=== PATIENT | male | born 1940 | race Caucasian/White ===

== ENCOUNTER 2017-09-03 14:14 | Day surgery (SDC) | payer MEDICARE ==
[~2017-09-03 14:14] MED LIST: LACTATED RINGERS 1,000 ML IV SCH; SODIUM CHLORIDE 0.9% 1,000 ML IV SCH; ceFAZolin 1,000 MG in SODIUM CHLORIDE 0.9% IRRIGATIO 250 ML IRRIGATION ONE; ceFAZolin 2 GM in SODIUM CHLORIDE 0.9% 100 ML IVPB ONE
[2017-09-03 14:57] LABS: Glucose,Whole Blood 110 mg/dL (75-99)
[2017-09-03] MEDS ORDERED: LIDOCAINE 2% INJ 20 MG/ML SQ ONE (15:50)
[2017-09-03] MEDS ORDERED: IOHEXOL 350 MG/ML 50ML BOTTLE INJ ONE (16:14)
[2017-09-03] MEDS ORDERED: ceFAZolin 1,000 MG in DEXTROSE/WATER 1 50ML.BAG IVPB STA (17:12)
[2017-09-03] MEDS ORDERED: LIDOCAINE 1% INJ 10MG/ML (20 ML MDV) SQ ONE ×2 (17:53→18:21)
--- NOTE | 2017-09-03 18:17 | CE ---
CARDIAC ELECTROPHYSIOLOGY REPORT Mr. Davis is a 77-year-old, male patient with ischemic cardiomyopathy, with symptomatic severe bradycardia necessitating discontinuation of beta blockers despite the fact that he has moderate LV dysfunction, ejection fraction of about 42%. He has frequent PVCs and nonsustained ventricular tachycardia and therefore he was brought in for diagnostic EP study before making a decision on device therapy (permanent pacemaker versus ICD implant). DESCRIPTION OF PROCEDURE: Patient was brought to the EP lab in a fasting state. Written informed consent was obtained prior to the procedure. Right groin was prepped and draped as per protocol and three venous sheaths were placed in the right femoral vein. Via these, three diagnostic catheters were positioned in the right heart (High right atrial catheter, HIS bundle catheter, RV catheter. The RV catheter was first positioned in the RV apex and later in the RV OT. The patient was in sinus rhythm at the start of the study. Later on, during ventricular pacing with VA conduction, he went into atrial fibrillation and remained in atrial fibrillation later necessitating electrical cardioversion. Sinus cycle length at the start of this study was 1330, GA interval 144 milliseconds, QRS 185 milliseconds, right bundle branch block pattern QT interval 468 milliseconds. AH interval 71 milliseconds, HV interval 56 milliseconds. Sinus node recovery times were mildly prolonged at the start of the study. AV node Wenckebach block 360 milliseconds, VA Wenckebach block 360 milliseconds, ventricular extra stimulation was performed after triple extra stimuli from the RV apex at [address] trains. Burst stimulation was performed from 400 milliseconds out of 200 milliseconds. Long-short sequence up to triple extra stimuli were performed. No ventricular tachycardia was induced. This was repeated again from the RV septum (2nd RV side) and up to triple extrastimuli, at two different drive trains as well as the long-short sequences and also with burst stimulation but no VT was induced. Isuprel was started and his atrial fibrillation organized into a septal atrial tachycardia with a cycle length of 260 ms, burst stimulation was performed on Isuprel for 400 milliseconds down to 180 milliseconds. No ventricular tachycardia was induced. All catheters were then removed and the preparation was made for an implantation of a dual-chamber pacemaker for management of symptomatic sick sinus syndrome with underlying moderate ischemic cardiomyopathy ejection fraction 42% and noninducible into ventricular tachycardia at EP study. He has known coronary artery disease remote anterior wall myocardial infarction status post coronary stenting at [facility] many years back. PLAN: Dual chamber pacemaker implantation. MMODL / IJN: [id number] /
[2017-09-03] MEDS ORDERED: ACETAMINOPHEN IV (For NPO) 1,000 MG in EMPTY BAG 1 BAG IVPB ONE (19:06)
[2017-09-03] MEDS ORDERED: ACETAMINOPHEN TAB 325 MG TAB PO PRN (19:06)
[2017-09-03 19:53] VITALS: BMI 39.2
[2017-09-03] MEDS: HYDROcodone/APAP 5-325MG 1 EACH TAB PO PRN ×2 (20:21→23:28)
[2017-09-03] MEDS: METOPROLOL SUCCINATE (ER) 50 MG TAB.ER.24H PO SCH (20:22)
--- NOTE | 2017-09-03 20:26 | PCN ---
PROCEDURE NOTE HISTORY: 77-year-old, male patient, who underwent a diagnostic EP study for risk recertification for sudden cardiac . His left ventricular ejection fraction was between 40-45%. Approximately 42% by last stress testing. He has chronic ischemic cardiomyopathy with chronic systolic dysfunction, known underlying coronary artery disease, right bundle branch block and left anterior fascicular block and a dilated left ventricle. He also has elevated intracardiac pressure that later. He underwent dual chamber pacemaker implantation after he was noninducible for ventricular tachycardia EP study. However atrial fibrillation was induced with a right ventricular pacing and was sustained requiring electrical cardioversion. DESCRIPTION OF PROCEDURE: The left pectoral area was prepped and draped as per protocol. 1% lidocaine was used for local anesthesia. A 4 cm incision was made parallel to the deltopectoral groove, about 1.5 cm medial to it. The incision was carried down to the level of the pectoralis muscle. A subfascial pocket was made. Hemostasis was assured. The left axillary vein was accessed at 2 separate points under fluoroscopy and via appropriately- sized introducer sheaths two leads were positioned in the right heart. The atrial lead was a 52 cm tendril STS tendril STS model #2088TC, 52 cm length and serial number [id number]. The sleeve was screwed in right atrial appendage. P waves were 4.6 mV. Pacing impedance 579 ohms, pacing threshold 0.4 V at 0.5 milliseconds. 10 V test negative. The right ventricle was enlarged with elevated pressures and a [employer] model #7122, 65 cm length and serial number [id number] had to be implanted in the RV apex for stability and length issues. R-waves 5.7 mV, pacing impedance 725 ohms, pacing threshold 0.6 V at 0.5 milliseconds. 10 V test negative. Both leads secured to the underlying pectoralis fascia using 2 nonabsorbable sutures. Pocket was irrigated with antibiotic solution. Leads were connected to the generator ([employer] MRI [id number], serial #[id number]. The leads and the generator were then placed in the subfascial pocket. The wound was closed in 3 layers and dressed per protocol. RESULTS: Successful dual-chamber pacemaker implantation after the EP study, revealed non inducibility of ventricular tachycardia and very easily inducible atrial fibrillation with a RVR. PLAN: 1. Resume beta mercedes. Start metoprolol succinate 50 mg p.o. daily and maximize. 2. Start spironolactone 25 mg p.o. daily. 3. Continue fosinopril. 4. Continue simvastatin and aspirin. 5. Watch for episodes of clinical atrial fibrillation. The device was then programmed to DDDR 50 to 130 ppm with VIP port turned on. KAREL / SHERITAN: [id number] /
[2017-09-03] MEDS: INSULIN NPH/REG INSULIN 70/30 300 UNIT/3 ML VIAL SQ SCH (20:35)
[2017-09-03 20:46] LABS: Glucose,Whole Blood 105 mg/dL (75-99)
[2017-09-03] MEDS ORDERED: ATORVASTATIN 20 MG TAB PO SCH (21:00)
[2017-09-03] MEDS ORDERED: ALPRAZolam 0.5 MG TAB PO SCH (21:00)
[2017-09-03] MEDS: ceFAZolin 2 GM in SODIUM CHLORIDE 0.9% 100 ML IVPB SCH (23:26)
[2017-09-04] MEDS: HYDROcodone/APAP 5-325MG 1 EACH TAB PO PRN ×4 (03:58→16:37)
[2017-09-04 04:01] LABS: Glucose,Whole Blood 190 mg/dL (75-99)
[2017-09-04] MEDS: ceFAZolin 2 GM in SODIUM CHLORIDE 0.9% 100 ML IVPB SCH ×3 (05:20→16:51)
[2017-09-04 06:54] LABS: Glucose,Whole Blood 128 mg/dL (75-99)
[2017-09-04] MEDS: SYMBICORT 160-4.5 MCG INHALER INHALATION SCH ×2 (06:59→07:00)
--- NOTE | 2017-09-04 07:22 | XR ---
EXAMINATION TYPE: XR chest 2V DATE OF EXAM: 09/04/2017 COMPARISON: NONE HISTORY: Post pacemaker TECHNIQUE: Frontal and lateral views of the chest are obtained. FINDINGS: The heart is enlarged. Dual lead left-sided cardiac device contains an atrial lead and tariq tricular lead. Appropriately placed. No postprocedural pneumothorax is identified. Bibasilar subsegmental atelectasi s is present with mild left hemidiaphragm elevation is resultant volume loss. No pulmonary vascular c ongestion is seen. No focal consolidation is noted. IMPRESSION: 1. Newly placed dual lead left-sided cardiac device with no postprocedural pneumothorax. 2. Bibasilar subsegmental atelectasis.
[2017-09-04] MEDS: INSULIN NPH/REG INSULIN 70/30 300 UNIT/3 ML VIAL SQ SCH ×2 (07:57→17:35)
[2017-09-04] MEDS: METOPROLOL SUCCINATE (ER) 50 MG TAB.ER.24H PO SCH (08:02)
[2017-09-04 08:18] VITALS: RESP 18; TEMP 98.1
[2017-09-04] MEDS ORDERED: ASPIRIN 81 MG PO SCH (09:00)
[2017-09-04] MEDS ORDERED: SPIRONOLACTONE 25 MG TAB PO SCH (09:00)
[2017-09-04] MEDS ORDERED: LISINOPRIL 20 MG TAB PO SCH (09:00)
[2017-09-04 12:12] LABS: Glucose,Whole Blood 162 mg/dL (75-99)
--- NOTE | 2017-09-04 13:03 | P.DS ---
Providers Attending physician: Isai Grajeda Primary care physician: John Vegas Patient Condition at Discharge: Stable Plan - Discharge Summary New Discharge Prescriptions: New Metoprolol Succinate (ER) [Toprol XL] 50 mg PO DAILY #1 tab Spironolactone [Carospir] 25 mg PO DAILY #1 ml No Action metFORMIN HCL 1,000 mg PO BID Simvastatin [Zocor] 40 mg PO HS Insulin NPH Hum/Reg Insulin Hm [NovoLIN 70-30 100 UNIT/ML VIAL] 20 unit SQ BID HYDROcodone/APAP 10-325MG [[place] 10-325] 1 tab PO Q6H PRN PRN Reason: Pain Budesonide/Formoterol Fumarate [Symbicort 160-4.5 Mcg Inhaler] 2 puff INHALATION BID ALPRAZolam [ALPRAZolam XR] 1 mg PO HS Fosinopril Sodium [Monopril] 20 mg PO DAILY Aspirin [Adult Low Dose Aspirin EC] 81 mg PO QAM Discharge Medication List ALPRAZolam [ALPRAZolam XR] 1 mg PO HS 03/12/16 [History] Budesonide/Formoterol Fumarate [Symbicort 160-4.5 Mcg Inhaler] 2 puff INHALATION BID 03/12/16 [History] HYDROcodone/APAP 10-325MG [[place] 10-325] 1 tab PO Q6H PRN 03/12/16 [History] Insulin NPH Hum/Reg Insulin Hm [NovoLIN 70-30 100 UNIT/ML VIAL] 20 unit SQ BID 03/12/16 [History] Simvastatin [Zocor] 40 mg PO HS 03/12/16 [History] metFORMIN HCL 1,000 mg PO BID 03/12/16 [History] Aspirin [Adult Low Dose Aspirin EC] 81 mg PO QAM 08/28/17 [History] Fosinopril Sodium [Monopril] 20 mg PO DAILY 08/28/17 [History] Metoprolol Succinate (ER) [Toprol XL] 50 mg PO DAILY #1 tab 09/03/17 [Rx] Spironolactone [Carospir] 25 mg PO DAILY #1 ml 09/03/17 [Rx] Follow up Appointment(s)/Referral(s): Elvin Sanchez MD [STAFF PHYSICIAN] - 1 Week (Appointment is for September 13 at 9am) Activity/Diet/Wound Care/Special Instructions: PATIENT EDUCATION MATERIAL Instructions following a heart rhythm device implant. 1. Keep dressing DRY for ONE week. You may cover the area with Saran or Cling Wrap, prior to a shower. 2. The dressing will be removed after one week in the Device Clinic @ [facility]. Absorbable sutures were used to close the wound. 3. Avoid raising the [left] arm above the shoulder level. [6 week restriction] 4. Avoid arm movements, like backscratching, rubbing the head, or pulling on a cord. (6 weeks restriction) 5. Gentle range of motion movements of the shoulder, closest to the incision should be performed to avoid a frozen shoulder. (Pendulum exercises of the shoulder) 6. The opposite arm may be used freely. 7. Avoid driving for 7 days. 8. Avoid activities such as golfing, swimming, weed whacking, lifting more than 10 pounds weight, bowling, gymnastics and weight training/lifting. (6 weeks restriction) 9. Activities such as wood chopping with an axe, pull-ups in the gymnasium, power lifting, arc-welding, being close to home induction cooktops will always be a problem. In case of any problems, please call [facility], [place], @ [phone], Attention: Device Clinic New medication is metoprolol succinate 50 mg by mouth daily in the morning Discharge Disposition: HOME SELF-CARE
[2017-09-04 16:23] VITALS: BP 143/67; PULSE 53
[2017-09-04 17:08] LABS: Glucose,Whole Blood 98 mg/dL (75-99)
[2017-09-06] MEDS ORDERED: NON-FORMULARY DRUG (Metformin Hcl [Metformin Hcl] 1,000 MG) PO SCH (07:30)
== END 2017-09-04 18:15 | disposition home or self-care (01) ==
LOC: CATHEP 14:14 → 3OBS 18:51 → CATHEP 09-04 18:15
PROVIDERS: ATTEND Internal Medicine Clinical Cardiac Electrophysiology
DX: I49.5 Sick sinus syndrome (principal); I45.10 Unspecified right bundle-branch block; I44.4 Left anterior fascicular block; I47.2 Ventricular tachycardia; I97.790 Other intraoperative cardiac functional disturbances during cardiac surgery; I48.91 Unspecified atrial fibrillation; I25.10 Atherosclerotic heart disease of native coronary artery without angina pectoris; I11.0 Hypertensive heart disease with heart failure; I50.22 Chronic systolic (congestive) heart failure; F17.210 Nicotine dependence, cigarettes, uncomplicated; F17.290 Nicotine dependence, other tobacco product, uncomplicated; Z95.5 Presence of coronary angioplasty implant and graft; E11.9 Type 2 diabetes mellitus without complications; Z79.4 Long term (current) use of insulin; J45.909 Unspecified asthma, uncomplicated; G47.33 Obstructive sleep apnea (adult) (pediatric); Z99.89 Dependence on other enabling machines and devices; I25.2 Old myocardial infarction; Z79.82 Long term (current) use of aspirin; Z79.1 Long term (current) use of non-steroidal anti-inflammatories (NSAID); Z79.51 Long term (current) use of inhaled steroids; Z79.899 Other long term (current) drug therapy
CPT/HCPCS: 94640; 92960; 93623; 93620; 33208; 71020; C1894; C1769 ×3; C1892 ×2; C1898; C1777; C1785; J2001 ×2; J0690 ×4; J0131; Q9967

== ENCOUNTER → 2018-12-12 | Outpatient (CLI) | payer MEDICARE ==
--- NOTE | 2018-12-12 13:45 | CTL ---
EXAMINATION TYPE: CT Low Dose Lung DATE OF EXAM ORDERED: 12/12/2018 HISTORY: Personal history of tobacco abuse. Lung cancer screening. Patient also complains of left-dami ed rib pain. CT DLP: [address] CTDI: 3.45 mGy Automated exposure control for dose reduction was used. SCREENING VISIT: Initial COMPARISON: Two-view chest radiograph dated 09/04/2017 TECHNIQUE: Low dose computed tomography scan was performed through the chest at 1 mm thick sections a nd reconstructed images in the coronal plane at [address] DIAGNOSTIC QUALITY: Limited, but interpretable FINDINGS: LUNG NODULES: None. LUNGS: COPD: Severity: Mild Fibrosis: Severity: None Lymph nodes: Nonenlarged Other findings: Right perihilar fullness the ends on series 7 image 61 extending to image 97. This sh ould be further evaluated with CT with contrast of the chest. Lingular and left basilar atelectasis a re seen. 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 OTHER FINDINGS: Upper abdomen: Extremely limited and nearly nondiagnostic. Bony thorax: Moderate multilevel degenerative change. Supraclavicular region: No suspicious adenopathy. Other: Left-sided cardiac device is noted. IMPRESSION: Nearly nondiagnostic exam secondary to patient body habitus. There is prominence of the r ight suprahilar, well-defined on the current examination. Repeat CT thorax with contrast is recommend ed for further evaluation to exclude peribronchial mass or soft tissue nodule. FOLLOW UP CT CHEST RECOMMENDATION: Repeat CT thorax with contrast is recommended for further evaluati on to exclude peribronchial mass or soft tissue nodule. CT LUNG RAD: Lung-Rad 1 Negative at this time
== END | disposition home or self-care (01) ==
LOC: RADCTMAIN 12:42
PROVIDERS: ATTEND Family Medicine
DX: Z12.2 Encounter for screening for malignant neoplasm of respiratory organs (principal); Z87.891 Personal history of nicotine dependence

== ENCOUNTER → 2019-01-22 | Outpatient (CLI) | payer MEDICARE ==
--- NOTE | 2019-01-22 15:50 | CT ---
EXAMINATION TYPE: CT chest w con DATE OF EXAM: 01/22/2019 COMPARISON: Low dose lung screening CT December 12, 2018 HISTORY: right sided discomfort CT DLP: 905.9 mGycm. Automated Exposure Control for Dose Reduction was Utilized. TECHNIQUE: CT scan of the thorax is performed following with IV Contrast, patient injected with 100 mL of Isovue 300. FINDINGS: LUNGS: There is redemonstration of irregular masslike consolidation right superhilar level measuring 3.2 x 2.6 cm axial image 18 by roughly nearly 5 cm craniocaudal dimension coronal image 61. There is mild peribronchial wall thickening in central bronchi bilaterally including adjacent right upper lung bronchi. Elevated left hemidiaphragm is redemonstrated with left basilar linear scarring and/or atel ectasis. There is patchy atelectasis and/or infiltrate lateral right lung base. Some motion artifact degradation axial image 17 for reference is seen on current study. No pleural effusion is present. MEDIASTINUM: There are no definitive greater than 1 cm hilar or mediastinal lymph nodes. No pericar dial effusion is seen. Cardiomegaly is redemonstrated with dual lead pacemaker/AICD. There is modera te to severe 3 vessel coronary artery calcification and/or suspected stent in the RCA distribution. E nlarged main pulmonary artery at 3.2 cm the bifurcation axial image 27 redemonstrated. Adjacent ascen ding aorta measures up to 3.9 cm in diameter same image. OTHER: Liver is low dense consistent with fatty infiltration. There is moderate to severe multilevel spurring in the visualized spine. Patchy left-sided retroareolar gynecomastia is noted. IMPRESSION: Persistent suspicious masslike consolidation right suprahilar level medially, given persi stence neoplasm cannot be excluded. Further investigation with PET CT or bronchoscopy for sampling is advised.
== END ==
LOC: RADCTMAIN 13:23
PROVIDERS: ATTEND Internal Medicine
DX: R91.8 Other nonspecific abnormal finding of lung field (principal)
CPT/HCPCS: 82565; 84520; 71260; 36415; Q9967

== ENCOUNTER → 2019-02-01 | Outpatient (CLI) | payer MEDICARE ==
--- NOTE | 2019-02-03 06:29 | PE ---
EXAMINATION TYPE: PET CT fusion skull to thigh DATE OF EXAM: 02/01/2019 COMPARISON: Chest CT January 22, 2019. HISTORY: Solitary pulmonary nodule . Hilar mass, recent abnormal CT. TECHNIQUE: Following the intravenous administration of 12.28 mCi of F-18 FDG, whole body images are performed from the skull base to the midthigh. Images are reviewed on the computer in the coronal, a xial, and sagittal planes. Reconstructed rotating images are created on independent workstation and reviewed on the computer. A noncontrast CT is performed in conjunction with the PET scan. SCAN: Initial Scan FINDINGS: SKULL BASE AND NECK: No suspicious hypermetabolic uptake is present. CHEST, MEDIASTINUM, AND HILAR REGION: Corresponding to recent low dose lung screening CT and chest CT there is persistent area of masslike consolidation medial right suprahilar level with focus of hyper metabolic uptake centrally, degree of masslike consolidation measures approximately 3.8 x 2.1 cm wher e area of hypermetabolic uptake only measures roughly 1.2 cm and is round in size, max SUV is 8.88 on axial image 76. Suspect neoplasm with adjacent surrounding atelectasis. No additional areas of suspicious hypermetabolic uptake are present. ABDOMEN AND PELVIS: No areas of suspicious hypermetabolic uptake are seen. OSSEOUS STRUCTURES: No areas of abnormal hypermetabolic uptake are identified. OTHER CT: Moderate to severe calcified plaque bilateral carotid bulb level is present. There is moderate to severe 3 vessel coronary artery calcification and/or stents, correlate clinicall y. There is cardiomegaly with multi lead pacemaker redemonstrated There is background of chronic emphysematous change with left greater than right bibasilar linear sca rring and/or atelectasis. There is enlarged prostate gland bulging on bladder base, underlying BPH is felt present. There is moderate calcified plaque of the aorta extending into branch vessels. There is multilevel spurring in the thoracolumbar spine. Facet arthropathy lower lumbar levels is see n. IMPRESSION: Right suprahilar mass shows round area of hypermetabolic uptake, suspect neoplasm with ad jacent atelectatic change. Advise bronchoscopy for tissue confirmation. No metastatic disease or susp icious thoracic adenopathy is noted.
== END ==
LOC: RADPETMAIN 11:46
PROVIDERS: ATTEND Internal Medicine
DX: R91.8 Other nonspecific abnormal finding of lung field (principal)
CPT/HCPCS: 78815; A9552

== ENCOUNTER 2019-02-13 08:50 | Day surgery (SDC) | payer MEDICARE ==
[2019-02-07 11:17] VITALS: BMI 41.5
[~2019-02-13 08:50] MED LIST changes: +ALBUTEROL NEB (CONC) 2.5 MG/0.5 ML INHALATION ONE; +ATROPINE SULFATE 0.4 MG/ML 1 ML VIAL IM ONE; +DEXAMETHASONE SOD PHOSPHATE 10 MG/ML 1 ML VIAL IV ONE; +HYDROmorphone 0.5 MG/0.5 ML SYRINGE IVP PRN; +LIDOCAINE 1% 20 ML VIAL (10MG/ML) FOR IV START INTRADERMA PRN; +LIDOCAINE 2% (PF) 20 MG/ML 5 ML VIAL INHALATION ONE; +LIDOCAINE VISCOUS 300 MG/15 ML CUP MUCOUS MEM ONE; +MIDAZOLAM (PF) 2 MG/2 ML VIAL IV PRN; +ONDANSETRON 4 MG/2 ML VIAL IVP ONE; +SCOPOLAMINE 1.5MG/72HR PATCH TRANSDERM ONE; -ceFAZolin 1,000 MG in SODIUM CHLORIDE 0.9% IRRIGATIO 250 ML IRRIGATION ONE; -ceFAZolin 2 GM in SODIUM CHLORIDE 0.9% 100 ML IVPB ONE
[2019-02-13 09:42] LABS: Glucose,Whole Blood 161 mg/dL (75-99)
[2019-02-13] MEDS ORDERED: NEOSTIGMINE 1 MG/ML 10 ML VIAL ONE (11:15)
[2019-02-13] MEDS ORDERED: SUCCINYLCHOLINE CHLORIDE 100 MG/5 ML SYR IV ONE (11:15)
[2019-02-13] MEDS ORDERED: LIDOCAINE 1% INJ 10MG/ML (20 ML MDV) ONE (11:15)
[2019-02-13] MEDS ORDERED: MIDAZOLAM 2 MG/2 ML VIAL ONE (11:15)
[2019-02-13] MEDS ORDERED: VECURONIUM 10 MG VIAL IV ONE (11:15)
[2019-02-13] MEDS ORDERED: ePHEDrine SULFATE/0.9% NACL/PF 50 MG/5 ML SYRINGE IV ONE (11:15)
[2019-02-13] MEDS ORDERED: fentaNYL (PF) 50 MCG/ML 2 ML AMP ONE (11:15)
[2019-02-13] MEDS ORDERED: GLYCOPYRROLATE 0.2 MG/ML 2 ML VIAL ONE (11:15)
[2019-02-13] MEDS ORDERED: PROPOFOL 10 MG/ML 20 ML VIAL IV ONE (11:15)
--- NOTE | 2019-02-13 11:17 | CT ---
EXAMINATION TYPE: CT Chest mil Esparza Protocol DATE OF EXAM: 02/13/2019 COMPARISON: 02/01/2019 HISTORY: Bronchial navigation procedure CT DLP: 935.9 mGycm Automated exposure control for dose reduction was used. FINDINGS: LUNGS: There is redemonstration of irregular masslike consolidation right superhilar level measuring 3.8 x 2.6 cm x 5cm. There is mild peribronchial wall thickening in central bronchi bilaterally includ ing adjacent right upper lung bronchi. Elevated left hemidiaphragm is redemonstrated with left basila r linear scarring and/or atelectasis. There is patchy atelectasis and/or infiltrate lateral right kendell g base. Subsegmental changes noted. There is a 2mm right upper lobe nodule. MEDIASTINUM: There are no definitive greater than 1 cm hilar or mediastinal lymph nodes. No pericardi al effusion is seen. Cardiomegaly is redemonstrated with dual lead pacemaker/AICD. There is moderate to severe 3 vessel coronary artery calcification and/or suspected stent in the RCA distribution. Enla rged main pulmonary artery at 3.2 cm the bifurcation . Adjacent ascending aorta measures up to 3.9 cm in diameter same image. OTHER: Liver is low dense consistent with fatty infiltration. There is moderate to severe multilevel spurring in the visualized spine. Patchy left- sided retroareolar gynecomastia is noted. IMPRESSION: PERSISTENT RIGHT SUPRAHILAR MASS
[2019-02-13] MEDS ORDERED: IV FLUID CONTINUATION 1,000 ML IV ONE (12:19)
--- NOTE | 2019-02-13 12:31 | PCN ---
PROCEDURE NOTE PROCEDURE: Electromagnetic navigational bronchoscopy. PREOPERATIVE DIAGNOSIS: Right paratracheal mass, rule out cancer. POSTOP DIAGNOSIS: Right paratracheal mass, rule out cancer. OPERATORS: Dr. Fisher and Dr. Wang. DESCRIPTION OF PROCEDURE: The patient was done under general anesthetic in the operating room. The patient did have mapping prior to the procedure. There was informed consent. There was universal timeout. After the patient was intubated and being mechanically ventilated and also receiving proper monitoring, the bronchoscope was inserted through the bronchoscope adapter connected to the endotracheal tube. Under navigational mapping, we sampled the right paratracheal lesion. We did transbronchial needle aspirations. We did multiple endobronchial biopsies. We also did brushes and washes. There was significant endobronchial disease as well. This is why we chose to do some additional sampling including the brushes, washes and the endobronchial biopsies. Everything was done in guidance. There was no immediate complications. There was minimal bleeding. The patient tolerated the procedure well and was stable throughout the entire procedure. There was no immediate complications. We did have Pathology standing by. They looked at the sampling of the needle biopsies, but could not make a formal diagnosis of malignancy. The rest of the sampling will go to the pathology lab. The patient will be recovered. I will speak to the patient's . MMODL / IJN: [id number] /
[2019-02-13 12:43] VITALS: TEMP 96.9
[2019-02-13 12:48] VITALS: RESP 16
[2019-02-13 13:06] LABS: Glucose,Whole Blood 185 mg/dL (75-99)
[2019-02-13 13:44] VITALS: BP 123/71; PULSE 64
[2019-02-13 15:22] LABS: Appearance,BF Cloudy; Color,BF Colorless
[2019-02-13 15:48] LABS: Nucleated Cells, Body Fluid 40 /uL; RBC, Body Fluid 1640 /uL
[2019-02-13 16:39] LABS: Mononuclear WBC,Body Fluid 82 %; Polynuclear WBC,Body Fluid 18 %; Total Cells Counted,Body Fluid 100
== END 2019-02-13 13:58 | disposition home or self-care (01) ==
LOC: ORWHC2ENDO 08:50
PROVIDERS: ATTEND Internal Medicine Critical Care Medicine
DX: R91.8 Other nonspecific abnormal finding of lung field (principal); I10 Essential (primary) hypertension; I25.10 Atherosclerotic heart disease of native coronary artery without angina pectoris; J44.9 Chronic obstructive pulmonary disease, unspecified; Z95.0 Presence of cardiac pacemaker; G47.33 Obstructive sleep apnea (adult) (pediatric); E55.9 Vitamin D deficiency, unspecified; Z99.89 Dependence on other enabling machines and devices; G89.29 Other chronic pain; M54.9 Dorsalgia, unspecified; E11.9 Type 2 diabetes mellitus without complications; E78.5 Hyperlipidemia, unspecified; Z82.49 Family history of ischemic heart disease and other diseases of the circulatory system; Z80.6 Family history of leukemia; Z83.3 Family history of diabetes mellitus; Z79.01 Long term (current) use of anticoagulants; Z79.82 Long term (current) use of aspirin; Z79.4 Long term (current) use of insulin; Z79.51 Long term (current) use of inhaled steroids; Z79.899 Other long term (current) drug therapy
CPT/HCPCS: 94640; 88104; 88108; 88305; 88173; 89050; 88342; 88341; 87070; 87205; 87077; 87186; 71250; 31629; 31625; 31623; 31627; J2250 ×2; J0461; J1100; J2710; J2405; J2001 ×2; J3010; J0330; J2704; 31624

== ENCOUNTER → 2019-02-26 | Outpatient (CLI) | payer MEDICARE | LOC: LABPAT 14:48 | PROVIDERS: ATTEND Family Medicine | DX: Z53.9 Procedure and treatment not carried out, unspecified reason (principal) ==

== ENCOUNTER 2019-03-06 05:46 | Inpatient (IN) | payer MEDICARE ==
[~2019-03-06 05:46] MED LIST changes: -ALBUTEROL NEB (CONC) 2.5 MG/0.5 ML INHALATION ONE; -ATROPINE SULFATE 0.4 MG/ML 1 ML VIAL IM ONE; -HYDROmorphone 0.5 MG/0.5 ML SYRINGE IVP PRN; -LACTATED RINGERS 1,000 ML IV SCH; -LIDOCAINE 2% (PF) 20 MG/ML 5 ML VIAL INHALATION ONE; -LIDOCAINE VISCOUS 300 MG/15 ML CUP MUCOUS MEM ONE; -MIDAZOLAM (PF) 2 MG/2 ML VIAL IV PRN; +MIDAZOLAM 2 MG/2 ML VIAL IV PRN; -ONDANSETRON 4 MG/2 ML VIAL IVP ONE; -SODIUM CHLORIDE 0.9% 1,000 ML IV SCH; +ceFAZolin IN SWFI 2 GM/20 ML SYRINGE IVP ONE; +fentaNYL (PF) 50 MCG/ML 2 ML AMP IV PRN
[2019-03-06 06:33] LABS: Glucose,Whole Blood 182 mg/dL (75-99)
[2019-03-06] MEDS: LACTATED RINGERS 1,000 ML IV SCH (06:33)
[2019-03-06] MEDS: ONDANSETRON 4 MG/2 ML VIAL IVP ONE ×2 (06:34→12:44)
[2019-03-06] MEDS ORDERED: ALBUTEROL NEBULIZED 2.5 MG/3 ML INHALATION STA (06:40)
[2019-03-06] MEDS ORDERED: ROCURONIUM BROMIDE 10 MG/ML 10 ML VIAL IV ONE (07:25)
[2019-03-06] MEDS ORDERED: SUCCINYLCHOLINE CHLORIDE VIAL 200 MG/10 ML VIAL IV ONE (07:25)
[2019-03-06] MEDS ORDERED: ceFAZolin 1,000 MG VIAL ONE (07:25)
[2019-03-06] MEDS ORDERED: PROPOFOL 10 MG/ML 20 ML VIAL IV ONE (07:25)
[2019-03-06] MEDS ORDERED: ESMOLOL 100 MG/10 ML VIAL ONE (07:25)
[2019-03-06] MEDS ORDERED: NEOSTIGMINE 1 MG/ML 10 ML VIAL ONE (07:25)
[2019-03-06] MEDS ORDERED: LIDOCAINE 1% INJ 10MG/ML (20 ML MDV) ONE (07:25)
[2019-03-06] MEDS ORDERED: MIDAZOLAM 2 MG/2 ML VIAL ONE (07:25)
[2019-03-06] MEDS ORDERED: ONDANSETRON 4 MG/2 ML VIAL ONE (07:25)
[2019-03-06] MEDS ORDERED: GLYCOPYRROLATE 0.2 MG/ML 2 ML VIAL ONE (07:25)
[2019-03-06] MEDS ORDERED: fentaNYL (PF) 50 MCG/ML 2 ML AMP ONE (07:25)
[2019-03-06] MEDS ORDERED: BUPIVACAINE (PF) 0.5% 30 ML VIAL SQ ONE ×2 (08:06→10:40)
[2019-03-06 11:16] LABS: Glucose,Whole Blood 265 mg/dL (75-99)
[2019-03-06] MEDS ORDERED: SODIUM CHLORIDE 0.9% 100 ML with ceFAZolin 2,000 MG IV ONE ×2 (11:45)
[2019-03-06 12:30] LABS: Glucose,Whole Blood 253 mg/dL (75-99)
[2019-03-06] MEDS: HYDROmorphone 0.5 MG/0.5 ML SYRINGE IVP PRN ×4 (12:43→13:29)
[2019-03-06] MEDS ORDERED: INSULIN ASPART (NovoLOG) 100 UNIT/ML VIAL SQ ONE (12:44)
--- NOTE | 2019-03-06 12:44 | P.OP ---
Date of Procedure: 03/06/19 Preoperative Diagnosis: Lung CA RUL Postoperative Diagnosis: Same Procedure(s) Performed: Robotic-assisted thoracoscopic right upper lobectomy with mediastinal lymph node dissection. Right thoracotomy with reresection of bronchial stump and suture closure. 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 Frozen section showed positive microscopic margin at the bronchial stump however re-resection margin was negative. Description of Procedure: The patient was brought to the operating room, placed supine on the operating table, anesthetized and intubated with a double-lumen endotracheal tube. Tube was positioned with fiberoptic bronchoscopy and secured. Patient was turned in the left lateral decubitus position and appropriately positioned for robotic lobectomy. The right chest was sterilely prepped and draped. Initial incision was made in the anterior axillary line in the eighth interspace and an 8 mm robotic port was placed thoracoscopy confirmed placement in the pleural space single lung ventilation was initiated and CO2 insufflation was begun. A 12 mm port was put 10 cm anterior to the initial port and a second one 10 cm posterior to the initial port a second 8 mm port was placed in the fourth interspace posteriorly at the level of the superior segment of the right lower lobe. A working port was placed between the 2 most anterior ports at the level of the diaphragm. The robot was docked. There were adhesions at the upper lobe and these were taken down with bipolar dissection. The inferior pulmonary ligament was mobilized and dissection was begun in the posterior mediastinum. R9 and R8 and level VII lymph nodes were resected. Dissection was carried up between the upper lobe bronchus and bronchus intermedius and R 11 lymph nodes were resected from here. We then moved anteriorly. The superior pulmonary vein was identified and the branches draining the upper lobe were identified. We encircled these and ligated and divided them with a single firing of her robotic vascular stapler. Dissection was now carried onto the pulmonary artery. Very small branch was controlled with the vessel sealer and then we were able to encircle the truncus anterior oh status. This was ligated and divided with a single firing of a robotic vascular stapler. Posterior segmental branch was identified and dissected out and ligated and divided with a single firing of a r obotic vascular stapler. We were now able to finish encircling the right upper lobe bronchus. Stapler was fired at the base of the right upper lobe bronchus. The majority of lymph nodes were resected en bloc with the specimen and some further R 11 lymph nodes were resected separately. We now completed the fissure with multiple firings of robotic medium stapler. Specimen was placed in an Endo Catch bag and retracted inferiorly. The R 10 and R4 lymph nodes were now dissected out. We now undocked the robot and enlarged the working port incision and remove the lobectomy specimen using an Endo Catch bag. This was sent for frozen section. Chest was irrigated with warm water and the bronchial stump was noted to be intact without any airleak. There was minimal air leak from the pulmonary parenchyma. Chest was suctioned free a 28-Vietnamese chest tube was placed posterior apically and secured with an 0 Ethibond suture. Incisions were then closed with layers of Vicryl suture. Prior to removing the drapes, frozen section returned positive with microscopic disease at the bronchial margin. Was decided to open the chest and re-resect the bronchial stump. Posterior lateral thoracotomy incision was performed and carried down through skin and subcutaneous tissue. The latissimus muscle was divided and the serratus muscle was mobilized anteriorly. Chest was entered in the fifth interspace in the intercostal muscles of the fifth interspace were undercut anteriorly and posteriorly to allow rib spreading. Rib senior it specialist was placed and the bronchial stump was examined. A scissors was used to cut off the bronchial stump. The bronchus specimen was marked with a suture and sent for repeat frozen section. The resulting hole in the mainstem bronchus was now closed with interrupted 4-0 Vicryl sutures. On completion of the closure, the frozen section returned negative. Cryoablation of the intercostal nerves was performed posteriorly at the level of the fourth fifth and sixth interspace. We now closed the ribs with #2 Vicryl after assuring good bronchial stump closure with no significant air leak. Muscle layers were closed with 0 Vicryl the subcutaneous tissue with 2-0 Vicryl and the skin with 3-0 Vicryl subcuticular stitch. Dry sterile dressings were applied the patient was transferred to recovery extubated in stable condition.
--- NOTE | 2019-03-06 12:56 | XR ---
EXAMINATION TYPE: XR chest 1V portable DATE OF EXAM: 03/06/2019 COMPARISON: 09/04/2017 HISTORY: Postthoracotomy TECHNIQUE: Single frontal view of the chest is obtained. FINDINGS: There is a right-sided chest tube with soft tissue emphysema. The heart is enlarged. There is a cardiac device. Approximately 5% right apical pneumothorax noted. Pleural based thickening is n oted. There is basilar subsegmental consolidation. IMPRESSION: Bilateral lower lobe subsegmental consolidation likely in the basis of postoperative ate lectasis. Apical right pneumothorax measuring 5%.
[2019-03-06] MEDS ORDERED: IPRATROPIUM-ALBUTEROL 3 ML NEB IH PRN (13:37)
[2019-03-06] MEDS ORDERED: DEXTROSE 5%-0.45% NACL 1,000 ML IV SCH (13:37)
[2019-03-06] MEDS ORDERED: ONDANSETRON 4 MG/2 ML VIAL IVP PRN (13:37)
[2019-03-06] MEDS ORDERED: traMADol 50 MG TAB PO SCH (13:37)
[2019-03-06] MEDS ORDERED: METOCLOPRAMIDE 5 MG/ML 2 ML VIAL IVP PRN (13:37)
[2019-03-06] MEDS ORDERED: VARENICLINE 0.5 MG TAB PO SCH (13:37)
--- NOTE | 2019-03-06 15:25 | P.CNPUL ---
History of Present Illness Consult date: 03/06/19 Requesting physician: Tomy Cochran Reason for consult: COPD, lung mass Chief complaint: status post right upper lobectomy History of present illness: this is a 78-year-old white male with history of multiple medical problems including insulin-dependent diabetes, chronic atrial fibrillation, coronary artery disease and previous stenting, hypercholesterolemia, degenerative joint disease with previous bilateral knee replacement, history of left rotator cuff surgery, permanent pacemaker implantation and stenting of LAD in 1998. Patient is also known to have history of COPD FEV1 is in the range of 50%, 1.31 L, patient was recently evaluated by me for a right hilar mass, patient underwent a PET scan and showed uptake within the right suprahilar mass and no other abnormality was noted. 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 Patient was referred to Dr. Cochran, and he underwent right upper lobectomy with rima dissection today, postoperatively he was transferred to the cardiac floor, and I was asked to see him on consultation. Patient seems to be doing fairly well, complaining mostly of right sided chest pain at the surgical site, has a right sided chest tube in place with minimal air leak noted. Chest x-ray showed postoperative changes and no other significant findings otherwise. Review of Systems CONSTITUTIONAL: Denies any recent significant weight loss or weight gain. EYES: Denies change in vision. EARS, NOSE, MOUTH, THROAT: Denies headaches, denies sore throat. CARDIOVASCULAR:as noted in HPI, RESPIRATORY: minimal shortness of breath, no cough, no wheezing, no fever, no chills, no hemoptysis.right-sided chest pain at the surgical site. GASTROINTESTINAL: Denies change in appetite, denies abdominal pain GENITOURINARY: Denies hematuria, denies infections. MUSKULOSKELETAL: Denies pain, denies swelling. INTEGUMENTARY: Denies rash, denies eczema. NEUROLOGICAL: Denies recent memory loss, no recent seizure activity. PSYCHIATRIC: Denies anxiety, denies depression. HEMATOLOGIC/LYMPHATIC: Denies anemia, denies enlarged lymph nodes. Past Medical History Past Medical History: Atrial Fibrillation, Asthma, Cancer, COPD, Diabetes Mellitus, Hyperlipidemia, Hypertension, Myocardial Infarction (MT), Osteoarthritis (OA), Sleep Apnea/CPAP/BIPAP Additional Past Medical History / Comment(s): hx lyme disease-1999, lung cancer, neuropathy ngoc feet, current lung infection-on rx, 'possible fx 12th rib" Last Myocardial Infarction Date:: 1998 History of Any Multi-Drug Resistant Organisms: None Reported Past Surgical History: Heart Catheterization With Stent, Joint Replacement, Orthopedic Surgery, Pacemaker Additional Past Surgical History / Comment(s): ngoc knee arthroscopy, ngoc knee replacements, rotator cuff left shoulder, one cardiac stent, ,ngoc cataract surgery with lens implants, bronchoscopy with biopsy Past Anesthesia/Blood Transfusion Reactions: No Reported Reaction Date of Last Stent Placement:: 1998 Type of Cardiac Device: Permanent Pacemaker Device Placement Date:: 09/03/17 St Max model [id number] Smoking Status: Former smoker - Past Family History Father Family Medical History: Cancer Additional Family Medical History / Comment(s): leukemia Mother Family Medical History: CVA/TIA Medications and Allergies Home Medications Medication Instructions Recorded Confirmed Type ALPRAZolam [ALPRAZolam XR] 1 mg PO HS 03/12/16 03/06/19 History HYDROcodone/APAP 10-325MG [[place] 1 tab PO HS 03/12/16 03/06/19 History 10-325] Insulin NPH Hum/Reg Insulin Hm 20 unit SQ BID 03/12/16 03/06/19 History [NovoLIN 70-30 100 UNIT/ML VIAL] Simvastatin [Zocor] 40 mg PO HS 03/12/16 03/06/19 History metFORMIN HCL 1,000 mg PO BID 03/12/16 03/06/19 History Aspirin [Adult Low Dose Aspirin EC] 81 mg PO QAM 08/28/17 03/06/19 History Fosinopril Sodium [Monopril] 20 mg PO DAILY 08/28/17 03/06/19 History Apixaban [Eliquis] 5 mg PO BID 02/07/19 03/06/19 History Budesonide/Formoterol Fumarate 1 puff INHALATION RT-BID 02/07/19 03/06/19 History [Symbicort 80-4.5 Mcg Inhaler] Cholecalciferol [Vitamin D3] 1,000 unit PO DAILY 02/07/19 03/06/19 History Ibuprofen [Motrin] 800 mg PO DAILY PRN 02/07/19 03/06/19 History Metoprolol Succinate (ER) [Toprol 50 mg PO HS 02/07/19 03/06/19 History XL] Varenicline Tartrate [Chantix 0.5 mg PO DIRECTED 02/07/19 03/06/19 History Starter Pack] Magnesium Oxide [Mag-Ox] 250 mg PO DAILY 02/24/19 03/06/19 History Spironolactone [Aldactone] 25 mg PO DAILY 02/24/19 03/06/19 History Allergies Allergy/AdvReac Type Severity Reaction Status Date / Time No Known Allergies Allergy Verified 03/06/19 14:15 Physical Exam Vitals: Vital Signs Temp Pulse Pulse Resp BP Pulse Ox 03/06/19 14:00 97.5 F L 68 16 134/65 97 03/06/19 13:15 66 16 132/62 92 L 03/06/19 13:03 65 16 129/65 98 03/06/19 12:46 65 16 125/62 99 03/06/19 12:32 68 14 124/62 98 03/06/19 12:17 97.4 F L 71 19 116/82 100 03/06/19 07:08 76 03/06/19 07:01 72 03/06/19 06:17 97.7 F 75 16 167/72 94 L Intake and Output 03/06/19 03/06/19 03/06/19 06:59 14:59 22:59 Intake Total 200 1300 Output Total 740 Balance 200 560 Intake: IV 200 1300 Output: Urine 340 Estimated Blood Loss 400 Other: Voiding Method Indwelling Catheter Physical Exam: Revealed 78-year-old white male in no distress. Head: Atraumatic, normocephalic, HEENT:[Neck is supple.] [No neck masses.] [No thyromegaly.] [No JVD.] Chest: [diminished breath sound bilaterally no crackles or rhonchi or wheezes, right-sided chest tube was noted. Pleural VAC showing minimal air leak.] Cardiac Exam: [Normal S1 and S2, no S3 gallop, no murmur.] Abdomen: [obese,Soft, nontender, no megaly, no rebound, no guarding, normal bowel sounds.] Extremities: [No clubbing, no edema, no cyanosis.] Neurological Exam: [No focal neurologic deficit.alert oriented 3. Psychiatric: Normal mood, affect and mental status examination. Lymphatics: No lymphadenopathy. 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 2moderate severe COPD FEV1 is in the range of 50%. 3 obstructive sleep apnea syndrome 4 coronary arteriosclerosis and previous stent placement. 5 benign essential hypertension 6 pacemaker in situ 7 history of vitamin D deficiency 8 type 2 diabetes 9 chronic atrial fibrillation. Recommendation: Continue present treatment plan including bronchodilators, resume cardiac meds, incentive spirometry, blood pressure medications to be resumed, GI and DVT prophylaxis, early ambulation, and we will continue to foll ow. Discussed his condition with him and his family at bedside. Time with Patient: Greater than 30
[2019-03-06] MEDS ORDERED: MORPHINE SULFATE 2 MG/ML SYRINGE IVP STA (15:27)
[2019-03-06] MEDS ORDERED: traMADol 50 MG TAB PO PRN (15:27)
[2019-03-06] MEDS: ceFAZolin 3 GM in SODIUM CHLORIDE 0.9% 100 ML IVPB SCH ×2 (15:31→23:14)
[2019-03-06] MEDS: HEPARIN SODIUM,PORCINE 5,000 UNIT/ML 1 ML VIAL SQ SCH ×2 (15:33→23:11)
[2019-03-06] MEDS: IPRATROPIUM-ALBUTEROL 3 ML NEB IH SCH ×2 (15:58→20:50)
[2019-03-06 17:01] LABS: Glucose,Whole Blood 226 mg/dL (75-99)
[2019-03-06] MEDS: KETOROLAC 30 MG/ML 1 ML VIAL IVP SCH ×2 (17:02→23:12)
[2019-03-06] MEDS: INSULIN ASPART (NovoLOG) 100 UNIT/ML VIAL SQ SCH ×2 (17:31→22:03)
[2019-03-06] MEDS: traMADol 50 MG TAB PO PRN (18:39)
[2019-03-06] MEDS: INSULN ASP PRT/INSULIN ASPART 100 UNIT/ML 10 ML VIAL SQ SCH (19:28)
[2019-03-06] MEDS ORDERED: INSULN ASP PRT/INSULIN ASPART 100 UNIT/ML 10 ML VIAL SQ ONE (19:31)
[2019-03-06 19:41] LABS: Glucose,Whole Blood 254 mg/dL (75-99)
[2019-03-06 20:44] LABS: Glucose,Whole Blood 219 mg/dL (75-99)
[2019-03-06] MEDS: SYMBICORT 80-4.5 MCG INHALER INHALATION SCH (20:50)
[2019-03-06] MEDS: VARENICLINE 0.5 MG TAB PO SCH (21:07)
[2019-03-06] MEDS: ALPRAZolam 0.25 MG TAB PO SCH (21:07)
[2019-03-06] MEDS: METOPROLOL SUCCINATE (ER) 50 MG TAB.ER.24H PO SCH (21:07)
[2019-03-06] MEDS: ATORVASTATIN 20 MG TAB PO SCH (21:09)
[2019-03-06 21:37] LABS: Glucose,Whole Blood 205 mg/dL (75-99)
[2019-03-06] MEDS: metFORMIN 500 MG TAB PO SCH (22:37)
[2019-03-06 22:42] LABS: Glucose,Whole Blood 190 mg/dL (75-99)
[2019-03-06 23:42] LABS: Glucose,Whole Blood 189 mg/dL (75-99)
[2019-03-07] MEDS: traMADol 50 MG TAB PO PRN ×4 (02:33→20:39)
[2019-03-07 05:52] LABS: Glucose,Whole Blood 203 mg/dL (75-99)
[2019-03-07] MEDS: KETOROLAC 30 MG/ML 1 ML VIAL IVP SCH ×4 (06:43→23:38)
[2019-03-07] MEDS: PANTOPRAZOLE 40 MG TABLET PO SCH (06:58)
[2019-03-07] MEDS: INSULIN ASPART (NovoLOG) 100 UNIT/ML VIAL SQ SCH ×4 (06:59→22:30)
[2019-03-07] MEDS: INSULN ASP PRT/INSULIN ASPART 100 UNIT/ML 10 ML VIAL SQ SCH ×2 (07:01→21:46)
[2019-03-07 07:53] LABS: Basophils % (A) 0 %; Eosinophils # (A) 0.1 k/uL (0-0.7); Eosinophils % (A) 1 %; HGB 12.2 gm/dL (13.0-17.5); Lymphocytes # (A) 1.8 k/uL (1.0-4.8); Lymphocytes % (A) 17 %; MCH 30.2 pg (25.0-35.0); MCHC 32.9 g/dL (31.0-37.0); MCV 91.7 fL (80.0-100.0); Mean Platelet Volume 7.6; Monocytes # (A) 0.8 k/uL (0-1.0); Monocytes % (A) 7 %; Neutrophils # (A) 7.8 k/uL (1.3-7.7); Neutrophils % (A) 72 %; Platelet Count 211 k/uL (150-450); RBC 4.03 m/uL (4.30-5.90); RDW 13.5 % (11.5-15.5); WBC 10.7 k/uL (3.8-10.6)
[2019-03-07 07:57] LABS: Calcium 8.7 mg/dL (8.4-10.2); Potassium 4.6 mmol/L (3.5-5.1)
[2019-03-07] MEDS ORDERED: APIXABAN 5 MG TAB PO SCH (09:00)
[2019-03-07] MEDS ORDERED: SPIRONOLACTONE 25 MG TAB PO SCH (09:00)
[2019-03-07] MEDS: IPRATROPIUM-ALBUTEROL 3 ML NEB IH SCH ×4 (09:08→20:37)
[2019-03-07] MEDS: SYMBICORT 80-4.5 MCG INHALER INHALATION SCH ×2 (09:17→20:37)
--- NOTE | 2019-03-07 09:25 | XR ---
EXAMINATION TYPE: XR chest 1V DATE OF EXAM: 03/07/2019 COMPARISON: 03/06/2019 HISTORY: Postthoracotomy TECHNIQUE: Single frontal view of the chest is obtained. FINDINGS: There is a right-sided chest tube with soft tissue emphysema. The heart is enlarged. There is a cardiac device. No evidence of pneumothorax on today's exam. Pleural based thickening is noted. There is basilar subsegmental consolidation. IMPRESSION: 1. Persistent right upper lobe and bilateral lower lobe consolidation with small effusion. Mediastinu m is somewhat prominent which should be correlated clinically and with CT scan as clinically warrante d. 2. No sizable pneumothorax on today's exam.
[2019-03-07] MEDS: ASPIRIN 81 MG PO SCH (09:27)
[2019-03-07] MEDS: ALPRAZolam 0.25 MG TAB PO SCH ×2 (09:27→12:15)
[2019-03-07] MEDS: LISINOPRIL 20 MG TAB PO SCH (09:27)
[2019-03-07] MEDS: HEPARIN SODIUM,PORCINE 5,000 UNIT/ML 1 ML VIAL SQ SCH ×3 (09:28→23:38)
[2019-03-07] MEDS: metFORMIN 500 MG TAB PO SCH ×2 (09:28→22:30)
--- NOTE | 2019-03-07 10:21 | CONS ---
CONSULTATION This is a 78-year-old gentleman with history of coronary artery disease, status post angioplasty, COPD, right lung mass, who is admitted to the hospital for resection of the lung mass. Cardiology is consulted because of his known history of coronary artery disease. At the time of my evaluation this morning, patient has a chest tube in place, has some discomfort at the chest tube site. The patient has known CAD and had prior angioplasty of LAD and chronic occlusion of the right coronary artery, has moderate LV systolic dysfunction with mild aortic stenosis. He had a stress test prior to surgery that showed evidence of prior inferior wall myocardial infarction with moderate LV dysfunction without any ischemia. PAST MEDICAL HISTORY: Past medical history is significant for coronary artery disease, insulin-requiring diabetes, atrial fibrillation, hypertension. MEDICATIONS: Medications at home included simvastatin, fosinopril, Xanax, ibuprofen, metformin, insulin, aspirin, Eliquis, Aldactone, metoprolol, hydrocodone. ALLERGIES: Allergies are as charted. FAMILY HISTORY: Family history is negative for premature coronary artery disease. SOCIAL HISTORY: Social history is negative for current smoking, EtOH abuse or drug abuse. REVIEW OF SYSTEMS: HEENT is unremarkable. CARDIAC: As described above. RESPIRATORY: As described above. GI: Negative, GENITOURINARY: Negative. ALLERGY/IMMUNOLOGY: Negative. SKIN: Negative. MUSCULOSKELETAL: Negative for arthritis. PSYCHOSOCIAL: Negative. ENDOCRINE: Negative. DERM: Negative. CONSTITUTIONAL: Negative. ONCOLOGICAL: Negative. Rest of the system review is not relevant. PHYSICAL EXAMINATION: On exam, he is comfortable at rest. Heart rate is 61 beats per minute. Blood pressure is 143/68. Respiratory rate is 18. O2 sat is 94% on 3 L. There is no jugular venous distention. Carotid upstroke is normal. There is no bruit. Chest exam shows bilateral diminished air entry, more on the right side than on the left side without any crackles or rhonchi. Heart exam reveals first and second heart sounds. No gallop. Has a systolic murmur at the apex. Abdomen is soft, nontender. Examination of extremities did not reveal any edema. Peripheral pulses are felt. LABS: Labs show a hemoglobin of 12.2, platelet count is 211. Potassium is 4.6. BUN is 26, creatinine is 1.3. ASSESSMENT: 1. Lung mass, status post resection. 2. Coronary artery disease, status post angioplasty. 3. Ischemic cardiomyopathy. 4. Hypertension. 5. History of atrial fibrillation. PLAN: Will continue current medications including aspirin, Lipitor, insulin, Zestril, Toprol, and Aldactone that he is currently on. Please resume Eliquis 5 mg b.i.d. when feasible from surgical standpoint. MMODL / IJN: [id number] /
[2019-03-07 10:36] LABS: Glucose,Whole Blood 208 mg/dL (75-99)
--- NOTE | 2019-03-07 10:39 | P.PN ---
Subjective Progress Note Date: 03/07/19 Principal diagnosis: Right upper lobe lung cancer. Previous medical history of COPD, previous tobacco dependence with smoking cessation approximately 1 month ago and [id number]-ibjy-stif history, insulin-dependent diabetes mellitus, coronary artery disease status post angioplasty with stenting to the LAD, ischemic cardiomyopathy, hypertension, paroxysmal atrial fibrillation on chronic Eliquis for anticoagulation. POD #1 robotic assisted thoracoscopic right upper lobectomy with mediastinal lymph node dissection. Right thoracotomy with re-resection of bronchial stump and suture closure The patient is currently sitting up in bed eating breakfast in no acute distress. Does complain of incisional type pain but states that it is mostly controlled with current medication regimen. Denies shortness of breath. Chest tube does have a small air leak present, but chest x-ray reviewed this morning is stable. Objective - Vital Signs Vital signs: Vital Signs Temp 98.3 F 03/07/19 04:00 Pulse 70 03/07/19 09:21 Resp 16 03/07/19 09:21 BP 143/68 03/07/19 04:00 Pulse Ox 97 03/07/19 09:08 Intake & Output 03/06/19 03/07/19 03/07/19 18:59 06:59 18:59 Intake Total 1418 640 480 Output Total 850 375 350 Balance 568 265 130 Weight 230.5 kg Intake: IV 1300 Intake, IV Titration 640 Amount Dextrose 5%-0.45% NaCl 1, 640 000 ml @ 40 mls/hr IV . Q24H [facility] Rx#:[id number] Oral 118 480 Output: Chest Tube Drainage 10 Chest Tube Right 10 Drainage 200 Right Chest 200 Urine 440 175 350 Uretheral (Alonzo) 350 Estimated Blood Loss 400 Other: Voiding Method Indwelling Catheter Indwelling Catheter - Constitutional General appearance: Present: cooperative, no acute distress, obese - Respiratory Details: Lungs sounds diminished bilaterally. Respirations even, nonlabored. Currently on 3 L nasal cannula with oxygen saturation 94%. Able to achieve 1000 mL on his incentive spirometry. Right pleural chest tube to continuous wall suction, 200 mL serosanguineous output since surgery, positive small intermittent air leak. - Cardiovascular Details: S1, S2 present. Regular rate and rhythm, sinus rhythm on telemetry. Palpable peripheral pulses bilaterally. No edema present. No calf pain or tenderness noted. SCDs present. - Gastrointestinal Gastrointestinal Comment(s): Abdomen soft, nontender, nondistended. Active bowel sounds present 4 quadrants. Tolerating diet. - Genitourinary Genitourinary Comment(s): Alonzo was present and discontinued this morning, due to void. - Integumentary Integumentary Comment(s): Skin is warm and dry with evidence of good perfusion. Right pleural chest tube site covered with dry intact dressing. - Neurologic Neurologic: Present: CNII-XII intact - Musculoskeletal Musculoskeletal: Present: gait normal, strength equal bilaterally - Psychiatric Psychiatric: Present: A&O x's 3, appropriate affect, intact judgment & insight - Allied health notes Allied health notes reviewed: nursing - Labs CBC & Chem 7: 03/07/19 07:30 03/07/19 07:30 Labs: Abnormal Lab Results - Last 24 Hours (Table) 03/06/19 03/06/19 03/06/19 Range/Units 11:14 12:27 17:00 WBC (3.8-10.6) k/uL RBC (4.30-5.90) m/uL Hgb (13.0-17.5) gm/dL Hct (39.0-53.0) % Neutrophils # (1.3-7.7) k/uL Sodium (137-145) mmol/L BUN (9-20) mg/dL Creatinine (0.66-1.25) mg/dL Glucose (74-99) mg/dL POC Glucose (mg/dL) 265 H 253 H 226 H (75-99) mg/dL 03/06/19 03/06/19 03/06/19 Range/Units 19:25 20:42 21:36 WBC (3.8-10.6) k/uL RBC (4.30-5.90) m/uL Hgb (13.0-17.5) gm/dL Hct (39.0-53.0) % Neutrophils # (1.3-7.7) k/uL Sodium (137-145) mmol/L BUN (9-20) mg/dL Creatinine (0.66-1.25) mg/dL Glucose (74-99) mg/dL POC Glucose (mg/dL) 254 H 219 H 205 H (75-99) mg/dL 03/06/19 03/06/19 03/07/19 Range/Units 22:32 23:30 05:50 WBC (3.8-10.6) k/uL RBC (4.30-5.90) m/uL Hgb (13.0-17.5) gm/dL Hct (39.0-53.0) % Neutrophils # (1.3-7.7) k/uL Sodium (137-145) mmol/L BUN (9-20) mg/dL Creatinine (0.66-1.25) mg/dL Glucose (74-99) mg/dL POC Glucose (mg/dL) 190 H 189 H 203 H (75-99) mg/dL 03/07/19 03/07/19 Range/Units 07:30 07:30 WBC 10.7 H (3.8-10.6) k/uL RBC 4.03 L (4.30-5.90) m/uL Hgb 12.2 L (13.0-17.5) gm/dL Hct 37.0 L (39.0-53.0) % Neutrophils # 7.8 H (1.3-7.7) k/uL Sodium 136 L (137-145) mmol/L BUN 26 H (9-20) mg/dL Creatinine 1.36 H (0.66-1.25) mg/dL Glucose 213 H (74-99) mg/dL POC Glucose (mg/dL) (75-99) mg/dL - Imaging and Cardiology Chest x-ray: report reviewed, image reviewed Assessment and Plan Assessment: 1. Right upper lobe lung cancer, status post robotic-assisted thoracoscopic right upper lobectomy with mediastinal lymph node dissection, right thoracotomy with re-resection of bronchial stump and suture closure 2. History of COPD 3. Previous tobacco dependence 4. Insulin-dependent diabetes mellitus 5. Coronary artery disease status post angioplasty with stenting to the LAD 6. Ischemic cardiomyopathy 7. Hypertension 8. Paroxysmal atrial fibrillation on chronic Eliquis for anticoagulation Plan: 1. Chest tube placed to waterseal. We'll continue to monitor for resolution of air leak. 2. Will monitor daily x-rays. 3. Pain control with current medication regimen. 4. GI/DVT prophylaxis. 5. Continue home medications. 6. Bronchodilators per pulmonology. 7. Wean O2 as tolerated. Encourage is a spirometry is 10 times every hour while awake. 8. Increase activity, ambulate in hallway. 9. More recommendations to follow. Time with Patient: Greater than 30
[2019-03-07 11:14] LABS: Glucose,Whole Blood 221 mg/dL (75-99)
[2019-03-07] MEDS: MAGNESIUM OXIDE 400 MG TAB PO SCH (12:15)
[2019-03-07] MEDS: CHOLECALCIFEROL 1,000 UNIT TAB PO SCH (12:15)
--- NOTE | 2019-03-07 14:24 | P.PN ---
Subjective Progress Note Date: 03/07/19 Principal diagnosis: COPD, lung mass, status post right upper lobectomy this is a 78-year-old white male with history of multiple medical problems including insulin-dependent diabetes, chronic atrial fibrillation, coronary artery disease and previous stenting, hypercholesterolemia, degenerative joint disease with previous bilateral knee replacement, history of left rotator cuff surgery, permanent pacemaker implantation and stenting of LAD in 1998. Patient is also known to have history of COPD FEV1 is in the range of 50%, 1.31 L, patient was recently evaluated by me for a right hilar mass, patient underwent a PET scan and showed uptake within the right suprahilar mass and no other abnormality was noted. 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 Patient was referred to Dr. Cochran, and he underwent right upper lobectomy with rima dissection today, postoperatively he was transferred to the cardiac floor, and I was asked to see him on consultation. Patient seems to be doing fairly well, complaining mostly of right sided chest pain at the surgical site, has a right sided chest tube in place with minimal air leak noted. Chest x-ray showed postoperative changes and no other significant findings otherwise. On 03/07/2019 patient seen in follow-up this is postop day 1, status post right upper lobectomy for a right hilar mass which showed suspicious uptake on the PET scan. Navigational bronchoscopy biopsies were nondiagnostic. The patient is awake and alert, resting in bed, currently on 3 L of oxygen with a pulse ox of 97%, signs are stable, having some mild to moderate amount of incisional discomfort, but is able to do his incentive spirometry, is able to achieve 1000 mL on the today. Lung sounds are diminished on the right side, right-sided chest tube is in place, with continuous air leak, and moderate amount of serosanguineous than output from the right chest tube. Today's labs have been reviewed, and showed a white blood cell count of 10.7, hemoglobin of 12.2, sodium is 136, depressed electrolytes were within normal limits, BUN is 26 and creatinine is 1.36. Objective - Vital Signs Vital signs: Vital Signs Temp 98.3 F 03/07/19 04:00 Pulse 70 03/07/19 13:47 Resp 18 03/07/19 13:47 BP 143/68 03/07/19 04:00 Pulse Ox 97 03/07/19 09:08 Intake & Output 03/06/19 03/07/19 03/07/19 18:59 06:59 18:59 Intake Total 1418 640 480 Output Total 850 375 350 Balance 568 265 130 Weight 230.5 kg Intake: IV 1300 Intake, IV Titration 640 Amount Dextrose 5%-0.45% NaCl 1, 640 000 ml @ 40 mls/hr IV . Q24H [facility] Rx#:[id number] Oral 118 480 Output: Chest Tube Drainage 10 Chest Tube Right 10 Drainage 200 Right Chest 200 Urine 440 175 350 Uretheral (Alonzo) 350 Estimated Blood Loss 400 Other: Voiding Method Indwelling Catheter Indwelling Catheter - Exam GENERAL EXAM: Alert, pleasant, 78-year-old white male, on 3 L of oxygen, comfortable in no apparent distress. HEAD: Normocephalic/atraumatic. EYES: Normal reaction of pupils, equal size. Conjunctiva pink, sclera white. NOSE: Clear with pink turbinates. THROAT: No erythema or exudates. NECK: No masses, no JVD, no thyroid enlargement, no adenopathy. CHEST: No chest wall deformity. Symmetrical expansion. Right-sided chest tube is in place, with continuous air leak, and moderate amount of thin serosanguineous output in the Pleur-evac LUNGS: Equal air entry with no crackles, wheeze, rhonchi or dullness. Diminished breath sounds on the right CVS: Regular rate and rhythm, normal S1 and S2, no gallops, no murmurs, no rubs ABDOMEN: Soft, nontender. No hepatosplenomegaly, normal bowel sounds, no guarding or rigidity. EXTREMITIES: No clubbing, no edema, no cyanosis, 2+ pulses and upper and lower extremities. MUSCULOSKELETAL: Muscle strength and tone normal. SPINE: No scoliosis or deformity SKIN: No rashes CENTRAL NERVOUS SYSTEM: Alert and oriented -3. No focal deficits, tone is normal in all 4 extremities. PSYCHIATRIC: Alert and oriented -3. Appropriate affect. Intact judgment and insight. - Labs CBC & Chem 7: 03/07/19 07:30 03/07/19 07:30 Labs: Abnormal Lab Results - Last 24 Hours (Table) 03/06/19 03/06/19 03/06/19 Range/Units 17:00 19:25 20:42 WBC (3.8-10.6) k/uL RBC (4.30-5.90) m/uL Hgb (13.0-17.5) gm/dL Hct (39.0-53.0) % Neutrophils # (1.3-7.7) k/uL Sodium (137-145) mmol/L BUN (9-20) mg/dL Creatinine (0.66-1.25) mg/dL Glucose (74-99) mg/dL POC Glucose (mg/dL) 226 H 254 H 219 H (75-99) mg/dL 03/06/19 03/06/19 03/06/19 Range/Units 21:36 22:32 23:30 WBC (3.8-10.6) k/uL RBC (4.30-5.90) m/uL Hgb (13.0-17.5) gm/dL Hct (39.0-53.0) % Neutrophils # (1.3-7.7) k/uL Sodium (137-145) mmol/L BUN (9-20) mg/dL Creatinine (0.66-1.25) mg/dL Glucose (74-99) mg/dL POC Glucose (mg/dL) 205 H 190 H 189 H (75-99) mg/dL 03/07/19 03/07/19 03/07/19 Range/Units 05:50 07:30 07:30 WBC 10.7 H (3.8-10.6) k/uL RBC 4.03 L (4.30-5.90) m/uL Hgb 12.2 L (13.0-17.5) gm/dL Hct 37.0 L (39.0-53.0) % Neutrophils # 7.8 H (1.3-7.7) k/uL Sodium 136 L (137-145) mmol/L BUN 26 H (9-20) mg/dL Creatinine 1.36 H (0.66-1.25) mg/dL Glucose 213 H (74-99) mg/dL POC Glucose (mg/dL) 203 H (75-99) mg/dL 03/07/19 03/07/19 Range/Units 10:30 11:12 WBC (3.8-10.6) k/uL RBC (4.30-5.90) m/uL Hgb (13.0-17.5) gm/dL Hct (39.0-53.0) % Neutrophils # (1.3-7.7) k/uL Sodium (137-145) mmol/L BUN (9-20) mg/dL Creatinine (0.66-1.25) mg/dL Glucose (74-99) mg/dL POC Glucose (mg/dL) 208 H 221 H (75-99) mg/dL Assessment and Plan Plan: Assessment: 1status post right upper lobectomy for what seems to be a 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 2moderate severe COPD FEV1 is in the range of 50%. 3 obstructive sleep apnea syndrome 4 coronary arteriosclerosis and previous stent placement. 5 benign essential hypertension 6 pacemaker in situ 7 history of vitamin D deficiency 8 type 2 diabetes 9 chronic atrial fibrillation. Plan: Continue encouraging deep breathing and coughing, incentive spirometry use, tod yeison's chest x-ray has been reviewed with Dr. Noriega, patient was seen and evaluated by Dr. Noriega, showed no sizable pneumothorax, persistent right upper lobe and bilateral lower lobe consolidation with small pleural effusion. Patient continues to have air leak and the chest tube. Will follow-up to resolution. Continue with nebulized bronchodilators, Symbicort, maintain pain control. Continue to follow closely with the CT surgery. I performed a history & physical examination of the patient and discussed their management with my nurse practitioner, Nita Carrington. I reviewed the nurse practitioner's note and agree with the documented findings and plan of care. Lung sounds are positive for diminished breath sounds on the right. The findings and the impression was discussed with the patient. I attest to the documentation by the nurse practitioner. Time with Patient: Less than 30
[2019-03-07] MEDS: VARENICLINE 0.5 MG TAB PO SCH ×2 (14:28→22:30)
[2019-03-07 16:18] LABS: Glucose,Whole Blood 208 mg/dL (75-99)
[2019-03-07] MEDS: METOPROLOL SUCCINATE (ER) 50 MG TAB.ER.24H PO SCH (20:40)
[2019-03-07] MEDS: ATORVASTATIN 20 MG TAB PO SCH (20:40)
[2019-03-07] MEDS ORDERED: ALPRAZolam 1 MG TAB PO SCH (21:00)
[2019-03-07 21:10] LABS: Glucose,Whole Blood 180 mg/dL (75-99)
[2019-03-08] MEDS: traMADol 50 MG TAB PO PRN (03:49)
[2019-03-08 05:46] LABS: Glucose,Whole Blood 182 mg/dL (75-99)
[2019-03-08] MEDS: KETOROLAC 30 MG/ML 1 ML VIAL IVP SCH ×2 (05:50→12:52)
[2019-03-08] MEDS: INSULIN ASPART (NovoLOG) 100 UNIT/ML VIAL SQ SCH ×4 (07:05→21:31)
[2019-03-08] MEDS: PANTOPRAZOLE 40 MG TABLET PO SCH (07:05)
[2019-03-08] MEDS: INSULN ASP PRT/INSULIN ASPART 100 UNIT/ML 10 ML VIAL SQ SCH ×2 (07:05→17:35)
--- NOTE | 2019-03-08 07:37 | XR ---
EXAMINATION TYPE: XR chest 2V DATE OF EXAM: 03/08/2019 COMPARISON: 03/07/2019 HISTORY: 78-year-old male post lobectomy TECHNIQUE: AP and lateral views FINDINGS: Right-sided apical chest tube is present. Some subcutaneous emphysema along the right side of the hem ithorax. Trace right apical pneumothorax is difficult to exclude, estimated at less than 5%. Left ant erior chest wall pacemaker generator with right atrial and right ventricular leads. Patchy mid and lo wer lung opacities on the right and at the left base. IMPRESSION: 1. Right-sided chest tube. A trace right apical pneumothorax is difficult to exclude bowel, less than 5%. 2. Continued right mid and lower lung patchy consolidation and left basilar opacity. Trace right effu scott also persists.
[2019-03-08 08:00] LABS: Glucose,Whole Blood 194 mg/dL (75-99)
[2019-03-08] MEDS ORDERED: SODIUM CHLORIDE 0.9% 500 ML 500 ML IV ONE (08:08)
[2019-03-08] MEDS: IPRATROPIUM-ALBUTEROL 3 ML NEB IH SCH ×4 (08:39→18:57)
[2019-03-08] MEDS: SYMBICORT 80-4.5 MCG INHALER INHALATION SCH ×2 (08:39→18:57)
[2019-03-08] MEDS ORDERED: ACETAMINOPHEN TAB 325 MG TAB PO PRN ×2 (09:15)
--- NOTE | 2019-03-08 09:42 | P.PN ---
Subjective Progress Note Date: 03/08/19 Principal diagnosis: Right upper lobe lung cancer. Previous medical history of COPD, previous tobacco dependence with smoking cessation approximately 1 month ago and 25-[id number] history, insulin-dependent diabetes mellitus, coronary artery disease status post angioplasty with stenting to the LAD, ischemic cardiomyopathy, hypertension, paroxysmal atrial fibrillation on chronic Eliquis for anticoagulation. POD #2 robotic assisted thoracoscopic right upper lobectomy with mediastinal lymph node dissection. Right thoracotomy with re-resection of bronchial stump and suture closure The patient is currently sitting up in the recliner on the cardiac stepdown unit. Did complain of generalized weakness and lightheadedness this morning, blood pressure was 87/43 with a mean of 57. States pain is controlled on current medication regimen. Denies shortness of breath. Chest tube does have a small air leak present, but chest x-ray reviewed this morning is stable. Objective - Vital Signs Vital signs: Vital Signs Temp 97.7 F 03/08/19 04:00 Pulse 72 03/08/19 08:53 Resp 18 03/08/19 04:00 BP 98/59 03/08/19 04:00 Pulse Ox 97 03/08/19 04:00 Intake & Output 03/07/19 03/08/19 03/08/19 18:59 06:59 18:59 Intake Total 620 Output Total 875 60 Balance -255 -60 Intake: Oral 620 Output: Chest Tube Drainage 60 Chest Tube Right 60 Drainage 225 Right Chest 225 Urine 650 Uretheral (Alonzo) 650 Other: # Voids 1 - Constitutional General appearance: Present: cooperative, no acute distress, obese - Respiratory Details: Lungs sounds diminished bilaterally. Respirations even, nonlabored. Currently on 2 L nasal cannula with oxygen saturation 97%. Able to achieve 1000 mL on his incentive spirometry. Right pleural chest tube to waterseal, 60 mL serosanguineous output overnight, 300 mL in the last 24 hours, positive small intermittent air leak. - Cardiovascular Details: S1, S2 present. Regular rate and rhythm, sinus rhythm on telemetry. Palpable peripheral pulses bilaterally. No edema present. No calf pain or tenderness noted. SCDs present. - Gastrointestinal Gastrointestinal Comment(s): Abdomen soft, nontender, nondistended. Active bowel sounds present 4 quadrants. Tolerating diet. - Genitourinary Genitourinary Comment(s): Voiding clear, yellow urine. - Integumentary Integumentary Comment(s): Skin is warm and dry with evidence of good perfusion. Right pleural chest tube site covered with dry intact dressing. - Neurologic Neurologic: Present: CNII-XII intact - Musculoskeletal Musculoskeletal: Present: gait normal, generalized weakness, strength equal b ilaterally - Psychiatric Psychiatric: Present: A&O x's 3, appropriate affect, intact judgment & insight - Allied health notes Allied health notes reviewed: nursing - Labs CBC & Chem 7: 03/07/19 07:30 03/07/19 07:30 Labs: Abnormal Lab Results - Last 24 Hours (Table) 03/07/19 03/07/19 03/07/19 Range/Units 10:30 11:12 16:17 POC Glucose (mg/dL) 208 H 221 H 208 H (75-99) mg/dL 03/07/19 03/08/19 03/08/19 Range/Units 21:08 05:45 07:59 POC Glucose (mg/dL) 180 H 182 H 194 H (75-99) mg/dL - Imaging and Cardiology Chest x-ray: report reviewed, image reviewed Assessment and Plan Assessment: 1. Right upper lobe lung cancer, status post robotic-assisted thoracoscopic right upper lobectomy with mediastinal lymph node dissection, right thoracotomy with re-resection of bronchial stump and suture closure 2. History of COPD 3. Previous tobacco dependence 4. Insulin-dependent diabetes mellitus 5. Coronary artery disease status post angioplasty with stenting to the LAD 6. Ischemic cardiomyopathy 7. Hypertension 8. Paroxysmal atrial fibrillation on chronic Eliquis for anticoagulation Plan: 1. Continue chest tube to waterseal. Will continue to monitor for resolution of air leak. 2. Will monitor daily x-rays. 3. Pain control with current medication regimen. 4. GI/DVT prophylaxis. 5. Continue home medications with parameters on blood pressure medications. 6. Bronchodilators per pulmonology. 7. Wean O2 as tolerated. Encourage is a spirometry is 10 times every hour while awake. 8. Increase activity, ambulate in hallway. 9. Will get 500 mL fluid bolus, encourage patient to drink fluids. 10. More recommendations to follow. Time with Patient: Greater than 30
[2019-03-08] MEDS: HEPARIN SODIUM,PORCINE 5,000 UNIT/ML 1 ML VIAL SQ SCH ×3 (09:55→23:36)
[2019-03-08] MEDS: ASPIRIN 81 MG PO SCH (09:56)
[2019-03-08] MEDS: VARENICLINE 0.5 MG TAB PO SCH ×2 (09:56→21:31)
[2019-03-08] MEDS: metFORMIN 500 MG TAB PO SCH (09:56)
[2019-03-08] MEDS: LISINOPRIL 20 MG TAB PO SCH (09:57)
[2019-03-08] MEDS ORDERED: HYDROcodone/APAP 5-325MG 1 EACH TAB PO PRN (10:36)
--- NOTE | 2019-03-08 10:57 | P.PN ---
Subjective Progress Note Date: 03/08/19 This is a 78-year-old white male with history of multiple medical problems including insulin-dependent diabetes, chronic atrial fibrillation, coronary artery disease and previous stenting, hypercholesterolemia, degenerative joint disease with previous bilateral knee replacement, history of left rotator cuff surgery, permanent pacemaker implantation and stenting of LAD in 1998. Patient was recently evaluated for a right hilar mass, patient underwent a PET scan and showed uptake within the right suprahilar mass and no other abnormality was noted. 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 Patient was referred to Dr. Cochran, and he underwent right upper lobectomy with rima dissection , postoperatively he was transferred to the cardiac floor, and we were asked to see him in consultation. Patient had been seen in consultation yesterday by Dr. Sanchez. He was seen and examined this morning on the telemetry unit, complained of feeling somewhat listless and lightheaded. His blood pres sure is running in the 90 systolic range. He is complaining of some mild incisional discomfort, still working hard on his incentive spirometry reaching approximately 1000. Right-sided chest tube remains in place with continuous air leak, moderate amount of serous sanguinous output in the right chest tube. He was on 20 mg of lisinopril, we'll decrease that to 10 mg daily from today. Objective - Vital Signs Vital signs: Vital Signs Temp 97.7 F 03/08/19 04:00 Pulse 72 03/08/19 08:53 Resp 18 03/08/19 04:00 BP 98/59 03/08/19 04:00 Pulse Ox 97 03/08/19 04:00 Intake & Output 03/07/19 03/08/19 03/08/19 18:59 06:59 18:59 Intake Total 620 80 Output Total 875 60 Balance -255 -60 80 Intake: Oral 620 80 Output: Chest Tube Drainage 60 Chest Tube Right 60 Drainage 225 Right Chest 225 Urine 650 Uretheral (Alonzo) 650 Other: # Voids 1 - Exam HEAD: Normocephalic/atraumatic. EYES: Normal reaction of pupils, equal size. Conjunctiva pink, sclera white. NOSE: Clear with pink turbinates. THROAT: No erythema or exudates. NECK: No masses, no JVD, no thyroid enlargement, no adenopathy. CHEST: No chest wall deformity. Symmetrical expansion. Right-sided chest tube is in place, with continuous air leak, and moderate amount of thin serosanguineous output in the Pleur-evac LUNGS: Equal air entry with no crackles, wheeze, rhonchi or dullness. Diminished breath sounds on the right CVS: Regular rate and rhythm, normal S1 and S2, no gallops, no murmurs, no rubs ABDOMEN: Soft, nontender. No hepatosplenomegaly, normal bowel sounds, no guarding or rigidity. EXTREMITIES: No clubbing, no edema, no cyanosis, 2+ pulses and upper and lower extremities. MUSCULOSKELETAL: Muscle strength and tone normal. SPINE: No scoliosis or deformity SKIN: No rashes CENTRAL NERVOUS SYSTEM: Alert and oriented -3. No focal deficits, tone is normal in all 4 extremities. PSYCHIATRIC: Alert and oriented -3. Appropriate affect. Intact judgment and insight. 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 #2 moderate severe COPD FEV1 is in the range of 50%. #3 obstructive sleep apnea syndrome #4 coronary arteriosclerosis and previous stent placement. #5 benign essential hypertension #6 pacemaker in situ #7 history of vitamin D deficiency #8 type 2 diabetes #9 chronic atrial fibrillation. Plan Because of the symptoms of lightheadedness with associated listless feeling and hypotension today, we will decrease the patient's dose of lisinopril to 10 mg daily. Continue the rest of his medications. He has been encouraged to zarina nue coughing and deep breathing and using his incentive spirometry. DNP note has been reviewed, I agree with a documented findings and plan of care. Patient was seen and examined.
--- NOTE | 2019-03-08 11:06 | P.PN ---
Subjective Progress Note Date: 03/08/19 Principal diagnosis: COPD, lung mass, status post right upper lobectomy. This is a 78-year-old white male with history of multiple medical problems including insulin-dependent diabetes, chronic atrial fibrillation, coronary artery disease and previous stenting, hypercholesterolemia, degenerative joint disease with previous bilateral knee replacement, history of left rotator cuff surgery, permanent pacemaker implantation and stenting of LAD in 1998. Patient is also known to have history of COPD FEV1 is in the range of 50%, 1.31 L, patient was recently evaluated by me for a right hilar mass, patient underwent a PET scan and showed uptake within the right suprahilar mass and no other abnormality was noted. 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 Patient was referred to Dr. Cochran, and he underwent right upper lobectomy with rima dissection today, postoperatively he was transferred to the cardiac floor, and I was asked to see him on consultation. Patient seems to be doing fairly well, complaining mostly of right sided chest pain at the surgical site, has a right sided chest tube in place with minimal air leak noted. Chest x-ray showed postoperative changes and no other significant findings otherwise. On 03/07/2019 patient seen in follow-up this is postop day 1, status post right upper lobectomy for a right hilar mass which showed suspicious uptake on the PET scan. Navigational bronchoscopy biopsies were nondiagnostic. The patient is awake and alert, resting in bed, currently on 3 L of oxygen with a pulse ox of 97%, signs are stable, having some mild to moderate amount of incisional discomfort, but is able to do his incentive spirometry, is able to achieve 1000 mL on the today. Lung sounds are diminished on the right side, right-sided chest tube is in place, with continuous air leak, and moderate amount of serosanguineous than output from the right chest tube. Today's labs have been reviewed, and showed a white blood cell count of 10.7, hemoglobin of 12.2, sodium is 136, depressed electrolytes were within normal limits, BUN is 26 and creatinine is 1.36. The patient is seen today 03/08/2018 in follow-up on the selective care unit. He is post operative day #2 for right upper lobectomy for right hilar mass. He is currently sitting up in a chair at the bedside. Awake and alert in no acute distress. He did have an episode of diaphoresis and hypotension. He is currently receiving fluid boluses. No worsening shortness of breath, cough or congestion. Right-sided chest tube remains in place. Still positive air leak. Maintaining O2 saturations in the 90s on 2 L/m per nasal cannula. He's afebrile. His x-ray reveals trace right apical pneumothorax less than 5%. There is continued right mid and lower lung patchy consolidation and left basilar opacity. He continues to work well with the incentive spirometer. He remains on Symbicort and DuoNeb inhalations. Objective - Vital Signs Vital signs: Vital Signs Temp 97.7 F 03/08/19 04:00 Pulse 72 03/08/19 08:53 Resp 18 03/08/19 04:00 BP 98/59 03/08/19 04:00 Pulse Ox 97 03/08/19 04:00 Intake & Output 03/07/19 03/08/19 03/08/19 18:59 06:59 18:59 Intake Total 620 80 Output Total 875 60 Balance -255 -60 80 Intake: Oral 620 80 Output: Chest Tube Drainage 60 Chest Tube Right 60 Drainage 225 Right Chest 225 Urine 650 Uretheral (Alonzo) 650 Other: # Voids 1 - Exam GENERAL EXAM: Alert, pleasant, 78-year-old white male, on 2 L of oxygen, comfortable in no apparent distress. HEAD: Normocephalic/atraumatic. EYES: Normal reaction of pupils, equal size. Conjunctiva pink, sclera white. NOSE: Clear with pink turbinates. THROAT: No erythema or exudates. NECK: No masses, no JVD, no thyroid enlargement, no adenopathy. CHEST: No chest wall deformity. Symmetrical expansion. Right-sided chest tube is in place, with continuous air leak, and moderate amount of thin serosanguineous output in the Pleur-evac LUNGS: Equal air entry with no crackles, wheeze, rhonchi or dullness. Diminished breath sounds on the right CVS: Regular rate and rhythm, normal S1 and S2, no gallops, no murmurs, no rubs ABDOMEN: Soft, nontender. No hepatosplenomegaly, normal bowel sounds, no guarding or rigidity. EXTREMITIES: No clubbing, no edema, no cyanosis, 2+ pulses and upper and lower extremities. MUSCULOSKELETAL: Muscle strength and tone normal. SPINE: No scoliosis or deformity SKIN: No rashes CENTRAL NERVOUS SYSTEM: No focal deficits, tone is normal in all 4 extremities. PSYCHIATRIC: Alert and oriented -3. Appropriate affect. Intact judgment and insight. 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 2moderate severe COPD FEV1 is in the range of 50%. 3 obstructive sleep apnea syndrome 4 coronary arteriosclerosis and previous stent placement. 5 benign essential hypertension 6 pacemaker in situ 7 history of vitamin D deficiency 8 type 2 diabetes 9 chronic atrial fibrillation. Plan: The patient is seen and evaluated by Dr. Domínguez. Chest x-ray reviewed. No significant pneumothorax. Right-sided chest tube remains, continues with a leak. We'll continue with his current treatment plan. Encourage increased use of the incentive spirometer and cough and deep breathing exercises. Pathology still pending. We'll continue to follow make further recommendations based on his clinical status. I, the cosigning physician, performed a history & physical examination of the patient. Lungs sounds with few scattered rhonchi, crackles in the posterior bases, diminished. Maintaining good O2 saturations in the 90s on 2 L/m per nasal cannula. I discussed the assessment and plan of care with my nurse practitioner, Swetha Wang. I attest to the above note as dictated by her.
[2019-03-08 11:15] LABS: Glucose,Whole Blood 195 mg/dL (75-99)
[2019-03-08] MEDS: HYDROcodone/APAP 5-325MG 1 EACH TAB PO PRN ×3 (11:26→21:32)
[2019-03-08 11:28] LABS: HCT 34.8 % (39.0-53.0); HGB 11.5 gm/dL (13.0-17.5); MCH 31.6 pg (25.0-35.0); MCV 95.8 fL (80.0-100.0); Mean Platelet Volume 7.7; Platelet Count 194 k/uL (150-450); RBC 3.63 m/uL (4.30-5.90); RDW 13.1 % (11.5-15.5); WBC 13.4 k/uL (3.8-10.6)
[2019-03-08 11:37] LABS: Calcium 8.4 mg/dL (8.4-10.2); Potassium 4.8 mmol/L (3.5-5.1)
[2019-03-08] MEDS: CHOLECALCIFEROL 1,000 UNIT TAB PO SCH (12:52)
[2019-03-08] MEDS: MAGNESIUM OXIDE 400 MG TAB PO SCH (12:59)
[2019-03-08] MEDS: SENNOSIDES-DOCUSATE SODIUM 1 EACH TAB PO PRN (12:59)
[2019-03-08 16:42] LABS: Glucose,Whole Blood 177 mg/dL (75-99)
[2019-03-08] MEDS: LACTATED RINGERS 1,000 ML IV SCH (17:25)
--- NOTE | 2019-03-08 19:13 | CONS ---
CONSULTATION DATE OF CONSULTATION: March 08, 2019. REASON FOR CONSULTATION: Medical management, including that for diabetes requested by Dr. Cochran. CONSULTATIONS: This is a pleasant 78-year-old patient who follows with Dr. Vegas. Chronic stable medical conditions include atrial fibrillation, COPD, hyperlipidemia, hypertension, coronary artery disease, osteoarthritis, obstructive sleep apnea, peripheral neuropathy. The patient was worked up by Dr. Domínguez for a right hilar lung mass. Did undergo lung biopsy found to have a moderately differentiated squamous cell carcinoma and a PET scan. The patient is found to have a stage I cancer. The patient has undergone right upper lobe lobectomy, has a chest tube in place. The patient started to tolerate his diet though not his normal self. Is having 3 meals. Slightly short of breath, some pain present. REVIEW OF SYSTEMS: CONSTITUTIONAL: Tired. HEENT: None. RESPIRATORY: Some short of breath. CARDIOVASCULAR: Chest pain. GASTROINTESTINAL: None. GENITOURINARY: None. MUSCULOSKELETAL: Arthritic pain in joints. DERMATOLOGICAL, HEMATOLOGIC, LYMPHATICS: None. PSYCHIATRY/NEUROLOGICAL: Numbness and tingling in hands and feet. PAST MEDICAL HISTORY: Atrial fibrillation, COPD, diabetes mellitus type 2, hyperlipidemia, hypertension, myocardial infarction, osteoarthritis, obstructive sleep apnea. Lyme's disease, squamous cell, stage I right lung cancer, peripheral neuropathy. PAST SURGICAL HISTORY: Cardiac cath with stent. Orthopedic surgery, pacemaker, bilateral knee arthroscopy, bilateral knee replacement, rotator cuff left shoulder, coronary stent, bilateral cataract surgery with lens implant. Bronchoscopy with biopsy, permanent pacemaker 2016. PSYCH HISTORY: Anxiety. SOCIAL HISTORY: The patient smoked on and off for close to 32 years, stopped 2 months ago. The patient is . FAMILY HISTORY: Of leukemia. HOME MEDICATIONS: 1. Metformin 1000 mg p.o. b.i.d. 2. Chantix as directed. 3. Aldactone 25 mg p.o. daily. 4. Zocor 40 mg at bedtime. 5. Toprol-XL 50 mg q.h.s. 6. Magnesium oxide 250 mg p.o. daily. 7. Novolin 70/30 20 units subcu b.i.d. 8. Motrin p.r.n. 9. [place] 10 1 tab q.h.s. 10.Monopril 220 mg p.o. daily. 11.Symbicort 80/4.5 one puff b.i.d. 12.Aspirin 81 mg daily. 13.Eliquis 5 mg b.i.d. 14.Xanax 1 mg q.h.s. ALLERGIES: None. PHYSICAL EXAMINATION: VITAL SIGNS: Temperature 97.8, pulse 80, respiratory 18, blood pressure 101/55. Pulse ox 96% on 2 L. GENERAL APPEARANCE: Well built, BMI 77.3, sitting up in bed, a bit tired. EYES: Pupils are equal. Conjunctivae normal. HEENT: External appearance of nose and ears normal. Oral cavity normal. NECK: JVD unable to assess. Mass not palpable. RESPIRATORY: Effort increased. LUNGS: Diminished breath sounds. First and second sounds normal. No edema. ABDOMEN: Distended, soft. Liver and spleen not palpable. LYMPHATICS: No lymph nodes palpable in the neck and axilla. PSYCHIATRY: Alert and oriented x3. Mood and affect normal. NEUROLOGICAL: Pupils equal. Cranial nerves grossly intact. Power and sensation decreased sensation distally. Chest wall right-sided chest tube is present. INVESTIGATIONS: White count 10.7, hemoglobin 12.2, potassium 4.6, BUN 26, creatinine 1.36, repeat BUN and creatinine is 38 and 2.01. The patient's BUN and creatinine on 01/22/2019 was 19/0.97. The patient's Accu-Cheks are 182, 194, 195, 177. ASSESSMENT: 1. Right upper lobe lobectomy for moderately differentiated squamous cell carcinoma stage I now with chest tube in place. 2. Morbid obesity BMI 77.3. 3. Diabetes mellitus type 2, chronically on insulin, uncontrolled. 4. Acute renal failure could be a combination of prerenal and acute tubular necrosis given that creatinine was normal at 0.97 has climbed up to 2.01. The patient's blood pressure is running on the low side. The patient has been on Toradol also giles inhibitor and metformin. 5. Persistent atrial fibrillation. 6. Chronic obstructive pulmonary disease in an ex-smoker. 7. Essential hypertension. 8. Hyperlipidemia. 9. Coronary artery disease with prior history of stent. 10.Obstructive sleep apnea uses BiPAP. 11.Diabetic peripheral neuropathy. PLAN: Given the patient blood pressure is running on the low side, the patient is on IV fluids. For the time, we will hold off patient's GILES inhibitor. Also hold off the Toradol and also hold off the metformin. We will adjust patient's NovoLog Mix 70/30 to give 22 units with breakfast and supper and give 8 units with lunch as patient's appetite builds up, we can adjust NovoLog 70/30, accordingly. We will keep a close eye on patient's renal function. Care was discussed with the patient's son at the bedside. Questions were answered. The patient already on bronchodilators. Thank you, Dr. Cochran. We will follow with you. Copy to Dr. Vegas. MMRADHAL / IJN: [id number] /
[2019-03-08 20:22] LABS: Hemoglobin A1C 8.6 % (4.0-6.0)
[2019-03-08 21:01] LABS: Glucose,Whole Blood 207 mg/dL (75-99)
[2019-03-08] MEDS: ATORVASTATIN 20 MG TAB PO SCH (21:30)
[2019-03-08] MEDS: ALPRAZolam 0.5 MG TAB PO SCH (21:30)
[2019-03-08] MEDS: METOPROLOL SUCCINATE (ER) 50 MG TAB.ER.24H PO SCH (21:31)
[2019-03-09] MEDS: LACTATED RINGERS 1,000 ML IV SCH (03:12)
[2019-03-09 06:14] LABS: Glucose,Whole Blood 171 mg/dL (75-99)
[2019-03-09] MEDS: HYDROcodone/APAP 5-325MG 1 EACH TAB PO PRN (06:26)
[2019-03-09 07:08] LABS: HCT 29.8 % (39.0-53.0); MCH 31.1 pg (25.0-35.0); MCHC 32.7 g/dL (31.0-37.0); MCV 94.9 fL (80.0-100.0); Mean Platelet Volume 8.8; Platelet Count 161 k/uL (150-450); RBC 3.14 m/uL (4.30-5.90); RDW 13.1 % (11.5-15.5); WBC 8.3 k/uL (3.8-10.6)
[2019-03-09 07:18] LABS: Calcium 7.9 mg/dL (8.4-10.2); Magnesium 1.6 mg/dL (1.6-2.3); Potassium 4.9 mmol/L (3.5-5.1)
[2019-03-09 07:23] LABS: HGB 9.8 gm/dL (13.0-17.5)
--- NOTE | 2019-03-09 07:27 | XR ---
EXAMINATION TYPE: XR chest 2V DATE OF EXAM: 03/09/2019 COMPARISON: 03/08/2019 HISTORY: Shortness of breath TECHNIQUE: Frontal and lateral views of the chest are obtained. FINDINGS: Right-sided chest tube is unchanged in position. Less than 10% right-sided pneumothorax suspected. Isabel bcutaneous air along the right chest wall and right neck. Increased density right suprahilar and right paratracheal region. Heart size is stable. Mediastinal structures are stable and grossly unremarkable. No evidence for hilar prominence. Degenerative changes dorsal spine. IMPRESSION: 1. Essentially stable chest with small right apical pneumothorax suspected.
[2019-03-09] MEDS: INSULN ASP PRT/INSULIN ASPART 100 UNIT/ML 10 ML VIAL SQ SCH ×2 (08:28→17:22)
[2019-03-09] MEDS: HEPARIN SODIUM,PORCINE 5,000 UNIT/ML 1 ML VIAL SQ SCH ×2 (08:28→17:23)
[2019-03-09] MEDS: MAGNESIUM OXIDE 400 MG TAB PO SCH (08:29)
[2019-03-09] MEDS: PANTOPRAZOLE 40 MG TABLET PO SCH (08:29)
[2019-03-09] MEDS: ASPIRIN 81 MG PO SCH (08:29)
[2019-03-09] MEDS: INSULIN ASPART (NovoLOG) 100 UNIT/ML VIAL SQ SCH ×4 (08:29→21:47)
[2019-03-09] MEDS: CHOLECALCIFEROL 1,000 UNIT TAB PO SCH (08:29)
[2019-03-09] MEDS: VARENICLINE 0.5 MG TAB PO SCH ×2 (08:30→21:48)
[2019-03-09 08:40] LABS: Glucose,Whole Blood 231 mg/dL (75-99)
[2019-03-09] MEDS: SYMBICORT 80-4.5 MCG INHALER INHALATION SCH ×2 (08:53→20:24)
[2019-03-09] MEDS: IPRATROPIUM-ALBUTEROL 3 ML NEB IH SCH ×4 (08:53→20:07)
[2019-03-09] MEDS ORDERED: LISINOPRIL 10 MG TAB PO SCH (09:00)
--- NOTE | 2019-03-09 09:14 | P.PN ---
Subjective Progress Note Date: 03/09/19 Principal diagnosis: COPD, lung mass, status post right upper lobectomy this is a 78-year-old white male with history of multiple medical problems including insulin-dependent diabetes, chronic atrial fibrillation, coronary artery disease and previous stenting, hypercholesterolemia, degenerative joint disease with previous bilateral knee replacement, history of left rotator cuff surgery, permanent pacemaker implantation and stenting of LAD in 1998. Patient is also known to have history of COPD FEV1 is in the range of 50%, 1.31 L, patient was recently evaluated by me for a right hilar mass, patient underwent a PET scan and showed uptake within the right suprahilar mass and no other abnormality was noted. 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 Patient was referred to Dr. Cochran, and he underwent right upper lobectomy with rima dissection today, postoperatively he was transferred to the cardiac floor, and I was asked to see him on consultation. Patient seems to be doing fairly well, complaining mostly of right sided chest pain at the surgical site, has a right sided chest tube in place with minimal air leak noted. Chest x-ray showed postoperative changes and no other significant findings otherwise. On 03/07/2019 patient seen in follow-up this is postop day 1, status post right upper lobectomy for a right hilar mass which showed suspicious uptake on the PET scan. Navigational bronchoscopy biopsies were nondiagnostic. The patient is awake and alert, resting in bed, currently on 3 L of oxygen with a pulse ox of 97%, signs are stable, having some mild to moderate amount of incisional discomfort, but is able to do his incentive spirometry, is able to achieve 1000 mL on the today. Lung sounds are diminished on the right side, right-sided chest tube is in place, with continuous air leak, and moderate amount of serosanguineous than output from the right chest tube. Today's labs have been reviewed, and showed a white blood cell count of 10.7, hemoglobin of 12.2, sodium is 136, depressed electrolytes were within normal limits, BUN is 26 and creatinine is 1.36. On 03/09/2019 patient seen in follow-up on selective care unit, he sitting up in the recliner, in no acute distress, right-sided chest tube is in place, to waterseal, and patient still has occasional leak with deep breathing and coughing, air leak has improved compared to 2 days ago. Today's chest x-ray has been reviewed, shows essentially stable chest with small right apical pneumothorax. His pain is reasonably controlled, patient has been ambulating, the whole entire length of the sears. Lung wedge biopsy is still pending at this time. Patient is working his incentive spirometer, able to achieve 752 just under 1000 mL on the today, lung sounds reveal better air entry on the right, with some limited wheezes. No fever or chills. Occasional cough, with pro duction of small amount of phlegm. Objective - Vital Signs Vital signs: Vital Signs Temp 97.8 F 03/09/19 04:00 Pulse 72 03/09/19 08:53 Resp 18 03/09/19 04:00 BP 102/52 03/09/19 04:00 Pulse Ox 95 03/09/19 04:00 Intake & Output 03/08/19 03/09/19 03/09/19 18:59 06:59 18:59 Intake Total 960 Output Total 150 60 Balance 810 -60 Weight 123 kg Intake: Oral 960 Output: Chest Tube Drainage 60 Chest Tube Right 60 Urine 150 Other: Voiding Method Toilet Toilet # Voids 2 - Exam GENERAL EXAM: Alert, pleasant, 78-year-old white male, on 2 L of oxygen, comfortable in no apparent distress. HEAD: Normocephalic/atraumatic. EYES: Normal reaction of pupils, equal size. Conjunctiva pink, sclera white. NOSE: Clear with pink turbinates. THROAT: No erythema or exudates. NECK: No masses, no JVD, no thyroid enlargement, no adenopathy. CHEST: No chest wall deformity. Symmetrical expansion. Right-sided chest tube i s in place currently to waterseal, with occasional air leak, and moderate amount of thin serosanguineous output in the Pleur-evac LUNGS: Equal air entry with no crackles, wheeze, rhonchi or dullness. Diminished breath sounds on the right CVS: Regular rate and rhythm, normal S1 and S2, no gallops, no murmurs, no rubs ABDOMEN: Soft, nontender. No hepatosplenomegaly, normal bowel sounds, no guarding or rigidity. EXTREMITIES: No clubbing, no edema, no cyanosis, 2+ pulses and upper and lower extremities. MUSCULOSKELETAL: Muscle strength and tone normal. SPINE: No scoliosis or deformity SKIN: No rashes CENTRAL NERVOUS SYSTEM: Alert and oriented -3. No focal deficits, tone is normal in all 4 extremities. PSYCHIATRIC: Alert and oriented -3. Appropriate affect. Intact judgment and insight. - Labs CBC & Chem 7: 03/09/19 06:52 03/09/19 06:52 Labs: Abnormal Lab Results - Last 24 Hours (Table) 03/08/19 03/08/19 03/08/19 Range/Units 11:07 11:07 11:07 WBC 13.4 H (3.8-10.6) k/uL RBC 3.63 L (4.30-5.90) m/uL Hgb 11.5 L (13.0-17.5) gm/dL Hct 34.8 L (39.0-53.0) % Sodium 134 L (137-145) mmol/L Chloride 97 L (98-107) mmol/L BUN 38 H (9-20) mg/dL Creatinine 2.01 H (0.66-1.25) mg/dL Glucose 181 H (74-99) mg/dL POC Glucose (mg/dL) (75-99) mg/dL Hemoglobin A1c 8.6 H (4.0-6.0) % Calcium (8.4-10.2) mg/dL 03/08/19 03/08/19 03/08/19 Range/Units 11:13 16:41 21:01 WBC (3.8-10.6) k/uL RBC (4.30-5.90) m/uL Hgb (13.0-17.5) gm/dL Hct (39.0-53.0) % Sodium (137-145) mmol/L Chloride (98-107) mmol/L BUN (9-20) mg/dL Creatinine (0.66-1.25) mg/dL Glucose (74-99) mg/dL POC Glucose (mg/dL) 195 H 177 H 207 H (75-99) mg/dL Hemoglobin A1c (4.0-6.0) % Calcium (8.4-10.2) mg/dL 03/09/19 03/09/19 03/09/19 Range/Units 06:12 06:52 06:52 WBC (3.8-10.6) k/uL RBC 3.14 L (4.30-5.90) m/uL Hgb 9.8 L D (13.0-17.5) gm/dL Hct 29.8 L (39.0-53.0) % Sodium 131 L (137-145) mmol/L Chloride (98-107) mmol/L BUN 42 H (9-20) mg/dL Creatinine 1.62 H (0.66-1.25) mg/dL Glucose 193 H (74-99) mg/dL POC Glucose (mg/dL) 171 H (75-99) mg/dL Hemoglobin A1c (4.0-6.0) % Calcium 7.9 L (8.4-10.2) mg/dL 03/09/19 Range/Units 08:27 WBC (3.8-10.6) k/uL RBC (4.30-5.90) m/uL Hgb (13.0-17.5) gm/dL Hct (39.0-53.0) % Sodium (137-145) mmol/L Chloride (98-107) mmol/L BUN (9-20) mg/dL Creatinine (0.66-1.25) mg/dL Glucose (74-99) mg/dL POC Glucose (mg/dL) 231 H (75-99) mg/dL Hemoglobin A1c (4.0-6.0) % Calcium (8.4-10.2) mg/dL Assessment and Plan Plan: Assessment: 1status post right upper lobectomy for what seems to be a 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 2moderate severe COPD FEV1 is in the range of 50%. 3 obstructive sleep apnea syndrome 4 coronary arteriosclerosis and previous stent placement. 5 benign essential hypertension 6 pacemaker in situ 7 history of vitamin D deficiency 8 type 2 diabetes 9 chronic atrial fibrillation. Plan: Continue encouraging deep breathing and coughing, ambulation, incentive spirometry use, pain control, today's chest x-ray has been reviewed with Dr. Noriega, shows less than 10% right-sided pneumothorax, occasional leak and the chest tube, right-sided chest tube remains to waterseal, biopsy results are pending. No acute complaints, and tingling breathing treatments I performed a history & physical examination of the patient and discussed their management with my nurse practitioner, Nita Carrington. I reviewed the nurse practitioner's note and agree with the documented findings and plan of care. Lung sounds are positive for diminished breath sounds on the right. The findings and the impression was discussed with the patient. I attest to the documentation by the nurse practitioner. Time with Patient: Less than 30
--- NOTE | 2019-03-09 10:30 | P.PN ---
Subjective Progress Note Date: 03/09/19 This is a 78-year-old white male with history of multiple medical problems including insulin-dependent diabetes, chronic atrial fibrillation, coronary artery disease and previous stenting, hypercholesterolemia, degenerative joint disease with previous bilateral knee replacement, history of left rotator cuff surgery, permanent pacemaker implantation and stenting of LAD in 1998. Patient was recently evaluated for a right hilar mass, patient underwent a PET scan and showed uptake within the right suprahilar mass and no other abnormality was noted. 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 Patient was referred to Dr. Cochran, and he underwent right upper lobectomy with rima dissection , postoperatively he was transferred to the cardiac floor, and we were asked to see him in consultation. Patient had been seen in consultation yesterday by Dr. Sanchez. He was seen and examined this morning on the telemetry unit, complained of feeling somewhat listless and lightheaded. His blood pres sure is running in the 90 systolic range. He is complaining of some mild incisional discomfort, still working hard on his incentive spirometry reaching approximately 1000. Right-sided chest tube remains in place with continuous air leak, moderate amount of serous sanguinous output in the right chest tube. He was on 20 mg of lisinopril, we'll decrease that to 10 mg daily from today. 03/09/2019 Patient seen and examined this morning, feeling much better today than he did yesterday morning. No further episodes of lightheadedness, much less listless today. Continues to have right-sided chest tube in place to water seal. Airleak is improving as compared with 2 days ago. Today's chest x-ray shows essentially stable chest with small right apical pneumothorax. Blood pressure this morning 102/50 with a heart rate in the 70s, 95% on 2 L of oxygen. White blood cell count 8.3, hemoglobin 9.8, platelet count 161. Magnesium 1.6. Sodium 131, potassium 4.9, BUN 42 and creatinine 1.6. Objective - Vital Signs Vital signs: Vital Signs Temp 97.8 F 03/09/19 04:00 Pulse 84 03/09/19 09:08 Resp 18 03/09/19 04:00 BP 102/52 03/09/19 04:00 Pulse Ox 95 03/09/19 04:00 Intake & Output 03/08/19 03/09/19 03/09/19 18:59 06:59 18:59 Intake Total 960 240 Output Total 150 60 Balance 810 -60 240 Weight 123 kg Intake: Oral 960 240 Output: Chest Tube Drainage 60 Chest Tube Right 60 Urine 150 Other: Voiding Method Toilet Toilet # Voids 2 0 # Bowel Movements 0 - Exam HEAD: Normocephalic/atraumatic. EYES: Normal reaction of pupils, equal size. Conjunctiva pink, sclera white. NOSE: Clear with pink turbinates. THROAT: No erythema or exudates. NECK: No masses, no JVD, no thyroid enlargement, no adenopathy. CHEST: No chest wall deformity. Symmetrical expansion. Right-sided chest tube is in place, with continuous air leak, and moderate amount of thin serosanguineous output in the Pleur-evac LUNGS: Equal air entry with no crackles, wheeze, rhonchi or dullness. Diminished breath sounds on the right CVS: Regular rate and rhythm, normal S1 and S2, no gallops, no murmurs, no rubs ABDOMEN: Soft, nontender. No hepatosplenomegaly, normal bowel sounds, no guarding or rigidity. EXTREMITIES: No clubbing, no edema, no cyanosis, 2+ pulses and upper and lower extremities. MUSCULOSKELETAL: Muscle strength and tone normal. SPINE: No scoliosis or deformity SKIN: No rashes CENTRAL NERVOUS SYSTEM: Alert and oriented -3. No focal deficits, tone is normal in all 4 extremities. PSYCHIATRIC: Alert and oriented -3. Appropriate affect. Intact judgment and insight. - Labs CBC & Chem 7: 03/09/19 06:52 03/09/19 06:52 Labs: Abnormal Lab Results - Last 24 Hours (Table) 03/08/19 03/08/19 03/08/19 Range/Units 11:07 11:07 11:07 WBC 13.4 H (3.8-10.6) k/uL RBC 3.63 L (4.30-5.90) m/uL Hgb 11.5 L (13.0-17.5) gm/dL Hct 34.8 L (39.0-53.0) % Sodium 134 L (137-145) mmol/L Chloride 97 L (98-107) mmol/L BUN 38 H (9-20) mg/dL Creatinine 2.01 H (0.66-1.25) mg/dL Glucose 181 H (74-99) mg/dL POC Glucose (mg/dL) (75-99) mg/dL Hemoglobin A1c 8.6 H (4.0-6.0) % Calcium (8.4-10.2) mg/dL 03/08/19 03/08/19 03/08/19 Range/Units 11:13 16:41 21:01 WBC (3.8-10.6) k/uL RBC (4.30-5.90) m/uL Hgb (13.0-17.5) gm/dL Hct (39.0-53.0) % Sodium (137-145) mmol/L Chloride (98-107) mmol/L BUN (9-20) mg/dL Creatinine (0.66-1.25) mg/dL Glucose (74-99) mg/dL POC Glucose (mg/dL) 195 H 177 H 207 H (75-99) mg/dL Hemoglobin A1c (4.0-6.0) % Calcium (8.4-10.2) mg/dL 03/09/19 03/09/19 03/09/19 Range/Units 06:12 06:52 06:52 WBC (3.8-10.6) k/uL RBC 3.14 L (4.30-5.90) m/uL Hgb 9.8 L D (13.0-17.5) gm/dL Hct 29.8 L (39.0-53.0) % Sodium 131 L (137-145) mmol/L Chloride (98-107) mmol/L BUN 42 H (9-20) mg/dL Creatinine 1.62 H (0.66-1.25) mg/dL Glucose 193 H (74-99) mg/dL POC Glucose (mg/dL) 171 H (75-99) mg/dL Hemoglobin A1c (4.0-6.0) % Calcium 7.9 L (8.4-10.2) mg/dL 03/09/19 Range/Units 08:27 WBC (3.8-10.6) k/uL RBC (4.30-5.90) m/uL Hgb (13.0-17.5) gm/dL Hct (39.0-53.0) % Sodium (137-145) mmol/L Chloride (98-107) mmol/L BUN (9-20) mg/dL Creatinine (0.66-1.25) mg/dL Glucose (74-99) mg/dL POC Glucose (mg/dL) 231 H (75-99) mg/dL Hemoglobin A1c (4.0-6.0) % Calcium (8.4-10.2) mg/dL Assessment and Plan Plan: Assessment and plan #1 status post right upper lobectomy for what seems to be a 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 #2 moderate severe COPD FEV1 is in the range of 50%. #3 obstructive sleep apnea syndrome #4 coronary arteriosclerosis and previous stent placement. #5 benign essential hypertension #6 pacemaker in situ #7 history of vitamin D deficiency #8 type 2 diabetes #9 chronic atrial fibrillation. Plan From cardiology's perspective, we'll recommend to continue the patient on his current medication. We will replace magnesium. DNP note has been reviewed, I agree with a documented findings and plan of care. Patient was seen and examined.
[2019-03-09 10:34] LABS: Glucose,Whole Blood 183 mg/dL (75-99)
[2019-03-09] MEDS ORDERED: SODIUM CHLORIDE 0.9% 1,000 ML IV SCH (11:00)
--- NOTE | 2019-03-09 11:25 | P.PN ---
Subjective Progress Note Date: 03/09/19 Principal diagnosis: Right upper lobe lung cancer. Previous medical history of COPD, previous tobacco dependence with smoking cessation approximately 1 month ago and 40-idom-roai history, insulin-dependent diabetes mellitus, coronary artery disease status post angioplasty with stenting to the LAD, ischemic cardiomyopathy, hypertension, paroxysmal atrial fibrillation on chronic Eliquis for anticoagulation. Acute kidney injury. POD #3 robotic assisted thoracoscopic right upper lobectomy with mediastinal lymph node dissection. Right thoracotomy with re-resection of bronchial stump and suture closure The patient is currently sitting up in the recliner on the cardiac stepdown unit. Was feeling better this morning, still a bit tired. States pain is controlled on current medication regimen. Denies shortness of breath. Chest tube does have a small air leak present. Objective - Vital Signs Vital signs: Vital Signs Temp 97.8 F 03/09/19 04:00 Pulse 84 03/09/19 09:08 Resp 18 03/09/19 04:00 BP 102/52 03/09/19 04:00 Pulse Ox 95 03/09/19 04:00 Intake & Output 03/08/19 03/09/19 03/09/19 18:59 06:59 18:59 Intake Total 960 240 Output Total 150 60 Balance 810 -60 240 Weight 123 kg Intake: Oral 960 240 Output: Chest Tube Drainage 60 Chest Tube Right 60 Urine 150 Other: Voiding Method Toilet Toilet # Voids 2 0 # Bowel Movements 0 - Constitutional General appearance: Present: cooperative, no acute distress, obese - Respiratory Details: Lungs sounds diminished bilaterally. Respirations even, nonlabored. Currently on 2 L nasal cannula with oxygen saturation 95%. Able to achieve 1000 mL on his incentive spirometry. Right pleural chest tube to waterseal, 60 mL serosanguineous output overnight, 150 mL in the last 24 hours, positive small intermittent air leak. - Cardiovascular Details: S1, S2 present. Regular rate and rhythm, sinus rhythm on telemetry. Palpable peripheral pulses bilaterally. No edema present. No calf pain or tenderness noted. SCDs present. - Gastrointestinal Gastrointestinal Comment(s): Abdomen soft, nontender, nondistended. Active bowel sounds present 4 quadrants. Tolerating diet. Positive bowel movement. - Genitourinary Genitourinary Comment(s): Voiding clear, yellow urine. - Integumentary Integumentary Comment(s): Skin is warm and dry with evidence of good perfusion. Right pleural chest tube site covered with dry intact dressing. - Neurologic Neurologic: Present: CNII-XII intact - Musculoskeletal Musculoskeletal: Present: gait normal, strength equal bilaterally - Psychiatric Psychiatric Comment(s): Patient is a bit sleepy, foggy at times. Psychiatric: Present: A&O x's 3, appropriate affect, intact judgment & insight - Allied health notes Allied health notes reviewed: nursing - Labs CBC & Chem 7: 03/09/19 06:52 03/09/19 06:52 Labs: Abnormal Lab Results - Last 24 Hours (Table) 03/08/19 03/08/19 03/08/19 Range/Units 11:07 11:07 11:07 WBC 13.4 H (3.8-10.6) k/uL RBC 3.63 L (4.30-5.90) m/uL Hgb 11.5 L (13.0-17.5) gm/dL Hct 34.8 L (39.0-53.0) % Sodium 134 L (137-145) mmol/L Chloride 97 L (98-107) mmol/L BUN 38 H (9-20) mg/dL Creatinine 2.01 H (0.66-1.25) mg/dL Glucose 181 H (74-99) mg/dL POC Glucose (mg/dL) (75-99) mg/dL Hemoglobin A1c 8.6 H (4.0-6.0) % Calcium (8.4-10.2) mg/dL 03/08/19 03/08/19 03/09/19 Range/Units 16:41 21:01 06:12 WBC (3.8-10.6) k/uL RBC (4.30-5.90) m/uL Hgb (13.0-17.5) gm/dL Hct (39.0-53.0) % Sodium (137-145) mmol/L Chloride (98-107) mmol/L BUN (9-20) mg/dL Creatinine (0.66-1.25) mg/dL Glucose (74-99) mg/dL POC Glucose (mg/dL) 177 H 207 H 171 H (75-99) mg/dL Hemoglobin A1c (4.0-6.0) % Calcium (8.4-10.2) mg/dL 03/09/19 03/09/19 03/09/19 Range/Units 06:52 06:52 08:27 WBC (3.8-10.6) k/uL RBC 3.14 L (4.30-5.90) m/uL Hgb 9.8 L D (13.0-17.5) gm/dL Hct 29.8 L (39.0-53.0) % Sodium 131 L (137-145) mmol/L Chloride (98-107) mmol/L BUN 42 H (9-20) mg/dL Creatinine 1.62 H (0.66-1.25) mg/dL Glucose 193 H (74-99) mg/dL POC Glucose (mg/dL) 231 H (75-99) mg/dL Hemoglobin A1c (4.0-6.0) % Calcium 7.9 L (8.4-10.2) mg/dL 03/09/19 Range/Units 10:33 WBC (3.8-10.6) k/uL RBC (4.30-5.90) m/uL Hgb (13.0-17.5) gm/dL Hct (39.0-53.0) % Sodium (137-145) mmol/L Chloride (98-107) mmol/L BUN (9-20) mg/dL Creatinine (0.66-1.25) mg/dL Glucose (74-99) mg/dL POC Glucose (mg/dL) 183 H (75-99) mg/dL Hemoglobin A1c (4.0-6.0) % Calcium (8.4-10.2) mg/dL - Imaging and Cardiology Chest x-ray: report reviewed, image reviewed Assessment and Plan Assessment: 1. Right upper lobe lung cancer, status post robotic-assisted thoracoscopic right upper lobectomy with mediastinal lymph node dissection, right thoracotomy with re-resection of bronchial stump and suture closure 2. History of COPD 3. Previous tobacco dependence 4. Insulin-dependent diabetes mellitus with hemoglobin A1c 8.6% 5. Coronary artery disease status post angioplasty with stenting to the LAD 6. Ischemic cardiomyopathy 7. Hypertension 8. Paroxysmal atrial fibrillation on chronic Eliquis for anticoagulation 9. Acute kidney injury, resolving Plan: 1. Continue chest tube to waterseal. Will continue to monitor for resolution of air leak. 2. Will monitor daily x-rays. 3. Pain control with current medication regimen. Toradol discontinued. 4. GI/DVT prophylaxis. 5. Continue home medications with parameters on blood pressure medications. Lisinopril, metformin and discontinued 6. Bronchodilators per pulmonology. 7. Wean O2 as tolerated. Encourage is a spirometry is 10 times every hour whil e awake. 8. Increase activity, ambulate in hallway. 9. Patient placed on IV fluids per Dr. Mckeon, switched to 0.9 normal saline due to sodium level 131 10. More recommendations to follow. Time with Patient: Greater than 30
[2019-03-09 11:50] LABS: Glucose,Whole Blood 156 mg/dL (75-99)
[2019-03-09] MEDS: MAGNESIUM SULFATE-D5W PMX 1 GM in DEXTROSE/WATER 1 100ML.BAG IVPB SCH ×2 (12:30→13:44)
[2019-03-09] MEDS ORDERED: INSULN ASP PRT/INSULIN ASPART 100 UNIT/ML 10 ML VIAL SQ SCH (12:30)
[2019-03-09] MEDS: SODIUM CHLORIDE 0.9% 1,000 ML IV SCH ×2 (12:31→19:55)
[2019-03-09 16:56] LABS: Glucose,Whole Blood 157 mg/dL (75-99)
[2019-03-09 21:15] LABS: Glucose,Whole Blood 212 mg/dL (75-99)
[2019-03-09] MEDS: ALPRAZolam 0.5 MG TAB PO SCH (21:48)
[2019-03-09] MEDS: METOPROLOL SUCCINATE (ER) 50 MG TAB.ER.24H PO SCH (21:48)
[2019-03-09] MEDS: ATORVASTATIN 20 MG TAB PO SCH (21:48)
[2019-03-10] MEDS: HEPARIN SODIUM,PORCINE 5,000 UNIT/ML 1 ML VIAL SQ SCH ×3 (00:38→17:31)
--- NOTE | 2019-03-10 04:20 | PN ---
PROGRESS NOTE DATE OF SERVICE: 03/09/2019 PRESENTING COMPLAINT: Lung surgery. INTERVAL HISTORY: Patient is status post right upper lobe lobectomy for lung cancer. The patient was in acute renal failure from diuresis. Insulin was adjusted yesterday. Patient is doing better today. Sugars are better controlled. Resting. Chest tube in place. REVIEW OF SYSTEMS: Done for constitutional, cardiovascular, GI, pulmonary; relevant findings as above. CURRENT MEDICATIONS: Reviewed that includes saline. PHYSICAL EXAMINATION: VITAL SIGNS: Temperature 99.4, pulse 79, respiratory rate 18, blood pressure 127/68, pulse ox 93 percent on 2 L. GENERAL APPEARANCE: Sitting up in bed, resting. EYES: Pupils equal. Conjunctivae normal. NECK: JVD not raised. Mass not palpable. RESPIRATORY: Effort increased. LUNGS: Diminished breath sounds. CARDIOVASCULAR: First and second sounds normal. No edema. ABDOMEN: Distended soft. Liver and spleen not palpable. PSYCHIATRY: Alert and oriented x3. Mood and affect normal. Right-sided chest tube is present. INVESTIGATIONS: White count 8.3, hemoglobin 9.8, BUN 42, creatinine 1.62. Accu-Cheks show 231, 183, 156. ASSESSMENT: 1. Right upper lobe lobectomy for moderately differentiated squamous cell carcinoma, now with a chest tube in place. 2. 10% pneumothorax on the right side. 3. Morbid obesity BMI 37.3. 4. Diabetes mellitus type 2, chronically on insulin uncontrolled with hyperglycemia. 5. Acute renal failure, combination of prerenal and acute tubular necrosis, baseline creatinine 0.97. The patient's Toradol, GILES inhibitor and metformin have been discontinued. 6. Persistent atrial fibrillation. 7. Chronic obstructive pulmonary disease in an ex-smoker. 8. Essential hypertension. 9. Hyperlipidemia. 10.Coronary artery disease with prior history of stent. 11.Obstructive sleep apnea uses BiPAP. 12.Diabetic peripheral neuropathy. PLAN: Continue with IV fluids. We will increase all doses of insulin by 2 units including that before breakfast, and supper and 10 units before lunch. Care was discussed with the at the bedside. MMRADHAL / SHERITAN: [id number] /
[2019-03-10 06:14] LABS: Glucose,Whole Blood 188 mg/dL (75-99)
[2019-03-10 06:41] LABS: HCT 31.4 % (39.0-53.0); HGB 10.2 gm/dL (13.0-17.5); MCH 30.7 pg (25.0-35.0); MCHC 32.5 g/dL (31.0-37.0); MCV 94.4 fL (80.0-100.0); Platelet Count 220 k/uL (150-450); RBC 3.32 m/uL (4.30-5.90); RDW 13.2 % (11.5-15.5); WBC 7.2 k/uL (3.8-10.6)
[2019-03-10 06:50] LABS: Calcium 8.4 mg/dL (8.4-10.2); Magnesium 2.1 mg/dL (1.6-2.3); Potassium 5.8 mmol/L (3.5-5.1)
[2019-03-10] MEDS: SODIUM CHLORIDE 0.9% 1,000 ML IV SCH ×2 (06:50→17:32)
[2019-03-10] MEDS: PANTOPRAZOLE 40 MG TABLET PO SCH (06:51)
[2019-03-10] MEDS: INSULIN ASPART (NovoLOG) 100 UNIT/ML VIAL SQ SCH ×4 (06:51→21:02)
[2019-03-10] MEDS ORDERED: INSULIN DETEMIR (LEVEMIR) 100 UNIT/ML SYR SQ SCH (07:30)
[2019-03-10] MEDS ORDERED: INSULIN ASPART (NovoLOG) 100 UNIT/ML VIAL SQ SCH (07:30)
[2019-03-10] MEDS: SYMBICORT 80-4.5 MCG INHALER INHALATION SCH ×2 (08:17→20:17)
[2019-03-10] MEDS: IPRATROPIUM-ALBUTEROL 3 ML NEB IH SCH ×4 (08:17→21:20)
--- NOTE | 2019-03-10 08:20 | XR ---
EXAMINATION TYPE: XR chest 2V DATE OF EXAM: 03/10/2019 COMPARISON: Prior chest x-ray 03/09/2019 HISTORY: Chest tube TECHNIQUE: Frontal and lateral views of the chest are obtained on 3 images. FINDINGS: Right-sided chest tube, subcutaneous emphysema again noted. There is a right apical pneumo thorax. Pacemaker is stable. The heart remains enlarged. Right hilar prominence persists. IMPRESSION: Cardiomegaly, right-sided pneumothorax, postop changes
[2019-03-10] MEDS: MAGNESIUM OXIDE 400 MG TAB PO SCH (09:15)
[2019-03-10] MEDS: ASPIRIN 81 MG PO SCH (09:15)
[2019-03-10] MEDS: CHOLECALCIFEROL 1,000 UNIT TAB PO SCH (09:15)
[2019-03-10] MEDS: HYDROcodone/APAP 5-325MG 1 EACH TAB PO PRN ×2 (09:16→17:39)
[2019-03-10] MEDS: SENNOSIDES-DOCUSATE SODIUM 1 EACH TAB PO PRN (09:16)
[2019-03-10] MEDS: INSULN ASP PRT/INSULIN ASPART 100 UNIT/ML 10 ML VIAL SQ SCH ×3 (09:17→17:31)
--- NOTE | 2019-03-10 10:54 | P.PN ---
Subjective Progress Note Date: 03/10/19 This is a 78-year-old white male with history of multiple medical problems including insulin-dependent diabetes, chronic atrial fibrillation, coronary artery disease and previous stenting, hypercholesterolemia, degenerative joint disease with previous bilateral knee replacement, history of left rotator cuff surgery, permanent pacemaker implantation and stenting of LAD in 1998. Patient was recently evaluated for a right hilar mass, patient underwent a PET scan and showed uptake within the right suprahilar mass and no other abnormality was noted. 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 Patient was referred to Dr. Cochran, and he underwent right upper lobectomy with rima dissection , postoperatively he was transferred to the cardiac floor, and we were asked to see him in consultation. Patient had been seen in consultation yesterday by Dr. Sanchez. He was seen and examined this morning on the telemetry unit, complained of feeling somewhat listless and lightheaded. His blood pres sure is running in the 90 systolic range. He is complaining of some mild incisional discomfort, still working hard on his incentive spirometry reaching approximately 1000. Right-sided chest tube remains in place with continuous air leak, moderate amount of serous sanguinous output in the right chest tube. He was on 20 mg of lisinopril, we'll decrease that to 10 mg daily from today. 03/09/2019 Patient seen and examined this morning, feeling much better today than he did yesterday morning. No further episodes of lightheadedness, much less listless today. Continues to have right-sided chest tube in place to water seal. Airleak is improving as compared with 2 days ago. Today's chest x-ray shows essentially stable chest with small right apical pneumothorax. Blood pressure this morning 102/50 with a heart rate in the 70s, 95% on 2 L of oxygen. White blood cell count 8.3, hemoglobin 9.8, platelet count 161. Magnesium 1.6. Sodium 131, potassium 4.9, BUN 42 and creatinine 1.6. 03/10/2019 Patient was seen and examined this morning continues to do better. Repeat chest x-ray from this morning showed cardiomegaly with right-sided pneumothorax. Blood pressure 140/70 with heart rate in the 70s, 93%Ra. 55 mL out of the chest tube. White blood cell count 7.2, hemoglobin 10.2, platelet count 220. Sodium 136, potassium 5.8, BUN 30 and creatinine 1.2, magnesium 2.1. Objective - Vital Signs Vital signs: Vital Signs Temp 98.8 F 03/10/19 08:00 Pulse 73 03/10/19 08:00 Resp 18 03/10/19 08:00 BP 146/75 03/10/19 08:00 Pulse Ox 93 L 03/10/19 08:00 Intake & Output 03/09/19 03/10/19 03/10/19 18:59 06:59 18:59 Intake Total 2780 750 760 Output Total 2290 950 1010 Balance 490 -200 -250 Intake: IV 1200 600 Magnesium Sulfate-D5w Pmx 200 1 gm In Dextrose/Water 1 100ml.bag @ 100 mls/hr IVPB Q1H [facility]IA ESTHER Rx#: [id number] Sodium Chloride 0.9% 1, 1000 600 000 ml @ 100 mls/hr IV . Q10H MARIA ESTHER Rx#:[id number] Intake, IV Titration 500 Amount Sodium Chloride 0.9% 1, 500 000 ml @ 100 mls/hr IV . Q10H MARIA ESTHER Rx#:[id number] Oral 1580 150 260 Output: Chest Tube Drainage 90 75 110 Chest Tube Right 90 75 110 Drainage 50 75 Right Chest 50 75 Urine 2150 800 900 Other: Voiding Method Toilet Toilet Toilet Urinal Urinal # Voids 0 2 3 # Bowel Movements 0 - Exam HEAD: Normocephalic/atraumatic. EYES: Normal reaction of pupils, equal size. Conjunctiva pink, sclera white. NOSE: Clear with pink turbinates. THROAT: No erythema or exudates. NECK: No masses, no JVD, no thyroid enlargement, no adenopathy. CHEST: No chest wall deformity. Symmetrical expansion. Right-sided chest tube is in place, with continuous air leak, and moderate amount of thin serosanguineous output in the Pleur-evac LUNGS: Equal air entry with no crackles, wheeze, rhonchi or dullness. Diminished breath sounds on the right CVS: Regular rate and rhythm, normal S1 and S2, no gallops, no murmurs, no rubs ABDOMEN: Soft, nontender. No hepatosplenomegaly, normal bowel sounds, no guarding or rigidity. EXTREMITIES: No clubbing, no edema, no cyanosis, 2+ pulses and upper and lower extremities. MUSCULOSKELETAL: Muscle strength and tone normal. SPINE: No scoliosis or deformity SKIN: No rashes CENTRAL NERVOUS SYSTEM: Alert and oriented -3. No focal deficits, tone is normal in all 4 extremities. PSYCHIATRIC: Alert and oriented -3. Appropriate affect. Intact judgment and insight. - Labs CBC & Chem 7: 03/10/19 06:19 03/10/19 06:19 Labs: Abnormal Lab Results - Last 24 Hours (Table) 03/09/19 03/09/19 03/09/19 Range/Units 11:41 16:54 21:13 RBC (4.30-5.90) m/uL Hgb (13.0-17.5) gm/dL Hct (39.0-53.0) % Sodium (137-145) mmol/L Potassium (3.5-5.1) mmol/L BUN (9-20) mg/dL Glucose (74-99) mg/dL POC Glucose (mg/dL) 156 H 157 H 212 H (75-99) mg/dL 03/10/19 03/10/19 03/10/19 Range/Units 06:13 06:19 06:19 RBC 3.32 L (4.30-5.90) m/uL Hgb 10.2 L (13.0-17.5) gm/dL Hct 31.4 L (39.0-53.0) % Sodium 136 L (137-145) mmol/L Potassium 5.8 H (3.5-5.1) mmol/L BUN 30 H (9-20) mg/dL Glucose 188 H (74-99) mg/dL POC Glucose (mg/dL) 188 H (75-99) mg/dL Assessment and Plan Plan: Assessment and plan #1 status post right upper lobectomy for what seems to be a 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 #2 moderate severe COPD FEV1 is in the range of 50%. #3 obstructive sleep apnea syndrome #4 coronary arteriosclerosis and previous stent placement. #5 benign essential hypertension #6 pacemaker in situ #7 history of vitamin D deficiency #8 type 2 diabetes #9 chronic atrial fibrillation. Plan From cardiology's perspective, we'll recommend to continue the patient on his current medication. DNP note has been reviewed, I agree with a documented findings and plan of care. Patient was seen and examined.
--- NOTE | 2019-03-10 11:17 | P.PN ---
Subjective Progress Note Date: 03/10/19 Principal diagnosis: Right upper lobe lung cancer. Previous medical history of COPD, previous tobacco dependence with smoking cessation approximately 1 month ago and 93-kcry-fibw history, insulin-dependent diabetes mellitus, coronary artery disease status post angioplasty with stenting to the LAD, ischemic cardiomyopathy, hypertension, paroxysmal atrial fibrillation on chronic Eliquis for anticoagulation. Acute kidney injury. POD #4 robotic assisted thoracoscopic right upper lobectomy with mediastinal lymph node dissection. Right thoracotomy with re-resection of bronchial stump and suture closure The patient is currently sitting up in the recliner on the cardiac stepdown unit. States he feels last foggy than yesterday but does complain of more pain has tube insertion site, at times as high as 8 or 9 out of 10, since narcotics discontinued. Right chest tube remained to waterseal, air leak remains. Objective - Vital Signs Vital signs: Vital Signs Temp 98.8 F 03/10/19 08:00 Pulse 73 03/10/19 08:00 Resp 18 03/10/19 08:00 BP 146/75 03/10/19 08:00 Pulse Ox 93 L 03/10/19 08:00 Intake & Output 03/09/19 03/10/19 03/10/19 18:59 06:59 18:59 Intake Total 2780 750 760 Output Total 2290 950 1010 Balance 490 -200 -250 Intake: IV 1200 600 Magnesium Sulfate-D5w Pmx 200 1 gm In Dextrose/Water 1 100ml.bag @ 100 mls/hr IVPB Q1H [facility] ESTHER Rx#: [id number] Sodium Chloride 0.9% 1, 1000 600 000 ml @ 100 mls/hr IV . Q10H [facility]IA ESTHER Rx#:[id number] Intake, IV Titration 500 Amount Sodium Chloride 0.9% 1, 500 000 ml @ 100 mls/hr IV . Q10H MARIA ESTHER Rx#:[id number] Oral 1580 150 260 Output: Chest Tube Drainage 90 75 110 Chest Tube Right 90 75 110 Drainage 50 75 Right Chest 50 75 Urine 2150 800 900 Other: Voiding Method Toilet Toilet Toilet Urinal Urinal # Voids 0 2 3 # Bowel Movements 0 - Constitutional General appearance: Present: cooperative, no acute distress, obese - Respiratory Details: Lungs sounds diminished bilaterally. Respirations even, nonlabored. Currently on 2 L nasal cannula with oxygen saturation 93%. Able to achieve 1000 mL on his incentive spirometry. Right pleural chest tube to waterseal, 55 mL serosanguineous output overnight, 275 mL in the last 24 hours, positive small intermittent air leak. - Cardiovascular Details: S1, S2 present. Regular rate and rhythm, sinus rhythm on telemetry. Palpable peripheral pulses bilaterally. No edema present. No calf pain or tenderness noted. SCDs present. - Gastrointestinal Gastrointestinal Comment(s): bdomen soft, nontender, nondistended. Active bowel sounds present 4 quadrants. Tolerating diet. Positive bowel movement. - Genitourinary Genitourinary Comment(s): Voiding clear, yellow urine. - Integumentary Integumentary Comment(s): Skin is warm and dry with evidence of good perfusion. Right pleural chest tube site covered with dry intact dressing. - Neurologic Neurologic: Present: CNII-XII intact - Musculoskeletal Musculoskeletal: Present: gait normal, strength equal bilaterally - Psychiatric Psychiatric: Present: A&O x's 3, appropriate affect, intact judgment & insight - Allied health notes Allied health notes reviewed: nursing - Labs CBC & Chem 7: 03/10/19 06:19 03/10/19 06:19 Labs: Abnormal Lab Results - Last 24 Hours (Table) 03/09/19 03/09/19 03/09/19 Range/Units 11:41 16:54 21:13 RBC (4.30-5.90) m/uL Hgb (13.0-17.5) gm/dL Hct (39.0-53.0) % Sodium (137-145) mmol/L Potassium (3.5-5.1) mmol/L BUN (9-20) mg/dL Glucose (74-99) mg/dL POC Glucose (mg/dL) 156 H 157 H 212 H (75-99) mg/dL 03/10/19 03/10/19 03/10/19 Range/Units 06:13 06:19 06:19 RBC 3.32 L (4.30-5.90) m/uL Hgb 10.2 L (13.0-17.5) gm/dL Hct 31.4 L (39.0-53.0) % Sodium 136 L (137-145) mmol/L Potassium 5.8 H (3.5-5.1) mmol/L BUN 30 H (9-20) mg/dL Glucose 188 H (74-99) mg/dL POC Glucose (mg/dL) 188 H (75-99) mg/dL - Imaging and Cardiology Chest x-ray: report reviewed, image reviewed Assessment and Plan Assessment: 1. Right upper lobe lung cancer, status post robotic-assisted thoracoscopic right upper lobectomy with mediastinal lymph node dissection, right thoracotomy with re-resection of bronchial stump and suture closure 2. History of COPD 3. Previous tobacco dependence 4. Insulin-dependent diabetes mellitus with hemoglobin A1c 8.6% 5. Coronary artery disease status post angioplasty with stenting to the LAD 6. Ischemic cardiomyopathy 7. Hypertension 8. Paroxysmal atrial fibrillation on chronic Eliquis for anticoagulation 9. Acute kidney injury, resolving Plan: 1. Continue chest tube to waterseal. Will continue to monitor for resolution of air leak. 2. Will monitor daily x-rays. 3. Pain control with current medication regimen. 4. GI/DVT prophylaxis. 5. Continue home medications with parameters on blood pressure medications. Lisinopril, metformin and discontinued 6. Bronchodilators per pulmonology. 7. Wean O2 as tolerated. Encourage is a spirometry is 10 times every hour while awake. 8. Increase activity, ambulate in hallway. 9. More recommendations to follow. Time with Patient: Greater than 30
[2019-03-10 12:18] LABS: Glucose,Whole Blood 224 mg/dL (75-99)
[2019-03-10] MEDS: VARENICLINE 0.5 MG TAB PO SCH ×2 (12:19→20:12)
--- NOTE | 2019-03-10 14:08 | P.PN ---
Subjective Progress Note Date: 03/10/19 Principal diagnosis: COPD, lung mass, status post right upper lobectomy this is a 78-year-old white male with history of multiple medical problems including insulin-dependent diabetes, chronic atrial fibrillation, coronary artery disease and previous stenting, hypercholesterolemia, degenerative joint disease with previous bilateral knee replacement, history of left rotator cuff surgery, permanent pacemaker implantation and stenting of LAD in 1998. Patient is also known to have history of COPD FEV1 is in the range of 50%, 1.31 L, patient was recently evaluated by me for a right hilar mass, patient underwent a PET scan and showed uptake within the right suprahilar mass and no other abnormality was noted. 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 Patient was referred to Dr. Cochran, and he underwent right upper lobectomy with rima dissection today, postoperatively he was transferred to the cardiac floor, and I was asked to see him on consultation. Patient seems to be doing fairly well, complaining mostly of right sided chest pain at the surgical site, has a right sided chest tube in place with minimal air leak noted. Chest x-ray showed postoperative changes and no other significant findings otherwise. On 03/07/2019 patient seen in follow-up this is postop day 1, status post right upper lobectomy for a right hilar mass which showed suspicious uptake on the PET scan. Navigational bronchoscopy biopsies were nondiagnostic. The patient is awake and alert, resting in bed, currently on 3 L of oxygen with a pulse ox of 97%, signs are stable, having some mild to moderate amount of incisional discomfort, but is able to do his incentive spirometry, is able to achieve 1000 mL on the today. Lung sounds are diminished on the right side, right-sided chest tube is in place, with continuous air leak, and moderate amount of serosanguineous than output from the right chest tube. Today's labs have been reviewed, and showed a white blood cell count of 10.7, hemoglobin of 12.2, sodium is 136, depressed electrolytes were within normal limits, BUN is 26 and creatinine is 1.36. On 03/09/2019 patient seen in follow-up on selective care unit, he sitting up in the recliner, in no acute distress, right-sided chest tube is in place, to waterseal, and patient still has occasional leak with deep breathing and coughing, air leak has improved compared to 2 days ago. Today's chest x-ray has been reviewed, shows essentially stable chest with small right apical pneumothorax. His pain is reasonably controlled, patient has been ambulating, the whole entire length of the sears. Lung wedge biopsy is still pending at this time. Patient is working his incentive spirometer, able to achieve 752 just under 1000 mL on the today, lung sounds reveal better air entry on the right, with some limited wheezes. No fever or chills. Occasional cough, with pro duction of small amount of phlegm. On 03/10/2019 patient seen in follow-up on selective care unit, he is awake and alert, in no acute distress, his been ambulating in the room and in the hallway, tolerating activity very well. Pulse ox is 93%, no fever no chills, hemodynamically stable, his pain is under reasonable control, right-sided chest tube is in place, with air leak present with a deep breathing and coughing. Chest tube is to waterseal, lung sounds are diminished at the bases, with only limited end expiratory wheezes, vital signs are stable, no fever or chills. Today's chest x-ray has been reviewed, and showed cardiomegaly, right-sided apical pneumothorax, which was stable in appearance, well, his incentive spirometer. Biopsy results are pending. Objective - Vital Signs Vital signs: Vital Signs Temp 98.8 F 03/10/19 08:00 Pulse 73 03/10/19 08:00 Resp 18 03/10/19 08:00 BP 146/75 03/10/19 08:00 Pulse Ox 93 L 03/10/19 08:00 Intake & Output 03/09/19 03/10/19 03/10/19 18:59 06:59 18:59 Intake Total 2780 750 760 Output Total 2290 950 1010 Balance 490 -200 -250 Intake: IV 1200 600 Magnesium Sulfate-D5w Pmx 200 1 gm In Dextrose/Water 1 100ml.bag @ 100 mls/hr IVPB Q1H [facility] Rx#: [id number] Sodium Chloride 0.9% 1, 1000 600 000 ml @ 100 mls/hr IV . Q10H [facility] ESTHER Rx#:[id number] Intake, IV Titration 500 Amount Sodium Chloride 0.9% 1, 500 000 ml @ 100 mls/hr IV . Q10H [facility] ESTHER Rx#:[id number] Oral 1580 150 260 Output: Chest Tube Drainage 90 75 110 Chest Tube Right 90 75 110 Drainage 50 75 Right Chest 50 75 Urine 2150 800 900 Other: Voiding Method Toilet Toilet Toilet Urinal Urinal # Voids 0 2 3 # Bowel Movements 0 - Exam GENERAL EXAM: Alert, pleasant, 78-year-old white male, on 2 L of oxygen, comfortable in no apparent distress. HEAD: Normocephalic/atraumatic. EYES: Normal reaction of pupils, equal size. Conjunctiva pink, sclera white. NOSE: Clear with pink turbinates. THROAT: No erythema or exudates. NECK: No masses, no JVD, no thyroid enlargement, no adenopathy. CHEST: No chest wall deformity. Symmetrical expansion. Right-sided chest tube is in place currently to waterseal, with occasional air leak, and moderate amount of thin serosanguineous output in the Pleur-evac LUNGS: Equal air entry with no crackles, wheeze, rhonchi or dullness. Diminished breath sounds on the right CVS: Regular rate and rhythm, normal S1 and S2, no gallops, no murmurs, no rubs ABDOMEN: Soft, nontender. No hepatosplenomegaly, normal bowel sounds, no guarding or rigidity. EXTREMITIES: No clubbing, no edema, no cyanosis, 2+ pulses and upper and lower extremities. MUSCULOSKELETAL: Muscle strength and tone normal. SPINE: No scoliosis or deformity SKIN: No rashes CENTRAL NERVOUS SYSTEM: Alert and oriented -3. No focal deficits, tone is normal in all 4 extremities. PSYCHIATRIC: Alert and oriented -3. Appropriate affect. Intact judgment and insight. - Labs CBC & Chem 7: 03/10/19 06:19 03/10/19 06:19 Labs: Abnormal Lab Results - Last 24 Hours (Table) 03/09/19 03/09/19 03/10/19 Range/Units 16:54 21:13 06:13 RBC (4.30-5.90) m/uL Hgb (13.0-17.5) gm/dL Hct (39.0-53.0) % Sodium (137-145) mmol/L Potassium (3.5-5.1) mmol/L BUN (9-20) mg/dL Glucose (74-99) mg/dL POC Glucose (mg/dL) 157 H 212 H 188 H (75-99) mg/dL 03/10/19 03/10/19 03/10/19 Range/Units 06:19 06:19 12:09 RBC 3.32 L (4.30-5.90) m/uL Hgb 10.2 L (13.0-17.5) gm/dL Hct 31.4 L (39.0-53.0) % Sodium 136 L (137-145) mmol/L Potassium 5.8 H (3.5-5.1) mmol/L BUN 30 H (9-20) mg/dL Glucose 188 H (74-99) mg/dL POC Glucose (mg/dL) 224 H (75-99) mg/dL Assessment and Plan Plan: Assessment: 1status post right upper lobectomy for what seems to be a 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 2moderate severe COPD FEV1 is in the range of 50%. 3 obstructive sleep apnea syndrome 4 coronary arteriosclerosis and previous stent placement. 5 benign essential hypertension 6 pacemaker in situ 7 history of vitamin D deficiency 8 type 2 diabetes 9 chronic atrial fibrillation. Plan: Continue with current medical treatment, deep breathing and coughing, ambulat ion, incentive spirometry use, today's chest x-ray shows stable appearance of tiny right apical pneumothorax, but patient is asymptomatic, only occasional leak with deep breathing and coughing, only occasional air leak from the right- sided chest tube. Biopsy results are pending. Patient is on room air. I performed a history & physical examination of the patient and discussed their management with my nurse practitioner, Nita Carrington. I reviewed the nurse practitioner's note and agree with the documented findings and plan of care. Lung sounds are positive for diminished breath sounds on the right. The findings and the impression was discussed with the patient. I attest to the documentation by the nurse practitioner. Time with Patient: Less than 30
[2019-03-10 17:23] LABS: Glucose,Whole Blood 138 mg/dL (75-99)
[2019-03-10] MEDS ORDERED: SODIUM POLYSTYRENE SULFONATE 15 GM/60 ML BOTTLE PO STA (19:49)
--- NOTE | 2019-03-10 20:10 | PN ---
PROGRESS NOTE DATE OF SERVICE: March 10, 2019 PRESENTING COMPLAINT: Lung surgery. INTERVAL HISTORY: Patient is status post right upper lobe lobectomy for lung cancer, has a chest tube in place. The patient had been in acute renal failure. Insulin was also further adjusted, doing much better. Oral intake is improved. The patient is making quite a bit of urine. Sitting up in a chair. The patient's and son at the bedside. REVIEW OF SYSTEMS: Done for constitutional, cardiovascular, GI, pulmonary; relevant findings as above. CURRENT MEDICATIONS: Reviewed that include DuoNeb, Symbicort, insulin, saline at 100 mL an hour. PHYSICAL EXAMINATION: VITAL SIGNS: Temperature 98.2, pulse 66, respiration 20, blood pressure 147/83, pulse ox 96% on 2 L. GENERAL APPEARANCE: Sitting up in a chair, awake. EYES: Pupils equal. Conjunctivae normal. NECK: JVD not raised. Mass not palpable. RESPIRATORY: Effort increased. LUNGS: Decreased breath sounds. CARDIOVASCULAR: First and second sounds normal. No edema. ABDOMEN: Distended soft. Liver and spleen not palpable. PSYCHIATRY: Alert and oriented times three. Mood and affect normal. CHEST: Right-sided chest tube is present. INVESTIGATIONS: White count 7.2, hemoglobin 10.2, potassium 5.8, BUN 30, creatinine 1.20. Accu-Cheks noted that show 224, 138, 98. ASSESSMENT: 1. 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 2. Pneumothorax on the right. 3. Morbid obesity BMI 37.3. 4. Diabetes mellitus type 2, chronically on insulin, uncontrolled with hypoglycemia. 5. Acute renal failure, combination of prerenal acute tubular necrosis, baseline creatinine 0.97. Patient's Toradol, GILES inhibitor and metformin had all been discontinued. 6. Persistent atrial fibrillation. 7. Chronic obstructive pulmonary disease in an ex smoker. 8. Essential hypertension. 9. Hyperlipidemia. 10.Coronary artery disease with prior history of stent. 11.Obstructive sleep apnea uses BiPAP. 12.Diabetic peripheral neuropathy. 13.Hyperkalemia. PLAN: We will keep the patient on current dose. We will resume patient's metformin. We will give one dose of Kayexalate. The patient IV fluids also need to be cut back as patient's creatinine is vastly improved. The patient earlier did get some insulin. MMODL / IJN: [id number] /
[2019-03-10] MEDS: ALPRAZolam 0.5 MG TAB PO SCH (20:13)
[2019-03-10] MEDS: ATORVASTATIN 20 MG TAB PO SCH (20:13)
[2019-03-10] MEDS: METOPROLOL SUCCINATE (ER) 50 MG TAB.ER.24H PO SCH (20:13)
[2019-03-10 20:47] LABS: Glucose,Whole Blood 146 mg/dL (75-99)
[2019-03-11] MEDS: HEPARIN SODIUM,PORCINE 5,000 UNIT/ML 1 ML VIAL SQ SCH ×4 (00:37→23:06)
[2019-03-11] MEDS: HYDROcodone/APAP 5-325MG 1 EACH TAB PO PRN (01:14)
[2019-03-11] MEDS: NALOXONE 0.4 MG/ML 1 ML VIAL IM STA ×2 (05:34→05:40)
[2019-03-11 05:36] LABS: Glucose,Whole Blood 192 mg/dL (75-99)
[2019-03-11] MEDS: NALOXONE 0.4 MG/ML 1 ML VIAL ONE ×2 (05:39→05:53)
[2019-03-11 05:49] LABS: ABG Base Excess 2.9 mmol/L; ABG HCO3 28 mmol/L (21-25); ABG Oxygen Saturation 97.4 % (94-97); ABG PCO2 45 mmHg (35-45); ABG PO2 95 mmHg (83-108); ABG TCO2 29 mmol/L (19-24)
--- NOTE | 2019-03-11 06:06 | XR ---
EXAM: XR Chest, 1 View CLINICAL HISTORY: ITS.REASON XR Reason: ateam protocol TECHNIQUE: Frontal view of the chest. COMPARISON: 03/10/19 chest x-ray IMPRESSION: Cardiomegaly. Unchanged right lung opacity. Right sided chest wall and right lower neck soft tissue emphysema.
[2019-03-11 06:10] LABS: Basophils % (A) 1 %; Eosinophils # (A) 0.4 k/uL (0-0.7); Eosinophils % (A) 5 %; HCT 32.8 % (39.0-53.0); HGB 10.4 gm/dL (13.0-17.5); Lymphocytes # (A) 1.4 k/uL (1.0-4.8); Lymphocytes % (A) 17 %; MCH 29.9 pg (25.0-35.0); MCHC 31.6 g/dL (31.0-37.0); MCV 94.7 fL (80.0-100.0); Mean Platelet Volume 7.2; Monocytes # (A) 0.8 k/uL (0-1.0); Monocytes % (A) 9 %; Neutrophils # (A) 5.4 k/uL (1.3-7.7); Neutrophils % (A) 65 %; Platelet Count 225 k/uL (150-450); RBC 3.47 m/uL (4.30-5.90); RDW 13.4 % (11.5-15.5); WBC 8.3 k/uL (3.8-10.6)
[2019-03-11] MEDS ORDERED: NALOXONE 0.4 MG/ML 1 ML VIAL ONE (06:17)
[2019-03-11 06:20] LABS: INR 0.8 (<1.2); Partial Thromboplastin Time 22.8 sec (22.0-30.0); Prothrombin Time 9.3 sec (9.0-12.0)
[2019-03-11 06:21] LABS: Albumin 3.2 g/dL (3.5-5.0); Calcium 8.5 mg/dL (8.4-10.2); Potassium 4.8 mmol/L (3.5-5.1); Total Bilirubin 0.8 mg/dL (0.2-1.3); Total Protein 5.5 g/dL (6.3-8.2)
[2019-03-11] MEDS ORDERED: NALOXONE 0.4 MG/ML 1 ML VIAL IV STA (06:21)
[2019-03-11] MEDS: SYMBICORT 80-4.5 MCG INHALER INHALATION SCH ×2 (07:35→21:18)
[2019-03-11] MEDS: IPRATROPIUM-ALBUTEROL 3 ML NEB IH SCH ×4 (07:35→21:17)
[2019-03-11] MEDS: INSULN ASP PRT/INSULIN ASPART 100 UNIT/ML 10 ML VIAL SQ SCH ×3 (07:44→17:59)
[2019-03-11] MEDS: PANTOPRAZOLE 40 MG TABLET PO SCH (07:45)
[2019-03-11] MEDS: INSULIN ASPART (NovoLOG) 100 UNIT/ML VIAL SQ SCH ×4 (07:45→21:15)
[2019-03-11] MEDS: CHOLECALCIFEROL 1,000 UNIT TAB PO SCH (09:36)
[2019-03-11] MEDS: ACETAMINOPHEN TAB 500 MG TAB PO PRN ×2 (09:36→17:59)
[2019-03-11] MEDS: ASPIRIN 81 MG PO SCH (09:36)
[2019-03-11] MEDS: VARENICLINE 0.5 MG TAB PO SCH ×2 (09:37→22:10)
[2019-03-11] MEDS: MAGNESIUM OXIDE 400 MG TAB PO SCH (09:41)
--- NOTE | 2019-03-11 11:03 | P.PN ---
Subjective Progress Note Date: 03/11/19 Principal diagnosis: Right upper lobe lung cancer. Previous medical history of COPD, previous tobacco dependence with smoking cessation approximately 1 month ago and [id number] history, obstructive sleep apnea with CPAP use, uncontrolled insulin-dependent diabetes mellitus with hemoglobin A1c 8.6% and diabetic neuropathy, coronary artery disease status post angioplasty with stenting to the LAD, ischemic cardiomyopathy, hypertension, paroxysmal atrial fibrillation on chronic Eliquis for anticoagulation, obesity. Acute kidney injury, likely secondary to dehydration. POD #5 robotic assisted thoracoscopic right upper lobectomy with mediastinal lymph node dissection. Right thoracotomy with re-resection of bronchial stump and suture closure The patient is currently laying in bed on the cardiac stepdown unit. Had his episode of unresponsiveness this morning requiring Narcan administration. Currently neurologically intact. Labs, vitals, ABGs, chest x-ray reviewed. Did complain of pain at the surgical incision site this morning, however had not been given any pain medication other than narcotics which was likely reversed with Narcan. Patient has not been using his home CPAP is he stated the flow is to high for him he continues to have intermittent air leak in his right pleural chest tube. Objective - Vital Signs Vital signs: Vital Signs Temp 98.1 F 03/11/19 04:00 Pulse 76 03/11/19 07:57 Resp 10 L 03/11/19 06:22 BP 156/73 03/11/19 04:00 Pulse Ox 97 03/11/19 04:00 Intake & Output 03/10/19 03/11/19 03/11/19 18:59 06:59 18:59 Intake Total 980 490 422 Output Total 1640 105 Balance -660 385 422 Weight 115.3 kg Intake: IV 20 10 Invasive Line 5 20 10 Intake, IV Titration 500 Amount Sodium Chloride 0.9% 1, 500 000 ml @ 100 mls/hr IV . Q10H [facility] Rx#:[id number] Oral 460 480 422 Output: Chest Tube Drainage 140 105 Chest Tube Right 140 105 Urine 1500 Other: Voiding Method Toilet Toilet Urinal Urinal # Voids 1 2 # Bowel Movements 1 - Constitutional General appearance: Present: morbidly obese, no acute distress - EENT Eyes: Present: PERRLA - Respiratory Details: Lungs sounds diminished bilaterally. Respirations even, nonlabored. Currently on 2 L nasal cannula with oxygen saturation 95%. Able to achieve 1000 mL on his incentive spirometry. Right pleural chest tube to waterseal, 65 mL serosanguineous output overnight, 245 mL in the last 24 hours, positive small intermittent air leak. - Cardiovascular Details: S1, S2 present. Regular rate and rhythm, sinus rhythm on telemetry. Palpable peripheral pulses bilaterally. No edema present. No calf pain or tenderness n oted. SCDs present. - Gastrointestinal Gastrointestinal Comment(s): Abdomen soft, nontender, nondistended. Active bowel sounds present 4 quadrants. Tolerating diet. Positive bowel movement. - Genitourinary Genitourinary Comment(s): Continues to void clear, yellow urine. - Integumentary Integumentary Comment(s): Skin is warm and dry with evidence of good perfusion. Right pleural chest tube site covered with dry intact dressing. - Neurologic Neurologic: Present: CNII-XII intact - Musculoskeletal Musculoskeletal: Present: generalized weakness, strength equal bilaterally - Psychiatric Psychiatric: Present: A&O x's 3, appropriate affect - Allied health notes Allied health notes reviewed: nursing - Labs CBC & Chem 7: 03/11/19 06:02 03/11/19 06:02 Labs: Abnormal Lab Results - Last 24 Hours (Table) 03/10/19 03/10/19 03/10/19 Range/Units 12:09 16:51 20:45 RBC (4.30-5.90) m/uL Hgb (13.0-17.5) gm/dL Hct (39.0-53.0) % ABG HCO3 (21-25) mmol/L ABG Total CO2 (19-24) mmol/L ABG O2 Saturation (94-97) % Chloride (98-107) mmol/L BUN (9-20) mg/dL Glucose (74-99) mg/dL POC Glucose (mg/dL) 224 H 138 H 146 H (75-99) mg/dL Total Protein (6.3-8.2) g/dL Albumin (3.5-5.0) g/dL 03/11/19 03/11/19 03/11/19 Range/Units 05:35 05:44 06:02 RBC 3.47 L (4.30-5.90) m/uL Hgb 10.4 L (13.0-17.5) gm/dL Hct 32.8 L (39.0-53.0) % ABG HCO3 28 H (21-25) mmol/L ABG Total CO2 29 H (19-24) mmol/L ABG O2 Saturation 97.4 H (94-97) % Chloride (98-107) mmol/L BUN (9-20) mg/dL Glucose (74-99) mg/dL POC Glucose (mg/dL) 192 H (75-99) mg/dL Total Protein (6.3-8.2) g/dL Albumin (3.5-5.0) g/dL 03/11/19 Range/Units 06:02 RBC (4.30-5.90) m/uL Hgb (13.0-17.5) gm/dL Hct (39.0-53.0) % ABG HCO3 (21-25) mmol/L ABG Total CO2 (19-24) mmol/L ABG O2 Saturation (94-97) % Chloride 110 H (98-107) mmol/L BUN 23 H (9-20) mg/dL Glucose 172 H (74-99) mg/dL POC Glucose (mg/dL) (75-99) mg/dL Total Protein 5.5 L (6.3-8.2) g/dL Albumin 3.2 L (3.5-5.0) g/dL - Imaging and Cardiology Chest x-ray: report reviewed, image reviewed Assessment and Plan Assessment: 1. Right upper lobe lung cancer, status post robotic-assisted thoracoscopic right upper lobectomy with mediastinal lymph node dissection, right thoracotomy with re-resection of bronchial stump and suture closure 2. History of COPD 3. Previous tobacco dependence 4. Obstructive sleep apnea with CPAP use 5. Uncontrolled insulin-dependent diabetes mellitus with hemoglobin A1c 8.6% and diabetic neuropathy 6. Coronary artery disease status post angioplasty with stenting to the LAD 7. Ischemic cardiomyopathy 8. Hypertension 9. Paroxysmal atrial fibrillation on chronic Eliquis for anticoagulation 10. Obesity 11. Acute kidney injury, resolving Plan: 1. Continue chest tube to waterseal. Will continue to monitor for resolution of air leak. 2. Will monitor daily x-rays. 3. Pain control with current medication regimen. [place] discontinued. No narcotics. 4. GI/DVT prophylaxis. 5. Continue home medications with parameters on blood pressure medications. Lisinopril, metformin and discontinued 6. Bronchodilators per pulmonology. 7. Wean O2 as tolerated. Encourage is a spirometry is 10 times every hour while awake. 8. Increase activity, ambulate in hallway. Physical therapy ordered. Patient needs to be aggressively encouraged to get up and move. 9. More recommendations to follow. Time with Patient: Greater than 30
--- NOTE | 2019-03-11 11:12 | P.PN ---
Subjective Progress Note Date: 03/11/19 This is a 78-year-old white male with history of multiple medical problems including insulin-dependent diabetes, chronic atrial fibrillation, coronary artery disease and previous stenting, hypercholesterolemia, degenerative joint disease with previous bilateral knee replacement, history of left rotator cuff surgery, permanent pacemaker implantation and stenting of LAD in 1998. Patient was recently evaluated for a right hilar mass, patient underwent a PET scan and showed uptake within the right suprahilar mass and no other abnormality was noted. 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 Patient was referred to Dr. Cochran, and he underwent right upper lobectomy with rima dissection , postoperatively he was transferred to the cardiac floor, and we were asked to see him in consultation. Patient had been seen in consultation yesterday by Dr. Sanchez. He was seen and examined this morning on the telemetry unit, complained of feeling somewhat listless and lightheaded. His blood pres sure is running in the 90 systolic range. He is complaining of some mild incisional discomfort, still working hard on his incentive spirometry reaching approximately 1000. Right-sided chest tube remains in place with continuous air leak, moderate amount of serous sanguinous output in the right chest tube. He was on 20 mg of lisinopril, we'll decrease that to 10 mg daily from today. 03/09/2019 Patient seen and examined this morning, feeling much better today than he did yesterday morning. No further episodes of lightheadedness, much less listless today. Continues to have right-sided chest tube in place to water seal. Airleak is improving as compared with 2 days ago. Today's chest x-ray shows essentially stable chest with small right apical pneumothorax. Blood pressure this morning 102/50 with a heart rate in the 70s, 95% on 2 L of oxygen. White blood cell count 8.3, hemoglobin 9.8, platelet count 161. Magnesium 1.6. Sodium 131, potassium 4.9, BUN 42 and creatinine 1.6. 03/10/2019 Patient was seen and examined this morning continues to do better. Repeat chest x-ray from this morning showed cardiomegaly with right-sided pneumothorax. Blood pressure 140/70 with heart rate in the 70s, 93%Ra. 55 mL out of the chest tube. White blood cell count 7.2, hemoglobin 10.2, platelet count 220. Sodium 136, potassium 5.8, BUN 30 and creatinine 1.2, magnesium 2.1. 03/11/2019 Patient was seen and examined this morning, sitting up in the chair bedside. Breathing is overall stable. He had an episode this morning where he was found to be unresponsive, Narcan was given to the patient. At the time of my examination he was alert and oriented 3. Continues to have the chest tube in place, he also continues to have an intermittent air leak and the pleural chest tube. Blood pressure 150/70 with a heart rate in the 80s, 95% on 2 L of oxygen. White blood cell count 8.3, hemoglobin 10.4, platelet count 225. Objective - Vital Signs Vital signs: Vital Signs Temp 98.1 F 03/11/19 04:00 Pulse 82 03/11/19 08:00 Resp 18 03/11/19 08:00 BP 156/72 03/11/19 08:00 Pulse Ox 95 03/11/19 08:00 Intake & Output 03/10/19 03/11/19 03/11/19 18:59 06:59 18:59 Intake Total 980 490 422 Output Total 1640 105 Balance -660 385 422 Weight 115.3 kg Intake: IV 20 10 Invasive Line 5 20 10 Intake, IV Titration 500 Amount Sodium Chloride 0.9% 1, 500 000 ml @ 100 mls/hr IV . Q10H [facility] Rx#:[id number] Oral 460 480 422 Output: Chest Tube Drainage 140 105 Chest Tube Right 140 105 Urine 1500 Other: Voiding Method Toilet Toilet Urinal Urinal # Voids 1 2 # Bowel Movements 1 - Exam HEAD: Normocephalic/atraumatic. EYES: Normal reaction of pupils, equal size. Conjunctiva pink, sclera white. NOSE: Clear with pink turbinates. THROAT: No erythema or exudates. NECK: No masses, no JVD, no thyroid enlargement, no adenopathy. CHEST: No chest wall deformity. Symmetrical expansion. Right-sided chest tube is in place, with continuous air leak, and moderate amount of thin serosanguineous output in the Pleur-evac LUNGS: Equal air entry with no crackles, wheeze, rhonchi or dullness. Diminished breath sounds on the right CVS: Regular rate and rhythm, normal S1 and S2, no gallops, no murmurs, no rubs ABDOMEN: Soft, nontender. No hepatosplenomegaly, normal bowel sounds, no guarding or rigidity. EXTREMITIES: No clubbing, no edema, no cyanosis, 2+ pulses and upper and lower extremities. MUSCULOSKELETAL: Muscle strength and tone normal. SPINE: No scoliosis or deformity SKIN: No rashes CENTRAL NERVOUS SYSTEM: Alert and oriented -3. No focal deficits, tone is normal in all 4 extremities. PSYCHIATRIC: Alert and oriented -3. Appropriate affect. Intact judgment and insight. - Labs CBC & Chem 7: 03/11/19 06:02 03/11/19 06:02 Labs: Abnormal Lab Results - Last 24 Hours (Table) 03/10/19 03/10/19 03/10/19 Range/Units 12:09 16:51 20:45 RBC (4.30-5.90) m/uL Hgb (13.0-17.5) gm/dL Hct (39.0-53.0) % ABG HCO3 (21-25) mmol/L ABG Total CO2 (19-24) mmol/L ABG O2 Saturation (94-97) % Chloride (98-107) mmol/L BUN (9-20) mg/dL Glucose (74-99) mg/dL POC Glucose (mg/dL) 224 H 138 H 146 H (75-99) mg/dL Total Protein (6.3-8.2) g/dL Albumin (3.5-5.0) g/dL 03/11/19 03/11/19 03/11/19 Range/Units 05:35 05:44 06:02 RBC 3.47 L (4.30-5.90) m/uL Hgb 10.4 L (13.0-17.5) gm/dL Hct 32.8 L (39.0-53.0) % ABG HCO3 28 H (21-25) mmol/L ABG Total CO2 29 H (19-24) mmol/L ABG O2 Saturation 97.4 H (94-97) % Chloride (98-107) mmol/L BUN (9-20) mg/dL Glucose (74-99) mg/dL POC Glucose (mg/dL) 192 H (75-99) mg/dL Total Protein (6.3-8.2) g/dL Albumin (3.5-5.0) g/dL 03/11/19 Range/Units 06:02 RBC (4.30-5.90) m/uL Hgb (13.0-17.5) gm/dL Hct (39.0-53.0) % ABG HCO3 (21-25) mmol/L ABG Total CO2 (19-24) mmol/L ABG O2 Saturation (94-97) % Chloride 110 H (98-107) mmol/L BUN 23 H (9-20) mg/dL Glucose 172 H (74-99) mg/dL POC Glucose (mg/dL) (75-99) mg/dL Total Protein 5.5 L (6.3-8.2) g/dL Albumin 3.2 L (3.5-5.0) g/dL Assessment and Plan Plan: Assessment and plan #1 status post right upper lobectomy for what seems to be a 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 #2 moderate severe COPD FEV1 is in the range of 50%. #3 obstructive sleep apnea syndrome #4 coronary arteriosclerosis and previous stent placement. #5 benign essential hypertension #6 pacemaker in situ #7 history of vitamin D deficiency #8 type 2 diabetes #9 chronic atrial fibrillation. Plan From cardiology's perspective, we'll recommend to continue the patient on his current medication. DNP note has been reviewed, I agree with a documented findings and plan of care. Patient was seen and examined.
[2019-03-11 11:36] LABS: Glucose,Whole Blood 173 mg/dL (75-99)
--- NOTE | 2019-03-11 11:45 | P.PN ---
Subjective Progress Note Date: 03/11/19 Principal diagnosis: COPD, lung mass, status post right upper lobectomy. This is a 78-year-old white male with history of multiple medical problems including insulin-dependent diabetes, chronic atrial fibrillation, coronary artery disease and previous stenting, hypercholesterolemia, degenerative joint disease with previous bilateral knee replacement, history of left rotator cuff surgery, permanent pacemaker implantation and stenting of LAD in 1998. Patient is also known to have history of COPD FEV1 is in the range of 50%, 1.31 L, patient was recently evaluated by me for a right hilar mass, patient underwent a PET scan and showed uptake within the right suprahilar mass and no other abnormality was noted. 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 Patient was referred to Dr. Cochran, and he underwent right upper lobectomy with rima dissection today, postoperatively he was transferred to the cardiac floor, and I was asked to see him on consultation. Patient seems to be doing fairly well, complaining mostly of right sided chest pain at the surgical site, has a right sided chest tube in place with minimal air leak noted. Chest x-ray showed postoperative changes and no other significant findings otherwise. On 03/07/2019 patient seen in follow-up this is postop day 1, status post right upper lobectomy for a right hilar mass which showed suspicious uptake on the PET scan. Navigational bronchoscopy biopsies were nondiagnostic. The patient is awake and alert, resting in bed, currently on 3 L of oxygen with a pulse ox of 97%, signs are stable, having some mild to moderate amount of incisional discomfort, but is able to do his incentive spirometry, is able to achieve 1000 mL on the today. Lung sounds are diminished on the right side, right-sided chest tube is in place, with continuous air leak, and moderate amount of serosanguineous than output from the right chest tube. Today's labs have been reviewed, and showed a white blood cell count of 10.7, hemoglobin of 12.2, sodium is 136, depressed electrolytes were within normal limits, BUN is 26 and creatinine is 1.36. The patient is seen today 03/08/2019 in follow-up on the selective care unit. He is post operative day #2 for right upper lobectomy for right hilar mass. He is currently sitting up in a chair at the bedside. Awake and alert in no acute distress. He did have an episode of diaphoresis and hypotension. He is currently receiving fluid boluses. No worsening shortness of breath, cough or congestion. Right-sided chest tube remains in place. Still positive air leak. Maintaining O2 saturations in the 90s on 2 L/m per nasal cannula. He's afebrile. His x-ray reveals trace right apical pneumothorax less than 5%. There is continued right mid and lower lung patchy consolidation and left basilar opacity. He continues to work well with the incentive spirometer. He remains on Symbicort and DuoNeb inhalations. On 03/09/2019 patient seen in follow-up on selective care unit, he sitting up in the recliner, in no acute distress, right-sided chest tube is in place, to waterseal, and patient still has occasional leak with deep breathing and coughing, air leak has improved compared to 2 days ago. Today's chest x-ray has been reviewed, shows essentially stable chest with small right apical pneumothorax. His pain is reasonably controlled, patient has been ambulating, the whole entire length of the sears. Lung wedge biopsy is still pending at this time. Patient is working his incentive spirometer, able to achieve 752 just under 1000 mL on the today, lung sounds reveal better air entry on the right, with some limited wheezes. No fever or chills. Occasional cough, with production of small amount of phlegm. On 03/10/2019 patient seen in follow-up on selective care unit, he is awake and alert, in no acute distress, his been ambulating in the room and in the hallway, tolerating activity very well. Pulse ox is 93%, no fever no chills, hemodynamically stable, his pain is under reasonable control, right-sided chest tube is in place, with air leak present with a deep breathing and coughing. Chest tube is to waterseal, lung sounds are diminished at the bases, with only limited end expiratory wheezes, vital signs are stable, no fever or chills. Cara ayers's chest x-ray has been reviewed, and showed cardiomegaly, right-sided apical pneumothorax, which was stable in appearance, well, his incentive spirometer. Biopsy results are pending. The patient is seen today 03/11/2019 in follow-up on the selective care unit. He is currently sitting up in the chair at the bedside. He is somewhat drowsy but easily arousable. Apparently he was over sedated with pain medication last evening and required Narcan 3. Most of these have been discontinued. The patient's chest tube does continue with a leak and is connected to waterseal suction. Chest x-ray is stable. Maintaining O2 saturations in the mid 90s on 2 L/m per nasal cannula. Needs increased encouragement regarding the incentive spirometer. Objective - Vital Signs Vital signs: Vital Signs Temp 98.1 F 03/11/19 04:00 Pulse 82 03/11/19 08:00 Resp 18 03/11/19 08:00 BP 156/72 03/11/19 08:00 Pulse Ox 95 03/11/19 08:00 Intake & Output 03/10/19 03/11/19 03/11/19 18:59 06:59 18:59 Intake Total 980 490 422 Output Total 1640 105 Balance -660 385 422 Weight 115.3 kg Intake: IV 20 10 Invasive Line 5 20 10 Intake, IV Titration 500 Amount Sodium Chloride 0.9% 1, 500 000 ml @ 100 mls/hr IV . Q10H [facility] Rx#:[id number] Oral 460 480 422 Output: Chest Tube Drainage 140 105 Chest Tube Right 140 105 Urine 1500 Other: Voiding Method Toilet Toilet Urinal Urinal # Voids 1 2 # Bowel Movements 1 - Exam GENERAL EXAM: Alert, pleasant, 78-year-old white male, on 2 L of oxygen, comfortable in no apparent distress. HEAD: Normocephalic/atraumatic. EYES: Normal reaction of pupils, equal size. Conjunctiva pink, sclera white. NOSE: Clear with pink turbinates. THROAT: No erythema or exudates. NECK: No masses, no JVD, no thyroid enlargement, no adenopathy. CHEST: No chest wall deformity. Symmetrical expansion. Right-sided chest tube is in place, with continuous air leak, and moderate amount of thin serosanguineous output in the Pleur-evac LUNGS: Equal air entry with no crackles, wheeze, rhonchi or dullness. Diminished breath sounds on the right CVS: Regular rate and rhythm, normal S1 and S2, no gallops, no murmurs, no rubs ABDOMEN: Soft, nontender. No hepatosplenomegaly, normal bowel sounds, no guarding or rigidity. EXTREMITIES: No clubbing, no edema, no cyanosis, 2+ pulses and upper and lower extremities. MUSCULOSKELETAL: Muscle strength and tone normal. SPINE: No scoliosis or deformity SKIN: No rashes CENTRAL NERVOUS SYSTEM: No focal deficits, tone is normal in all 4 extremities. PSYCHIATRIC: Alert and oriented -3. Appropriate affect. Intact judgment and insight. - Labs CBC & Chem 7: 03/11/19 06:02 03/11/19 06:02 Labs: Abnormal Lab Results - Last 24 Hours (Table) 03/10/19 03/10/19 03/10/19 Range/Units 12:09 16:51 20:45 RBC (4.30-5.90) m/uL Hgb (13.0-17.5) gm/dL Hct (39.0-53.0) % ABG HCO3 (21-25) mmol/L ABG Total CO2 (19-24) mmol/L ABG O2 Saturation (94-97) % Chloride (98-107) mmol/L BUN (9-20) mg/dL Glucose (74-99) mg/dL POC Glucose (mg/dL) 224 H 138 H 146 H (75-99) mg/dL Total Protein (6.3-8.2) g/dL Albumin (3.5-5.0) g/dL 03/11/19 03/11/19 03/11/19 Range/Units 05:35 05:44 06:02 RBC 3.47 L (4.30-5.90) m/uL Hgb 10.4 L (13.0-17.5) gm/dL Hct 32.8 L (39.0-53.0) % ABG HCO3 28 H (21-25) mmol/L ABG Total CO2 29 H (19-24) mmol/L ABG O2 Saturation 97.4 H (94-97) % Chloride (98-107) mmol/L BUN (9-20) mg/dL Glucose (74-99) mg/dL POC Glucose (mg/dL) 192 H (75-99) mg/dL Total Protein (6.3-8.2) g/dL Albumin (3.5-5.0) g/dL 03/11/19 03/11/19 Range/Units 06:02 11:34 RBC (4.30-5.90) m/uL Hgb (13.0-17.5) gm/dL Hct (39.0-53.0) % ABG HCO3 (21-25) mmol/L ABG Total CO2 (19-24) mmol/L ABG O2 Saturation (94-97) % Chloride 110 H (98-107) mmol/L BUN 23 H (9-20) mg/dL Glucose 172 H (74-99) mg/dL POC Glucose (mg/dL) 173 H (75-99) mg/dL Total Protein 5.5 L (6.3-8.2) g/dL Albumin 3.2 L (3.5-5.0) g/dL Assessment and Plan Assessment: Assessment: 1status post right upper lobectomy for what seems to be a 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 2moderate severe COPD FEV1 is in the range of 50%. 3 obstructive sleep apnea syndrome 4 coronary arteriosclerosis and previous stent placement. 5 benign essential hypertension 6 pacemaker in situ 7 history of vitamin D deficiency 8 type 2 diabetes 9 chronic atrial fibrillation. Plan: The patient is seen and evaluated by Dr. Fisher. Chest x-ray reviewed. No significant pneumothorax. Right-sided chest tube remains, continues with a leak. We'll continue with his current treatment plan. Encourage increased use of the incentive spirometer and cough and deep breathing exercises. Pathology still pending. Cautious use of narcotics. Recommended CPAP at night at 10 cm of water. We'll continue to follow make further recommendations based on his clinical status. I, the cosigning physician, performed a history & physical examination of the patient. Lungs sounds with few scattered rhonchi, crackles in the posterior bases, diminished. Maintaining good O2 saturations in the 90s on 2 L/m per nasal cannula. I discussed the assessment and plan of care with my nurse practitioner, Swetha Wang. I attest to the above note as dictated by her.
[2019-03-11 16:47] LABS: Glucose,Whole Blood 153 mg/dL (75-99)
--- NOTE | 2019-03-11 20:41 | PN ---
PROGRESS NOTE DATE OF SERVICE: 03/11/2019 PRESENTING COMPLAINT: Lung surgery. INTERVAL HISTORY: Patient is status post right upper lobe lobectomy for lung cancer, has a chest tube in place. Also had acute renal failure that is corrected. Insulin has been adjusted. Appetite is fluctuating. Was feeling a bit tired earlier today. Doing much better this afternoon. In fact, in the evening patient walked in the hallway with his son and . REVIEW OF SYSTEMS: Done for constitutional, cardiovascular, GI, pulmonary; relevant findings as above. CURRENT MEDICATIONS: Reviewed. EXAMINATION: VITAL SIGNS: Pulse 74, respiratory rate 18, blood pressure 156/72, pulse ox 95% on 2 L. GENERAL APPEARANCE: Sitting up in a chair, awake. EYES: Pupils equal. Conjunctivae normal. NECK: JVD not raised. Mass not palpable. RESPIRATORY: Effort increased. LUNGS: Decreased breath sounds. CARDIOVASCULAR: First and second sounds normal. No edema. ABDOMEN: Distended, soft. Liver and spleen not palpable. PSYCHIATRY: Alert and oriented times three. Mood and affect normal. Chest wall: Right-sided chest tube is present. INVESTIGATIONS: White count 8.3, hemoglobin 10.4, potassium 4.8, BUN 23, creatinine 1.0. Accu-Cheks are noted. ASSESSMENT: 1. 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 2. 10% pneumothorax on the right. 3. Morbid obesity BMI 37.3. 4. Diabetes mellitus type 2, chronically on insulin, now better controlled. 5. Acute renal failure, combination of prerenal and acute tubular necrosis, baseline creatinine 0.97. Following patient being in total GILES inhibitor metformin, now much improved. 6. Persistent atrial fibrillation. 7. Chronic obstructive pulmonary disease in an ex-smoker. 8. Essential hypertension. 9. Hyperlipidemia. 10.Coronary artery disease with prior history of stent. 11.Obstructive sleep apnea uses BiPAP. 12.Diabetic peripheral neuropathy. 13.Hyperkalemia corrected. PLAN: Patient overall doing much better. Sugars are much better controlled. Continue current medication and treatment plan. GILES inhibitor can be added once potassium comes down further. MMODL / IJN: [id number] /
[2019-03-11 20:55] LABS: Glucose,Whole Blood 148 mg/dL (75-99)
[2019-03-11] MEDS: ALPRAZolam 0.25 MG TAB PO SCH (21:14)
[2019-03-11] MEDS: METOPROLOL SUCCINATE (ER) 50 MG TAB.ER.24H PO SCH (21:14)
[2019-03-11] MEDS: ATORVASTATIN 20 MG TAB PO SCH (21:15)
[2019-03-12] MEDS: ACETAMINOPHEN TAB 500 MG TAB PO PRN ×2 (00:36→07:06)
[2019-03-12 06:37] LABS: Glucose,Whole Blood 174 mg/dL (75-99)
[2019-03-12 06:57] LABS: HCT 30.6 % (39.0-53.0); HGB 9.9 gm/dL (13.0-17.5); MCH 30.4 pg (25.0-35.0); MCHC 32.4 g/dL (31.0-37.0); MCV 93.6 fL (80.0-100.0); Mean Platelet Volume 7.1; Platelet Count 223 k/uL (150-450); RBC 3.27 m/uL (4.30-5.90); RDW 13.3 % (11.5-15.5); WBC 7.8 k/uL (3.8-10.6)
[2019-03-12] MEDS: INSULIN ASPART (NovoLOG) 100 UNIT/ML VIAL SQ SCH ×4 (07:07→21:55)
[2019-03-12] MEDS: PANTOPRAZOLE 40 MG TABLET PO SCH (07:08)
[2019-03-12] MEDS: INSULN ASP PRT/INSULIN ASPART 100 UNIT/ML 10 ML VIAL SQ SCH ×3 (07:08→20:10)
[2019-03-12 07:11] LABS: Calcium 8.3 mg/dL (8.4-10.2); Potassium 4.5 mmol/L (3.5-5.1)
[2019-03-12] MEDS: SYMBICORT 80-4.5 MCG INHALER INHALATION SCH ×2 (08:03→20:12)
[2019-03-12] MEDS: IPRATROPIUM-ALBUTEROL 3 ML NEB IH SCH ×4 (08:03→20:12)
[2019-03-12] MEDS: HEPARIN SODIUM,PORCINE 5,000 UNIT/ML 1 ML VIAL SQ SCH ×2 (09:03→20:10)
[2019-03-12] MEDS: MAGNESIUM OXIDE 400 MG TAB PO SCH (09:03)
[2019-03-12] MEDS: ASPIRIN 81 MG PO SCH (09:03)
[2019-03-12] MEDS: CHOLECALCIFEROL 1,000 UNIT TAB PO SCH (09:03)
[2019-03-12] MEDS: LISINOPRIL 10 MG TAB PO SCH (09:15)
--- NOTE | 2019-03-12 09:20 | XR ---
EXAMINATION TYPE: XR chest 2V DATE OF EXAM: 03/12/2019 COMPARISON: Prior chest x-ray 03/11/2019 HISTORY: Chest tube, pneumothorax TECHNIQUE: Frontal and lateral views of the chest are obtained. FINDINGS: Right-sided chest tube remains in place, there is subcutaneous emphysema. Right-sided pneu mothorax is present in the increased in the interval. Defibrillator is stable. Heart remains enlarged . Pleural parenchymal changes are similar to prior exam. The aorta is dense. IMPRESSION: Right-sided pneumothorax is thought to have increased in the interval. Cardiomegaly.
[2019-03-12 11:36] LABS: Glucose,Whole Blood 208 mg/dL (75-99)
--- NOTE | 2019-03-12 11:39 | P.PN ---
Subjective Progress Note Date: 03/12/19 This is a 78-year-old white male with history of multiple medical problems including insulin-dependent diabetes, chronic atrial fibrillation, coronary artery disease and previous stenting, hypercholesterolemia, degenerative joint disease with previous bilateral knee replacement, history of left rotator cuff surgery, permanent pacemaker implantation and stenting of LAD in 1998. Patient was recently evaluated for a right hilar mass, patient underwent a PET scan and showed uptake within the right suprahilar mass and no other abnormality was noted. 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 Patient was referred to Dr. Cochran, and he underwent right upper lobectomy with rima dissection , postoperatively he was transferred to the cardiac floor, and we were asked to see him in consultation. Patient had been seen in consultation yesterday by Dr. Sanchez. He was seen and examined this morning on the telemetry unit, complained of feeling somewhat listless and lightheaded. His blood pres sure is running in the 90 systolic range. He is complaining of some mild incisional discomfort, still working hard on his incentive spirometry reaching approximately 1000. Right-sided chest tube remains in place with continuous air leak, moderate amount of serous sanguinous output in the right chest tube. He was on 20 mg of lisinopril, we'll decrease that to 10 mg daily from today. 03/09/2019 Patient seen and examined this morning, feeling much better today than he did yesterday morning. No further episodes of lightheadedness, much less listless today. Continues to have right-sided chest tube in place to water seal. Airleak is improving as compared with 2 days ago. Today's chest x-ray shows essentially stable chest with small right apical pneumothorax. Blood pressure this morning 102/50 with a heart rate in the 70s, 95% on 2 L of oxygen. White blood cell count 8.3, hemoglobin 9.8, platelet count 161. Magnesium 1.6. Sodium 131, potassium 4.9, BUN 42 and creatinine 1.6. 03/10/2019 Patient was seen and examined this morning continues to do better. Repeat chest x-ray from this morning showed cardiomegaly with right-sided pneumothorax. Blood pressure 140/70 with heart rate in the 70s, 93%Ra. 55 mL out of the chest tube. White blood cell count 7.2, hemoglobin 10.2, platelet count 220. Sodium 136, potassium 5.8, BUN 30 and creatinine 1.2, magnesium 2.1. 03/11/2019 Patient was seen and examined this morning, sitting up in the chair bedside. Breathing is overall stable. He had an episode this morning where he was found to be unresponsive, Narcan was given to the patient. At the time of my examination he was alert and oriented 3. Continues to have the chest tube in place, he also continues to have an intermittent air leak and the pleural chest tube. Blood pressure 150/70 with a heart rate in the 80s, 95% on 2 L of oxygen. White blood cell count 8.3, hemoglobin 10.4, platelet count 225. 03/12/2019 Patient was seen and examined this morning, feeling better today. Still did not sleep well through the night last night because he is unable to use the mask associated with the CPAP here. Blood pressure 180/80, we will resume the GILES inhibitor which the patient was on Objective - Vital Signs Vital signs: Vital Signs Temp 98.1 F 03/12/19 04:00 Pulse 80 03/12/19 08:18 Resp 18 03/12/19 04:00 BP 180/82 03/12/19 04:00 Pulse Ox 93 L 03/12/19 04:20 Intake & Output 03/11/19 03/12/19 03/12/19 18:59 06:59 18:59 Intake Total 884 240 Output Total 501 100 Balance 383 -100 240 Weight 114.2 kg Intake: Oral 884 240 Output: Chest Tube Drainage 101 100 Chest Tube Right 101 100 Urine 400 Other: # Voids 1 - Exam HEAD: Normocephalic/atraumatic. EYES: Normal reaction of pupils, equal size. Conjunctiva pink, sclera white. NOSE: Clear with pink turbinates. THROAT: No erythema or exudates. NECK: No masses, no JVD, no thyroid enlargement, no adenopathy. CHEST: No chest wall deformity. Symmetrical expansion. Right-sided chest tube is in place, with continuous air leak, and moderate amount of thin serosanguineous output in the Pleur-evac LUNGS: Equal air entry with no crackles, wheeze, rhonchi or dullness. Diminished breath sounds on the right CVS: Regular rate and rhythm, normal S1 and S2, no gallops, no murmurs, no rubs ABDOMEN: Soft, nontender. No hepatosplenomegaly, normal bowel sounds, no guarding or rigidity. EXTREMITIES: No clubbing, no edema, no cyanosis, 2+ pulses and upper and lower extremities. MUSCULOSKELETAL: Muscle strength and tone normal. SPINE: No scoliosis or deformity SKIN: No rashes CENTRAL NERVOUS SYSTEM: Alert and oriented -3. No focal deficits, tone is normal in all 4 extremities. PSYCHIATRIC: Alert and oriented -3. Appropriate affect. Intact judgment and insight. - Labs CBC & Chem 7: 03/12/19 06:26 03/12/19 06:26 Labs: Abnormal Lab Results - Last 24 Hours (Table) 03/11/19 03/11/19 03/12/19 Range/Units 16:46 20:53 06:26 RBC 3.27 L (4.30-5.90) m/uL Hgb 9.9 L (13.0-17.5) gm/dL Hct 30.6 L (39.0-53.0) % Chloride (98-107) mmol/L Carbon Dioxide (22-30) mmol/L Glucose (74-99) mg/dL POC Glucose (mg/dL) 153 H 148 H (75-99) mg/dL Calcium (8.4-10.2) mg/dL 03/12/19 03/12/19 03/12/19 Range/Units 06:26 06:35 11:33 RBC (4.30-5.90) m/uL Hgb (13.0-17.5) gm/dL Hct (39.0-53.0) % Chloride 108 H (98-107) mmol/L Carbon Dioxide 31 H (22-30) mmol/L Glucose 171 H (74-99) mg/dL POC Glucose (mg/dL) 174 H 208 H (75-99) mg/dL Calcium 8.3 L (8.4-10.2) mg/dL Assessment and Plan Plan: Assessment and plan #1 status post right upper lobectomy for what seems to be a 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 #2 moderate severe COPD FEV1 is in the range of 50%. #3 obstructive sleep apnea syndrome #4 coronary arteriosclerosis and previous stent placement. #5 benign essential hypertension #6 pacemaker in situ #7 history of vitamin D deficiency #8 type 2 diabetes #9 chronic atrial fibrillation. Plan From cardiology's perspective, we will resume the GILES inhibitor which the patient was taking at home. Continue the rest of his medications. DNP note has been reviewed, I agree with a documented findings and plan of care. Patient was seen and examined.
--- NOTE | 2019-03-12 13:43 | P.PN ---
Subjective Progress Note Date: 03/12/19 Principal diagnosis: COPD, lung mass, status post right upper lobectomy. This is a 78-year-old white male with history of multiple medical problems including insulin-dependent diabetes, chronic atrial fibrillation, coronary artery disease and previous stenting, hypercholesterolemia, degenerative joint disease with previous bilateral knee replacement, history of left rotator cuff surgery, permanent pacemaker implantation and stenting of LAD in 1998. Patient is also known to have history of COPD FEV1 is in the range of 50%, 1.31 L, patient was recently evaluated by me for a right hilar mass, patient underwent a PET scan and showed uptake within the right suprahilar mass and no other abnormality was noted. 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 Patient was referred to Dr. Cochran, and he underwent right upper lobectomy with rima dissection today, postoperatively he was transferred to the cardiac floor, and I was asked to see him on consultation. Patient seems to be doing fairly well, complaining mostly of right sided chest pain at the surgical site, has a right sided chest tube in place with minimal air leak noted. Chest x-ray showed postoperative changes and no other significant findings otherwise. On 03/07/2019 patient seen in follow-up this is postop day 1, status post right upper lobectomy for a right hilar mass which showed suspicious uptake on the PET scan. Navigational bronchoscopy biopsies were nondiagnostic. The patient is awake and alert, resting in bed, currently on 3 L of oxygen with a pulse ox of 97%, signs are stable, having some mild to moderate amount of incisional discomfort, but is able to do his incentive spirometry, is able to achieve 1000 mL on the today. Lung sounds are diminished on the right side, right-sided chest tube is in place, with continuous air leak, and moderate amount of serosanguineous than output from the right chest tube. Today's labs have been reviewed, and showed a white blood cell count of 10.7, hemoglobin of 12.2, sodium is 136, depressed electrolytes were within normal limits, BUN is 26 and creatinine is 1.36. The patient is seen today 03/08/2019 in follow-up on the selective care unit. He is post operative day #2 for right upper lobectomy for right hilar mass. He is currently sitting up in a chair at the bedside. Awake and alert in no acute distress. He did have an episode of diaphoresis and hypotension. He is currently receiving fluid boluses. No worsening shortness of breath, cough or congestion. Right-sided chest tube remains in place. Still positive air leak. Maintaining O2 saturations in the 90s on 2 L/m per nasal cannula. He's afebrile. His x-ray reveals trace right apical pneumothorax less than 5%. There is continued right mid and lower lung patchy consolidation and left basilar opacity. He continues to work well with the incentive spirometer. He remains on Symbicort and DuoNeb inhalations. On 03/09/2019 patient seen in follow-up on selective care unit, he sitting up in the recliner, in no acute distress, right-sided chest tube is in place, to waterseal, and patient still has occasional leak with deep breathing and coughing, air leak has improved compared to 2 days ago. Today's chest x-ray has been reviewed, shows essentially stable chest with small right apical pneumothorax. His pain is reasonably controlled, patient has been ambulating, the whole entire length of the sears. Lung wedge biopsy is still pending at this time. Patient is working his incentive spirometer, able to achieve 752 just under 1000 mL on the today, lung sounds reveal better air entry on the right, with some limited wheezes. No fever or chills. Occasional cough, with production of small amount of phlegm. On 03/10/2019 patient seen in follow-up on selective care unit, he is awake and alert, in no acute distress, his been ambulating in the room and in the hallway, tolerating activity very well. Pulse ox is 93%, no fever no chills, hemodynamically stable, his pain is under reasonable control, right-sided chest tube is in place, with air leak present with a deep breathing and coughing. Chest tube is to waterseal, lung sounds are diminished at the bases, with only limited end expiratory wheezes, vital signs are stable, no fever or chills. Cara ayers's chest x-ray has been reviewed, and showed cardiomegaly, right-sided apical pneumothorax, which was stable in appearance, well, his incentive spirometer. Biopsy results are pending. The patient is seen today 03/11/2019 in follow-up on the selective care unit. He is currently sitting up in the chair at the bedside. He is somewhat drowsy but easily arousable. Apparently he was over sedated with pain medication last evening and required Narcan 3. Most of these have been discontinued. The patient's chest tube does continue with a leak and is connected to waterseal suction. Chest x-ray is stable. Maintaining O2 saturations in the mid 90s on 2 L/m per nasal cannula. Needs increased encouragement regarding the incentive spirometer. The patient is seen today 03/12/2018 in follow-up on the selective care unit. He is currently sitting up at the bedside. Awake and alert in no acute distress. Maintaining O2 saturations in the 90s on 2 L/m per nasal cannula. He's been afebrile. White count 7.8. Hemoglobin 9.9. Creatinine 0.98. He remains on DuoNeb inhalations, Symbicort. Working with the incentive spirometer. Right-sided chest tube remains in place. Still with intermittent leak. 100 ML output. Pathology is positive for poorly differentiated squamous cell carcinoma. Suspect IIa or IIb. Objective - Vital Signs Vital signs: Vital Signs Temp 98.1 F 03/12/19 04:00 Pulse 84 03/12/19 11:54 Resp 18 03/12/19 04:00 BP 180/82 03/12/19 04:00 Pulse Ox 93 L 03/12/19 04:20 Intake & Output 03/11/19 03/12/19 03/12/19 18:59 06:59 18:59 Intake Total 884 240 Output Total 501 100 Balance 383 -100 240 Weight 114.2 kg Intake: Oral 884 240 Output: Chest Tube Drainage 101 100 Chest Tube Right 101 100 Urine 400 Other: # Voids 1 - Exam GENERAL EXAM: Alert, pleasant, 78-year-old white male, on 2 L of oxygen, comfortable in no apparent distress. HEAD: Normocephalic/atraumatic. EYES: Normal reaction of pupils, equal size. Conjunctiva pink, sclera white. NOSE: Clear with pink turbinates. THROAT: No erythema or exudates. NECK: No masses, no JVD, no thyroid enlargement, no adenopathy. CHEST: No chest wall deformity. Symmetrical expansion. Right-sided chest tube is in place, with intermittent air leak, and continued output of thin serosanguineous output in the Pleur-evac LUNGS: Equal air entry with no crackles, wheeze, rhonchi or dullness. Diminished breath sounds on the right CVS: Regular rate and rhythm, normal S1 and S2, no gallops, no murmurs, no rubs ABDOMEN: Soft, nontender. No hepatosplenomegaly, normal bowel sounds, no guarding or rigidity. EXTREMITIES: No clubbing, no edema, no cyanosis, 2+ pulses and upper and lower extremities. MUSCULOSKELETAL: Muscle strength and tone normal. SPINE: No scoliosis or deformity SKIN: No rashes CENTRAL NERVOUS SYSTEM: No focal deficits, tone is normal in all 4 extremities. PSYCHIATRIC: Alert and oriented -3. Appropriate affect. Intact judgment and insight. - Labs CBC & Chem 7: 03/12/19 06:26 03/12/19 06:26 Labs: Abnormal Lab Results - Last 24 Hours (Table) 03/11/19 03/11/19 03/12/19 Range/Units 16:46 20:53 06:26 RBC 3.27 L (4.30-5.90) m/uL Hgb 9.9 L (13.0-17.5) gm/dL Hct 30.6 L (39.0-53.0) % Chloride (98-107) mmol/L Carbon Dioxide (22-30) mmol/L Glucose (74-99) mg/dL POC Glucose (mg/dL) 153 H 148 H (75-99) mg/dL Calcium (8.4-10.2) mg/dL 03/12/19 03/12/19 03/12/19 Range/Units 06:26 06:35 11:33 RBC (4.30-5.90) m/uL Hgb (13.0-17.5) gm/dL Hct (39.0-53.0) % Chloride 108 H (98-107) mmol/L Carbon Dioxide 31 H (22-30) mmol/L Glucose 171 H (74-99) mg/dL POC Glucose (mg/dL) 174 H 208 H (75-99) mg/dL Calcium 8.3 L (8.4-10.2) mg/dL Assessment and Plan Assessment: Assessment: 1 status post right upper lobectomy for what seems to be a 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 Pathology is 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 2 moderate severe COPD FEV1 is in the range of 50%. 3 obstructive sleep apnea syndrome 4 coronary arteriosclerosis and previous stent placement. 5 benign essential hypertension 6 pacemaker in situ 7 history of vitamin D deficiency 8 type 2 diabetes 9 chronic atrial fibrillation. Plan: The patient is seen and evaluated by Dr. Fisher. Chest x-ray reviewed. Slight increase in right-sided pneumothorax. Right-sided chest tube remains, continues with a leak. We'll continue with his current treatment plan. Encourage increased use of the incentive spirometer and cough and deep breathing exercises. Pathology is positive for poorly differentiated squamous cell carcinoma. Suspect IIa or IIb. Oncology will be consulted. Cautious use of narcotics. Recommended CPAP at night at 10 cm of water. We'll continue to follow make further recommendations based on his clinical status. I, the cosigning physician, performed a history & physical examination of the patient. Lungs sounds with few scattered rhonchi, crackles in the posterior bases, diminished. Maintaining good O2 saturations in the 90s on 2 L/m per nasal cannula. I discussed the assessment and plan of care with my nurse practitioner, Swetha Wang. I attest to the above note as dictated by her.
--- NOTE | 2019-03-12 14:40 | P.PN ---
Subjective Progress Note Date: 03/12/19 Principal diagnosis: Right upper lobe lung cancer. Previous medical history of COPD, previous tobacco dependence with smoking cessation approximately 1 month ago and [id number] history, obstructive sleep apnea with CPAP use, uncontrolled insulin-dependent diabetes mellitus with hemoglobin A1c 8.6% and diabetic neuropathy, coronary artery disease status post angioplasty with stenting to the LAD, ischemic cardiomyopathy, hypertension, paroxysmal atrial fibrillation on chronic Eliquis for anticoagulation, obesity. Acute kidney injury, likely secondary to dehydration. POD #6 robotic assisted thoracoscopic right upper lobectomy with mediastinal lymph node dissection. Right thoracotomy with re-resection of bronchial stump and suture closure The patient's currently sitting up in his room in the cardiac stepdown unit eating lunch in no acute distress. States pain is controlled on current medication regimen. Denies shortness of breath. Has been weaned down to room air. Right pleural chest tube remains in place with small intermittent air leak with heavy coughing. Patient has been ambulatory. His only complaint is of nightmares, requesting discontinuation of Chantix. Objective - Vital Signs Vital signs: Vital Signs Temp 98.1 F 03/12/19 04:00 Pulse 84 03/12/19 11:54 Resp 18 03/12/19 04:00 BP 180/82 03/12/19 04:00 Pulse Ox 93 L 03/12/19 04:20 Intake & Output 03/11/19 03/12/19 03/12/19 18:59 06:59 18:59 Intake Total 884 480 Output Total 501 100 Balance 383 -100 480 Weight 114.2 kg Intake: Oral 884 480 Output: Chest Tube Drainage 101 100 Chest Tube Right 101 100 Urine 400 Other: # Voids 1 - Constitutional General appearance: Present: cooperative, no acute distress, obese - Respiratory Details: Lungs sounds diminished bilaterally. Respirations even, nonlabored. Currently on room air. Able to achieve 1250 mL on his incentive spirometry. Right pleural chest tube to waterseal, 100 mL serosanguineous output overnight, 265 mL in the last 24 hours, positive small intermittent air leak. - Cardiovascular Details: S1, S2 present. Regular rate and rhythm, sinus rhythm on telemetry. Palpable peripheral pulses bilaterally. No edema present. No calf pain or tenderness noted. SCDs present. - Gastrointestinal Gastrointestinal Comment(s): Abdomen soft, nontender, nondistended. Active bowel sounds present 4 quadrants. Tolerating diet. Positive bowel movement. - Genitourinary Genitourinary Comment(s): Continues to void clear, yellow urine. - Integumentary Integumentary Comment(s): Skin is warm and dry with evidence of good perfusion. Right pleural chest tube site covered with dry intact dressing. - Neurologic Neurologic: Present: CNII-XII intact - Musculoskeletal Musculoskeletal: Present: gait normal, strength equal bilaterally - Psychiatric Psychiatric: Present: A&O x's 3, appropriate affect, intact judgment & insight - Allied health notes Allied health notes reviewed: nursing - Labs CBC & Chem 7: 03/12/19 06:26 03/12/19 06:26 Labs: Abnormal Lab Results - Last 24 Hours (Table) 03/11/19 03/11/19 03/12/19 Range/Units 16:46 20:53 06:26 RBC 3.27 L (4.30-5.90) m/uL Hgb 9.9 L (13.0-17.5) gm/dL Hct 30.6 L (39.0-53.0) % Chloride (98-107) mmol/L Carbon Dioxide (22-30) mmol/L Glucose (74-99) mg/dL POC Glucose (mg/dL) 153 H 148 H (75-99) mg/dL Calcium (8.4-10.2) mg/dL 03/12/19 03/12/19 03/12/19 Range/Units 06:26 06:35 11:33 RBC (4.30-5.90) m/uL Hgb (13.0-17.5) gm/dL Hct (39.0-53.0) % Chloride 108 H (98-107) mmol/L Carbon Dioxide 31 H (22-30) mmol/L Glucose 171 H (74-99) mg/dL POC Glucose (mg/dL) 174 H 208 H (75-99) mg/dL Calcium 8.3 L (8.4-10.2) mg/dL - Imaging and Cardiology Chest x-ray: report reviewed, image reviewed Assessment and Plan Assessment: 1. Right upper lobe lung cancer, status post robotic-assisted thoracoscopic right upper lobectomy with mediastinal lymph node dissection, right thoracotomy with re-resection of bronchial stump and suture closure 2. History of COPD 3. Previous tobacco dependence 4. Obstructive sleep apnea with CPAP use 5. Uncontrolled insulin-dependent diabetes mellitus with hemoglobin A1c 8.6% and diabetic neuropathy 6. Coronary artery disease status post angioplasty with stenting to the LAD 7. Ischemic cardiomyopathy 8. Hypertension 9. Paroxysmal atrial fibrillation on chronic Eliquis for anticoagulation 10. Obesity 11. Acute kidney injury, resolving Plan: 1. Continue chest tube to waterseal. Will continue to monitor for resolution of air leak. May consider allowing patient to go home with Pneumostat until resolution of air leak, drainage needs to be less first. 2. Will monitor daily x-rays. 3. Pain control with current medication regimen. No narcotics. 4. GI/DVT prophylaxis. 5. Continue home medications with parameters on blood pressure medications. 6. Bronchodilators per pulmonology. 7. Encourage is a spirometry is 10 times every hour while awake. 8. Increase activity, ambulate in hallway. Physical therapy ordered. Patient needs to be aggressively encouraged to get up and move. 9. More recommendations to follow. Time with Patient: Greater than 30
[2019-03-12 16:41] LABS: Glucose,Whole Blood 132 mg/dL (75-99)
[2019-03-12 20:24] LABS: Glucose,Whole Blood 204 mg/dL (75-99)
[2019-03-12] MEDS: ALPRAZolam 0.25 MG TAB PO SCH (21:54)
[2019-03-12] MEDS: ATORVASTATIN 20 MG TAB PO SCH (21:54)
[2019-03-12] MEDS: METOPROLOL SUCCINATE (ER) 50 MG TAB.ER.24H PO SCH (21:54)
--- NOTE | 2019-03-13 00:28 | PN ---
PROGRESS NOTE DATE OF SERVICE: March 12, 2019. PRESENTING COMPLAINT: Right upper lobe lobectomy. INTERVAL HISTORY: Patient is status post right upper lobe lobectomy for lung cancer. Chest tube in place with small air leak. Acute renal failure is corrected. Sugars overall have been better. Diet is much picked up. Walking better. Overall feels much better. Up in the hallway. REVIEW OF SYSTEMS: Done for constitutional, cardiovascular, GI, pulmonary; relevant findings as above. CURRENT MEDICATIONS: Reviewed. EXAMINATION: VITAL SIGNS: Afebrile, pulse 72, respiratory 18, blood pressure 116/73, pulse ox 98% on room air. GENERAL APPEARANCE: Sitting up in a chair, awake, looking better. EYES: Conjunctivae normal. NECK: JVD unable to assess. Mass not palpable. RESPIRATORY: Effort increased. LUNGS: Decreased breath sounds. CARDIOVASCULAR: First and second sounds normal. No edema. ABDOMEN: Soft, nontender. Liver and spleen not palpable. CHEST: Right chest wall has got a tube in place. PSYCHIATRY: Alert and oriented x3. Mood and affect normal. INVESTIGATIONS: White count 7.8, hemoglobin 9.9, BUN and creatinine is normal. Accu-Cheks are 174, 208, 132, 204. ASSESSMENT: 1. 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 2. Morbid obesity BMI 37.3. 3. Small air leak. 4. Diabetes mellitus type 2, chronically on insulin, getting better controlled. 5. Acute renal failure, combination of prerenal and acute tubular necrosis, now corrected. 6. Persistent atrial fibrillation. 7. Chronic obstructive pulmonary disease in an ex-smoker. 8. Essential hypertension. 9. Hyperlipidemia. 10.Coronary artery disease, prior history of stent. 11.Obstructive sleep apnea uses BiPAP. 12.Diabetic peripheral neuropathy. 13.Hypokalemia corrected. PLAN: Continue current medication and treatment plan. Care was discussed with the patient. We will increase the NovoLog Mix 70/30 to 26 units with breakfast and supper and 12 units with lunch. Care was discussed with the patient and at the bedside. MMRADHAL / SHERITAN: [id number] /
[2019-03-13] MEDS: ACETAMINOPHEN TAB 500 MG TAB PO PRN ×4 (01:01→19:41)
[2019-03-13] MEDS: HEPARIN SODIUM,PORCINE 5,000 UNIT/ML 1 ML VIAL SQ SCH ×3 (01:02→16:44)
[2019-03-13 06:08] LABS: Glucose,Whole Blood 202 mg/dL (75-99)
--- NOTE | 2019-03-13 07:25 | XR ---
EXAMINATION TYPE: XR chest 2V DATE OF EXAM: 03/13/2019 COMPARISON: Prior chest x-ray 03/12/2019 HISTORY: Status post right upper lobectomy, chest tube TECHNIQUE: Frontal and lateral views of the chest are obtained. FINDINGS: Findings are similar to prior exam. Right-sided chest tube, subcutaneous emphysema again n oted. Apical right pneumothorax persists. Defibrillator is stable, heart size is unchanged. Pleural t hickening, blunting of the right costophrenic angle is again noted. No sizable effusion. IMPRESSION: Stable postoperative findings.
[2019-03-13] MEDS: PANTOPRAZOLE 40 MG TABLET PO SCH (07:42)
[2019-03-13] MEDS: INSULN ASP PRT/INSULIN ASPART 100 UNIT/ML 10 ML VIAL SQ SCH ×3 (07:43→17:36)
[2019-03-13] MEDS: INSULIN ASPART (NovoLOG) 100 UNIT/ML VIAL SQ SCH ×4 (07:43→22:00)
[2019-03-13] MEDS: IPRATROPIUM-ALBUTEROL 3 ML NEB IH SCH ×4 (08:00→19:53)
[2019-03-13] MEDS: SYMBICORT 80-4.5 MCG INHALER INHALATION SCH ×2 (08:00→19:54)
[2019-03-13] MEDS: LISINOPRIL 10 MG TAB PO SCH (08:46)
[2019-03-13] MEDS: ASPIRIN 81 MG PO SCH (08:46)
[2019-03-13] MEDS: SERTRALINE 50 MG TAB PO SCH (08:46)
--- NOTE | 2019-03-13 08:54 | P.PN ---
Subjective Progress Note Date: 03/13/19 Principal diagnosis: Right upper lobe lung cancer. Medical history of COPD, previous tobacco dependence with smoking cessation approximately 1 month ago and a [id number] history, obstructive sleep apnea with CPAP use, uncontrolled insulin-dependent diabetes mellitus with hemoglobin A1c 8.6% and diabetic neuropathy, coronary artery disease status post angioplasty with stenting to the LAD, ischemic cardiomyopathy, hypertension, paroxysmal atrial fibrillation on chronic Eliquis for anticoagulation, obesity. Acute kidney injury, likely secondary to dehydration. POD #7 robotic assisted thoracoscopic right upper lobectomy with mediastinal lymph node dissection. Right thoracotomy with re-resection of bronchial stump and suture closure The patient is currently sitting up to his bedside edge. He is eating his breakfast, denies any complaints of pain or shortness of breath at this time. He is in no acute distress. Reports he has been ambulating in the 3 S. cardiac stepdown unit hallway with minimal assistance. Incentive spirometry is at his bedside and he has been achieving 1000 mL. Oxygen saturations are 93% on room air. Right pleural chest tube remains in place and is to waterseal, draining thin serosanguineous drainage. 150 mL output in the last 24 hours. The patient's is at his bedside, and reports concerns of the patient being depressed. He reports that he has been having weird thoughts periodically, denies any plans for injuring himself. They are requesting melatonin for a sleep aid and an antidepressant. Objective - Vital Signs Vital signs: Vital Signs Temp 98.6 F 03/13/19 04:00 Pulse 82 03/13/19 08:00 Resp 18 03/13/19 04:00 BP 183/99 03/13/19 04:00 Pulse Ox 94 L 03/13/19 08:00 Intake & Output 03/12/19 03/13/19 03/13/19 18:59 06:59 18:59 Intake Total 720 Output Total 400 880 Balance 320 -880 Weight 114.2 kg 114.6 kg Intake: Oral 720 Output: Chest Tube Drainage 480 Chest Tube Right 480 Urine 400 400 Other: Voiding Method Toilet Urinal # Voids 1 - Constitutional General appearance: Present: cooperative, morbidly obese, no acute distress - Respiratory Details: Lung sounds are essentially clear throughout, diminished his bilateral bases. Aspirations are symmetrical and nonlabored. Oxygen saturation are 93% on room air. Achieving 1000 mL on his incentive spirometry. Right pleural chest tube in place to water seal, intermittent air leak is present. Draining thin ser osanguineous drainage, drained 150 mL output in the last 24 hours. - Cardiovascular Details: Irregular rhythm consistent with atrial fibrillation. S1 and S2 present, negative for S3, gallop or murmur. No edema present. Knee-high sequential compression devices in place to his bilateral lower extremities. Remote telemetry showing atrial fibrillation heart rate 83. - Gastrointestinal Gastrointestinal Comment(s): Abdomen is soft, nontender and nondistended. Active bowel sounds all 4 abdominal quadrants. Tolerating oral intake. No guarding or rigidity. No organomegaly. - Genitourinary Genitourinary Comment(s): Voiding clear yellow urine. - Integumentary Integumentary Comment(s): Skin is warm and dry. No clubbing or cyanosis is present. No rash or abnormal pigmentation is present. Right thoracotomy incision clean, dry and approximated. No drainage or redness present. Small scattered excoriated areas to his right lower quadrant abdomen, clean and dry no drainage present. Right pleural chest tube dressing is clean, dry and intact. - Neurologic Neurologic: Present: CNII-XII intact - Musculoskeletal Musculoskeletal: Present: gait normal, strength equal bilaterally - Psychiatric Psychiatric: Present: A&O x's 3, appropriate affect, intact judgment & insight - Allied health notes Allied health notes reviewed: nursing - Labs CBC & Chem 7: 03/12/19 06:26 03/12/19 06:26 Labs: Abnormal Lab Results - Last 24 Hours (Table) 03/12/19 03/12/19 03/12/19 Range/Units 11:33 16:37 20:22 POC Glucose (mg/dL) 208 H 132 H 204 H (75-99) mg/dL 03/13/19 Range/Units 06:06 POC Glucose (mg/dL) 202 H (75-99) mg/dL - Imaging and Cardiology Chest x-ray: report reviewed, image reviewed Assessment and Plan Assessment: 1. 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 Chronic obstructive pulmonary disease 3. Chronic tobacco dependence, quit smoking 1 month ago 4. Obstructive sleep apnea with CPAP use 5. Uncontrolled insulin-dependent diabetes mellitus with hemoglobin A1c 8.6% and diabetic neuropathy 6. Coronary artery disease status post angioplasty with stenting to the LAD 7. Ischemic cardiomyopathy 8. Hypertension 9. Paroxysmal atrial fibrillation on chronic Eliquis for anticoagulation 10. Obesity 11. Acute kidney injury, resolving Plan: 1. Place chest tube to low continuous wall suction -20 cm H2O. We will continue to monitor for resolution of air leak. 2. Monitor daily x-rays. 3. Pain control with current medication regimen. No narcotics. 4. GI/DVT prophylaxis. 5. Continue home medications with parameters on blood pressure medications. 6. Bronchodilators per pulmonology management. 7. Encourage use of his incentive spirometry 10 times every hour while awake. 8. Increase activity, ambulate in hallway. Physical therapy ordered. Patient needs to be aggressively encouraged to get up and move. 9. Discussed the importance of continued smoking cessation. 10. [Zoloft 50 mg by mouth daily. 11. [Melatonin 5 mg by mouth daily at bedtime. 12. Discuss pathology results with the patient, pathology results demonstrating squamous cell carcinoma with tumor size measuring 3.0 x 2.4 x 1.6 cm and pathology showing 1 hilar lymph node positive for squamous cell carcinoma. 13. Insulin management per primary care service. 14. More recommendations based on patient's clinical course. Time with Patient: Greater than 30
[2019-03-13 10:58] LABS: HCT 33.6 % (39.0-53.0); HGB 10.9 gm/dL (13.0-17.5); MCH 30.4 pg (25.0-35.0); MCHC 32.5 g/dL (31.0-37.0); MCV 93.5 fL (80.0-100.0); Mean Platelet Volume 7.6; Platelet Count 307 k/uL (150-450); RDW 14.2 % (11.5-15.5); WBC 10.7 k/uL (3.8-10.6)
[2019-03-13 11:13] LABS: Anion Gap 5 mmol/L; Blood Urea Nitrogen 19 mg/dL (9-20); Calcium 8.8 mg/dL (8.4-10.2); Carbon Dioxide 31 mmol/L (22-30); Chloride 106 mmol/L (98-107); Glucose 136 mg/dL (74-99); Potassium 4.4 mmol/L (3.5-5.1); Sodium 142 mmol/L (137-145)
--- NOTE | 2019-03-13 13:14 | P.PN ---
Subjective Progress Note Date: 03/13/19 This is a 78-year-old white male with history of multiple medical problems including insulin-dependent diabetes, chronic atrial fibrillation, coronary artery disease and previous stenting, hypercholesterolemia, degenerative joint disease with previous bilateral knee replacement, history of left rotator cuff surgery, permanent pacemaker implantation and stenting of LAD in 1998. Patient was recently evaluated for a right hilar mass, patient underwent a PET scan and showed uptake within the right suprahilar mass and no other abnormality was noted. 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 Patient was referred to Dr. Cochran, and he underwent right upper lobectomy with rima dissection , postoperatively he was transferred to the cardiac floor, and we were asked to see him in consultation. Patient had been seen in consultation yesterday by Dr. Sanchez. He was seen and examined this morning on the telemetry unit, complained of feeling somewhat listless and lightheaded. His blood pres sure is running in the 90 systolic range. He is complaining of some mild incisional discomfort, still working hard on his incentive spirometry reaching approximately 1000. Right-sided chest tube remains in place with continuous air leak, moderate amount of serous sanguinous output in the right chest tube. He was on 20 mg of lisinopril, we'll decrease that to 10 mg daily from today. 03/09/2019 Patient seen and examined this morning, feeling much better today than he did yesterday morning. No further episodes of lightheadedness, much less listless today. Continues to have right-sided chest tube in place to water seal. Airleak is improving as compared with 2 days ago. Today's chest x-ray shows essentially stable chest with small right apical pneumothorax. Blood pressure this morning 102/50 with a heart rate in the 70s, 95% on 2 L of oxygen. White blood cell count 8.3, hemoglobin 9.8, platelet count 161. Magnesium 1.6. Sodium 131, potassium 4.9, BUN 42 and creatinine 1.6. 03/10/2019 Patient was seen and examined this morning continues to do better. Repeat chest x-ray from this morning showed cardiomegaly with right-sided pneumothorax. Blood pressure 140/70 with heart rate in the 70s, 93%Ra. 55 mL out of the chest tube. White blood cell count 7.2, hemoglobin 10.2, platelet count 220. Sodium 136, potassium 5.8, BUN 30 and creatinine 1.2, magnesium 2.1. 03/11/2019 Patient was seen and examined this morning, sitting up in the chair bedside. Breathing is overall stable. He had an episode this morning where he was found to be unresponsive, Narcan was given to the patient. At the time of my examination he was alert and oriented 3. Continues to have the chest tube in place, he also continues to have an intermittent air leak and the pleural chest tube. Blood pressure 150/70 with a heart rate in the 80s, 95% on 2 L of oxygen. White blood cell count 8.3, hemoglobin 10.4, platelet count 225. 03/12/2019 Patient was seen and examined this morning, feeling better today. Still did not sleep well through the night last night because he is unable to use the mask associated with the CPAP here. Blood pressure 180/80, we will resume the GILES inhibitor which the patient was on. 03/13/2019 Patient seen and examined this morning, did appear a little anxious today, blood pressure continues to be elevated. We will increase his dose of GILES inhibitor to 20 mg daily today. His doctor's also initiated him on Zoloft for his anxiety. Objective - Vital Signs Vital signs: Vital Signs Temp 98.6 F 03/13/19 04:00 Pulse 80 03/13/19 11:30 Resp 18 03/13/19 04:00 BP 183/99 03/13/19 04:00 Pulse Ox 94 L 03/13/19 08:00 Intake & Output 03/12/19 03/13/19 03/13/19 18:59 06:59 18:59 Intake Total 720 Output Total 400 880 Balance 320 -880 Weight 114.2 kg 114.6 kg Intake: Oral 720 Output: Chest Tube Drainage 480 Chest Tube Right 480 Urine 400 400 Other: Voiding Method Toilet Urinal # Voids 1 - Exam HEAD: Normocephalic/atraumatic. EYES: Normal reaction of pupils, equal size. Conjunctiva pink, sclera white. NOSE: Clear with pink turbinates. THROAT: No erythema or exudates. NECK: No masses, no JVD, no thyroid enlargement, no adenopathy. CHEST: No chest wall deformity. Symmetrical expansion. Right-sided chest tube is in place, with continuous air leak, and moderate amount of thin serosanguineous output in the Pleur-evac LUNGS: Equal air entry with no crackles, wheeze, rhonchi or dullness. Diminished breath sounds on the right CVS: Regular rate and rhythm, normal S1 and S2, no gallops, no murmurs, no rubs ABDOMEN: Soft, nontender. No hepatosplenomegaly, normal bowel sounds, no guarding or rigidity. EXTREMITIES: No clubbing, no edema, no cyanosis, 2+ pulses and upper and lower extremities. MUSCULOSKELETAL: Muscle strength and tone normal. SPINE: No scoliosis or deformity SKIN: No rashes CENTRAL NERVOUS SYSTEM: Alert and oriented -3. No focal deficits, tone is normal in all 4 extremities. PSYCHIATRIC: Alert and oriented -3. Appropriate affect. Intact judgment and insight. - Labs CBC & Chem 7: 03/13/19 10:15 03/13/19 10:15 Labs: Abnormal Lab Results - Last 24 Hours (Table) 03/12/19 03/12/19 03/13/19 Range/Units 16:37 20:22 06:06 WBC (3.8-10.6) k/uL RBC (4.30-5.90) m/uL Hgb (13.0-17.5) gm/dL Hct (39.0-53.0) % Carbon Dioxide (22-30) mmol/L Glucose (74-99) mg/dL POC Glucose (mg/dL) 132 H 204 H 202 H (75-99) mg/dL 03/13/19 03/13/19 Range/Units 10:15 10:15 WBC 10.7 H (3.8-10.6) k/uL RBC 3.60 L (4.30-5.90) m/uL Hgb 10.9 L (13.0-17.5) gm/dL Hct 33.6 L (39.0-53.0) % Carbon Dioxide 31 H (22-30) mmol/L Glucose 136 H (74-99) mg/dL POC Glucose (mg/dL) (75-99) mg/dL Assessment and Plan Plan: Assessment and plan #1 status post right upper lobectomy for what seems to be a 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 #2 moderate severe COPD FEV1 is in the range of 50%. #3 obstructive sleep apnea syndrome #4 coronary arteriosclerosis and previous stent placement. #5 benign essential hypertension #6 pacemaker in situ #7 history of vitamin D deficiency #8 type 2 diabetes #9 chronic atrial fibrillation. Plan From cardiology's perspective, we will increase the GILES inhibitor to 20 mg daily. Continue the rest of his medications. DNP note has been reviewed, I agree with a documented findings and plan of care. Patient was seen and examined.
[2019-03-13] MEDS: CHOLECALCIFEROL 1,000 UNIT TAB PO SCH (13:23)
[2019-03-13] MEDS: MAGNESIUM OXIDE 400 MG TAB PO SCH (13:23)
[2019-03-13 13:27] LABS: Glucose,Whole Blood 129 mg/dL (75-99)
--- NOTE | 2019-03-13 15:07 | P.PN ---
Subjective Progress Note Date: 03/13/19 Principal diagnosis: COPD, lung mass, status post right upper lobectomy this is a 78-year-old white male with history of multiple medical problems including insulin-dependent diabetes, chronic atrial fibrillation, coronary artery disease and previous stenting, hypercholesterolemia, degenerative joint disease with previous bilateral knee replacement, history of left rotator cuff surgery, permanent pacemaker implantation and stenting of LAD in 1998. Patient is also known to have history of COPD FEV1 is in the range of 50%, 1.31 L, patient was recently evaluated by me for a right hilar mass, patient underwent a PET scan and showed uptake within the right suprahilar mass and no other abnormality was noted. 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 Patient was referred to Dr. Cochran, and he underwent right upper lobectomy with rima dissection today, postoperatively he was transferred to the cardiac floor, and I was asked to see him on consultation. Patient seems to be doing fairly well, complaining mostly of right sided chest pain at the surgical site, has a right sided chest tube in place with minimal air leak noted. Chest x-ray showed postoperative changes and no other significant findings otherwise. On 03/07/2019 patient seen in follow-up this is postop day 1, status post right upper lobectomy for a right hilar mass which showed suspicious uptake on the PET scan. Navigational bronchoscopy biopsies were nondiagnostic. The patient is awake and alert, resting in bed, currently on 3 L of oxygen with a pulse ox of 97%, signs are stable, having some mild to moderate amount of incisional discomfort, but is able to do his incentive spirometry, is able to achieve 1000 mL on the today. Lung sounds are diminished on the right side, right-sided chest tube is in place, with continuous air leak, and moderate amount of serosanguineous than output from the right chest tube. Today's labs have been reviewed, and showed a white blood cell count of 10.7, hemoglobin of 12.2, sodium is 136, depressed electrolytes were within normal limits, BUN is 26 and creatinine is 1.36. On 03/09/2019 patient seen in follow-up on selective care unit, he sitting up in the recliner, in no acute distress, right-sided chest tube is in place, to waterseal, and patient still has occasional leak with deep breathing and coughing, air leak has improved compared to 2 days ago. Today's chest x-ray has been reviewed, shows essentially stable chest with small right apical pneumothorax. His pain is reasonably controlled, patient has been ambulating, the whole entire length of the sears. Lung wedge biopsy is still pending at this time. Patient is working his incentive spirometer, able to achieve 752 just under 1000 mL on the today, lung sounds reveal better air entry on the right, with some limited wheezes. No fever or chills. Occasional cough, with pro duction of small amount of phlegm. On 03/10/2019 patient seen in follow-up on selective care unit, he is awake and alert, in no acute distress, his been ambulating in the room and in the hallway, tolerating activity very well. Pulse ox is 93%, no fever no chills, hemodynamically stable, his pain is under reasonable control, right-sided chest tube is in place, with air leak present with a deep breathing and coughing. Chest tube is to waterseal, lung sounds are diminished at the bases, with only limited end expiratory wheezes, vital signs are stable, no fever or chills. Today's chest x-ray has been reviewed, and showed cardiomegaly, right-sided apical pneumothorax, which was stable in appearance, well, his incentive spirometer. Biopsy results are pending. On 03/13/2019 patient is seen in follow-up on selective care unit, he is awake and alert, in no acute distress, he is on CPAP, and his nasal pillow mask was adjusted to connect to the inpatient CPAP unit, and patient is tolerating CPAP therapy well. Chest tube remains in place on the right, room air pulse ox is 93%, afebrile. There is occasional air leak with deep inspiration, on today's chest x-ray there was increase in the appearance of the right apical pneumothorax, in the chest tube was placed to suction. Today's labs have been reviewed, and showed white blood cell count of 10.7, hemoglobin of 10.9, electrolytes are within normal limits, with the CO2 of 31, renal profile is within normal limits. Objective - Vital Signs Vital signs: Vital Signs Temp 98.6 F 03/13/19 04:00 Pulse 80 03/13/19 11:30 Resp 18 03/13/19 04:00 BP 183/99 03/13/19 04:00 Pulse Ox 94 L 03/13/19 08:00 Intake & Output 03/12/19 03/13/19 03/13/19 18:59 06:59 18:59 Intake Total 720 Output Total 400 880 Balance 320 -880 Weight 114.2 kg 114.6 kg Intake: Oral 720 Output: Chest Tube Drainage 480 Chest Tube Right 480 Urine 400 400 Other: Voiding Method Toilet Urinal # Voids 1 - Exam GENERAL EXAM: Alert, pleasant, 78-year-old white male, on 2 L of oxygen, comfortable in no apparent distress. HEAD: Normocephalic/atraumatic. EYES: Normal reaction of pupils, equal size. Conjunctiva pink, sclera white. NOSE: Clear with pink turbinates. THROAT: No erythema or exudates. NECK: No masses, no JVD, no thyroid enlargement, no adenopathy. CHEST: No chest wall deformity. Symmetrical expansion. Right-sided chest tube is in place currently to wall suction, with occasional air leak, and moderate amount of thin serosanguineous output in the Pleur-evac LUNGS: Equal air entry with no crackles, wheeze, rhonchi or dullness. Diminished breath sounds on the right CVS: Regular rate and rhythm, normal S1 and S2, no gallops, no murmurs, no rubs ABDOMEN: Soft, nontender. No hepatosplenomegaly, normal bowel sounds, no guarding or rigidity. EXTREMITIES: No clubbing, no edema, no cyanosis, 2+ pulses and upper and lower extremities. MUSCULOSKELETAL: Muscle strength and tone normal. SPINE: No scoliosis or deformity SKIN: No rashes CENTRAL NERVOUS SYSTEM: Alert and oriented -3. No focal deficits, tone is normal in all 4 extremities. PSYCHIATRIC: Alert and oriented -3. Appropriate affect. Intact judgment and insight. - Labs CBC & Chem 7: 03/13/19 10:15 03/13/19 10:15 Labs: Abnormal Lab Results - Last 24 Hours (Table) 03/12/19 03/12/19 03/13/19 Range/Units 16:37 20:22 06:06 WBC (3.8-10.6) k/uL RBC (4.30-5.90) m/uL Hgb (13.0-17.5) gm/dL Hct (39.0-53.0) % Carbon Dioxide (22-30) mmol/L Glucose (74-99) mg/dL POC Glucose (mg/dL) 132 H 204 H 202 H (75-99) mg/dL 03/13/19 03/13/19 03/13/19 Range/Units 10:15 10:15 13:16 WBC 10.7 H (3.8-10.6) k/uL RBC 3.60 L (4.30-5.90) m/uL Hgb 10.9 L (13.0-17.5) gm/dL Hct 33.6 L (39.0-53.0) % Carbon Dioxide 31 H (22-30) mmol/L Glucose 136 H (74-99) mg/dL POC Glucose (mg/dL) 129 H (75-99) mg/dL Assessment and Plan Plan: Assessment: 1status post right upper lobectomy for what seems to be a 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 2moderate severe COPD FEV1 is in the range of 50%. 3 obstructive sleep apnea syndrome 4 coronary arteriosclerosis and previous stent placement. 5 benign essential hypertension 6 pacemaker in situ 7 history of vitamin D deficiency 8 type 2 diabetes 9 chronic atrial fibrillation. Plan: Continue encouraging deep breathing and coughing, continue CPAP therapy at bedtime and as needed during the day, today's chest x-ray shows persistence of right apical pneumothorax I performed a history & physical examination of the patient and discussed their management with my nurse practitioner, Nita Carrington. I reviewed the nurse practitioner's note and agree with the documented findings and plan of care. Lung sounds are positive for diminished breath sounds on the right. The findings and the impression was discussed with the patient. I attest to the documentation by the nurse practitioner. Time with Patient: Less than 30
[2019-03-13 18:00] LABS: Glucose,Whole Blood 174 mg/dL (75-99)
[2019-03-13 20:36] LABS: Glucose,Whole Blood 132 mg/dL (75-99)
[2019-03-13] MEDS: METOPROLOL SUCCINATE (ER) 50 MG TAB.ER.24H PO SCH (22:00)
[2019-03-13] MEDS: ATORVASTATIN 20 MG TAB PO SCH (22:00)
[2019-03-13] MEDS: MELATONIN 5 MG TABLET PO SCH (22:00)
[2019-03-13] MEDS: ALPRAZolam 0.25 MG TAB PO SCH (22:00)
--- NOTE | 2019-03-13 23:06 | PN ---
PROGRESS NOTE DATE OF SERVICE: March 13, 2019 PRESENTING COMPLAINT: Right upper lobe lobectomy. 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 One of the lymph nodes come back positive for the same. Chest tube remains in place. Sugars are better controlled. Dr. Cochran's team did speak to the patient about this today. Oncology was consulted. at the bedside. REVIEW OF SYSTEMS: Done for constitutional, cardiovascular, GI, pulmonary and relevant findings as above. CURRENT MEDICATIONS: Reviewed. PHYSICAL EXAMINATION: VITAL SIGNS: Temperature 99, pulse 83, respiratory 18, blood pressure 167/93, pulse ox 95% on room air. GENERAL APPEARANCE: Sitting up, awake. EYES:Pupils equal. Conjunctivae normal. NECK: JVD not raised. Mass not palpable. RESPIRATORY: Effort increased. LUNGS: Decreased breath sounds. CARDIOVASCULAR: First and second sounds normal. No edema. ABDOMEN: Soft, nontender. Liver and spleen not palpable. PSYCHIATRY: Alert and oriented x3. Mood and affect normal. INVESTIGATIONS: White count 10.9, hemoglobin 10.9, potassium 4.4. Creatinine is normal. Accu-Cheks 129, 174, 132. ASSESSMENT: 1. Right upper lobe lobectomy for moderately differentiated squamous cell carcinoma with chest tube in place with one of the lymph nodes coming back positive. 2. Morbid obesity BMI 37.3. 3. Small air leak. 4. Diabetes mellitus type 2, chronically on insulin, better controlled. 5. Acute renal failure, combination of prerenal and acute tubular necrosis, now corrected. 6. Persistent atrial fibrillation. 7. Chronic obstructive pulmonary disease in an ex smoker. 8. Essential hypertension. 9. Hyperlipidemia. 10.Coronary artery disease, prior history of stent. 11.Obstructive sleep apnea uses BiPAP. 12.Diabetic peripheral neuropathy. 13.Hypokalemia corrected. PLAN: I had a very lengthy talk with the patient and the . The patient was feeling a bit low regarding his results. Further plan to be determined as per Oncology. The patient's understands the same. Sugars are now well controlled. Blood pressure is tending to run a bit on the higher side. Dose of Zestril was increased. Will also add some chlorthalidone. MMODL / IJN: [id number] /
[2019-03-14] MEDS: ACETAMINOPHEN TAB 500 MG TAB PO PRN ×4 (00:28→18:45)
[2019-03-14] MEDS: HEPARIN SODIUM,PORCINE 5,000 UNIT/ML 1 ML VIAL SQ SCH ×3 (00:28→15:06)
[2019-03-14 07:07] LABS: Glucose,Whole Blood 200 mg/dL (75-99)
[2019-03-14] MEDS: PANTOPRAZOLE 40 MG TABLET PO SCH (07:21)
[2019-03-14] MEDS: INSULIN ASPART (NovoLOG) 100 UNIT/ML VIAL SQ SCH ×4 (07:22→21:42)
[2019-03-14] MEDS: INSULN ASP PRT/INSULIN ASPART 100 UNIT/ML 10 ML VIAL SQ SCH ×3 (07:22→17:19)
--- NOTE | 2019-03-14 08:49 | XR ---
EXAMINATION TYPE: XR chest 1V portable DATE OF EXAM: 03/14/2019 COMPARISON: Prior chest x-ray 03/13/2019 HISTORY: Postop right upper lobectomy and chest tube TECHNIQUE: Single frontal view of the chest is obtained. FINDINGS: Right-sided chest tube is again noted, subcutaneous emphysema is again seen over the right chest and neck. Right-sided pneumothorax is improved, no sizable pneumothorax is evident. No other s ignificant interval change. IMPRESSION: Improvement in right-sided pneumothorax.
[2019-03-14] MEDS: IPRATROPIUM-ALBUTEROL 3 ML NEB IH SCH ×4 (09:26→20:35)
[2019-03-14] MEDS: SYMBICORT 80-4.5 MCG INHALER INHALATION SCH ×2 (09:26→20:35)
[2019-03-14] MEDS: CHLORTHALIDONE 25 MG TAB PO SCH (09:40)
[2019-03-14] MEDS: SERTRALINE 50 MG TAB PO SCH (09:40)
[2019-03-14] MEDS: ASPIRIN 81 MG PO SCH (09:40)
[2019-03-14] MEDS: LISINOPRIL 20 MG TAB PO SCH (09:40)
--- NOTE | 2019-03-14 11:35 | P.PN ---
Subjective Progress Note Date: 03/14/19 Principal diagnosis: Right upper lobe lung cancer. Medical history of COPD, previous tobacco dependence with smoking cessation approximately 1 month ago and a [id number] history, obstructive sleep apnea with CPAP use, uncontrolled insulin-dependent diabetes mellitus with hemoglobin A1c 8.6% and diabetic neuropathy, coronary artery disease status post angioplasty with stenting to the LAD, ischemic cardiomyopathy, hypertension, paroxysmal atrial fibrillation on chronic Eliquis for anticoagulation, obesity. Acute kidney injury, likely secondary to dehydration. POD #8 robotic assisted thoracoscopic right upper lobectomy with mediastinal lymph node dissection. Right thoracotomy with re-resection of bronchial stump and suture closure The patient is currently sitting up to his bedside edge. He is eating his breakfast, denies any complaints of pain or shortness of breath at this time. He is in no acute distress. His son is at his bedside and their questions were answered to the best of my ability. His pathology results were discussed with him yesterday by Dr. Cochran, Dr. Fisher and from oncology. Right pleural chest tube remains in place to low continuous wall suction -20 cm H2O, intermittent air leak is present. Draining thin serosanguineous drainage. Oxygen saturations 92% on room air. Achieving 1500 mL on his incentive spirometry. He reports he has been ambulating in his room with minimal assistance. His x-ray this morning of his chest shows an improvement in his right-sided pneumothorax. Objective - Vital Signs Vital signs: Vital Signs Temp 98.3 F 03/14/19 04:00 Pulse 84 03/14/19 09:40 Resp 18 03/14/19 04:00 BP 170/93 03/14/19 04:00 Pulse Ox 92 L 03/14/19 04:00 Intake & Output 03/13/19 03/14/19 03/14/19 18:59 06:59 18:59 Intake Total 280 100 Output Total 900 1780 400 Balance -620 -1780 -300 Weight 114.1 kg Intake: Oral 280 100 Output: Chest Tube Drainage 1380 Chest Tube Right 1380 Urine 900 400 400 Other: Voiding Method Toilet Urinal # Voids 1 3 1 - Constitutional General appearance: Present: cooperative, morbidly obese, no acute distress - Respiratory Details: Lung sounds are essentially clear throughout, diminished to his bilateral bases. Respirations are symmetrical and nonlabored. Oxygen saturation are 92% on room air. Achieving 1500 mL on his incentive spirometry. Right pleural chest tube in place to low continuous wall suction -20 cm H2O, intermittent air leak is present. Draining thin serosanguineous drainage, drained 250 mL output in the last 24 hours. - Cardiovascular Details: Regular rhythm and rate. S1 and S2 present, negative for S3, gallop or murmur. Remote telemetry showing normal sinus rhythm heart rate 72. No edema is present. Knee-high WILLEM hose and sequential compression devices in place to his bilateral lower extremities. - Gastrointestinal Gastrointestinal Comment(s): Abdomen is soft, nontender and nondistended. Active bowel sounds to all 4 abdominal quadrants. Tolerating oral intake. No guarding or rigidity. No organomegaly. - Genitourinary Genitourinary Comment(s): Voiding clear yellow urine. - Integumentary Integumentary Comment(s): Skin is warm and dry. No clubbing or cyanosis is present. No rash or abnormal pigmentation is present. Right thoracotomy incision is clean, dry and approximated. No drainage or redness is present. Exofin dressing is clean and d ry. Small scattered excoriated areas to his right lower quadrant abdomen are clean, dry with no drainage present. Right pleural chest tube dressing is clean, dry and intact. - Neurologic Neurologic: Present: CNII-XII intact - Musculoskeletal Musculoskeletal: Present: gait normal, strength equal bilaterally - Psychiatric Psychiatric: Present: A&O x's 3, appropriate affect, intact judgment & insight - Allied health notes Allied health notes reviewed: nursing - Labs CBC & Chem 7: 03/13/19 10:15 03/13/19 10:15 Labs: Abnormal Lab Results - Last 24 Hours (Table) 03/13/19 03/13/19 03/13/19 Range/Units 13:16 17:26 20:34 POC Glucose (mg/dL) 129 H 174 H 132 H (75-99) mg/dL 03/14/19 Range/Units 07:05 POC Glucose (mg/dL) 200 H (75-99) mg/dL - Imaging and Cardiology Chest x-ray: report reviewed, image reviewed Assessment and Plan Assessment: 1. 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 Chronic obstructive pulmonary disease 3. Chronic tobacco dependence, quit smoking 1 month ago 4. Obstructive sleep apnea with CPAP use 5. Uncontrolled insulin-dependent diabetes mellitus with hemoglobin A1c 8.6% and diabetic neuropathy 6. Coronary artery disease status post angioplasty with stenting to the LAD 7. Ischemic cardiomyopathy 8. Hypertension 9. Paroxysmal atrial fibrillation on chronic Eliquis for anticoagulation 10. Obesity 11. Acute kidney injury, resolving Plan: 1. Keep right pleural chest tube to low continuous wall suction 20 cm H2O. We will place the chest tube back to water seal tomorrow morning 03/15/2019. We will continue to monitor for resolution of air leak. 2. Monitor daily x-rays. 3. Pain control with current medication regimen. No narcotics. 4. GI/DVT prophylaxis. 5. Continue home medications with parameters on blood pressure medications. 6. Bronchodilators per pulmonology management. 7. Encourage use of his incentive spirometry 10 times every hour while awake. 8. Increase activity, ambulate in hallway. Physical therapy ordered. 9. Discussed the importance of continued smoking cessation. 10. Continue Zoloft 50 mg by mouth daily. 11. Continue Melatonin 5 mg by mouth daily at bedtime. 12. Pathology results were reviewed with the patient by Dr. Cochran yesterday 03/13/2019. 13. Insulin management per primary care service. 14. Lasix 20 mg IV 1 now. 15. More recommendations based on patient's clinical course. Time with Patient: Greater than 30
[2019-03-14 12:39] LABS: Glucose,Whole Blood 182 mg/dL (75-99)
[2019-03-14] MEDS: CHOLECALCIFEROL 1,000 UNIT TAB PO SCH (12:41)
[2019-03-14] MEDS: MAGNESIUM OXIDE 400 MG TAB PO SCH (12:41)
[2019-03-14] MEDS: amLODIPine 10 MG TAB PO SCH (12:44)
--- NOTE | 2019-03-14 12:56 | PN ---
PROGRESS NOTE Pardeep Davis is a 78-year-old gentleman who is status post thoracic surgery still has leak. He is otherwise doing well. Blood pressure is poorly controlled. He is on GILES inhibitors and beta blockers. I am going to add amlodipine 10 mg daily. PHYSICAL EXAMINATION: On exam, patient is comfortable at rest. Blood pressure is elevated at 170/93. There is no jugular venous distention. Chest exam reveals diminished air entry at the bases. Heart exam reveals first and second heart sounds. No gallop. Examination of extremities did not reveal any edema. Peripheral pulses are palpable. LABS: Labs show a hemoglobin of 10.9, platelet count is 307. Potassium is 4.4. Creatinine is 0.9. ASSESSMENT: 1. Uncontrolled hypertension. 2. Status post thoracic surgery. I will add amlodipine 10 mg daily for better blood pressure control. MMODL / IJN: [id number] /
[2019-03-14] MEDS ORDERED: FUROSEMIDE 10 MG/ML 2 ML VIAL IV STA (13:37)
--- NOTE | 2019-03-14 14:16 | P.PN ---
Subjective Progress Note Date: 03/14/19 Principal diagnosis: COPD, lung mass, status post right upper lobectomy. This is a 78-year-old white male with history of multiple medical problems including insulin-dependent diabetes, chronic atrial fibrillation, coronary artery disease and previous stenting, hypercholesterolemia, degenerative joint disease with previous bilateral knee replacement, history of left rotator cuff surgery, permanent pacemaker implantation and stenting of LAD in 1998. Patient is also known to have history of COPD FEV1 is in the range of 50%, 1.31 L, patient was recently evaluated by me for a right hilar mass, patient underwent a PET scan and showed uptake within the right suprahilar mass and no other abnormality was noted. 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 Patient was referred to Dr. Cochran, and he underwent right upper lobectomy with rima dissection today, postoperatively he was transferred to the cardiac floor, and I was asked to see him on consultation. Patient seems to be doing fairly well, complaining mostly of right sided chest pain at the surgical site, has a right sided chest tube in place with minimal air leak noted. Chest x-ray showed postoperative changes and no other significant findings otherwise. On 03/07/2019 patient seen in follow-up this is postop day 1, status post right upper lobectomy for a right hilar mass which showed suspicious uptake on the PET scan. Navigational bronchoscopy biopsies were nondiagnostic. The patient is awake and alert, resting in bed, currently on 3 L of oxygen with a pulse ox of 97%, signs are stable, having some mild to moderate amount of incisional discomfort, but is able to do his incentive spirometry, is able to achieve 1000 mL on the today. Lung sounds are diminished on the right side, right-sided chest tube is in place, with continuous air leak, and moderate amount of serosanguineous than output from the right chest tube. Today's labs have been reviewed, and showed a white blood cell count of 10.7, hemoglobin of 12.2, sodium is 136, depressed electrolytes were within normal limits, BUN is 26 and creatinine is 1.36. The patient is seen today 03/08/2019 in follow-up on the selective care unit. He is post operative day #2 for right upper lobectomy for right hilar mass. He is currently sitting up in a chair at the bedside. Awake and alert in no acute distress. He did have an episode of diaphoresis and hypotension. He is currently receiving fluid boluses. No worsening shortness of breath, cough or congestion. Right-sided chest tube remains in place. Still positive air leak. Maintaining O2 saturations in the 90s on 2 L/m per nasal cannula. He's afebrile. His x-ray reveals trace right apical pneumothorax less than 5%. There is continued right mid and lower lung patchy consolidation and left basilar opacity. He continues to work well with the incentive spirometer. He remains on Symbicort and DuoNeb inhalations. On 03/09/2019 patient seen in follow-up on selective care unit, he sitting up in the recliner, in no acute distress, right-sided chest tube is in place, to waterseal, and patient still has occasional leak with deep breathing and coughing, air leak has improved compared to 2 days ago. Today's chest x-ray has been reviewed, shows essentially stable chest with small right apical pneumothorax. His pain is reasonably controlled, patient has been ambulating, the whole entire length of the sears. Lung wedge biopsy is still pending at this time. Patient is working his incentive spirometer, able to achieve 752 just under 1000 mL on the today, lung sounds reveal better air entry on the right, with some limited wheezes. No fever or chills. Occasional cough, with production of small amount of phlegm. On 03/10/2019 patient seen in follow-up on selective care unit, he is awake and alert, in no acute distress, his been ambulating in the room and in the hallway, tolerating activity very well. Pulse ox is 93%, no fever no chills, hemodynamically stable, his pain is under reasonable control, right-sided chest tube is in place, with air leak present with a deep breathing and coughing. Chest tube is to waterseal, lung sounds are diminished at the bases, with only limited end expiratory wheezes, vital signs are stable, no fever or chills. Cara ayers's chest x-ray has been reviewed, and showed cardiomegaly, right-sided apical pneumothorax, which was stable in appearance, well, his incentive spirometer. Biopsy results are pending. The patient is seen today 03/11/2019 in follow-up on the selective care unit. He is currently sitting up in the chair at the bedside. He is somewhat drowsy but easily arousable. Apparently he was over sedated with pain medication last evening and required Narcan 3. Most of these have been discontinued. The patient's chest tube does continue with a leak and is connected to waterseal suction. Chest x-ray is stable. Maintaining O2 saturations in the mid 90s on 2 L/m per nasal cannula. Needs increased encouragement regarding the incentive spirometer. The patient is seen today 03/12/2019 in follow-up on the selective care unit. He is currently sitting up at the bedside. Awake and alert in no acute distress. Maintaining O2 saturations in the 90s on 2 L/m per nasal cannula. He's been afebrile. White count 7.8. Hemoglobin 9.9. Creatinine 0.98. He remains on DuoNeb inhalations, Symbicort. Working with the incentive spirometer. Right-sided chest tube remains in place. Still with intermittent leak. 100 ML output. Pathology is positive for poorly differentiated squamous cell carcinoma. Suspect IIa or IIb. The patient is seen today 03/14/2018 in follow-up on the selective care unit. He is currently sitting up at the bedside. Awake and alert in no acute distress. He slept better last night. He is feeling better today. Chest tube remains in place. Unfortunately, continues with a leak. And some subcutaneous emphysema. Chest x-ray reveals improvement in the right-sided pneumothorax. He continues to work well with the incentive spirometer. Objective - Vital Signs Vital signs: Vital Signs Temp 97.1 F L 03/14/19 08:50 Pulse 84 03/14/19 13:09 Resp 18 03/14/19 12:30 BP 170/90 03/14/19 12:30 Pulse Ox 95 03/14/19 12:30 Intake & Output 03/13/19 03/14/19 03/14/19 18:59 06:59 18:59 Intake Total 280 100 Output Total 900 1780 400 Balance -620 -1780 -300 Weight 114.1 kg Intake: Oral 280 100 Output: Chest Tube Drainage 1380 Chest Tube Right 1380 Urine 900 400 400 Other: Voiding Method Toilet Urinal # Voids 1 3 1 - Exam GENERAL EXAM: Alert, pleasant, 78-year-old white male, on room air, comfortable in no apparent distress. HEAD: Normocephalic/atraumatic. EYES: Normal reaction of pupils, equal size. Conjunctiva pink, sclera white. NOSE: Clear with pink turbinates. THROAT: No erythema or exudates. NECK: No masses, no JVD, no thyroid enlargement, no adenopathy. CHEST: No chest wall deformity. Symmetrical expansion. Right-sided chest tube is in place, with intermittent air leak, and continued output of thin serosanguineous output in the Pleur-evac LUNGS: Equal air entry with no crackles, wheeze, rhonchi or dullness. Diminished breath sounds on the right CVS: Regular rate and rhythm, normal S1 and S2, no gallops, no murmurs, no rubs ABDOMEN: Soft, nontender. No hepatosplenomegaly, normal bowel sounds, no guarding or rigidity. EXTREMITIES: No clubbing, no edema, no cyanosis, 2+ pulses and upper and lower extremities. MUSCULOSKELETAL: Muscle strength and tone normal. SPINE: No scoliosis or deformity SKIN: No rashes CENTRAL NERVOUS SYSTEM: No focal deficits, tone is normal in all 4 extremities. PSYCHIATRIC: Alert and oriented -3. Appropriate affect. Intact judgment and insight. - Labs CBC & Chem 7: 03/13/19 10:15 03/13/19 10:15 Labs: Abnormal Lab Results - Last 24 Hours (Table) 03/13/19 03/13/19 03/14/19 Range/Units 17:26 20:34 07:05 POC Glucose (mg/dL) 174 H 132 H 200 H (75-99) mg/dL 03/14/19 Range/Units 12:20 POC Glucose (mg/dL) 182 H (75-99) mg/dL Assessment and Plan Assessment: Assessment: 1 status post right upper lobectomy pathology is 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 2 moderate severe COPD FEV1 is in the range of 50%. 3 obstructive sleep apnea syndrome 4 coronary arteriosclerosis and previous stent placement. 5 benign essential hypertension 6 pacemaker in situ 7 history of vitamin D deficiency 8 type 2 diabetes 9 chronic atrial fibrillation. Plan: The patient is seen and evaluated by Dr. Fisher. Chest x-ray reviewed. Pneumothorax is improved today. Continues with intermittent leak. Encourage increased use of the incentive spirometer and cough and deep breathing exercises. Pathology is positive for poorly differentiated squamous cell carcinoma. Suspect IIa or IIb. Oncology consulted. We'll continue to follow make further recommendations based on his clinical status. I, the cosigning physician, performed a history & physical examination of the patient. Lungs sounds with few scattered rhonchi, crackles in the posterior bases, diminished. Maintaining good O2 saturations in the 90s on room air. I discussed the assessment and plan of care with my nurse practitioner, Swetha Wang. I attest to the above note as dictated by her.
[2019-03-14 17:05] LABS: Glucose,Whole Blood 111 mg/dL (75-99)
--- NOTE | 2019-03-14 17:44 | P.CONS ---
<Vickie Coon - Last Filed: 03/14/19 17:43> History of Present Illness - Reason for Consult Consult date: 03/13/19 New diagnosis of non-small cell squamous cell lung cancer Requesting physician: Swetha Wang - Chief Complaint Elective right upper lobectomy - History of Present Illness Mr. Salguero is a very pleasant 78-year-old male who had low dose CT of the chest screening on 12/12/2018 secondary to a history of smoking as well as left rib pain. This report showed a right perihilar fullness with recommen dation to repeat this study in a short duration of time. Patient had a PET scan on 02/01/2019. This report had findings of right suprahilar focus of hypermetabolic uptake, 3.8 x 2.1 cm SUV 8.88 with no additional suspicious hypermetabolic uptake. Patient had a navigational bronchoscopy on 02/13/2019, the pathology was nondiagnostic. Patient then proceeded on 03/06/2019 to have a robotic-assisted right upper lobectomy with Dr. Cochran. Patient also had a hilar and mediastinal lymph node resection. Patient had a resection of the bronchial stump during procedure to obtain negative margins. Final pathology revealed a 3 x 2.4 x 1.6 cm right upper lobe mass, 1 out of 2 hilar lymph nodes positive for metastasis, 0 of 12 mediastinal lymph nodes. Patient is seen postop day 7. Patient denied any significant symptoms prior to his screening CT other than the left rib discomfort. No constitutional symptoms, sweats, fevers, increased frequency of illnesses or unintentional weight loss. Patient has a past medical history significant for hypertension, hyperlipidemia, type 2 diabetes mellitus, Pacemaker on anticoagulation, obstructive sleep apnea, chronic back pain and COPD. Review of Systems 14 point review of systems is negative except as stated in HPI Past Medical History Past Medical History: Atrial Fibrillation, Asthma, Cancer, COPD, Diabetes Mellitus, Hyperlipidemia, Hypertension, Myocardial Infarction ([place]), O steoarthritis (OA), Sleep Apnea/CPAP/BIPAP Additional Past Medical History / Comment(s): hx lyme disease-1999, lung cancer, neuropathy ngoc feet, current lung infection-on rx, 'possible fx 12th rib" Last Myocardial Infarction Date:: 1998 History of Any Multi-Drug Resistant Organisms: None Reported Past Surgical History: Heart Catheterization With Stent, Joint Replacement, Orthopedic Surgery, Pacemaker Additional Past Surgical History / Comment(s): ngoc knee arthroscopy, ngoc knee replacements, rotator cuff left shoulder, one cardiac stent, ,ngoc cataract surgery with lens implants, bronchoscopy with biopsy Past Anesthesia/Blood Transfusion Reactions: No Reported Reaction Date of Last Stent Placement:: 1998 Type of Cardiac Device: Permanent Pacemaker Device Placement Date:: 09/03/17 St Max model [id number] Smoking Status: Former smoker - Past Family History Father Family Medical History: Cancer Additional Family Medical History / Comment(s): leukemia Mother Family Medical History: CVA/TIA Medications and Allergies Home Medications Medication Instructions Recorded Confirmed Type ALPRAZolam [ALPRAZolam XR] 1 mg PO HS 03/12/16 03/06/19 History HYDROcodone/APAP 10-325MG [[place] 1 tab PO HS 03/12/16 03/06/19 History 10-325] Insulin NPH Hum/Reg Insulin Hm 20 unit SQ BID 03/12/16 03/06/19 History [NovoLIN 70-30 100 UNIT/ML VIAL] Simvastatin [Zocor] 40 mg PO HS 03/12/16 03/06/19 History metFORMIN HCL 1,000 mg PO BID 03/12/16 03/06/19 History Aspirin [Adult Low Dose Aspirin EC] 81 mg PO QAM 08/28/17 03/06/19 History Fosinopril Sodium [Monopril] 20 mg PO DAILY 08/28/17 03/06/19 History Apixaban [Eliquis] 5 mg PO BID 02/07/19 03/06/19 History Budesonide/Formoterol Fumarate 1 puff INHALATION RT-BID 02/07/19 03/06/19 History [Symbicort 80-4.5 Mcg Inhaler] Cholecalciferol [Vitamin D3] 1,000 unit PO DAILY 02/07/19 03/06/19 History Ibuprofen [Motrin] 800 mg PO DAILY PRN 02/07/19 03/06/19 History Metoprolol Succinate (ER) [Toprol 50 mg PO HS 02/07/19 03/06/19 History XL] Varenicline Tartrate [Chantix 0.5 mg PO DIRECTED 02/07/19 03/06/19 History Starter Pack] Magnesium Oxide [Mag-Ox] 250 mg PO DAILY 02/24/19 03/06/19 History Spironolactone [Aldactone] 25 mg PO DAILY 02/24/19 03/06/19 History Allergies Allergy/AdvReac Type Severity Reaction Status Date / Time No Known Allergies Allergy Verified 03/06/19 14:15 Physical Exam Vitals: Vital Signs Temp Pulse Pulse Resp BP Pulse Ox 03/14/19 16:57 86 03/14/19 16:45 86 03/14/19 13:09 84 03/14/19 12:51 84 03/14/19 12:30 78 18 170/90 95 03/14/19 09:40 84 03/14/19 09:26 84 03/14/19 08:50 97.1 F L 84 18 151/84 93 L 03/14/19 04:00 98.3 F 79 18 170/93 92 L 03/14/19 00:00 98.8 F 77 16 133/68 97 03/13/19 20:05 87 03/13/19 20:00 98.8 F 93 18 166/80 94 L 03/13/19 19:54 84 Intake and Output 03/14/19 03/14/19 03/14/19 06:59 14:59 22:59 Intake Total 322 Output Total 750 800 Balance -750 -478 Intake: Oral 322 Output: Chest Tube Drainage 750 Chest Tube Right 750 Urine 800 Other: Voiding Method Toilet Urinal # Voids 3 2 Weight 114.1 kg - Constitutional General appearance: cooperative, no acute distress, obese - EENT Eyes: anicteric sclerae, EOMI ENT: hearing grossly normal, normal oropharynx - Neck Neck: no lymphadenopathy - Respiratory Respiratory: right: diminished, left: CTA - Cardiovascular Rhythm: regular Heart sounds: normal: S1, S2 Abnormal Heart Sounds: no systolic murmur, no diastolic murmur, no rub, no S3 Gallop, no S4 Gallop, no click, no other leg Peripheral Edema: bilateral: None - Gastrointestinal General gastrointestinal: no absent bowel sounds, no decreased bowel sounds, no distended, no hepatomegaly, no hyperactive bowel sounds, normal bowel sounds, no organomegaly, no rigid, no scaphoid, soft, no splenomegaly, no tenderness, no umbilical hernia, no ventral hernia - Integumentary Integumentary: normal - Neurologic Neurologic: CNII-XII intact - Musculoskeletal Musculoskeletal: strength equal bilaterally - Psychiatric Psychiatric: A&O x's 3, appropriate affect, intact judgment & insight Results CBC & Chem 7: 03/13/19 10:15 03/13/19 10:15 Labs: Abnormal Lab Results - Last 24 Hours (Table) 03/13/19 03/13/19 03/14/19 Range/Units 17:26 20:34 07:05 POC Glucose (mg/dL) 174 H 132 H 200 H (75-99) mg/dL 03/14/19 03/14/19 Range/Units 12:20 17:02 POC Glucose (mg/dL) 182 H 111 H (75-99) mg/dL Comments: PET scan results reviewed next Low-dose screening CT of the chest report reviewed Pathology reports reviewed Assessment and Plan (1) Squamous cell carcinoma of lung, stage II Narrative/Plan: Pathology report, staging, adjuvant treatment recommendations were all reviewed in detail with the patient and his son. 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 NCCN guidelines recommends a course of adjuvant treatment in these patients as it prolongs survival as well as reduces the risk of recurrence. All of patient's and his son's questions were answered to the best of my ability. Pat ient would require at least 4-6 weeks postop healing time before proceeding with any adjuvant treatment. Follow-up appointment has been placed in the discharge summary. Current Visit: Yes Status: Acute Priority: High Code(s): C34.90 - MALIGNANT NEOPLASM OF UNSP PART OF UNSP BRONCHUS OR LUNG SNOMED Code(s): 476487978 Plan: Thank you very much for allowing us to participate in the care of this very nice gentleman with you Doctor attests: I performed a history and physical examination of this patient and developed impression and plan of care. Discussed with dictator. I agree with dictators note, documented as a scribe. <Manuel López - Last Filed: 03/16/19 01:07> Physical Exam Vitals: Vital Signs Temp Pulse Pulse Resp BP Pulse Ox 03/15/19 20:00 99.3 F 93 18 115/59 93 L 03/15/19 19:46 83 03/15/19 19:32 83 96 03/15/19 16:00 98.4 F 86 16 145/82 95 03/15/19 15:26 82 03/15/19 15:16 80 03/15/19 13:38 88 03/15/19 13:29 84 03/15/19 12:00 84 17 150/83 95 03/15/19 09:17 88 03/15/19 09:09 88 03/15/19 08:00 64 17 140/87 96 03/15/19 04:00 98.6 F 78 16 166/78 93 L Intake and Output 03/15/19 03/15/19 03/16/19 14:59 22:59 06:59 Intake Total 720 1560 Output Total 20 80 Balance 700 1480 Intake: Oral 720 1560 Output: Chest Tube Drainage 0 Chest Tube Right 0 Drainage 20 80 Right Chest 20 80 Other: Voiding Method Toilet Toilet Urinal Urinal # Voids 1 4 # Bowel Movements 1 Results CBC & Chem 7: 03/15/19 06:22 03/15/19 06:22 Labs: Abnormal Lab Results - Last 24 Hours (Table) 03/15/19 03/15/19 03/15/19 Range/Units 06:22 06:22 06:25 WBC 14.1 H (3.8-10.6) k/uL RBC 3.65 L (4.30-5.90) m/uL Hgb 11.1 L (13.0-17.5) gm/dL Hct 34.2 L (39.0-53.0) % Glucose 158 H (74-99) mg/dL POC Glucose (mg/dL) 177 H (75-99) mg/dL 03/15/19 03/15/19 03/15/19 Range/Units 11:39 16:51 21:25 WBC (3.8-10.6) k/uL RBC (4.30-5.90) m/uL Hgb (13.0-17.5) gm/dL Hct (39.0-53.0) % Glucose (74-99) mg/dL POC Glucose (mg/dL) 178 H 173 H 124 H (75-99) mg/dL Assessment and Plan Plan: Pt examined Case discussed at [facility] Pathology/implications d/w pt. F/U in office in 3-4 wks. Adjuvant chemo to be considered if PS is satisfactory
[2019-03-14 19:38] LABS: Glucose,Whole Blood 128 mg/dL (75-99)
[2019-03-14 21:17] LABS: Ionized Calcium 4.9 mg/dL (4.5-5.3)
[2019-03-14 21:23] LABS: Magnesium 1.7 mg/dL (1.6-2.3); Phosphorus 3.6 mg/dL (2.5-4.5)
[2019-03-14 21:43] LABS: Glucose,Whole Blood 124 mg/dL (75-99)
[2019-03-14] MEDS: ATORVASTATIN 20 MG TAB PO SCH (21:48)
[2019-03-14] MEDS: MELATONIN 5 MG TABLET PO SCH (21:49)
[2019-03-14] MEDS: ALPRAZolam 0.25 MG TAB PO SCH (21:49)
[2019-03-14] MEDS: METOPROLOL SUCCINATE (ER) 50 MG TAB.ER.24H PO SCH (21:49)
[2019-03-15] MEDS: ACETAMINOPHEN TAB 500 MG TAB PO PRN ×5 (00:29→23:06)
[2019-03-15] MEDS: HEPARIN SODIUM,PORCINE 5,000 UNIT/ML 1 ML VIAL SQ SCH ×4 (00:29→23:04)
[2019-03-15 06:27] LABS: Glucose,Whole Blood 177 mg/dL (75-99)
--- NOTE | 2019-03-15 06:43 | XR ---
EXAMINATION TYPE: XR chest 1V portable DATE OF EXAM: 03/15/2019 HISTORY: Postoperative right upper lobectomy. REFERENCE: Previous study dated 03/14/2019. FINDINGS: There is a bipolar pacemaker in place on the left. Right pleural drain is in place. Subcuta neous emphysema on the right has improved. I cannot exclude a tiny loculated pneumothorax at the righ t lung base. The heart is mildly enlarged. There is some bibasilar airspace disease. I cannot exclude small effusions.. IMPRESSION: 1. IMPROVED SUBCUTANEOUS EMPHYSEMA. 2. I CANNOT EXCLUDE A TINY RIGHT BASILAR PNEUMOTHORAX. 3. CARDIOMEGALY. 4. BIBASILAR AIRSPACE DISEASE. 5. I CANNOT EXCLUDE SMALL, BILATERAL EFFUSIONS.
[2019-03-15 07:01] LABS: HCT 34.2 % (39.0-53.0); HGB 11.1 gm/dL (13.0-17.5); MCH 30.4 pg (25.0-35.0); MCHC 32.4 g/dL (31.0-37.0); MCV 93.7 fL (80.0-100.0); Mean Platelet Volume 7.4; Platelet Count 365 k/uL (150-450); RBC 3.65 m/uL (4.30-5.90); RDW 14.8 % (11.5-15.5); WBC 14.1 k/uL (3.8-10.6)
[2019-03-15 07:25] LABS: Potassium 4.4 mmol/L (3.5-5.1)
[2019-03-15] MEDS: INSULN ASP PRT/INSULIN ASPART 100 UNIT/ML 10 ML VIAL SQ SCH ×3 (07:26→17:56)
[2019-03-15] MEDS: PANTOPRAZOLE 40 MG TABLET PO SCH (07:26)
[2019-03-15] MEDS: INSULIN ASPART (NovoLOG) 100 UNIT/ML VIAL SQ SCH ×4 (07:26→21:26)
--- NOTE | 2019-03-15 07:40 | PN ---
PROGRESS NOTE DATE OF SERVICE: March 14, 2019. PRESENTING COMPLAINT: Right lung surgery. 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 One out of 20 lymph nodes was positive. Seen by Oncology today, recommending chemotherapy down the road. Air leak is still present. Otherwise, patient has been tolerating a diet. The patient's and son were present. REVIEW OF SYSTEMS: Done for constitutional, cardiovascular, GI, pulmonary; relevant findings as above. CURRENT MEDICATIONS: Reviewed. PHYSICAL EXAMINATION: VITAL SIGNS: Temperature 97.4, pulse 76, respiratory rate 18, blood pressure 149/77, pulse ox 93% on room air. GENERAL APPEARANCE: Sitting up, awake, comfortable. EYES: Pupils equal. Conjunctivae normal. NECK: JVD not raised. Mass not palpable. RESPIRATORY: Effort normal. LUNGS: Diminished breath sounds. CARDIOVASCULAR: First and second sounds normal. No edema. ABDOMEN: Soft, nontender. Liver and spleen not palpable. PSYCHIATRY: Alert and oriented x3. Mood and affect normal. INVESTIGATIONS: Accu-Cheks 182, 111, 128, BUN and creatinine is normal. ASSESSMENT: 1. Right upper lobe lobectomy for moderately differentiated squamous cell carcinoma with the chest tube in place with one out of 20 lymph nodes that is positive. The patient to get chemotherapy down the road. 2. Morbid obesity, BMI 37.3. 3. Diabetes mellitus type 2, chronically on insulin. 4. Acute renal failure, combination of prerenal and acute tubular necrosis, now corrected. 5. Persistent atrial fibrillation. 6. Chronic obstructive pulmonary disease in an ex-smoker. 7. Essential hypertension. 8. Hyperlipidemia. 9. Coronary artery disease with prior history of stent. 10.Obstructive sleep apnea uses BiPAP. 11.Diabetic peripheral neuropathy. 12.Hypokalemia, corrected. PLAN: I had a talk with the patient and the son. Questions were answered. Also spoke to Haley. At present time continue with the chest tube. They will follow over the weekend. MMODL / IJN: [id number] /
[2019-03-15] MEDS: SERTRALINE 50 MG TAB PO SCH (08:15)
[2019-03-15] MEDS: LISINOPRIL 20 MG TAB PO SCH (08:15)
[2019-03-15] MEDS: amLODIPine 10 MG TAB PO SCH (08:15)
[2019-03-15] MEDS: ASPIRIN 81 MG PO SCH (08:15)
[2019-03-15] MEDS: CHLORTHALIDONE 25 MG TAB PO SCH (08:18)
[2019-03-15] MEDS: IPRATROPIUM-ALBUTEROL 3 ML NEB IH SCH ×4 (09:07→19:31)
[2019-03-15] MEDS: SYMBICORT 80-4.5 MCG INHALER INHALATION SCH ×2 (09:09→19:31)
[2019-03-15] MEDS ORDERED: FUROSEMIDE 10 MG/ML 2 ML VIAL IV STA (09:53)
--- NOTE | 2019-03-15 09:53 | P.PN ---
Subjective Progress Note Date: 03/15/19 Principal diagnosis: Right upper lobe lung cancer. Medical history of COPD, previous tobacco dependence with smoking cessation approximately 1 month ago and a [id number] history, obstructive sleep apnea with CPAP use, uncontrolled insulin-dependent diabetes mellitus with hemoglobin A1c 8.6% and diabetic neuropathy, coronary artery disease status post angioplasty with stenting to the LAD, ischemic cardiomyopathy, hypertension, paroxysmal atrial fibrillation on chronic Eliquis for anticoagulation, obesity. Acute kidney injury, likely secondary to dehydration. POD #9 robotic assisted thoracoscopic right upper lobectomy with mediastinal lymph node dissection. Right thoracotomy with re-resection of bronchial stump and suture closure The patient is currently sitting up to his bedside chair. He reports he is having pain to his chest tube insertion site 8 out of 10 on the pain scale and denies any complaints of shortness of breath. He is in no acute distress. His is at his bedside and their questions were answered to the best of my ability. Right pleural chest tube remains in place to low continuous wall suction -20 cm H2O, with intermittent air leak present although seems somewhat improved today. Draining thin serosanguineous drainage. Oxygen saturations 93% on room air. Achieving 1500 mL on his incentive spirometry. He reports he has been ambulating in his room with minimal assistance. Patient is also complaining of some shakiness to his bilateral hands worse on the left than on the right. He reports that the shaking to his hands started a couple of days ago. Objective - Vital Signs Vital signs: Vital Signs Temp 98.6 F 03/15/19 04:00 Pulse 88 03/15/19 09:17 Resp 16 03/15/19 04:00 BP 166/78 03/15/19 04:00 Pulse Ox 93 L 03/15/19 04:00 Intake & Output 03/14/19 03/15/19 03/15/19 18:59 06:59 18:59 Intake Total 502 360 Output Total 1250 1650 Balance -748 -1650 360 Weight 112.9 kg Intake: Oral 502 360 Output: Urine 1250 1650 Other: Voiding Method Toilet Urinal # Voids 2 1 1 - Constitutional General appearance: Present: cooperative, morbidly obese, no acute distress - Respiratory Details: Lung sounds are essentially clear throughout, diminished to his bilateral bases. Respirations are symmetrical and nonlabored. Oxygen saturation are 93% on room air. Achieving 1500 mL on his incentive spirometry. Right pleural chest tube in place to low continuous wall suction -20 cm H2O, intermittent air leak is present. Draining thin serosanguineous drainage, drained 150 mL output in the last 24 hours. - Cardiovascular Details: Regular rhythm and rate. S1 and S2 present, negative for S3, gallop or murmur. Remote telemetry showing normal sinus rhythm heart rate 84. +1 edema to his bilateral lower extremities. Knee-high WILLEM hose and sequential compression devices in place to his bilateral lower extremities. - Gastrointestinal Gastrointestinal Comment(s): Abdomen is soft, nontender and nondistended. Active bowel sounds to all 4 abdominal quadrants. Passing flatus. Tolerating oral intake. No guarding or rigidity. - Genitourinary Genitourinary Comment(s): Voiding clear yellow urine. - Integumentary Integumentary Comment(s): Skin is warm and dry. No clubbing or cyanosis is present. No rash or abnormal pigmentation is present. Right thoracotomy incision is clean, dry and approximated. No drainage or redness is present. Exofin dressing is clean, dry and intact. Small scattered excoriated areas to his right lower quadrant abdomen remained clean, dry with no drainage. Right pleural chest tube insertion site with dressing clean, dry and intact. - Neurologic Neurologic: Present: CNII-XII intact - Musculoskeletal Musculoskeletal: Present: gait normal, generalized weakness, strength equal bilaterally - Psychiatric Psychiatric: Present: A&O x's 3, appropriate affect, intact judgment & insight - Allied health notes Allied health notes reviewed: nursing - Labs CBC & Chem 7: 03/15/19 06:22 03/15/19 06:22 Labs: Abnormal Lab Results - Last 24 Hours (Table) 03/14/19 03/14/19 03/14/19 Range/Units 12:20 17:02 19:36 WBC (3.8-10.6) k/uL RBC (4.30-5.90) m/uL Hgb (13.0-17.5) gm/dL Hct (39.0-53.0) % Glucose (74-99) mg/dL POC Glucose (mg/dL) 182 H 111 H 128 H (75-99) mg/dL 03/14/19 03/15/19 03/15/19 Range/Units 21:42 06:22 06:22 WBC 14.1 H (3.8-10.6) k/uL RBC 3.65 L (4.30-5.90) m/uL Hgb 11.1 L (13.0-17.5) gm/dL Hct 34.2 L (39.0-53.0) % Glucose 158 H (74-99) mg/dL POC Glucose (mg/dL) 124 H (75-99) mg/dL 03/15/19 Range/Units 06:25 WBC (3.8-10.6) k/uL RBC (4.30-5.90) m/uL Hgb (13.0-17.5) gm/dL Hct (39.0-53.0) % Glucose (74-99) mg/dL POC Glucose (mg/dL) 177 H (75-99) mg/dL - Imaging and Cardiology Chest x-ray: report reviewed, image reviewed Assessment and Plan Assessment: 1. 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 Chronic obstructive pulmonary disease 3. Chronic tobacco dependence, quit smoking 1 month ago 4. Obstructive sleep apnea with CPAP use 5. Uncontrolled insulin-dependent diabetes mellitus with hemoglobin A1c 8.6% and diabetic neuropathy 6. Coronary artery disease status post angioplasty with stenting to the LAD 7. Ischemic cardiomyopathy 8. Hypertension 9. Paroxysmal atrial fibrillation on chronic Eliquis for anticoagulation 10. Obesity 11. Acute kidney injury, resolved Plan: 1. Place right pleural chest tube to water seal. We will continue to monitor for resolution of air leak. 2. Monitor daily x-rays. 3. Pain control with current medication regimen. No narcotics. 4. GI/DVT prophylaxis. 5. Continue home medications with parameters on blood pressure medications. 6. Bronchodilators per pulmonology management. 7. Encourage use of his incentive spirometry 10 times every hour while awake. Need continued encouragement. 8. Increase activity, ambulate in hallway. Physical therapy ordered. 9. Discussed the importance of continued smoking cessation. 10. Pathology results were reviewed with the patient by Dr. Cochran yesterday 03/13/2019. 11. Oncology consulted noted and appreciated. 12. Insulin management per primary care service. 13. Lasix 20 mg IV 1 now. 14. More recommendations based on patient's clinical course. Time with Patient: Greater than 30
[2019-03-15] MEDS: CHOLECALCIFEROL 1,000 UNIT TAB PO SCH (11:52)
[2019-03-15] MEDS: MAGNESIUM OXIDE 400 MG TAB PO SCH (11:52)
[2019-03-15 12:02] LABS: Glucose,Whole Blood 178 mg/dL (75-99)
--- NOTE | 2019-03-15 12:28 | P.PN ---
Subjective Progress Note Date: 03/15/19 This is a 78-year-old white male with history of multiple medical problems including insulin-dependent diabetes, chronic atrial fibrillation, coronary artery disease and previous stenting, hypercholesterolemia, degenerative joint disease with previous bilateral knee replacement, history of left rotator cuff surgery, permanent pacemaker implantation and stenting of LAD in 1998. Patient was recently evaluated for a right hilar mass, patient underwent a PET scan and showed uptake within the right suprahilar mass and no other abnormality was noted. 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 Patient was referred to Dr. Cochran, and he underwent right upper lobectomy with rima dissection , postoperatively he was transferred to the cardiac floor, and we were asked to see him in consultation. Patient had been seen in consultation yesterday by Dr. Sanchez. He was seen and examined this morning on the telemetry unit, complained of feeling somewhat listless and lightheaded. His blood pres sure is running in the 90 systolic range. He is complaining of some mild incisional discomfort, still working hard on his incentive spirometry reaching approximately 1000. Right-sided chest tube remains in place with continuous air leak, moderate amount of serous sanguinous output in the right chest tube. He was on 20 mg of lisinopril, we'll decrease that to 10 mg daily from today. 03/09/2019 Patient seen and examined this morning, feeling much better today than he did yesterday morning. No further episodes of lightheadedness, much less listless today. Continues to have right-sided chest tube in place to water seal. Airleak is improving as compared with 2 days ago. Today's chest x-ray shows essentially stable chest with small right apical pneumothorax. Blood pressure this morning 102/50 with a heart rate in the 70s, 95% on 2 L of oxygen. White blood cell count 8.3, hemoglobin 9.8, platelet count 161. Magnesium 1.6. Sodium 131, potassium 4.9, BUN 42 and creatinine 1.6. 03/10/2019 Patient was seen and examined this morning continues to do better. Repeat chest x-ray from this morning showed cardiomegaly with right-sided pneumothorax. Blood pressure 140/70 with heart rate in the 70s, 93%Ra. 55 mL out of the chest tube. White blood cell count 7.2, hemoglobin 10.2, platelet count 220. Sodium 136, potassium 5.8, BUN 30 and creatinine 1.2, magnesium 2.1. 03/11/2019 Patient was seen and examined this morning, sitting up in the chair bedside. Breathing is overall stable. He had an episode this morning where he was found to be unresponsive, Narcan was given to the patient. At the time of my examination he was alert and oriented 3. Continues to have the chest tube in place, he also continues to have an intermittent air leak and the pleural chest tube. Blood pressure 150/70 with a heart rate in the 80s, 95% on 2 L of oxygen. White blood cell count 8.3, hemoglobin 10.4, platelet count 225. 03/12/2019 Patient was seen and examined this morning, feeling better today. Still did not sleep well through the night last night because he is unable to use the mask associated with the CPAP here. Blood pressure 180/80, we will resume the GILES inhibitor which the patient was on. 03/13/2019 Patient seen and examined this morning, did appear a little anxious today, blood pressure continues to be elevated. We will increase his dose of GILES inhibitor to 20 mg daily today. His doctor's also initiated him on Zoloft for his anxiety. 03/15/2019 Patient seen and examined this morning, overall is doing well, but he is complaining of more pain in his back today. Hemodynamically stable. Objective - Vital Signs Vital signs: Vital Signs Temp 98.6 F 03/15/19 04:00 Pulse 88 03/15/19 09:17 Resp 17 03/15/19 08:00 BP 140/87 03/15/19 08:00 Pulse Ox 96 03/15/19 08:00 Intake & Output 03/14/19 03/15/19 03/15/19 18:59 06:59 18:59 Intake Total 502 360 Output Total 1250 1650 Balance -748 -1650 360 Weight 112.9 kg Intake: Oral 502 360 Output: Urine 1250 1650 Other: Voiding Method Toilet Urinal # Voids 2 1 1 - Exam HEAD: Normocephalic/atraumatic. EYES: Normal reaction of pupils, equal size. Conjunctiva pink, sclera white. NOSE: Clear with pink turbinates. THROAT: No erythema or exudates. NECK: No masses, no JVD, no thyroid enlargement, no adenopathy. CHEST: No chest wall deformity. Symmetrical expansion. Right-sided chest tube is in place, with continuous air leak, and moderate amount of thin serosanguineous output in the Pleur-evac LUNGS: Equal air entry with no crackles, wheeze, rhonchi or dullness. Diminished breath sounds on the right CVS: Regular rate and rhythm, normal S1 and S2, no gallops, no murmurs, no rubs ABDOMEN: Soft, nontender. No hepatosplenomegaly, normal bowel sounds, no guarding or rigidity. EXTREMITIES: No clubbing, no edema, no cyanosis, 2+ pulses and upper and lower extremities. MUSCULOSKELETAL: Muscle strength and tone normal. SPINE: No scoliosis or deformity SKIN: No rashes CENTRAL NERVOUS SYSTEM: Alert and oriented -3. No focal deficits, tone is normal in all 4 extremities. PSYCHIATRIC: Alert and oriented -3. Appropriate affect. Intact judgment and insight. - Labs CBC & Chem 7: 03/15/19 06:22 03/15/19 06:22 Labs: Abnormal Lab Results - Last 24 Hours (Table) 03/14/19 03/14/19 03/14/19 Range/Units 12:20 17:02 19:36 WBC (3.8-10.6) k/uL RBC (4.30-5.90) m/uL Hgb (13.0-17.5) gm/dL Hct (39.0-53.0) % Glucose (74-99) mg/dL POC Glucose (mg/dL) 182 H 111 H 128 H (75-99) mg/dL 03/14/19 03/15/19 03/15/19 Range/Units 21:42 06:22 06:22 WBC 14.1 H (3.8-10.6) k/uL RBC 3.65 L (4.30-5.90) m/uL Hgb 11.1 L (13.0-17.5) gm/dL Hct 34.2 L (39.0-53.0) % Glucose 158 H (74-99) mg/dL POC Glucose (mg/dL) 124 H (75-99) mg/dL 03/15/19 03/15/19 Range/Units 06:25 11:39 WBC (3.8-10.6) k/uL RBC (4.30-5.90) m/uL Hgb (13.0-17.5) gm/dL Hct (39.0-53.0) % Glucose (74-99) mg/dL POC Glucose (mg/dL) 177 H 178 H (75-99) mg/dL Assessment and Plan Plan: Assessment and plan #1 status post right upper lobectomy for what seems to be a 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 #2 moderate severe COPD FEV1 is in the range of 50%. #3 obstructive sleep apnea syndrome #4 coronary arteriosclerosis and previous stent placement. #5 benign essential hypertension #6 pacemaker in situ #7 history of vitamin D deficiency #8 type 2 diabetes #9 chronic atrial fibrillation. Plan From cardiology's perspective, we will continue the patient on his current medications. We will continue to follow. Check renal function in the morning. DNP note has been reviewed, I agree with a documented findings and plan of care. Patient was seen and examined.
--- NOTE | 2019-03-15 12:38 | P.PN ---
Subjective Progress Note Date: 03/15/19 Principal diagnosis: COPD, lung mass, status post right upper lobectomy. This is a 78-year-old white male with history of multiple medical problems including insulin-dependent diabetes, chronic atrial fibrillation, coronary artery disease and previous stenting, hypercholesterolemia, degenerative joint disease with previous bilateral knee replacement, history of left rotator cuff surgery, permanent pacemaker implantation and stenting of LAD in 1998. Patient is also known to have history of COPD FEV1 is in the range of 50%, 1.31 L, patient was recently evaluated by me for a right hilar mass, patient underwent a PET scan and showed uptake within the right suprahilar mass and no other abnormality was noted. 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 Patient was referred to Dr. Cochran, and he underwent right upper lobectomy with rima dissection today, postoperatively he was transferred to the cardiac floor, and I was asked to see him on consultation. Patient seems to be doing fairly well, complaining mostly of right sided chest pain at the surgical site, has a right sided chest tube in place with minimal air leak noted. Chest x-ray showed postoperative changes and no other significant findings otherwise. On 03/07/2019 patient seen in follow-up this is postop day 1, status post right upper lobectomy for a right hilar mass which showed suspicious uptake on the PET scan. Navigational bronchoscopy biopsies were nondiagnostic. The patient is awake and alert, resting in bed, currently on 3 L of oxygen with a pulse ox of 97%, signs are stable, having some mild to moderate amount of incisional discomfort, but is able to do his incentive spirometry, is able to achieve 1000 mL on the today. Lung sounds are diminished on the right side, right-sided chest tube is in place, with continuous air leak, and moderate amount of serosanguineous than output from the right chest tube. Today's labs have been reviewed, and showed a white blood cell count of 10.7, hemoglobin of 12.2, sodium is 136, depressed electrolytes were within normal limits, BUN is 26 and creatinine is 1.36. The patient is seen today 03/08/2019 in follow-up on the selective care unit. He is post operative day #2 for right upper lobectomy for right hilar mass. He is currently sitting up in a chair at the bedside. Awake and alert in no acute distress. He did have an episode of diaphoresis and hypotension. He is currently receiving fluid boluses. No worsening shortness of breath, cough or congestion. Right-sided chest tube remains in place. Still positive air leak. Maintaining O2 saturations in the 90s on 2 L/m per nasal cannula. He's afebrile. His x-ray reveals trace right apical pneumothorax less than 5%. There is continued right mid and lower lung patchy consolidation and left basilar opacity. He continues to work well with the incentive spirometer. He remains on Symbicort and DuoNeb inhalations. On 03/09/2019 patient seen in follow-up on selective care unit, he sitting up in the recliner, in no acute distress, right-sided chest tube is in place, to waterseal, and patient still has occasional leak with deep breathing and coughing, air leak has improved compared to 2 days ago. Today's chest x-ray has been reviewed, shows essentially stable chest with small right apical pneumothorax. His pain is reasonably controlled, patient has been ambulating, the whole entire length of the sears. Lung wedge biopsy is still pending at this time. Patient is working his incentive spirometer, able to achieve 752 just under 1000 mL on the today, lung sounds reveal better air entry on the right, with some limited wheezes. No fever or chills. Occasional cough, with production of small amount of phlegm. On 03/10/2019 patient seen in follow-up on selective care unit, he is awake and alert, in no acute distress, his been ambulating in the room and in the hallway, tolerating activity very well. Pulse ox is 93%, no fever no chills, hemodynamically stable, his pain is under reasonable control, right-sided chest tube is in place, with air leak present with a deep breathing and coughing. Chest tube is to waterseal, lung sounds are diminished at the bases, with only limited end expiratory wheezes, vital signs are stable, no fever or chills. Cara ayers's chest x-ray has been reviewed, and showed cardiomegaly, right-sided apical pneumothorax, which was stable in appearance, well, his incentive spirometer. Biopsy results are pending. The patient is seen today 03/11/2019 in follow-up on the selective care unit. He is currently sitting up in the chair at the bedside. He is somewhat drowsy but easily arousable. Apparently he was over sedated with pain medication last evening and required Narcan 3. Most of these have been discontinued. The patient's chest tube does continue with a leak and is connected to waterseal suction. Chest x-ray is stable. Maintaining O2 saturations in the mid 90s on 2 L/m per nasal cannula. Needs increased encouragement regarding the incentive spirometer. The patient is seen today 03/12/2019 in follow-up on the selective care unit. He is currently sitting up at the bedside. Awake and alert in no acute distress. Maintaining O2 saturations in the 90s on 2 L/m per nasal cannula. He's been afebrile. White count 7.8. Hemoglobin 9.9. Creatinine 0.98. He remains on DuoNeb inhalations, Symbicort. Working with the incentive spirometer. Right-sided chest tube remains in place. Still with intermittent leak. 100 ML output. Pathology is positive for poorly differentiated squamous cell carcinoma. Suspect IIa or IIb. The patient is seen today 03/14/2019 in follow-up on the selective care unit. He is currently sitting up at the bedside. Awake and alert in no acute distress. He slept better last night. He is feeling better today. Chest tube remains in place. Unfortunately, continues with a leak. And some subcutaneous emphysema. Chest x-ray reveals improvement in the right-sided pneumothorax. He continues to work well with the incentive spirometer. The patient is seen today 03/15/2019 in follow-up on the selective care unit. He is awake and alert in no acute distress. Currently sitting up in a chair at the bedside. His chest tube remains in place. Continues with this mole intermittent leak. He denies any worsening shortness of breath, cough or congestion. Maintaining good O2 saturations in the 90s on room air. Today's chest x-ray shows improved subcutaneous emphysema. Tiny right basilar pneumothorax. Cardiomegaly. Bibasilar airspace disease. Small tiny bilateral pleural effusions. He continues to work well with the incentive spirometer. White count 14.1. Hemoglobin 11.1. Creatinine 1.06. Objective - Vital Signs Vital signs: Vital Signs Temp 98.6 F 03/15/19 04:00 Pulse 88 03/15/19 09:17 Resp 17 03/15/19 08:00 BP 140/87 03/15/19 08:00 Pulse Ox 96 03/15/19 08:00 Intake & Output 03/14/19 03/15/19 03/15/19 18:59 06:59 18:59 Intake Total 502 360 Output Total 1250 1650 Balance -748 -1650 360 Weight 112.9 kg Intake: Oral 502 360 Output: Urine 1250 1650 Other: Voiding Method Toilet Urinal # Voids 2 1 1 - Exam GENERAL EXAM: Alert, pleasant, 78-year-old white male, on room air, comfortable in no apparent distress. HEAD: Normocephalic/atraumatic. EYES: Normal reaction of pupils, equal size. Conjunctiva pink, sclera white. NOSE: Clear with pink turbinates. THROAT: No erythema or exudates. NECK: No masses, no JVD, no thyroid enlargement, no adenopathy. CHEST: No chest wall deformity. Symmetrical expansion. Right-sided chest tube is in place, with intermittent air leak LUNGS: Equal air entry with no crackles, wheeze, rhonchi or dullness. Diminished breath sounds on the right CVS: Regular rate and rhythm, normal S1 and S2, no gallops, no murmurs, no rubs ABDOMEN: Soft, nontender. No hepatosplenomegaly, normal bowel sounds, no guarding or rigidity. EXTREMITIES: No clubbing, no edema, no cyanosis, 2+ pulses and upper and lower extremities. MUSCULOSKELETAL: Muscle strength and tone normal. SPINE: No scoliosis or deformity SKIN: No rashes CENTRAL NERVOUS SYSTEM: No focal deficits, tone is normal in all 4 extremities. PSYCHIATRIC: Alert and oriented -3. Appropriate affect. Intact judgment and insight. - Labs CBC & Chem 7: 03/15/19 06:22 03/15/19 06:22 Labs: Abnormal Lab Results - Last 24 Hours (Table) 03/14/19 03/14/19 03/14/19 Range/Units 12:20 17:02 19:36 WBC (3.8-10.6) k/uL RBC (4.30-5.90) m/uL Hgb (13.0-17.5) gm/dL Hct (39.0-53.0) % Glucose (74-99) mg/dL POC Glucose (mg/dL) 182 H 111 H 128 H (75-99) mg/dL 03/14/19 03/15/19 03/15/19 Range/Units 21:42 06:22 06:22 WBC 14.1 H (3.8-10.6) k/uL RBC 3.65 L (4.30-5.90) m/uL Hgb 11.1 L (13.0-17.5) gm/dL Hct 34.2 L (39.0-53.0) % Glucose 158 H (74-99) mg/dL POC Glucose (mg/dL) 124 H (75-99) mg/dL 03/15/19 03/15/19 Range/Units 06:25 11:39 WBC (3.8-10.6) k/uL RBC (4.30-5.90) m/uL Hgb (13.0-17.5) gm/dL Hct (39.0-53.0) % Glucose (74-99) mg/dL POC Glucose (mg/dL) 177 H 178 H (75-99) mg/dL Assessment and Plan Assessment: Assessment: 1 status post right upper lobectomy pathology is 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 2 moderate severe COPD FEV1 is in the range of 50%. 3 obstructive sleep apnea syndrome 4 coronary arteriosclerosis and previous stent placement. 5 benign essential hypertension 6 pacemaker in situ 7 history of vitamin D deficiency 8 type 2 diabetes 9 chronic atrial fibrillation. Plan: The patient is seen and evaluated by Dr. Fisher. Chest x-ray reviewed. Continues with intermittent leak. Encourage increased use of the incentive spirometer and cough and deep breathing exercises. We'll continue to follow and make further recommendations based on his clinical status. I, the cosigning physician, performed a history & physical examination of the patient. Lungs sounds with few scattered rhonchi, crackles in the posterior bases, diminished. Maintaining good O2 saturations in the 90s on room air. I discussed the assessment and plan of care with my nurse practitioner, Swetha Wang. I attest to the above note as dictated by her.
[2019-03-15 16:54] LABS: Glucose,Whole Blood 173 mg/dL (75-99)
--- NOTE | 2019-03-15 20:46 | PN ---
PROGRESS NOTE DATE OF SERVICE: March 15, 2019. PRESENTING COMPLAINT: Right lung surgery. INTERVAL HISTORY: Patient is status post right upper lobe lobectomy for squamous cell lung cancer with one out of 20 lymph nodes positive. Tolerating a diet. Sugars are controlled. Air leak is present, being followed by Cardiothoracic surgery. Otherwise stable. REVIEW OF SYSTEMS: Done for constitutional, cardiovascular, GI, pulmonary; relevant findings as above. CURRENT MEDICATIONS: Reviewed. EXAMINATION: VITAL SIGNS: Afebrile. Pulse 88, respirations 17, blood pressure 140/87, pulse ox 96% on room air. GENERAL APPEARANCE: Sitting up in a chair, comfortable. EYES: Pupils equal. Conjunctivae normal. NECK: JVD not raised. Mass not palpable. RESPIRATORY: Effort normal. LUNGS: Diminished breath sounds. CARDIOVASCULAR: First and second sounds normal. No edema. ABDOMEN: Soft, nontender. Liver and spleen not palpable. PSYCHIATRY: Alert and oriented x3. Mood and affect normal. INVESTIGATIONS: White count 14.1, hemoglobin 11.1, potassium 4.4. Accu-Cheks 177, 178, 173. ASSESSMENT: 1. Right upper lobe lobectomy for moderately differentiated squamous cell carcinoma with chest tube in place with one out of 20 lymph nodes positive. Patient will be getting chemotherapy down the road. 2. Morbid obesity BMI 37.3. 3. Diabetes mellitus type 2, chronically on insulin. 4. Acute renal failure, combination of prerenal and acute tubular necrosis, now corrected. 5. Persistent atrial fibrillation. 6. Chronic obstructive pulmonary disease in an ex smoker. 7. Essential hypertension. 8. Hyperlipidemia. 9. Coronary artery disease, prior history of stent. 10.Obstructive sleep apnea uses BiPAP. 11.Diabetic peripheral neuropathy. 12. corrected. PLAN: Patient is stable. Continue current medication and treatment plan. Follow chest tube with cardiothoracic. We will increase the patient's morning and evening dose of 70/30 by 28 units and bump up the afternoon dose to 14 units. Sugars otherwise are well controlled now. MMODL / IJN: [id number] /
[2019-03-15] MEDS: ALPRAZolam 0.25 MG TAB PO SCH (21:26)
[2019-03-15] MEDS: MELATONIN 5 MG TABLET PO SCH (21:26)
[2019-03-15] MEDS: METOPROLOL SUCCINATE (ER) 50 MG TAB.ER.24H PO SCH (21:26)
[2019-03-15] MEDS: ATORVASTATIN 20 MG TAB PO SCH (21:26)
[2019-03-15 21:35] LABS: Glucose,Whole Blood 124 mg/dL (75-99)
[2019-03-16] MEDS: ACETAMINOPHEN TAB 500 MG TAB PO PRN ×3 (05:15→23:46)
[2019-03-16] MEDS: PANTOPRAZOLE 40 MG TABLET PO SCH (05:16)
[2019-03-16 06:49] LABS: Glucose,Whole Blood 152 mg/dL (75-99)
--- NOTE | 2019-03-16 06:49 | XR ---
EXAMINATION TYPE: XR chest 1V portable DATE OF EXAM: 03/16/2019 HISTORY: Postoperative right upper lobectomy. REFERENCE: Previous study dated 03/15/2019. FINDINGS: There is a bipolar pacing device in place on the left. There is a right pleural drain. The patient is status post right upper lobectomy. I do not see a definite pneumothorax. There is some sub cutaneous emphysema present on the right. There is some bibasilar airspace disease, likely representi ng atelectasis. There are small, bilateral effusions. Heart size is upper limits of normal. IMPRESSION: CONTINUING POSTOPERATIVE CHANGE.
[2019-03-16 07:04] LABS: HCT 35.4 % (39.0-53.0); HGB 11.3 gm/dL (13.0-17.5); MCH 30.3 pg (25.0-35.0); MCHC 31.8 g/dL (31.0-37.0); MCV 95.3 fL (80.0-100.0); Mean Platelet Volume 7.6; Platelet Count 389 k/uL (150-450); RBC 3.71 m/uL (4.30-5.90); RDW 15.1 % (11.5-15.5); WBC 14.1 k/uL (3.8-10.6)
[2019-03-16] MEDS: INSULN ASP PRT/INSULIN ASPART 100 UNIT/ML 10 ML VIAL SQ SCH ×3 (07:04→17:40)
[2019-03-16] MEDS: INSULIN ASPART (NovoLOG) 100 UNIT/ML VIAL SQ SCH ×3 (07:04→17:40)
[2019-03-16 07:09] LABS: Calcium 9.1 mg/dL (8.4-10.2); Potassium 4.4 mmol/L (3.5-5.1)
[2019-03-16] MEDS: SYMBICORT 80-4.5 MCG INHALER INHALATION SCH ×2 (07:28→19:16)
[2019-03-16] MEDS: IPRATROPIUM-ALBUTEROL 3 ML NEB IH SCH ×4 (07:28→19:16)
[2019-03-16] MEDS: SERTRALINE 50 MG TAB PO SCH (08:36)
[2019-03-16] MEDS: ASPIRIN 81 MG PO SCH (08:36)
[2019-03-16] MEDS: LISINOPRIL 20 MG TAB PO SCH (08:36)
[2019-03-16] MEDS: amLODIPine 10 MG TAB PO SCH (08:37)
[2019-03-16] MEDS: HEPARIN SODIUM,PORCINE 5,000 UNIT/ML 1 ML VIAL SQ SCH ×2 (08:37→17:40)
[2019-03-16] MEDS: CHLORTHALIDONE 25 MG TAB PO SCH (08:37)
[2019-03-16] MEDS ORDERED: FUROSEMIDE 10 MG/ML 2 ML VIAL IV STA (09:50)
--- NOTE | 2019-03-16 10:31 | P.PN ---
Subjective Progress Note Date: 03/16/19 Principal diagnosis: Right upper lobe lung cancer. Medical history of COPD, previous tobacco dependence with smoking cessation approximately 1 month ago and a [id number] history, obstructive sleep apnea with CPAP use, uncontrolled insulin-dependent diabetes mellitus with hemoglobin A1c 8.6% and diabetic neuropathy, coronary artery disease status post angioplasty with stenting to the LAD, ischemic cardiomyopathy, hypertension, paroxysmal atrial fibrillation on chronic Eliquis for anticoagulation, obesity. Acute kidney injury, likely secondary to dehydration. POD #10 robotic assisted thoracoscopic right upper lobectomy with mediastinal lymph node dissection. Right thoracotomy with re-resection of bronchial stump and suture closure The patient is currently sitting up to his bedside chair. .Currently he rates his pain 4 out of 10 on the pain scale and states that is somewhat improved from yesterday. Denies any complaints of shortness of breath. He is in no acute distress. His is at his bedside and their questions were answered to the best of my ability. Right pleural chest tube remains in place and was placed to water seal yesterday. The chest tube remains with an intermittent air leak which continues to improve. Draining thin serosanguineous drainage with 30 mL output in the last 24 hours . Oxygen saturations 96% on room air. Achieving 1500 mL on his incentive spirometry. He reports he has been ambulating in the 3 S. cardiac stepdown unit Hallway. This achiness to his hands has improved today and according to the patient. Objective - Vital Signs Vital signs: Vital Signs Temp 98.0 F 03/16/19 04:00 Pulse 77 03/16/19 07:38 Resp 18 03/16/19 04:00 BP 153/71 03/16/19 04:00 Pulse Ox 91 L 03/16/19 04:00 Intake & Output 03/15/19 03/16/19 03/16/19 18:59 06:59 18:59 Intake Total 2280 460 Output Total 100 400 Balance 2180 -400 460 Weight 112.2 kg Intake: Oral 2280 460 Output: Chest Tube Drainage 0 Chest Tube Right 0 Drainage 100 0 Right Chest 100 0 Urine 400 Other: Voiding Method Toilet Toilet Urinal Urinal # Voids 4 1 # Bowel Movements 1 - Constitutional General appearance: Present: cooperative, no acute distress, obese - Respiratory Details: Lungs sounds essentially clear to his left lobes, diminished to his right lower lobe. Respirations are symmetrical and nonlabored. Oxygen saturation are 96% on room air. He is achieving 1500 mL on his incentive spirometry. Right pleural chest tube is to water seal. Intermittent air leak is present. Draining thin serosanguineous drainage. 30 mL output in the last 24 hours. - Cardiovascular Details: Regular rhythm and rate. S1 and S2 present, negative for S3, gallop or murmur. Remote telemetry showing normal sinus rhythm heart rate 77. +1 edema to his bilateral lower extremities. Knee-high WILLEM hose and sequential compression devices in place to his bilateral lower extremities. - Gastrointestinal Gastrointestinal Comment(s): Abdomen is soft, nontender and nondistended. Active bowel sounds all 4 abdominal quadrants. No guarding or rigidity. No organomegaly. - Genitourinary Genitourinary Comment(s): Voiding clear yellow urine. - Integumentary Integumentary Comment(s): Skin is warm and dry. No clubbing or cyanosis is present. No rash or abnormal pigmentation is present. Right thoracotomy incision is clean, dry and approximated. No drainage or redness is present. Exofin dressing is clean, dry and intact. Small scattered excoriated areas to his right lower quadrant abdomen remained clean, dry with no drainage. Right pleural chest tube insertion site with dressing clean, dry and intact. - Neurologic Neurologic: Present: CNII-XII intact - Musculoskeletal Musculoskeletal: Present: gait normal, strength equal bilaterally - Psychiatric Psychiatric: Present: A&O x's 3, appropriate affect, intact judgment & insight - Allied health notes Allied health notes reviewed: nursing - Labs CBC & Chem 7: 03/16/19 06:37 03/16/19 06:37 Labs: Abnormal Lab Results - Last 24 Hours (Table) 03/15/19 03/15/19 03/15/19 Range/Units 11:39 16:51 21:25 WBC (3.8-10.6) k/uL RBC (4.30-5.90) m/uL Hgb (13.0-17.5) gm/dL Hct (39.0-53.0) % Carbon Dioxide (22-30) mmol/L BUN (9-20) mg/dL Glucose (74-99) mg/dL POC Glucose (mg/dL) 178 H 173 H 124 H (75-99) mg/dL 03/16/19 03/16/19 03/16/19 Range/Units 06:37 06:37 06:39 WBC 14.1 H (3.8-10.6) k/uL RBC 3.71 L (4.30-5.90) m/uL Hgb 11.3 L (13.0-17.5) gm/dL Hct 35.4 L (39.0-53.0) % Carbon Dioxide 35 H (22-30) mmol/L BUN 22 H (9-20) mg/dL Glucose 151 H (74-99) mg/dL POC Glucose (mg/dL) 152 H (75-99) mg/dL - Imaging and Cardiology Chest x-ray: report reviewed, image reviewed Assessment and Plan Assessment: 1. 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 Chronic obstructive pulmonary disease 3. Chronic tobacco dependence, quit smoking 1 month ago 4. Obstructive sleep apnea with CPAP use 5. Uncontrolled insulin-dependent diabetes mellitus with hemoglobin A1c 8.6% and diabetic neuropathy 6. Coronary artery disease status post angioplasty with stenting to the LAD 7. Ischemic cardiomyopathy 8. Hypertension 9. Paroxysmal atrial fibrillation on chronic Eliquis for anticoagulation 10. Obesity 11. Acute kidney injury, resolved Plan: 1. Place right pleural chest tube to water seal. We will continue to monitor for resolution of air leak. If air leak persists may discharge home with pneumostat in place. 2. Monitor daily x-rays. 3. Pain control with current medication regimen. No narcotics. 4. GI/DVT prophylaxis. 5. Continue home medications with parameters on blood pressure medications. Managed by cardiology. 6. Bronchodilators per pulmonology management. 7. Encourage use of his incentive spirometry 10 times every hour while awake. Need continued encouragement. 8. Increase activity, ambulate in hallway. Physical therapy ordered. 9. Discussed the importance of continued smoking cessation. 10. Pathology results were reviewed with the patient by Dr. Cochran yesterday 03/13/2019. 11. Oncology consulted noted and appreciated. 12. Insulin management per primary care service. 13. Lasix 20 mg IV 1 now. 14. More recommendations based on patient's clinical course. Time with Patient: Greater than 30
--- NOTE | 2019-03-16 11:24 | P.PN ---
Subjective Progress Note Date: 03/16/19 This is a 78-year-old white male with history of multiple medical problems including insulin-dependent diabetes, chronic atrial fibrillation, coronary artery disease and previous stenting, hypercholesterolemia, degenerative joint disease with previous bilateral knee replacement, history of left rotator cuff surgery, permanent pacemaker implantation and stenting of LAD in 1998. Patient was recently evaluated for a right hilar mass, patient underwent a PET scan and showed uptake within the right suprahilar mass and no other abnormality was noted. 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 Patient was referred to Dr. Cochran, and he underwent right upper lobectomy with rima dissection , postoperatively he was transferred to the cardiac floor, and we were asked to see him in consultation. Chest tube remains intact. Blood pressure compared to yesterday has improved. Laboratory values this morning show a white blood cell count of 14,000, hemoglobin 11.3, BUN/creatinine 22 and creatinine 1.07. Overall, his pain is better. Anticipating removal of chest tube tomorrow. Objective - Vital Signs Vital signs: Vital Signs Temp 98.0 F 03/16/19 04:00 Pulse 77 03/16/19 07:38 Resp 18 03/16/19 04:00 BP 153/71 03/16/19 04:00 Pulse Ox 91 L 03/16/19 04:00 Intake & Output 03/15/19 03/16/19 03/16/19 18:59 06:59 18:59 Intake Total 2280 460 Output Total 100 400 Balance 2180 -400 460 Weight 112.2 kg Intake: Oral 2280 460 Output: Chest Tube Drainage 0 Chest Tube Right 0 Drainage 100 0 Right Chest 100 0 Urine 400 Other: Voiding Method Toilet Toilet Urinal Urinal # Voids 4 1 # Bowel Movements 1 - Exam PHYSICAL EXAMINATION: HEENT: Head is atraumatic, normocephalic. Pupils equal, round. Neck is supple. There is no elevated jugular venous pressure. HEART EXAMINATION: Heart sounds regular, S1 and S2 normal. No murmur or gallop heard. CHEST EXAMINATION: Lungs reveal diminished air entry to the right. Right sided chest tube is in place with serosanguineous drainage noted and Pleur-evac ABDOMEN: Soft, nontender. Bowel sounds are heard. No organomegaly noted. EXTREMITIES: 2+ peripheral pulses with no evidence of peripheral edema and no calf tenderness noted. NEUROLOGIC patient is awake, alert and oriented x3. . - Labs CBC & Chem 7: 03/16/19 06:37 03/16/19 06:37 Labs: Abnormal Lab Results - Last 24 Hours (Table) 03/15/19 03/15/19 03/15/19 Range/Units 11:39 16:51 21:25 WBC (3.8-10.6) k/uL RBC (4.30-5.90) m/uL Hgb (13.0-17.5) gm/dL Hct (39.0-53.0) % Carbon Dioxide (22-30) mmol/L BUN (9-20) mg/dL Glucose (74-99) mg/dL POC Glucose (mg/dL) 178 H 173 H 124 H (75-99) mg/dL 03/16/19 03/16/19 03/16/19 Range/Units 06:37 06:37 06:39 WBC 14.1 H (3.8-10.6) k/uL RBC 3.71 L (4.30-5.90) m/uL Hgb 11.3 L (13.0-17.5) gm/dL Hct 35.4 L (39.0-53.0) % Carbon Dioxide 35 H (22-30) mmol/L BUN 22 H (9-20) mg/dL Glucose 151 H (74-99) mg/dL POC Glucose (mg/dL) 152 H (75-99) mg/dL Assessment and Plan Assessment: #1 status post right upper lobectomy for what seems to be a 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 #2 moderate severe COPD FEV1 is in the range of 50%. #3 obstructive sleep apnea syndrome #4 coronary arteriosclerosis and previous stent placement. #5 benign essential hypertension #6 pacemaker in situ #7 history of vitamin D deficiency #8 type 2 diabetes #9 chronic atrial fibrillation. Plan: From medical reimbursement specialist perspective, medications were reviewed and will continue the same. We will continue to follow the patient and provide further recommendations accordingly. FLIGHT INSTRUCTOR note has been reviewed, I agree with a documented findings and plan of care. Patient was seen and examined.
[2019-03-16 11:54] LABS: Glucose,Whole Blood 147 mg/dL (75-99)
[2019-03-16] MEDS: MAGNESIUM OXIDE 400 MG TAB PO SCH (12:55)
[2019-03-16] MEDS: CHOLECALCIFEROL 1,000 UNIT TAB PO SCH (12:56)
--- NOTE | 2019-03-16 13:25 | PN ---
PROGRESS NOTE This is a 78-year-old male who is status post right upper lobectomy for poorly differentiated squamous cell carcinoma. The patient unfortunately has been in the hospital for a number of days now. He has been in the hospital for about 10 days. Unfortunately, he continues to have a leak probably from the surgical site. Anyway, the patient otherwise is doing reasonably well. His FEV1 is in the range of 50%. He also has a history of COPD, sleep apnea syndrome, CAD with previous stent placement, benign essential hypertension, status post pacemaker insertion, vitamin D deficiency, type 2 diabetes, and chronic atrial fibrillation. Apparently, the plan from surgical standpoint is to put a Pneumostat on him maybe tomorrow. We will see if that actually takes place. The patient has no major complaints. He is not short of breath. No chest pain. He does have some back pain, probably muscular in origin. PHYSICAL EXAMINATION: VITAL SIGNS: Current vital signs are reviewed. Temperature is 97.6 heart rate 74, respiratory rate 18, blood pressure 151/70, mean 97. Room-air saturation 91 to 93%. GENERAL: Appears in no acute distress. HEENT examination is grossly unremarkable. Nasal O2 in place. NECK: Supple. Full range of motion. No adenopathy or thyromegaly. Neck veins are flat. CARDIOVASCULAR: Examination reveals regular rhythm and rate. Heart sounds are distant. S1, S2 normal. Heart rate in the 70s. LUNGS: Reveal relatively clear breath sounds throughout. Breath sounds are basically equal bilaterally. A few scattered mild rhonchi. No wheezes or crackles. ABDOMEN is soft. Bowel sounds are heard. EXTREMITIES are intact. No cyanosis, clubbing, or edema. SKIN without rash. NEUROLOGIC examination is brief but nonfocal. LABS: Reviewed. White count 14.1, hemoglobin 11.3, hematocrit 35.4, platelet count 389,000, sodium, potassium, chloride normal, CO2 35, anion gap is 5, BUN and creatinine were 22 and 1.07. Microbiologic studies are negative. Chest x-ray from today shows a right chest tube. No obvious pneumothorax. He is status post right upper lobectomy. Medications are reviewed. ASSESSMENT: 1. 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 2. Moderately severe chronic obstructive pulmonary disease with an FEV1 that is 50% of predicted. 3. Sleep apnea syndrome, currently on home CPAP. 4. Coronary artery disease with previous stent placement. 5. Benign essential hypertension. 6. Status post pacemaker insertion. 7. Vitamin D deficiency. 8. Type 2 diabetes mellitus. 9. Chronic atrial fibrillation. PLAN: Overall, the patient is seen doing reasonably well. He is mostly just discouraged that it has taken so long for him being out of the hospital. The patient still has a bit of a leak. It is probably less than it was yesterday. Thoracic surgery is planning a Pneumostat. Additional recommendations and suggestions are forthcoming. We will continue to follow. He will follow up with Dr. Domínguez in the outpatient clinic. MMODL / IJN: [id number] / GINGER
[2019-03-16 16:46] LABS: Glucose,Whole Blood 113 mg/dL (75-99)
[2019-03-16] MEDS: METOPROLOL SUCCINATE (ER) 50 MG TAB.ER.24H PO SCH (20:04)
[2019-03-16] MEDS: ALPRAZolam 0.25 MG TAB PO SCH (20:04)
[2019-03-16] MEDS: MELATONIN 5 MG TABLET PO SCH (20:04)
[2019-03-16] MEDS: ATORVASTATIN 20 MG TAB PO SCH (20:05)
[2019-03-16 21:06] LABS: Glucose,Whole Blood 130 mg/dL (75-99)
--- NOTE | 2019-03-16 23:19 | PN ---
PROGRESS NOTE DATE OF SERVICE: 03/16/2019. PRESENTING COMPLAINT: Right lung surgery. INTERVAL HISTORY: Patient is status post right upper lobectomy for squamous cell lung cancer with one of the 20 lymph nodes positive. The patient still has air leak in the right-sided chest tube. The drainage is greatly improved. Blood sugars are well controlled. Patient does feel a bit tired today. The patient's , daughter, and other people are present. The patient has otherwise been tolerating a diet. REVIEW OF SYSTEMS: Done for constitutional, cardiovascular, GI, pulmonary; relevant findings as above. CURRENT MEDICATIONS: Reviewed. PHYSICAL EXAMINATION: VITAL SIGNS: Temperature 98.5, pulse 78, respirations 16, blood pressure 120/61, pulse ox 91 percent on room air. GENERAL APPEARANCE: Sitting up, awake. EYES: Pupils equal. Conjunctivae normal. NECK: JVD not raised. Mass not palpable. Respiratory effort normal. LUNGS: Diminished breath sounds. CARDIOVASCULAR: 1st and 2nd heart sounds. No edema. ABDOMEN: Soft, nontender. Liver and spleen not palpable. PSYCHIATRY: Alert and oriented x3. Mood and affect normal. CHEST: Right chest wall with a chest tube in place. INVESTIGATIONS: White count 14.1, hemoglobin 11.3, potassium 4.4, BUN 22, creatinine 1.27. Accu-Cheks 152, 147, 113, 130. ASSESSMENT: 1. Right upper lobe lobectomy for moderately differentiated squamous cell carcinoma with chest tube in place and 1 out of 20 lymph nodes positive. The patient will get chemo therapy down the road. 2. Right chest wall chest tube with air leak. 3. Morbid obesity BMI 37.3. 4. Diabetes mellitus type 2, chronically on insulin. 5. Acute renal failure, combination of prerenal and acute tubular necrosis, now corrected. 6. Persistent atrial fibrillation rate controlled. 7. Chronic obstructive pulmonary disease in an ex-smoker. 8. Essential hypertension. 9. Hyperlipidemia. 10.Coronary artery disease with prior history of stent. 11.Obstructive sleep apnea uses BiPAP. 12.Diabetic peripheral neuropathy. 13.Leukocytosis. PLAN: The patient's respiratory symptoms are improved. There is no fever, no chills. White count may be reactive. The patient's family had several questions regarding the pain medications. That was discussed at length including the pros and cons and side effects. The patient's sugars are well controlled. We will keep the patient on the current dose. Total time spent today was about 40 minutes with over 20 to 25 minutes of discussion. Cardiothoracic was planning to send the patient home, possibly with pneumo stat. KAREL / BRET: [id number] /
[2019-03-17] MEDS: HEPARIN SODIUM,PORCINE 5,000 UNIT/ML 1 ML VIAL SQ SCH ×4 (04:45→21:45)
[2019-03-17] MEDS: INSULIN ASPART (NovoLOG) 100 UNIT/ML VIAL SQ SCH ×5 (04:45→21:42)
[2019-03-17 06:37] LABS: Glucose,Whole Blood 166 mg/dL (75-99)
[2019-03-17 07:00] LABS: Calcium 8.8 mg/dL (8.4-10.2); Potassium 4.2 mmol/L (3.5-5.1)
[2019-03-17] MEDS: PANTOPRAZOLE 40 MG TABLET PO SCH (07:09)
[2019-03-17] MEDS: INSULN ASP PRT/INSULIN ASPART 100 UNIT/ML 10 ML VIAL SQ SCH ×3 (07:09→17:40)
[2019-03-17] MEDS: ACETAMINOPHEN TAB 500 MG TAB PO PRN ×3 (07:09→21:45)
[2019-03-17] MEDS: IPRATROPIUM-ALBUTEROL 3 ML NEB IH SCH ×4 (08:23→19:21)
[2019-03-17] MEDS: SYMBICORT 80-4.5 MCG INHALER INHALATION SCH ×2 (08:23→19:21)
--- NOTE | 2019-03-17 08:40 | XR ---
EXAMINATION TYPE: XR chest 1V portable DATE OF EXAM: 03/17/2019 COMPARISON: NONE HISTORY: Postop TECHNIQUE: Single frontal view of the chest is obtained. FINDINGS: There is a bipolar pacing device in place on the left. There is a right pleural drain. The patient is status post right upper lobectomy. There is approximately 15% right-sided pneumothorax. T here is stable subcutaneous emphysema present on the right. There is some bibasilar airspace disease, likely representing atelectasis. There are small, bilateral effusions. Heart size is upper limits of normal. Heart is enlarged. Atherosclerotic change aorta. IMPRESSION: There is a postoperative change with an approximate 15 to percent right-sided pneumothor ax.
[2019-03-17] MEDS: MAGNESIUM OXIDE 400 MG TAB PO SCH (10:01)
[2019-03-17] MEDS: SERTRALINE 50 MG TAB PO SCH (10:02)
[2019-03-17] MEDS: CHOLECALCIFEROL 1,000 UNIT TAB PO SCH (10:03)
[2019-03-17] MEDS: LISINOPRIL 20 MG TAB PO SCH (10:03)
[2019-03-17] MEDS: ASPIRIN 81 MG PO SCH (10:03)
[2019-03-17] MEDS: amLODIPine 10 MG TAB PO SCH (10:03)
[2019-03-17] MEDS: CHLORTHALIDONE 25 MG TAB PO SCH (10:03)
--- NOTE | 2019-03-17 10:53 | P.PN ---
Subjective Progress Note Date: 03/17/19 Principal diagnosis: Right upper lobe lung cancer. Medical history of COPD, previous tobacco dependence with smoking cessation approximately 1 month ago and a [id number] history, obstructive sleep apnea with CPAP use, uncontrolled insulin-dependent diabetes mellitus with hemoglobin A1c 8.6% and diabetic neuropathy, coronary artery disease status post angioplasty with stenting to the LAD, ischemic cardiomyopathy, hypertension, paroxysmal atrial fibrillation on chronic Eliquis for anticoagulation, obesity. Acute kidney injury, likely secondary to dehydration. POD #11 robotic assisted thoracoscopic right upper lobectomy with mediastinal lymph node dissection. Right thoracotomy with re-resection of bronchial stump and suture closure The patient is currently sitting up to his bedside chair. Denies any complaints of pain or shortness of breath. He is in no acute distress. His is at his bedside and their questions were answered to the best of my ability. Right pleural chest tube remains in place and was placed to water seal. The chest tube remains with an intermittent air leak which continues to improve. Draining thin serosanguineous drainage with 70 mL output in the last 24 hours. Oxygen saturations 92% on room air. Achieving 1500 mL on his incentive spirometry. He reports he has been ambulating in the 3 S. cardiac stepdown unit Hallway with minimal assistance. Objective - Vital Signs Vital signs: Vital Signs Temp 97.1 F L 03/17/19 08:45 Pulse 71 03/17/19 08:45 Resp 19 03/17/19 08:45 BP 136/65 03/17/19 08:45 Pulse Ox 91 L 03/17/19 08:45 Intake & Output 03/16/19 03/17/19 03/17/19 18:59 06:59 18:59 Intake Total 940 240 Output Total 100 70 Balance 840 -70 240 Weight 111 kg Intake: Oral 940 240 Output: Chest Tube Drainage 50 35 Chest Tube Right 50 35 Drainage 50 35 Right Chest 50 35 Other: Voiding Method Toilet Urinal # Voids 1 1 1 - Constitutional General appearance: Present: cooperative, no acute distress, obese - Respiratory Details: Lung sounds are essentially clear to his bilateral upper lobes, diminished to his bilateral bases. Respirations are symmetrical and nonlabored. Oxygen saturation are 92% on room air. achieving 1500 mL on his incentive spirometry. Right pleural chest tube remains in place to water seal. Intermittent air leak is present. Draining thin serosanguineous drainage. 70 mL output in the last 24 hours. Scant Subcu emphysema present to his right anterior and posterior chest. - Cardiovascular Details: Regular rhythm and rate. S1 and S2 present, negative for S3, gallop or murmur. Remote telemetry showing normal sinus rhythm heart rate 71. Trace edema to his bilateral feet. Knee-high WILLEM hose and sequential compression devices in place to his bilateral lower extremities. - Gastrointestinal Gastrointestinal Comment(s): Abdomen is soft, nontender and nondistended. Active bowel sounds to all 4 abdominal quadrants. No guarding or rigidity. No organomegaly. Tolerating oral intake. - Genitourinary Genitourinary Comment(s): Voiding clear gabrielle urine. - Integumentary Integumentary Comment(s): Skin is warm and dry. No clubbing or cyanosis is present. No rash or abnormal pigmentation is present. Right thoracotomy incision is clean, dry and approximated. No drainage or redness is present. Exofin dressing is clean, dry and intact. Small scattered excoriated areas to his right lower quadrant abdomen remained clean, dry with no drainage. Right pleural chest tube insertion site with dressing clean, dry and intact. - Neurologic Neurologic: Present: CNII-XII intact - Musculoskeletal Musculoskeletal: Present: gait normal, strength equal bilaterally - Psychiatric Psychiatric: Present: A&O x's 3, appropriate affect, intact judgment & insight - Allied health notes Allied health notes reviewed: nursing - Labs CBC & Chem 7: 03/16/19 06:37 03/17/19 06:24 Labs: Abnormal Lab Results - Last 24 Hours (Table) 03/16/19 03/16/19 03/16/19 Range/Units 11:49 16:40 21:05 Carbon Dioxide (22-30) mmol/L BUN (9-20) mg/dL Glucose (74-99) mg/dL POC Glucose (mg/dL) 147 H 113 H 130 H (75-99) mg/dL 03/17/19 03/17/19 Range/Units 06:19 06:24 Carbon Dioxide 31 H (22-30) mmol/L BUN 21 H (9-20) mg/dL Glucose 155 H (74-99) mg/dL POC Glucose (mg/dL) 166 H (75-99) mg/dL - Imaging and Cardiology Chest x-ray: report reviewed, image reviewed Assessment and Plan Assessment: 1. 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 Chronic obstructive pulmonary disease 3. Chronic tobacco dependence, quit smoking 1 month ago 4. Obstructive sleep apnea with CPAP use 5. Uncontrolled insulin-dependent diabetes mellitus with hemoglobin A1c 8.6% and diabetic neuropathy 6. Coronary artery disease status post angioplasty with stenting to the LAD 7. Ischemic cardiomyopathy 8. Hypertension 9. Paroxysmal atrial fibrillation on chronic Eliquis for anticoagulation 10. Obesity 11. Acute kidney injury, resolved Plan: 1. Place right pleural chest tube to water seal. We will continue to monitor for resolution of air leak. If air leak persists may discharge home with pneumostat in place. 2. Monitor daily x-rays. 3. Pain control with current medication regimen. 4. GI/DVT prophylaxis. 5. Continue home medications with parameters on blood pressure medications. Managed by cardiology. 6. Bronchodilators per pulmonology management. 7. Encourage use of his incentive spirometry 10 times every hour while awake. Need continued encouragement. 8. Increase activity, ambulate in hallway. Physical therapy ordered. 9. Discussed the importance of continued smoking cessation. 10. Pathology results were reviewed with the patient by Dr. Cochran on 03/13/2019. 11. Oncology consulted noted and appreciated. 12. Insulin management per primary care service. 13. Discharge planning is in place. 14. More recommendations based on patient's clinical course. Time with Patient: Greater than 30
[2019-03-17 11:41] LABS: Glucose,Whole Blood 109 mg/dL (75-99)
--- NOTE | 2019-03-17 12:37 | P.PN ---
Subjective Progress Note Date: 03/17/19 This is a 78-year-old white male with history of multiple medical problems including insulin-dependent diabetes, chronic atrial fibrillation, coronary artery disease and previous stenting, hypercholesterolemia, degenerative joint disease with previous bilateral knee replacement, history of left rotator cuff surgery, permanent pacemaker implantation and stenting of LAD in 1998. Patient was recently evaluated for a right hilar mass, patient underwent a PET scan and showed uptake within the right suprahilar mass and no other abnormality was noted. 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 Patient was referred to Dr. Cochran, and he underwent right upper lobectomy with rima dissection , postoperatively he was transferred to the cardiac floor, and we were asked to see him in consultation. Patient had been seen in consultation yesterday by Dr. Sanchez. He was seen and examined this morning on the telemetry unit, complained of feeling somewhat listless and lightheaded. His blood pres sure is running in the 90 systolic range. He is complaining of some mild incisional discomfort, still working hard on his incentive spirometry reaching approximately 1000. Right-sided chest tube remains in place with continuous air leak, moderate amount of serous sanguinous output in the right chest tube. He was on 20 mg of lisinopril, we'll decrease that to 10 mg daily from today. 03/09/2019 Patient seen and examined this morning, feeling much better today than he did yesterday morning. No further episodes of lightheadedness, much less listless today. Continues to have right-sided chest tube in place to water seal. Airleak is improving as compared with 2 days ago. Today's chest x-ray shows essentially stable chest with small right apical pneumothorax. Blood pressure this morning 102/50 with a heart rate in the 70s, 95% on 2 L of oxygen. White blood cell count 8.3, hemoglobin 9.8, platelet count 161. Magnesium 1.6. Sodium 131, potassium 4.9, BUN 42 and creatinine 1.6. 03/10/2019 Patient was seen and examined this morning continues to do better. Repeat chest x-ray from this morning showed cardiomegaly with right-sided pneumothorax. Blood pressure 140/70 with heart rate in the 70s, 93%Ra. 55 mL out of the chest tube. White blood cell count 7.2, hemoglobin 10.2, platelet count 220. Sodium 136, potassium 5.8, BUN 30 and creatinine 1.2, magnesium 2.1. 03/11/2019 Patient was seen and examined this morning, sitting up in the chair bedside. Breathing is overall stable. He had an episode this morning where he was found to be unresponsive, Narcan was given to the patient. At the time of my examination he was alert and oriented 3. Continues to have the chest tube in place, he also continues to have an intermittent air leak and the pleural chest tube. Blood pressure 150/70 with a heart rate in the 80s, 95% on 2 L of oxygen. White blood cell count 8.3, hemoglobin 10.4, platelet count 225. 03/12/2019 Patient was seen and examined this morning, feeling better today. Still did not sleep well through the night last night because he is unable to use the mask associated with the CPAP here. Blood pressure 180/80, we will resume the GILES inhibitor which the patient was on. 03/13/2019 Patient seen and examined this morning, did appear a little anxious today, blood pressure continues to be elevated. We will increase his dose of GILES inhibitor to 20 mg daily today. His doctor's also initiated him on Zoloft for his anxiety. 03/15/2019 Patient seen and examined this morning, overall is doing well, but he is complaining of more pain in his back today. Hemodynamically stable. 03/17/2019 Patient seen and examined this morning, sitting up in the chair at bedside. Still having some back discomfort, Blood pressure remaining stable. Breathing is improving. Objective - Vital Signs Vital signs: Vital Signs Temp 97.1 F L 03/17/19 08:45 Pulse 76 03/17/19 11:52 Resp 19 03/17/19 08:45 BP 136/65 03/17/19 08:45 Pulse Ox 91 L 03/17/19 08:45 Intake & Output 03/16/19 03/17/19 03/17/19 18:59 06:59 18:59 Intake Total 940 240 Output Total 100 70 Balance 840 -70 240 Weight 111 kg Intake: Oral 940 240 Output: Chest Tube Drainage 50 35 Chest Tube Right 50 35 Drainage 50 35 Right Chest 50 35 Other: Voiding Method Toilet Urinal # Voids 1 1 1 - Exam HEAD: Normocephalic/atraumatic. EYES: Normal reaction of pupils, equal size. Conjunctiva pink, sclera white. NOSE: Clear with pink turbinates. THROAT: No erythema or exudates. NECK: No masses, no JVD, no thyroid enlargement, no adenopathy. CHEST: No chest wall deformity. Symmetrical expansion. Right-sided chest tube is in place, with continuous air leak, and moderate amount of thin serosangu ineous output in the Pleur-evac LUNGS: Equal air entry with no crackles, wheeze, rhonchi or dullness. Diminished breath sounds on the right CVS: Regular rate and rhythm, normal S1 and S2, no gallops, no murmurs, no rubs ABDOMEN: Soft, nontender. No hepatosplenomegaly, normal bowel sounds, no guard ing or rigidity. EXTREMITIES: No clubbing, no edema, no cyanosis, 2+ pulses and upper and lower extremities. MUSCULOSKELETAL: Muscle strength and tone normal. SPINE: No scoliosis or deformity SKIN: No rashes CENTRAL NERVOUS SYSTEM: Alert and oriented -3. No focal deficits, tone is normal in all 4 extremities. PSYCHIATRIC: Alert and oriented -3. Appropriate affect. Intact judgment and insight. - Labs CBC & Chem 7: 03/16/19 06:37 03/17/19 06:24 Labs: Abnormal Lab Results - Last 24 Hours (Table) 03/16/19 03/16/19 03/17/19 Range/Units 16:40 21:05 06:19 Carbon Dioxide (22-30) mmol/L BUN (9-20) mg/dL Glucose (74-99) mg/dL POC Glucose (mg/dL) 113 H 130 H 166 H (75-99) mg/dL 03/17/19 03/17/19 Range/Units 06:24 11:36 Carbon Dioxide 31 H (22-30) mmol/L BUN 21 H (9-20) mg/dL Glucose 155 H (74-99) mg/dL POC Glucose (mg/dL) 109 H (75-99) mg/dL Assessment and Plan Plan: Assessment and plan #1 status post right upper lobectomy for what seems to be a 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 #2 moderate severe COPD FEV1 is in the range of 50%. #3 obstructive sleep apnea syndrome #4 coronary arteriosclerosis and previous stent placement. #5 benign essential hypertension #6 pacemaker in situ #7 history of vitamin D deficiency #8 type 2 diabetes #9 chronic atrial fibrillation. Plan From cardiology's perspective, we will continue the patient on his current medications. We will continue to follow. DNP note has been reviewed, I agree with a documented findings and plan of care. Patient was seen and examined.
[2019-03-17 16:44] LABS: Glucose,Whole Blood 135 mg/dL (75-99)
--- NOTE | 2019-03-17 17:03 | P.PN ---
Subjective Progress Note Date: 03/17/19 Principal diagnosis: COPD, lung mass, status post right upper lobectomy this is a 78-year-old white male with history of multiple medical problems including insulin-dependent diabetes, chronic atrial fibrillation, coronary artery disease and previous stenting, hypercholesterolemia, degenerative joint disease with previous bilateral knee replacement, history of left rotator cuff surgery, permanent pacemaker implantation and stenting of LAD in 1998. Patient is also known to have history of COPD FEV1 is in the range of 50%, 1.31 L, patient was recently evaluated by me for a right hilar mass, patient underwent a PET scan and showed uptake within the right suprahilar mass and no other abnormality was noted. 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 Patient was referred to Dr. Cochran, and he underwent right upper lobectomy with rima dissection today, postoperatively he was transferred to the cardiac floor, and I was asked to see him on consultation. Patient seems to be doing fairly well, complaining mostly of right sided chest pain at the surgical site, has a right sided chest tube in place with minimal air leak noted. Chest x-ray showed postoperative changes and no other significant findings otherwise. On 03/07/2019 patient seen in follow-up this is postop day 1, status post right upper lobectomy for a right hilar mass which showed suspicious uptake on the PET scan. Navigational bronchoscopy biopsies were nondiagnostic. The patient is awake and alert, resting in bed, currently on 3 L of oxygen with a pulse ox of 97%, signs are stable, having some mild to moderate amount of incisional discomfort, but is able to do his incentive spirometry, is able to achieve 1000 mL on the today. Lung sounds are diminished on the right side, right-sided chest tube is in place, with continuous air leak, and moderate amount of serosanguineous than output from the right chest tube. Today's labs have been reviewed, and showed a white blood cell count of 10.7, hemoglobin of 12.2, sodium is 136, depressed electrolytes were within normal limits, BUN is 26 and creatinine is 1.36. On 03/09/2019 patient seen in follow-up on selective care unit, he sitting up in the recliner, in no acute distress, right-sided chest tube is in place, to waterseal, and patient still has occasional leak with deep breathing and coughing, air leak has improved compared to 2 days ago. Today's chest x-ray has been reviewed, shows essentially stable chest with small right apical pneumothorax. His pain is reasonably controlled, patient has been ambulating, the whole entire length of the sears. Lung wedge biopsy is still pending at this time. Patient is working his incentive spirometer, able to achieve 752 just under 1000 mL on the today, lung sounds reveal better air entry on the right, with some limited wheezes. No fever or chills. Occasional cough, with pro duction of small amount of phlegm. On 03/10/2019 patient seen in follow-up on selective care unit, he is awake and alert, in no acute distress, his been ambulating in the room and in the hallway, tolerating activity very well. Pulse ox is 93%, no fever no chills, hemodynamically stable, his pain is under reasonable control, right-sided chest tube is in place, with air leak present with a deep breathing and coughing. Chest tube is to waterseal, lung sounds are diminished at the bases, with only limited end expiratory wheezes, vital signs are stable, no fever or chills. Today's chest x-ray has been reviewed, and showed cardiomegaly, right-sided apical pneumothorax, which was stable in appearance, well, his incentive spirometer. Biopsy results are pending. On 03/13/2019 patient is seen in follow-up on selective care unit, he is awake and alert, in no acute distress, he is on CPAP, and his nasal pillow mask was adjusted to connect to the inpatient CPAP unit, and patient is tolerating CPAP therapy well. Chest tube remains in place on the right, room air pulse ox is 93%, afebrile. There is occasional air leak with deep inspiration, on today's chest x-ray there was increase in the appearance of the right apical pneumothorax, in the chest tube was placed to suction. Today's labs have been reviewed, and showed white blood cell count of 10.7, hemoglobin of 10.9, electrolytes are within normal limits, with the CO2 of 31, renal profile is within normal limits. On 03/17/2019 patient seen in follow-up on selective care unit, he is awake and alert, in no acute distress, lung sounds are clear to auscultation, patient still has the right-sided chest tube in place, with occasional air leak, overall it has improved. Pain is reasonably controlled, patient is in no distress, room air pulse ox is 95%, he is working on his incentive spirometer, no fever or chills. Today's chest x-ray shows postoperative changes with approximately 15% right-sided pneumothorax. CT surgery is following, and the discussed the possibility of switching chest tube to pneumostat. Objective - Vital Signs Vital signs: Vital Signs Temp 97 F L 03/17/19 12:00 Pulse 80 03/17/19 15:37 Resp 17 03/17/19 12:00 BP 104/54 03/17/19 12:00 Pulse Ox 95 03/17/19 12:00 Intake & Output 03/16/19 03/17/19 03/17/19 18:59 06:59 18:59 Intake Total 940 480 Output Total 100 70 800 Balance 840 -70 -320 Weight 111 kg Intake: Oral 940 480 Output: Chest Tube Drainage 50 35 Chest Tube Right 50 35 Drainage 50 35 Right Chest 50 35 Urine 800 Other: Voiding Method Toilet Urinal # Voids 1 1 1 - Exam GENERAL EXAM: Alert, pleasant, 78-year-old white male, on 2 L of oxygen, comfortable in no apparent distress. HEAD: Normocephalic/atraumatic. EYES: Normal reaction of pupils, equal size. Conjunctiva pink, sclera white. NOSE: Clear with pink turbinates. THROAT: No erythema or exudates. NECK: No masses, no JVD, no thyroid enlargement, no adenopathy. CHEST: No chest wall deformity. Symmetrical expansion. Right-sided chest tube is in place currently to wall suction, with occasional air leak, and moderate amount of thin serosanguineous output in the Pleur-evac LUNGS: Equal air entry with no crackles, wheeze, rhonchi or dullness. Diminished breath sounds on the right CVS: Regular rate and rhythm, normal S1 and S2, no gallops, no murmurs, no rubs ABDOMEN: Soft, nontender. No hepatosplenomegaly, normal bowel sounds, no guarding or rigidity. EXTREMITIES: No clubbing, no edema, no cyanosis, 2+ pulses and upper and lower extremities. MUSCULOSKELETAL: Muscle strength and tone normal. SPINE: No scoliosis or deformity SKIN: No rashes CENTRAL NERVOUS SYSTEM: Alert and oriented -3. No focal deficits, tone is normal in all 4 extremities. PSYCHIATRIC: Alert and oriented -3. Appropriate affect. Intact judgment and insight. - Labs CBC & Chem 7: 03/16/19 06:37 03/17/19 06:24 Labs: Abnormal Lab Results - Last 24 Hours (Table) 03/16/19 03/17/19 03/17/19 Range/Units 21:05 06:19 06:24 Carbon Dioxide 31 H (22-30) mmol/L BUN 21 H (9-20) mg/dL Glucose 155 H (74-99) mg/dL POC Glucose (mg/dL) 130 H 166 H (75-99) mg/dL 03/17/19 03/17/19 Range/Units 11:36 16:42 Carbon Dioxide (22-30) mmol/L BUN (9-20) mg/dL Glucose (74-99) mg/dL POC Glucose (mg/dL) 109 H 135 H (75-99) mg/dL Assessment and Plan Plan: Assessment: 1status post right upper lobectomy for what seems to be a 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 2moderate severe COPD FEV1 is in the range of 50%. 3 obstructive sleep apnea syndrome 4 coronary arteriosclerosis and previous stent placement. 5 benign essential hypertension 6 pacemaker in situ 7 history of vitamin D deficiency 8 type 2 diabetes 9 chronic atrial fibrillation. Plan: The chest tube remains to waterseal, with occasional leak, today's chest x-ray has been reviewed with Dr. Blanton, shows 15% right-sided apical pneumothorax. Continue encouraging deep breathing and coughing, patient is working on his incentive spirometer, patient's home CPAP unit was checked by Dr. Blanton, and patient will use his home CPAP unit tonight, which is now on automatic setting. I performed a history & physical examination of the patient and discussed their management with my nurse practitioner, Nita Carrington. I reviewed the nurse practitioner's note and agree with the documented findings and plan of care. Lung sounds are positive for diminished breath sounds on the right. The findings and the impression was discussed with the patient. I attest to the documentation by the nurse practitioner. Time with Patient: Less than 30
--- NOTE | 2019-03-17 18:14 | PN ---
PROGRESS NOTE DATE OF SERVICE: March 17, 2019. PRESENTING COMPLAINT: Right lung surgery. INTERVAL HISTORY: Patient is status post right upper lobe lobectomy for squamous cell lung cancer, non- small type with 1 positive lymph node. The patient has a small air leak of the right- sided chest tube. Drainage has been little. The patient has been walking a bit. Tolerating a diet. Edema is down. REVIEW OF SYSTEMS: Done for constitutional, cardiovascular, GI, pulmonary and relevant findings as above. CURRENT MEDICATIONS: Reviewed. PHYSICAL EXAMINATION: VITAL SIGNS: On examination, temperature 97, pulse 69, respiration 17, blood pressure 104/54, pulse ox 95% on room air. GENERAL APPEARANCE: Sitting up on a chair, awake. EYES: Pupils are equal. Conjunctivae normal. NECK: JVD not raised. Mass not palpable. RESPIRATORY: Effort normal. LUNGS: Decreased breath sounds on the right side. CARDIOVASCULAR: 1st and 2nd sounds normal. No edema. ABDOMEN: Soft, nontender. Liver and spleen not palpable. PSYCHIATRY: Alert and oriented times three. Mood and affect normal. Right-sided chest tube present. INVESTIGATIONS: Potassium 4.2, BUN 21, creatinine 1.08. Accu-Cheks 166, 109. ASSESSMENT: 1. Right upper lobe lobectomy for moderately differentiated squamous cell carcinoma with chest tube in place with one out of 20 lymph nodes positive. The patient will get chemotherapy as an outpatient. 2. Right chest wall chest tube with small air leak and drainage greatly reduced. 3. Morbid obesity, BMI 37.3. 4. Diabetes mellitus type 2, chronically on insulin. 5. Acute renal failure, combination of prerenal ATN, now corrected. 6. Persistent atrial fibrillation. Rate controlled. 7. Chronic obstructive pulmonary disease in an ex-smoker. 8. Essential hypertension. 9. Hyperlipidemia. 10.Coronary artery disease with prior history of stent. 11.Obstructive sleep apnea uses BiPAP. 12.Diabetic peripheral neuropathy. 13.Leukocytosis. PLAN: I had a talk with the patient and the . I spoke to Don from Cardiothoracic. They are hoping maybe the chest tube could be discontinued by tomorrow. We will see how that does. Otherwise, patient is medically stable. MMODL / IJN: [id number] /
[2019-03-17] MEDS: ATORVASTATIN 20 MG TAB PO SCH (20:19)
[2019-03-17] MEDS: MELATONIN 5 MG TABLET PO SCH (20:19)
[2019-03-17] MEDS: ALPRAZolam 0.25 MG TAB PO SCH (20:19)
[2019-03-17] MEDS: METOPROLOL SUCCINATE (ER) 50 MG TAB.ER.24H PO SCH (20:19)
[2019-03-17 21:01] LABS: Glucose,Whole Blood 133 mg/dL (75-99)
[2019-03-18 06:04] LABS: Glucose,Whole Blood 156 mg/dL (75-99)
[2019-03-18] MEDS: INSULIN ASPART (NovoLOG) 100 UNIT/ML VIAL SQ SCH ×4 (06:30→20:26)
[2019-03-18] MEDS: PANTOPRAZOLE 40 MG TABLET PO SCH (06:30)
[2019-03-18] MEDS: INSULN ASP PRT/INSULIN ASPART 100 UNIT/ML 10 ML VIAL SQ SCH ×3 (06:30→17:11)
[2019-03-18] MEDS: ACETAMINOPHEN TAB 500 MG TAB PO PRN ×3 (06:31→20:23)
[2019-03-18] MEDS: IPRATROPIUM-ALBUTEROL 3 ML NEB IH SCH ×4 (07:48→19:57)
[2019-03-18] MEDS: SYMBICORT 80-4.5 MCG INHALER INHALATION SCH ×2 (07:48→19:57)
--- NOTE | 2019-03-18 09:10 | XR ---
EXAMINATION TYPE: XR chest 2V DATE OF EXAM: 03/18/2019 COMPARISON: 03/17/2019 TECHNIQUE: PA and lateral views submitted. HISTORY: Post right upper lobectomy FINDINGS: There is increasing subcutaneous emphysema. Chest tube noted. There is a persistent right-sided hydro pneumothorax measuring approximately 5-10%. Left-sided consolidation stable. Heart size stable. Cardi ac device and atherosclerotic change aorta. Arthropathy of the shoulders. Hypertrophic change of the spine. IMPRESSION: 1. Increasing subcutaneous emphysema throughout the right chest and soft tissues of the neck. 2. There is a right-sided pneumothorax measuring approximately 5-10%.
[2019-03-18] MEDS: SERTRALINE 50 MG TAB PO SCH (09:20)
[2019-03-18] MEDS: ASPIRIN 81 MG PO SCH (09:21)
[2019-03-18] MEDS: CHOLECALCIFEROL 1,000 UNIT TAB PO SCH (09:21)
[2019-03-18] MEDS: LISINOPRIL 20 MG TAB PO SCH (09:21)
[2019-03-18] MEDS: MAGNESIUM OXIDE 400 MG TAB PO SCH (09:21)
[2019-03-18] MEDS: HEPARIN SODIUM,PORCINE 5,000 UNIT/ML 1 ML VIAL SQ SCH ×3 (09:21→22:40)
[2019-03-18] MEDS: CHLORTHALIDONE 25 MG TAB PO SCH (09:21)
[2019-03-18] MEDS: amLODIPine 10 MG TAB PO SCH (09:21)
[2019-03-18 11:44] LABS: Glucose,Whole Blood 132 mg/dL (75-99)
--- NOTE | 2019-03-18 12:00 | P.PN ---
Subjective Progress Note Date: 03/18/19 Principal diagnosis: Right upper lobe lung cancer. Previous medical history of COPD, previous tobacco dependence with smoking cessation approximately 1 month ago and [id number] history, obstructive sleep apnea with CPAP use, uncontrolled insulin-dependent diabetes mellitus with hemoglobin A1c 8.6% and diabetic neuropathy, coronary artery disease status post angioplasty with stenting to the LAD, ischemic cardiomyopathy, hypertension, paroxysmal atrial fibrillation on chronic Eliquis for anticoagulation, obesity. Acute kidney injury, likely secondary to dehydration. POD #12 robotic assisted thoracoscopic right upper lobectomy with mediastinal lymph node dissection. Right thoracotomy with re-resection of bronchial stump and suture closure The patient is currently sitting up in the chair in no acute distress. Cardiac stepdown unit. States pain is well controlled on current medication regimen, denies shortness of breath. He has been ambulating in the hallway. Right pleural chest tube remains to waterseal, minimal intermittent air leak remains, he continues to drain approximately 200 mL every 24 hours. Patient states he is very nervous to go home as he lives more than an hour away, and at this time he would rather stay in the hospital versus going home with Pneumostat device. Objective - Vital Signs Vital signs: Vital Signs Temp 97.8 F 03/18/19 09:15 Pulse 68 03/18/19 09:15 Resp 16 03/18/19 09:15 BP 140/76 03/18/19 09:15 Pulse Ox 93 L 03/18/19 09:15 Intake & Output 03/17/19 03/18/19 03/18/19 18:59 06:59 18:59 Intake Total 720 240 250 Output Total 850 1050 20 Balance -130 -810 230 Weight 111.7 kg Intake: IV 10 Invasive Line 7 10 Oral 720 240 240 Output: Chest Tube Drainage 50 150 20 Chest Tube Right 50 150 20 Urine 800 900 Other: Voiding Method Toilet Toilet Urinal Urinal # Voids 1 3 - Constitutional General appearance: Present: cooperative, no acute distress, obese - Respiratory Details: Lungs sounds diminished bilaterally. Respirations even, nonlabored. Currently on room air with oxygen saturation 95%. Able to achieve 1500 mL on his incentive spirometry. Right pleural chest tube to waterseal, 150 mL serosanguineous output overnight, 200 mL in the last 24 hours, positive small intermittent air leak. - Cardiovascular Details: S1, S2 present. Regular rate and rhythm, sinus rhythm on telemetry. Palpable peripheral pulses bilaterally. No edema present. No calf pain or tenderness noted. SCDs present. - Gastrointestinal Gastrointestinal Comment(s): Abdomen soft, nontender, nondistended. Active bowel sounds present 4 quadrants. Tolerating diet. Positive bowel movement. - Genitourinary Genitourinary Comment(s): Continues to void clear, yellow urine. - Integumentary Integumentary Comment(s): Skin is warm and dry with evidence of good perfusion. Right pleural chest tube site covered with dry intact dressing. - Neurologic Neurologic: Present: CNII-XII intact - Musculoskeletal Musculoskeletal: Present: gait normal, strength equal bilaterally - Psychiatric Psychiatric: Present: A&O x's 3, appropriate affect, intact judgment & insight - Allied health notes Allied health notes reviewed: nursing - Labs CBC & Chem 7: 03/16/19 06:37 03/17/19 06:24 Labs: Abnormal Lab Results - Last 24 Hours (Table) 03/17/19 03/17/19 03/18/19 Range/Units 16:42 21:00 06:02 POC Glucose (mg/dL) 135 H 133 H 156 H (75-99) mg/dL 03/18/19 Range/Units 11:40 POC Glucose (mg/dL) 132 H (75-99) mg/dL - Imaging and Cardiology Chest x-ray: report reviewed, image reviewed Assessment and Plan Assessment: 1. Right upper lobe lung cancer, status post robotic-assisted thoracoscopic rig ht upper lobectomy with mediastinal lymph node dissection, right thoracotomy with re-resection of bronchial stump and suture closure 2. History of COPD 3. Previous tobacco dependence 4. Obstructive sleep apnea with CPAP use 5. Uncontrolled insulin-dependent diabetes mellitus with hemoglobin A1c 8.6% and diabetic neuropathy 6. Coronary artery disease status post angioplasty with stenting to the LAD 7. Ischemic cardiomyopathy 8. Hypertension 9. Paroxysmal atrial fibrillation on chronic Eliquis for anticoagulation 10. Obesity 11. Acute kidney injury, resolved Plan: 1. Continue chest tube to waterseal. Will continue to monitor for resolution of air leak. May consider allowing patient to go home with Pneumostat until resolution of air leak, drainage needs to be less first. 2. Will monitor daily x-rays. 3. Pain control with current medication regimen. No narcotics. 4. GI/DVT prophylaxis. 5. Continue home medications with parameters on blood pressure medications. 6. Bronchodilators per pulmonology. 7. Encourage is a spirometry is 10 times every hour while awake. 8. Increase activity, ambulate in hallway. Physical therapy following. 9. Encourage continued smoking cessation. 10. Insulin management per primary care service. 11. Discharge planning in place. 12. Oncology was consulted, per guidelines adjuvant chemotherapy is recommend ed, however patient needs to heal for at least 4-6 weeks prior to starting treatment. 13. More recommendations to follow. Time with Patient: Greater than 30
--- NOTE | 2019-03-18 12:07 | P.PN ---
Subjective Progress Note Date: 03/18/19 Principal diagnosis: COPD, lung mass, status post right upper lobectomy. This is a 78-year-old white male with history of multiple medical problems including insulin-dependent diabetes, chronic atrial fibrillation, coronary artery disease and previous stenting, hypercholesterolemia, degenerative joint disease with previous bilateral knee replacement, history of left rotator cuff surgery, permanent pacemaker implantation and stenting of LAD in 1998. Patient is also known to have history of COPD FEV1 is in the range of 50%, 1.31 L, patient was recently evaluated by me for a right hilar mass, patient underwent a PET scan and showed uptake within the right suprahilar mass and no other abnormality was noted. 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 Patient was referred to Dr. Cochran, and he underwent right upper lobectomy with rima dissection today, postoperatively he was transferred to the cardiac floor, and I was asked to see him on consultation. Patient seems to be doing fairly well, complaining mostly of right sided chest pain at the surgical site, has a right sided chest tube in place with minimal air leak noted. Chest x-ray showed postoperative changes and no other significant findings otherwise. Patient is seen today 03/18/2019 in follow-up on the selective care unit. He is currently sitting up in a chair at the bedside. Awake and alert in no acute distress. He is maintaining good O2 saturations in the 90s on room air. He's been afebrile. Hemodynamically stable. He remains on DuoNeb inhalations, Symbicort. Today's chest x-ray shows increasing subcutaneous emphysema throughout the right chest and soft tissues of the neck. There is approximate 5-10% right-sided pneumothorax remaining. Chest tube remains in place to waterseal, minimal air leak, continues with drainage as well. Objective - Vital Signs Vital signs: Vital Signs Temp 97.8 F 03/18/19 09:15 Pulse 68 03/18/19 09:15 Resp 16 03/18/19 09:15 BP 140/76 03/18/19 09:15 Pulse Ox 93 L 03/18/19 09:15 Intake & Output 03/17/19 03/18/19 03/18/19 18:59 06:59 18:59 Intake Total 720 240 250 Output Total 850 1050 20 Balance -130 -810 230 Weight 111.7 kg Intake: IV 10 Invasive Line 7 10 Oral 720 240 240 Output: Chest Tube Drainage 50 150 20 Chest Tube Right 50 150 20 Urine 800 900 Other: Voiding Method Toilet Toilet Urinal Urinal # Voids 1 3 - Exam GENERAL EXAM: Alert, pleasant, 78-year-old white male, on room air, comfortable in no apparent distress. HEAD: Normocephalic/atraumatic. EYES: Normal reaction of pupils, equal size. Conjunctiva pink, sclera white. NOSE: Clear with pink turbinates. THROAT: No erythema or exudates. NECK: No masses, no JVD, no thyroid enlargement, no adenopathy. CHEST: No chest wall deformity. Symmetrical expansion. Right-sided chest tube is in place, with intermittent air leak LUNGS: Equal air entry with no crackles, wheeze, rhonchi or dullness. Diminished breath sounds on the right CVS: Regular rate and rhythm, normal S1 and S2, no gallops, no murmurs, no rubs ABDOMEN: Soft, nontender. No hepatosplenomegaly, normal bowel sounds, no guarding or rigidity. EXTREMITIES: No clubbing, no edema, no cyanosis, 2+ pulses and upper and lower extremities. MUSCULOSKELETAL: Muscle strength and tone normal. SPINE: No scoliosis or deformity SKIN: No rashes CENTRAL NERVOUS SYSTEM: No focal deficits, tone is normal in all 4 extremities. PSYCHIATRIC: Alert and oriented -3. Appropriate affect. Intact judgment and insight. - Labs CBC & Chem 7: 03/16/19 06:37 03/17/19 06:24 Labs: Abnormal Lab Results - Last 24 Hours (Table) 03/17/19 03/17/19 03/18/19 Range/Units 16:42 21:00 06:02 POC Glucose (mg/dL) 135 H 133 H 156 H (75-99) mg/dL 03/18/19 Range/Units 11:40 POC Glucose (mg/dL) 132 H (75-99) mg/dL Assessment and Plan Assessment: Assessment: 1 status post right upper lobectomy pathology is 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 Right-sided chest tube remains in place. 5-10% pneumothorax. Continues with small air leak. Continues with drainage. 2 moderate severe COPD FEV1 is in the range of 50%. 3 obstructive sleep apnea syndrome 4 coronary arteriosclerosis and previous stent placement. 5 benign essential hypertension 6 pacemaker in situ 7 history of vitamin D deficiency 8 type 2 diabetes 9 chronic atrial fibrillation. Plan: The patient is seen and evaluated by Dr. Blanton. Chest x-ray reviewed. Continues with intermittent leak. 5-10% right apical pneumothorax. Continues with drainage as well. Encourage increased use of the incentive spirometer and cough and deep breathing exercises. We'll continue to follow and make further recommendations based on his clinical status. I, the cosigning physician, performed a history & physical examination of the patient. Lungs sounds with few scattered rhonchi, crackles in the posterior bases, diminished. Maintaining good O2 saturations in the 90s on room air. I discussed the assessment and plan of care with my nurse practitioner, Swetha Wang. I attest to the above note as dictated by her.
[2019-03-18] MEDS: SENNOSIDES-DOCUSATE SODIUM 1 EACH TAB PO PRN (12:43)
[2019-03-18 14:12] VITALS: BMI 37.4
--- NOTE | 2019-03-18 15:27 | P.PN ---
Subjective Progress Note Date: 03/18/19 This is a 78-year-old white male with history of multiple medical problems including insulin-dependent diabetes, chronic atrial fibrillation, coronary artery disease and previous stenting, hypercholesterolemia, degenerative joint disease with previous bilateral knee replacement, history of left rotator cuff surgery, permanent pacemaker implantation and stenting of LAD in 1998. Patient was recently evaluated for a right hilar mass, patient underwent a PET scan and showed uptake within the right suprahilar mass and no other abnormality was noted. 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 Patient was referred to Dr. Cochran, and he underwent right upper lobectomy with rima dissection , postoperatively he was transferred to the cardiac floor, and we were asked to see him in consultation. Patient had been seen in consultation yesterday by Dr. Sanchez. He was seen and examined this morning on the telemetry unit, complained of feeling somewhat listless and lightheaded. His blood pres sure is running in the 90 systolic range. He is complaining of some mild incisional discomfort, still working hard on his incentive spirometry reaching approximately 1000. Right-sided chest tube remains in place with continuous air leak, moderate amount of serous sanguinous output in the right chest tube. He was on 20 mg of lisinopril, we'll decrease that to 10 mg daily from today. 03/09/2019 Patient seen and examined this morning, feeling much better today than he did yesterday morning. No further episodes of lightheadedness, much less listless today. Continues to have right-sided chest tube in place to water seal. Airleak is improving as compared with 2 days ago. Today's chest x-ray shows essentially stable chest with small right apical pneumothorax. Blood pressure this morning 102/50 with a heart rate in the 70s, 95% on 2 L of oxygen. White blood cell count 8.3, hemoglobin 9.8, platelet count 161. Magnesium 1.6. Sodium 131, potassium 4.9, BUN 42 and creatinine 1.6. 03/10/2019 Patient was seen and examined this morning continues to do better. Repeat chest x-ray from this morning showed cardiomegaly with right-sided pneumothorax. Blood pressure 140/70 with heart rate in the 70s, 93%Ra. 55 mL out of the chest tube. White blood cell count 7.2, hemoglobin 10.2, platelet count 220. Sodium 136, potassium 5.8, BUN 30 and creatinine 1.2, magnesium 2.1. 03/11/2019 Patient was seen and examined this morning, sitting up in the chair bedside. Breathing is overall stable. He had an episode this morning where he was found to be unresponsive, Narcan was given to the patient. At the time of my examination he was alert and oriented 3. Continues to have the chest tube in place, he also continues to have an intermittent air leak and the pleural chest tube. Blood pressure 150/70 with a heart rate in the 80s, 95% on 2 L of oxygen. White blood cell count 8.3, hemoglobin 10.4, platelet count 225. 03/12/2019 Patient was seen and examined this morning, feeling better today. Still did not sleep well through the night last night because he is unable to use the mask associated with the CPAP here. Blood pressure 180/80, we will resume the GILES inhibitor which the patient was on. 03/13/2019 Patient seen and examined this morning, did appear a little anxious today, blood pressure continues to be elevated. We will increase his dose of GILES inhibitor to 20 mg daily today. His doctor's also initiated him on Zoloft for his anxiety. 03/15/2019 Patient seen and examined this morning, overall is doing well, but he is complaining of more pain in his back today. Hemodynamically stable. 03/17/2019 Patient seen and examined this morning, sitting up in the chair at bedside. Still having some back discomfort, Blood pressure remaining stable. Breathing is improving. 03/18/2018 Patient was seen and examined this morning, continues to maintain good oxygen saturations, hemodynamically stable, blood pressure today 134/62 with a heart rate in the 70s. Chest x-ray from today does reveal increasing subcutaneous emphysema through the right chest and soft tissues of the neck with a 5-10% right-sided pneumothorax remaining. Chest tube remains in place to water seal with a minimal airleak. Continuing to drain well. Objective - Vital Signs Vital signs: Vital Signs Temp 97.8 F 03/18/19 09:15 Pulse 65 03/18/19 12:00 Resp 16 03/18/19 12:00 BP 140/76 03/18/19 09:15 Pulse Ox 93 L 03/18/19 09:15 Intake & Output 03/17/19 03/18/19 03/18/19 18:59 06:59 18:59 Intake Total 720 240 450 Output Total 850 1050 620 Balance -130 -810 -170 Weight 111.7 kg 111.7 kg Intake: IV 10 Invasive Line 7 10 Oral 720 240 440 Output: Chest Tube Drainage 50 150 20 Chest Tube Right 50 150 20 Urine 800 900 600 Other: Voiding Method Toilet Toilet Urinal Urinal # Voids 1 3 - Exam HEAD: Normocephalic/atraumatic. EYES: Normal reaction of pupils, equal size. Conjunctiva pink, sclera white. NOSE: Clear with pink turbinates. THROAT: No erythema or exudates. NECK: No masses, no JVD, no thyroid enlargement, no adenopathy. CHEST: No chest wall deformity. Symmetrical expansion. Right-sided chest tube is in place, with continuous air leak, and moderate amount of thin se rosanguineous output in the Pleur-evac LUNGS: Equal air entry with no crackles, wheeze, rhonchi or dullness. Diminished breath sounds on the right CVS: Regular rate and rhythm, normal S1 and S2, no gallops, no murmurs, no rubs ABDOMEN: Soft, nontender. No hepatosplenomegaly, normal bowel sounds, no guarding or rigidity. EXTREMITIES: No clubbing, no edema, no cyanosis, 2+ pulses and upper and lower extremities. MUSCULOSKELETAL: Muscle strength and tone normal. SPINE: No scoliosis or deformity SKIN: No rashes CENTRAL NERVOUS SYSTEM: Alert and oriented -3. No focal deficits, tone is normal in all 4 extremities. PSYCHIATRIC: Alert and oriented -3. Appropriate affect. Intact judgment and i nsight. - Labs CBC & Chem 7: 03/16/19 06:37 03/17/19 06:24 Labs: Abnormal Lab Results - Last 24 Hours (Table) 03/17/19 03/17/19 03/18/19 Range/Units 16:42 21:00 06:02 POC Glucose (mg/dL) 135 H 133 H 156 H (75-99) mg/dL 03/18/19 Range/Units 11:40 POC Glucose (mg/dL) 132 H (75-99) mg/dL Assessment and Plan Plan: Assessment and plan #1 status post right upper lobectomy for what seems to be a 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 #2 moderate severe COPD FEV1 is in the range of 50%. #3 obstructive sleep apnea syndrome #4 coronary arteriosclerosis and previous stent placement. #5 benign essential hypertension #6 pacemaker in situ #7 history of vitamin D deficiency #8 type 2 diabetes #9 chronic atrial fibrillation. Plan From cardiology's perspective, we will continue the patient on his current medications. We will follow along with you now on an as-needed basis only, please don't hesitate to call if you have any questions. DNP note has been reviewed, I agree with a documented findings and plan of care. Patient was seen and examined.
[2019-03-18 16:42] LABS: Glucose,Whole Blood 141 mg/dL (75-99)
--- NOTE | 2019-03-18 17:40 | PN ---
PROGRESS NOTE DATE OF SERVICE: 03/18/2019 PRESENTING COMPLAINT: Right lung surgery. INTERVAL HISTORY: Patient is status post right upper lobectomy for lung cancer with one positive lymph node. Patient continues to have an air leak on the right-sided chest tube and also a fair amount of drainage picking up again. Otherwise patient is stable, tolerating a diet. Patient's discharge has been held therefore. REVIEW OF SYSTEMS: Done for constitutional, cardiovascular, GI, pulmonary; relevant findings as above. CURRENT MEDICATIONS: Reviewed. PHYSICAL EXAMINATION: VITAL SIGNS: Temperature 98.2, pulse 73, respiration 16, blood pressure 129/57, pulse ox 92% on room air. GENERAL APPEARANCE: Lying in bed, tired. EYES: Pupils equal. Conjunctivae normal. NECK: JVD unable to assess. Mass not palpable. RESPIRATORY: Effort normal. LUNGS: Decreased breath sounds. CARDIOVASCULAR: First and second sounds normal. Minimal edema. ABDOMEN: Soft, nontender. Liver and spleen not palpable. PSYCHIATRY: Alert and oriented x3. Mood and affect normal. INVESTIGATIONS: Accu-Cheks are noted: 156, 132. Potassium 4.2, BUN 21, creatinine 1.08. ASSESSMENT: 1. Right upper lobe lobectomy for moderately differentiated squamous cell carcinoma, [id number] type. Chest tube in place with one out of 20 lymph nodes positive. Patient will get chemotherapy as an outpatient. 2. Right chest wall tube with air leak and still having a significant amount of drainage again. 3. Morbid obesity with body mass index of 37.3. 4. Diabetes mellitus, type 2, chronically on insulin. 5. Acute renal failure; a combination of prerenal acute tubular necrosis, now corrected. 6. Persistent atrial fibrillation, rate controlled. 7. Chronic obstructive pulmonary disease in an ex-smoker. 8. Essential hypertension. 9. Hyperlipidemia. 10.Coronary artery disease with prior history of stent. 11.Obstructive sleep apnea. Uses BiPAP. 12.Diabetic peripheral neuropathy. 13.Leukocytosis. PLAN: Care was discussed with Zaria from Cardiothoracic. Patient is to stay in the hospital. In the meantime, sugars are reasonably controlled. Continue current medication and treatment plan. Will follow. MMODL / IJN: [id number] /
[2019-03-18] MEDS: MELATONIN 5 MG TABLET PO SCH (20:23)
[2019-03-18] MEDS: METOPROLOL SUCCINATE (ER) 50 MG TAB.ER.24H PO SCH (20:23)
[2019-03-18] MEDS: ATORVASTATIN 20 MG TAB PO SCH (20:23)
[2019-03-18 20:43] LABS: Glucose,Whole Blood 150 mg/dL (75-99)
[2019-03-18] MEDS: ALPRAZolam 0.25 MG TAB PO SCH (22:40)
[2019-03-19] MEDS: ACETAMINOPHEN TAB 500 MG TAB PO PRN ×3 (02:33→22:14)
[2019-03-19 06:21] LABS: Glucose,Whole Blood 163 mg/dL (75-99)
[2019-03-19 06:48] LABS: HCT 35.3 % (39.0-53.0); HGB 11.4 gm/dL (13.0-17.5); MCH 30.7 pg (25.0-35.0); MCHC 32.3 g/dL (31.0-37.0); Mean Platelet Volume 7.1; Platelet Count 426 k/uL (150-450); RBC 3.72 m/uL (4.30-5.90); RDW 15.2 % (11.5-15.5)
[2019-03-19 06:55] LABS: Calcium 9.3 mg/dL (8.4-10.2); Potassium 4.3 mmol/L (3.5-5.1)
[2019-03-19] MEDS: INSULIN ASPART (NovoLOG) 100 UNIT/ML VIAL SQ SCH ×4 (07:31→20:27)
[2019-03-19] MEDS: INSULN ASP PRT/INSULIN ASPART 100 UNIT/ML 10 ML VIAL SQ SCH ×3 (07:31→17:32)
[2019-03-19] MEDS: PANTOPRAZOLE 40 MG TABLET PO SCH (07:31)
[2019-03-19] MEDS: IPRATROPIUM-ALBUTEROL 3 ML NEB IH SCH ×4 (07:38→20:33)
[2019-03-19] MEDS: SYMBICORT 80-4.5 MCG INHALER INHALATION SCH ×2 (07:38→20:33)
--- NOTE | 2019-03-19 08:57 | XR ---
EXAMINATION TYPE: XR chest 2V DATE OF EXAM: 03/19/2019 COMPARISON: 03/18/2019 TECHNIQUE: PA and lateral views submitted. HISTORY: Postop FINDINGS: There is extensive subcutaneous emphysema. Chest tube noted. There is a persistent right-sided hydrop neumothorax measuring approximately 20 %. Left- sided consolidation stable. Heart size mildly enlarge d. Cardiac device and atherosclerotic change aorta. Arthropathy of the shoulders. Hypertrophic change of the spine. Bilateral subsegmental consolidation. IMPRESSION: 1. Right-sided pneumothorax now measures approximately 20%. Chest tube remains in position. Diffuse s ubcutaneous emphysema persists. There are 2 bilateral consolidation and small effusion.
[2019-03-19] MEDS: ASPIRIN 81 MG PO SCH (08:59)
[2019-03-19] MEDS: LISINOPRIL 20 MG TAB PO SCH (08:59)
[2019-03-19] MEDS: MAGNESIUM OXIDE 400 MG TAB PO SCH (08:59)
[2019-03-19] MEDS: CHOLECALCIFEROL 1,000 UNIT TAB PO SCH (08:59)
[2019-03-19] MEDS: SERTRALINE 50 MG TAB PO SCH (09:00)
[2019-03-19] MEDS: CHLORTHALIDONE 25 MG TAB PO SCH (09:00)
[2019-03-19] MEDS: amLODIPine 10 MG TAB PO SCH (09:00)
[2019-03-19] MEDS: IBUPROFEN 600 MG TAB PO PRN ×3 (09:00→20:22)
[2019-03-19] MEDS: HEPARIN SODIUM,PORCINE 5,000 UNIT/ML 1 ML VIAL SQ SCH ×3 (09:01→22:14)
--- NOTE | 2019-03-19 10:29 | P.PN ---
Subjective Progress Note Date: 03/19/19 Principal diagnosis: Right upper lobe lung cancer. Previous medical history of COPD, previous tobacco dependence with smoking cessation approximately 1 month ago and [id number] history, obstructive sleep apnea with CPAP use, uncontrolled insulin-dependent diabetes mellitus with hemoglobin A1c 8.6% and diabetic neuropathy, coronary artery disease status post angioplasty with stenting to the LAD, ischemic cardiomyopathy, hypertension, paroxysmal atrial fibrillation on chronic Eliquis for anticoagulation, obesity. Acute kidney injury, likely secondary to dehydration. POD #13 robotic assisted thoracoscopic right upper lobectomy with mediastinal lymph node dissection. Right thoracotomy with re-resection of bronchial stump and suture closure The patient is currently sitting up in the chair in no acute distress. States pain is was not controlled last night causing him to get very little sleep. Denies shortness of breath. Ambulated in the hallway 4 times yesterday. Right pleural chest tube remains to waterseal, minimal intermittent air leak remains with coughing. Revisited the possibility of sending the patient home with Pneumostat, patient still very nervous to go home as he lives more than an hour away. Objective - Vital Signs Vital signs: Vital Signs Temp 96.5 F L 03/19/19 08:00 Pulse 69 03/19/19 08:00 Resp 16 03/19/19 08:00 BP 158/71 03/19/19 08:00 Pulse Ox 95 03/19/19 08:00 Intake & Output 03/18/19 03/19/19 03/19/19 18:59 06:59 18:59 Intake Total 710 240 Output Total 620 60 Balance 90 -60 240 Weight 111.7 kg 110.4 kg Intake: IV 30 Invasive Line 7 10 Invasive Line 8 20 Oral 680 240 Output: Chest Tube Drainage 20 60 Chest Tube Right 20 60 Drainage 0 Right Chest 0 Urine 600 Other: Voiding Method Toilet Toilet Urinal # Voids 1 - Constitutional General appearance: Present: cooperative, no acute distress, obese - Respiratory Details: Lungs sounds diminished bilaterally. Respirations even, nonlabored. Currently on room air with oxygen saturation 95%. Able to achieve 1000 mL on his incentive spirometry. Right pleural chest tube to waterseal, 10 mL serosa nguineous drainage overnight, 100 mL in the last 24 hours, positive small intermittent air leak with coughing. - Cardiovascular Details: S1, S2 present. Regular rate and rhythm, sinus rhythm on telemetry. Palpable peripheral pulses bilaterally. No edema present. No calf pain or tenderness noted. SCDs present. - Gastrointestinal Gastrointestinal Comment(s): Abdomen soft, nontender, nondistended. Active bowel sounds present 4 quadrants. Tolerating diet. Positive bowel movement. - Genitourinary Genitourinary Comment(s): Continues to void clear, yellow urine. - Integumentary Integumentary Comment(s): Skin is warm and dry with evidence of good perfusion. Right pleural chest tube site covered with dry intact dressing. - Neurologic Neurologic: Present: CNII-XII intact - Musculoskeletal Musculoskeletal: Present: gait normal, strength equal bilaterally - Psychiatric Psychiatric: Present: A&O x's 3, appropriate affect, intact judgment & insight - Allied health notes Allied health notes reviewed: nursing - Labs CBC & Chem 7: 03/19/19 06:26 03/19/19 06:26 Labs: Abnormal Lab Results - Last 24 Hours (Table) 03/18/19 03/18/19 03/18/19 Range/Units 11:40 16:31 20:24 WBC (3.8-10.6) k/uL RBC (4.30-5.90) m/uL Hgb (13.0-17.5) gm/dL Hct (39.0-53.0) % BUN (9-20) mg/dL Glucose (74-99) mg/dL POC Glucose (mg/dL) 132 H 141 H 150 H (75-99) mg/dL 03/19/19 03/19/19 03/19/19 Range/Units 06:20 06:26 06:26 WBC 12.0 H (3.8-10.6) k/uL RBC 3.72 L (4.30-5.90) m/uL Hgb 11.4 L (13.0-17.5) gm/dL Hct 35.3 L (39.0-53.0) % BUN 22 H (9-20) mg/dL Glucose 163 H (74-99) mg/dL POC Glucose (mg/dL) 163 H (75-99) mg/dL - Imaging and Cardiology Chest x-ray: report reviewed, image reviewed Assessment and Plan Assessment: 1. Right upper lobe lung cancer, status post robotic-assisted thoracoscopic right upper lobectomy with mediastinal lymph node dissection, right thoracotomy with re-resection of bronchial stump and suture closure 2. History of COPD 3. Previous tobacco dependence 4. Obstructive sleep apnea with CPAP use 5. Uncontrolled insulin-dependent diabetes mellitus with hemoglobin A1c 8.6% and diabetic neuropathy 6. Coronary artery disease status post angioplasty with stenting to the LAD 7. Ischemic cardiomyopathy 8. Hypertension 9. Paroxysmal atrial fibrillation on chronic Eliquis for anticoagulation 10. Obesity 11. Acute kidney injury, resolved Plan: 1. Continue chest tube to waterseal. Will continue to monitor for resolution of air leak. Discussed allowing patient to go home with Pneumostat until resolution of air leak, patient and are very reluctant. 2. Will monitor daily x-rays. 3. Pain control with current medication regimen. No narcotics. Ibuprofen added. 4. GI/DVT prophylaxis. 5. Continue home medications with parameters on blood pressure medications. 6. Bronchodilators per pulmonology. 7. Encourage is a spirometry is 10 times every hour while awake. 8. Increase activity, ambulate in hallway. Physical therapy following. 9. Encourage continued smoking cessation. 10. Insulin management per primary care service. 11. Discharge planning in place. 12. Oncology was consulted, per guidelines adjuvant chemotherapy is recommend ed, however patient needs to heal for at least 4-6 weeks prior to starting treatment. 13. More recommendations to follow. Time with Patient: Greater than 30
[2019-03-19 12:12] LABS: Glucose,Whole Blood 116 mg/dL (75-99)
[2019-03-19 16:51] LABS: Glucose,Whole Blood 141 mg/dL (75-99)
--- NOTE | 2019-03-19 17:51 | P.PN ---
Subjective Progress Note Date: 03/19/19 On today's evaluation of 03/19/2019, the patient is postop day #13 following a robotic-assisted thoracoscopic right upper lobe resection with mediastinal lymph node. The patient was diagnosed having stage II non-small cell lung cancer. The patient is still having issues with a right-sided pneumothorax and air leak. On today's chest x-ray, there is a 50-20% pneumothorax on the right side. The Pleur-evac is still showing evidence of air leak. The patient denies having any shortness of breath. He is utilizing his CPAP during sleep. No chest pain. No shortness of breath. No cough or sputum production. No hemodynamic instability. He remains on DuoNeb neb last treatment [id number], Symb icort as maintenance. Objective - Vital Signs Vital signs: Vital Signs Temp 96.1 F L 03/19/19 12:00 Pulse 68 03/19/19 16:32 Resp 16 03/19/19 16:32 BP 128/64 03/19/19 14:59 Pulse Ox 93 L 03/19/19 16:19 Intake & Output 03/18/19 03/19/19 03/19/19 18:59 06:59 18:59 Intake Total 710 480 Output Total 620 60 900 Balance 90 -60 -420 Weight 111.7 kg 110.4 kg Intake: IV 30 Invasive Line 7 10 Invasive Line 8 20 Oral 680 480 Output: Chest Tube Drainage 20 60 Chest Tube Right 20 60 Drainage 0 Right Chest 0 Urine 600 900 Other: Voiding Method Toilet Toilet Toilet Urinal # Voids 1 1 - Exam - Constitutional General appearance: Present: cooperative, no acute distress, obese - Respiratory Details: Lungs sounds diminished bilaterally. Respirations even, nonlabored. Currently on room air with oxygen saturation 95%. Able to achieve 1000 mL on his incentive spirometry. Right pleural chest tube to waterseal, 10 mL serosanguineous drainage overnight, 100 mL in the last 24 hours, positive small intermittent air leak with coughing. - Cardiovascular Details: S1, S2 present. Regular rate and rhythm, sinus rhythm on telemetry. Palpable peripheral pulses bilaterally. No edema present. No calf pain or tenderness noted. SCDs present. - Gastrointestinal Gastrointestinal Comment(s): Abdomen soft, nontender, nondistended. Active bowel sounds present 4 quadrants. Tolerating diet. Positive bowel movement. - Genitourinary Genitourinary Comment(s): Continues to void clear, yellow urine. - Integumentary Integumentary Comment(s): Skin is warm and dry with evidence of good perfusion. Right pleural chest tube site covered with dry intact dressing. - Neurologic Neurologic: Present: CNII-XII intact - Musculoskeletal Musculoskeletal: Present: gait normal, strength equal bilaterally - Psychiatric Psychiatric: Present: A&O x's 3, appropriate affect, intact judgment & insight - Labs CBC & Chem 7: 03/19/19 06:26 03/19/19 06:26 Labs: Abnormal Lab Results - Last 24 Hours (Table) 03/18/19 03/19/19 03/19/19 Range/Units 20:24 06:20 06:26 WBC 12.0 H (3.8-10.6) k/uL RBC 3.72 L (4.30-5.90) m/uL Hgb 11.4 L (13.0-17.5) gm/dL Hct 35.3 L (39.0-53.0) % BUN (9-20) mg/dL Glucose (74-99) mg/dL POC Glucose (mg/dL) 150 H 163 H (75-99) mg/dL 03/19/19 03/19/19 03/19/19 Range/Units 06:26 11:51 16:47 WBC (3.8-10.6) k/uL RBC (4.30-5.90) m/uL Hgb (13.0-17.5) gm/dL Hct (39.0-53.0) % BUN 22 H (9-20) mg/dL Glucose 163 H (74-99) mg/dL POC Glucose (mg/dL) 116 H 141 H (75-99) mg/dL Assessment and Plan Plan: 1 non-small cell lung cancer and the patient is status post robotic-assisted right upper lobe resection with a postsurgical diagnosis of stage II lung disease, T2 N1 2 right-sided pneumothorax 3 persistent right-sided air leak and the chest is still in place 4 COPD, preoperative FEV1 of 50% of predicted 5 obstructive sleep apnea maintained on CPAP therapy 6 coronary artery disease with previous and depressed and stenting of the LAD 7 uncontrolled insulin-dependent diabetes mellitus with an HbA1c of 8.6 8 diabetic neuropathy 9 history of pacemaker insertion 10 obesity 11 paroxysmal atrial fibrillation on long-term and to coagulation with Eliquis on outpatient basis, currently on no anticoagulants and the patient is only on subcu heparin for DVT prophylaxis. 12 subcutaneous emphysema 13 history of depression currently on Zoloft 14 history of hyperlipidemia 15 hypertension Plan Continue monitoring this patient. Incentive spirometer. Keep the Pleur-evac to suctioning. Monitor the air leak. Repeat chest x-ray in the morning. We'll continue to follow.
[2019-03-19] MEDS: ATORVASTATIN 20 MG TAB PO SCH (20:22)
[2019-03-19] MEDS: METOPROLOL SUCCINATE (ER) 50 MG TAB.ER.24H PO SCH (20:22)
[2019-03-19 20:28] LABS: Glucose,Whole Blood 134 mg/dL (75-99)
[2019-03-19] MEDS: ALPRAZolam 0.25 MG TAB PO SCH (22:14)
[2019-03-19] MEDS: MELATONIN 5 MG TABLET PO SCH (22:15)
--- NOTE | 2019-03-20 00:30 | P.PN ---
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 This is a 78-year-old white male with history of multiple medical problems including insulin-dependent diabetes, chronic atrial fibrillation, coronary artery disease and previous stenting, hypercholesterolemia, degenerative joint disease with previous bilateral knee replacement, history of left rotator cuff surgery, permanent pacemaker implantation and stenting of LAD in 1998. Patient was recently evaluated for a right hilar mass, patient underwent a PET scan and showed uptake within the right suprahilar mass and no other abnormality was noted. Underwent bronchoscopy/navigational bronchoscopy and he was diagnosed as having moderately differentiated squamous cell carcinoma, felt to be a stage II. Patient was referred to Dr. Cochran, and he underwent right upper lobectomy with rima dissection. 03/19/2019 Patient is postoperative day 13. Status post robotic-assisted thoracoscopic right upper lobe resection with mediastinal lymph node biopsy. Patient is diagnosed with non-small cell lung cancer stage II. Chest x-ray showed right-sided pneumothorax measures approximately 20%. Chest tube in position. Diffuse subcutaneous emphysema persists. There are bilateral consolidation and small effusion. Currently patient is sitting on the side of the bed comfortably. No complaints of chest pain or shortness of breath. No cough or sputum production. Patient is being continued on breathing treatments and incentive spirometry. Pulmonary cardiology and CT surgery is following. Current medications reviewed. Objective - Vital Signs Vital signs: Vital Signs Temp 96.1 F L 03/19/19 12:00 Pulse 73 03/19/19 14:59 Resp 16 03/19/19 15:05 BP 128/64 03/19/19 14:59 Pulse Ox 93 L 03/19/19 14:59 Intake & Output 03/18/19 03/19/19 03/19/19 18:59 06:59 18:59 Intake Total 710 240 Output Total 620 60 600 Balance 90 -60 -360 Weight 111.7 kg 110.4 kg Intake: IV 30 Invasive Line 7 10 Invasive Line 8 20 Oral 680 240 Output: Chest Tube Drainage 20 60 Chest Tube Right 20 60 Drainage 0 Right Chest 0 Urine 600 600 Other: Voiding Method Toilet Toilet Toilet Urinal # Voids 1 1 - Exam PHYSICAL EXAMINATION: Patient is lying in the bed comfortably, no acute distress, awake alert and oriented.. HEENT: Normocephalic. Neck is supple. Pupils reactive. Nostrils clear. Oral cavity is moist. Ears reveal no drainage. Neck reveals no JVD, carotid bruits, or thyromegaly. CHEST EXAMINATION: Trachea is central. Symmetrical expansion. Right basilar crackles and bibasilar diminished air entry. No wheezing.. CARDIAC: Normal S1, S2 with no gallops. No murmurs ABDOMEN: Soft. Bowel sounds normal. No organomegaly. No abdominal bruits. Extremities: reveal no edema. No clubbing or cyanosis Neurologically awake, alert, oriented x3 with well-coordinated movements. No focal deficits noted Skin: No rash or skin lesions. Psychiatric: Coperative. Nonsuicidal Musculoskeletal: No joint swelling or deformity. Normal range of motion. - Labs CBC & Chem 7: 03/19/19 06:26 03/19/19 06:26 Labs: Abnormal Lab Results - Last 24 Hours (Table) 03/18/19 03/18/19 03/19/19 Range/Units 16:31 20:24 06:20 WBC (3.8-10.6) k/uL RBC (4.30-5.90) m/uL Hgb (13.0-17.5) gm/dL Hct (39.0-53.0) % BUN (9-20) mg/dL Glucose (74-99) mg/dL POC Glucose (mg/dL) 141 H 150 H 163 H (75-99) mg/dL 03/19/19 03/19/19 03/19/19 Range/Units 06:26 06:26 11:51 WBC 12.0 H (3.8-10.6) k/uL RBC 3.72 L (4.30-5.90) m/uL Hgb 11.4 L (13.0-17.5) gm/dL Hct 35.3 L (39.0-53.0) % BUN 22 H (9-20) mg/dL Glucose 163 H (74-99) mg/dL POC Glucose (mg/dL) 116 H (75-99) mg/dL Assessment and Plan Assessment: -status post right upper lobectomy pathology is 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 Right-sided chest tube remains in place. 20% pneumothorax. Continues with small air leak. Continues with drainage. - moderate severe COPD FEV1 is in the range of 50%. -obstructive sleep apnea syndrome - coronary arteriosclerosis and previous stent placement. - benign essential hypertension - pacemaker in situ - history of vitamin D deficiency - type 2 diabetes. Insulin-dependent -Diabetic peripheral neuropathy - chronic atrial fibrillation. - Morbid obesity BMI 37.0 -DVT prophylaxis with heparin subcu Plan: Patient will be continued on DuoNeb's, Symbicort and incentive spirometry.con tinue with insulin 7030, adjust dose as needed. Blood sugar is fairly controlled. Currently with chest tube and continues to drain well. Pulmonary cardiology and CT surgery is following. Continue the current management. Further recommendations based on the clinical course. Time with Patient: Greater than 30
[2019-03-20] MEDS: IBUPROFEN 600 MG TAB PO PRN ×4 (02:14→20:36)
[2019-03-20] MEDS: ACETAMINOPHEN TAB 500 MG TAB PO PRN ×3 (04:27→17:05)
[2019-03-20 06:31] LABS: Glucose,Whole Blood 126 mg/dL (75-99)
[2019-03-20] MEDS: INSULIN ASPART (NovoLOG) 100 UNIT/ML VIAL SQ SCH ×4 (06:47→20:46)
[2019-03-20] MEDS: INSULN ASP PRT/INSULIN ASPART 100 UNIT/ML 10 ML VIAL SQ SCH ×3 (07:28→17:05)
[2019-03-20] MEDS: PANTOPRAZOLE 40 MG TABLET PO SCH (07:29)
[2019-03-20 07:44] LABS: HCT 34.7 % (39.0-53.0); HGB 11.2 gm/dL (13.0-17.5); MCH 30.9 pg (25.0-35.0); MCHC 32.4 g/dL (31.0-37.0); MCV 95.4 fL (80.0-100.0); Mean Platelet Volume 6.7; Platelet Count 439 k/uL (150-450); RBC 3.64 m/uL (4.30-5.90); RDW 14.2 % (11.5-15.5); WBC 11.4 k/uL (3.8-10.6)
[2019-03-20] MEDS: LISINOPRIL 20 MG TAB PO SCH (08:03)
[2019-03-20] MEDS: CHOLECALCIFEROL 1,000 UNIT TAB PO SCH (08:03)
[2019-03-20] MEDS: amLODIPine 10 MG TAB PO SCH (08:03)
[2019-03-20] MEDS: ASPIRIN 81 MG PO SCH (08:03)
[2019-03-20] MEDS: CHLORTHALIDONE 25 MG TAB PO SCH (08:03)
[2019-03-20] MEDS: SERTRALINE 50 MG TAB PO SCH (08:03)
[2019-03-20] MEDS: HEPARIN SODIUM,PORCINE 5,000 UNIT/ML 1 ML VIAL SQ SCH ×3 (08:04→23:24)
[2019-03-20 08:14] LABS: Calcium 9.4 mg/dL (8.4-10.2); Potassium 4.5 mmol/L (3.5-5.1)
[2019-03-20] MEDS: SYMBICORT 80-4.5 MCG INHALER INHALATION SCH ×2 (08:58→20:34)
[2019-03-20] MEDS: IPRATROPIUM-ALBUTEROL 3 ML NEB IH SCH ×4 (08:58→20:34)
--- NOTE | 2019-03-20 09:47 | XR ---
EXAMINATION TYPE: XR chest 2V DATE OF EXAM: 03/20/2019 COMPARISON: Prior chest x-ray 03/19/2019 HISTORY: Post lobectomy, chest tube TECHNIQUE: Frontal and lateral views of the chest are obtained. FINDINGS: Findings are similar to prior exam. There is subcutaneous emphysema, right-sided chest tub e remains in place. Small apical pneumothorax is present. Defibrillator is unchanged. There may be sm all pleural effusion. Basilar atelectatic changes are present on the left. IMPRESSION: Stable postoperative findings. Small right apical pneumothorax.
[2019-03-20 11:33] LABS: Glucose,Whole Blood 132 mg/dL (75-99)
[2019-03-20] MEDS: MAGNESIUM OXIDE 400 MG TAB PO SCH (12:27)
--- NOTE | 2019-03-20 13:24 | P.PN ---
Subjective Progress Note Date: 03/20/19 Principal diagnosis: Limited stage squamous cell lung cancer resected Patient had chest tube out today, he is eating his lunch, he is looking for to going home in the next 24 hours. He describes mild shortness of breath on exertion, no hemoptysis, chest pain. Objective - Vital Signs Vital signs: Vital Signs Temp 98.0 F 03/20/19 12:00 Pulse 60 03/20/19 12:00 Resp 18 03/20/19 12:00 BP 129/67 03/20/19 12:00 Pulse Ox 95 03/20/19 12:00 Intake & Output 03/19/19 03/20/19 03/20/19 18:59 06:59 18:59 Intake Total 720 460 Output Total 1250 20 30 Balance -530 -20 430 Weight 110 kg Intake: Oral 720 460 Output: Chest Tube Drainage 20 30 Chest Tube Right 20 30 Drainage 0 0 Right Chest 0 0 Urine 1250 Other: Voiding Method Toilet # Voids 1 1 - Exam Well-developed, morbidly obese male sitting up in the chair eating his lunch, no acute distress, alert and oriented 4, no signs or symptoms of respiratory distress, patient is able to carry on a conversation without diff iculty in breathing, patient is visualized ambulating without deficit or assistive device. - Labs CBC & Chem 7: 03/20/19 07:04 03/20/19 07:04 Labs: Abnormal Lab Results - Last 24 Hours (Table) 03/19/19 03/19/19 03/20/19 Range/Units 16:47 20:25 06:29 WBC (3.8-10.6) k/uL RBC (4.30-5.90) m/uL Hgb (13.0-17.5) gm/dL Hct (39.0-53.0) % BUN (9-20) mg/dL Glucose (74-99) mg/dL POC Glucose (mg/dL) 141 H 134 H 126 H (75-99) mg/dL 03/20/19 03/20/19 03/20/19 Range/Units 07:04 07:04 11:32 WBC 11.4 H (3.8-10.6) k/uL RBC 3.64 L (4.30-5.90) m/uL Hgb 11.2 L (13.0-17.5) gm/dL Hct 34.7 L (39.0-53.0) % BUN 22 H (9-20) mg/dL Glucose 147 H (74-99) mg/dL POC Glucose (mg/dL) 132 H (75-99) mg/dL Assessment and Plan (1) Squamous cell carcinoma of lung, stage II Narrative/Plan: pT2 pN1 M0 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 No treatment will begin until pt is completely recovered from surgery. Follow-up appointment has been placed in the discharge summary. Current Visit: Yes Status: Acute Priority: High Code(s): C34.90 - MALIGNANT NEOPLASM OF UNSP PART OF UNSP BRONCHUS OR LUNG SNOMED Code(s): 185856419
--- NOTE | 2019-03-20 14:35 | XR ---
EXAMINATION TYPE: XR chest 1V portable DATE OF EXAM: 03/20/2019 COMPARISON: Prior chest x-ray 03/20/2019 and earlier time HISTORY: Chest tube removal TECHNIQUE: frontal view of the chest is obtained on 2 images. FINDINGS: There is been interval removal of the right-sided chest tube. Right apical pneumothorax pe rsists. There is subcutaneous emphysema. Pleural thickening again noted in the right chest. No other significant interval change. IMPRESSION: Persistent right apical pneumothorax. Status post chest tube removal as described.
--- NOTE | 2019-03-20 14:50 | P.PN ---
Subjective Progress Note Date: 03/20/19 Principal diagnosis: Right upper lobe lung cancer. Medical history of COPD, previous tobacco dependence with smoking cessation approximately 1 month ago and a [id number] history, obstructive sleep apnea with CPAP use, uncontrolled insulin-dependent diabetes mellitus with hemoglobin A1c 8.6% and diabetic neuropathy, coronary artery disease status post angioplasty with stenting to the LAD, ischemic cardiomyopathy, hypertension, paroxysmal atrial fibrillation on chronic Eliquis for anticoagulation, obesity. Acute kidney injury, likely secondary to dehydration. POD #14 robotic assisted thoracoscopic right upper lobectomy with mediastinal lymph node dissection. Right thoracotomy with re-resection of bronchial stump and suture closure The patient is currently sitting up to his bedside chair. Denies any complaints of pain or shortness of breath. He is in no acute distress. Right pleural chest tube remains in place and was placed to water seal. No air leak is present on his chest tube this morning. Draining thin serosanguineous drainage with 80 mL output in the last 24 hours. Oxygen saturations 95% on room air. Achieving 1500 to 2000 mL on his incentive spirometry. He continues ambulate in the 3 S. cardiac stepdown unit Hallway with minimal assistance. He is anxious be discharged home. Objective - Vital Signs Vital signs: Vital Signs Temp 98.0 F 03/20/19 12:00 Pulse 60 03/20/19 12:00 Resp 18 03/20/19 12:00 BP 129/67 03/20/19 12:00 Pulse Ox 95 03/20/19 12:00 Intake & Output 03/19/19 03/20/19 03/20/19 18:59 06:59 18:59 Intake Total 720 460 Output Total 1250 20 30 Balance -530 -20 430 Weight 110 kg Intake: Oral 720 460 Output: Chest Tube Drainage 20 30 Chest Tube Right 20 30 Drainage 0 0 Right Chest 0 0 Urine 1250 Other: Voiding Method Toilet # Voids 1 1 1 - Constitutional General appearance: Present: cooperative, no acute distress, obese - Respiratory Details: Lungs sounds essentially clear throughout, diminished to his bilateral bases right greater than left. Respirations are symmetrical and nonlabored. Oxygen saturation are 95% on room air. Achieving 3383-0847 mL on his incentive spirometry. Right pleural chest tube remains in place to water seal. No air leak is present. Draining thin serosanguineous drainage with 80 mL output in the last 24 hours. - Cardiovascular Details: Regular rhythm and rate. S1 and S2 present, negative for S3, gallop or murmur. Remote telemetry showing normal sinus rhythm heart rate 67. No adrenal present. Peripheral pulses palpable. Knee-high WILLEM hose and sequential compression devices in place was bilateral lower extremities. - Gastrointestinal Gastrointestinal Comment(s): abdomen is soft, nontender and nondistended. Active bowel sounds all 4 abdomi nal quadrants. No guarding or rigidity. No organomegaly. Tolerating oral intake. - Genitourinary Genitourinary Comment(s): Voiding clear yellow urine. - Integumentary Integumentary Comment(s): Skin is warm and dry. No clubbing or cyanosis is present. No rash or abnormal pigmentation is present. Right thoracotomy incision is clean, dry and approximated. No drainage or redness is present. Exofin dressing is clean, dry and intact. Small scattered dry scabbed areas to his right lower quadrant abdomen remained clean, dry with no drainage. Right pleural chest tube insertion site with dressing clean, dry and intact. Small amount of subcu emphysema to his anterior and posterior chest. - Neurologic Neurologic: Present: CNII-XII intact - Musculoskeletal Musculoskeletal: Present: gait normal, strength equal bilaterally - Psychiatric Psychiatric: Present: A&O x's 3, appropriate affect, intact judgment & insight - Allied health notes Allied health notes reviewed: nursing - Labs CBC & Chem 7: 03/20/19 07:04 03/20/19 07:04 Labs: Abnormal Lab Results - Last 24 Hours (Table) 03/19/19 03/19/19 03/20/19 Range/Units 16:47 20:25 06:29 WBC (3.8-10.6) k/uL RBC (4.30-5.90) m/uL Hgb (13.0-17.5) gm/dL Hct (39.0-53.0) % BUN (9-20) mg/dL Glucose (74-99) mg/dL POC Glucose (mg/dL) 141 H 134 H 126 H (75-99) mg/dL 03/20/19 03/20/19 03/20/19 Range/Units 07:04 07:04 11:32 WBC 11.4 H (3.8-10.6) k/uL RBC 3.64 L (4.30-5.90) m/uL Hgb 11.2 L (13.0-17.5) gm/dL Hct 34.7 L (39.0-53.0) % BUN 22 H (9-20) mg/dL Glucose 147 H (74-99) mg/dL POC Glucose (mg/dL) 132 H (75-99) mg/dL - Imaging and Cardiology Chest x-ray: report reviewed, image reviewed Assessment and Plan Assessment: 1. 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 Chronic obstructive pulmonary disease 3. Chronic tobacco dependence, quit smoking 1 month ago 4. Obstructive sleep apnea with CPAP use 5. Uncontrolled insulin-dependent diabetes mellitus with hemoglobin A1c 8.6% and diabetic neuropathy 6. Coronary artery disease status post angioplasty with stenting to the LAD 7. Ischemic cardiomyopathy 8. Hypertension 9. Paroxysmal atrial fibrillation on chronic Eliquis for anticoagulation 10. Obesity 11. Acute kidney injury, resolved Plan: 1. Discontinue right pleural chest tube. Repeat x-ray 2 hours post chest tube removal. 2. Monitor daily x-rays. 3. Pain control with current medication regimen. 4. GI/DVT prophylaxis. 5. Continue home medications with parameters on blood pressure medications. Managed by cardiology. 6. Bronchodilators per pulmonology management. 7. Encourage use of his incentive spirometry 10 times every hour while awake. Need continued encouragement. 8. Increase activity, ambulate in hallway. Physical therapy ordered. 9. Discussed the importance of continued smoking cessation. 10. Pathology results were reviewed with the patient by Dr. Cochran on 03/13/2019. 11. Oncology was consulted, per guidelines adjuvant chemotherapy is recommended, however patient needs to heal for at least 4-6 weeks prior to starting treatment. 12. Insulin management per primary care service. 13. Discharge planning is in place, anticipate discharge home within the next 24 hours. 14. More recommendations based on patient's clinical course. Right pleural chest tube removed this morning at 11:45 AM without incident. 4 x 4 gauze to cover, Vaseline impregnated gauze to cover, and secured with tape. Post chest tube removal chest x-ray demonstrates a tiny right apical pneumothora x. Time with Patient: Greater than 30
[2019-03-20 16:05] LABS: Glucose,Whole Blood 110 mg/dL (75-99)
--- NOTE | 2019-03-20 18:08 | P.PN ---
Subjective Progress Note Date: 03/20/19 Principal diagnosis: COPD, lung mass, status post right upper lobectomy. This is a 78-year-old white male with history of multiple medical problems including insulin-dependent diabetes, chronic atrial fibrillation, coronary artery disease and previous stenting, hypercholesterolemia, degenerative joint disease with previous bilateral knee replacement, history of left rotator cuff surgery, permanent pacemaker implantation and stenting of LAD in 1998. Patient is also known to have history of COPD FEV1 is in the range of 50%, 1.31 L, patient was recently evaluated by me for a right hilar mass, patient underwent a PET scan and showed uptake within the right suprahilar mass and no other abnormality was noted. 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 Patient was referred to Dr. Cochran, and he underwent right upper lobectomy with rima dissection today, postoperatively he was transferred to the cardiac floor, and I was asked to see him on consultation. Patient seems to be doing fairly well, complaining mostly of right sided chest pain at the surgical site, has a right sided chest tube in place with minimal air leak noted. Chest x-ray showed postoperative changes and no other significant findings otherwise. The patient is seen today 03/20/2019 in follow-up on the selective care unit. He is currently sitting up in a chair at the bedside. Awake and alert in no acute distress. Denies any worsening shortness of breath, cough or congestion. Chest x-ray continues to show small apical pneumothorax on the right. Stable compared to previous. Chest tube removed today. He continues to work well with the incentive spirometer. Continue good O2 saturations in the mid 90s on room air. He's been afebrile. Hemodynamically stable. Objective - Vital Signs Vital signs: Vital Signs Temp 96.6 F L 03/20/19 16:00 Pulse 67 03/20/19 16:24 Resp 16 03/20/19 16:24 BP 148/70 03/20/19 16:00 Pulse Ox 97 03/20/19 16:24 Intake & Output 03/19/19 03/20/19 03/20/19 18:59 06:59 18:59 Intake Total 720 460 Output Total 1250 20 30 Balance -530 -20 430 Weight 110 kg Intake: Oral 720 460 Output: Chest Tube Drainage 20 30 Chest Tube Right 20 30 Drainage 0 0 Right Chest 0 0 Urine 1250 Other: Voiding Method Toilet # Voids 1 1 1 - Exam GENERAL EXAM: Alert, pleasant, 78-year-old white male, on room air, comfortable in no apparent distress. On room air. HEAD: Normocephalic/atraumatic. EYES: Normal reaction of pupils, equal size. Conjunctiva pink, sclera white. NOSE: Clear with pink turbinates. THROAT: No erythema or exudates. NECK: No masses, no JVD, no thyroid enlargement, no adenopathy. CHEST: No chest wall deformity. Symmetrical expansion. LUNGS: Equal air entry with no crackles, wheeze, rhonchi or dullness. CVS: Regular rate and rhythm, normal S1 and S2, no gallops, no murmurs, no rubs ABDOMEN: Soft, nontender. No hepatosplenomegaly, normal bowel sounds, no guarding or rigidity. EXTREMITIES: No clubbing, no edema, no cyanosis, 2+ pulses and upper and lower extremities. MUSCULOSKELETAL: Muscle strength and tone normal. SPINE: No scoliosis or deformity SKIN: No rashes CENTRAL NERVOUS SYSTEM: No focal deficits, tone is normal in all 4 extremities. PSYCHIATRIC: Alert and oriented -3. Appropriate affect. Intact judgment and insight. - Labs CBC & Chem 7: 03/20/19 07:04 03/20/19 07:04 Labs: Abnormal Lab Results - Last 24 Hours (Table) 03/19/19 03/20/19 03/20/19 Range/Units 20:25 06:29 07:04 WBC 11.4 H (3.8-10.6) k/uL RBC 3.64 L (4.30-5.90) m/uL Hgb 11.2 L (13.0-17.5) gm/dL Hct 34.7 L (39.0-53.0) % BUN (9-20) mg/dL Glucose (74-99) mg/dL POC Glucose (mg/dL) 134 H 126 H (75-99) mg/dL 03/20/19 03/20/19 03/20/19 Range/Units 07:04 11:32 16:04 WBC (3.8-10.6) k/uL RBC (4.30-5.90) m/uL Hgb (13.0-17.5) gm/dL Hct (39.0-53.0) % BUN 22 H (9-20) mg/dL Glucose 147 H (74-99) mg/dL POC Glucose (mg/dL) 132 H 110 H (75-99) mg/dL Assessment and Plan Assessment: Assessment: 1 status post right upper lobectomy pathology is 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 Right-sided chest tube remains in place. 5-10% pneumothorax. Chest tube removed today. 2 moderate severe COPD FEV1 is in the range of 50%. 3 obstructive sleep apnea syndrome 4 coronary arteriosclerosis and previous stent placement. 5 benign essential hypertension 6 pacemaker in situ 7 history of vitamin D deficiency 8 type 2 diabetes 9 chronic atrial fibrillation. Plan: The patient is seen and evaluated by Dr. Blanton. Chest x-ray reviewed. Chest tube removed today. Maintaining good O2 saturations in the 90s on room air. Working well with the incentive spirometer. Probable discharge in the a.m. We'll continue to follow and make further recommendations based on his clinical status. I, the cosigning physician, performed a history & physical examination of the patient. Lungs sounds with few scattered rhonchi, crackles in the posterior bases, diminished. Maintaining good O2 saturations in the 90s on room air. I discussed the assessment and plan of care with my nurse practitioner, Swetha Wang. I attest to the above note as dictated by her.
[2019-03-20 19:50] LABS: Glucose,Whole Blood 139 mg/dL (75-99)
[2019-03-20] MEDS: METOPROLOL SUCCINATE (ER) 50 MG TAB.ER.24H PO SCH (20:35)
[2019-03-20] MEDS: ATORVASTATIN 20 MG TAB PO SCH (20:35)
[2019-03-20] MEDS: ALPRAZolam 0.25 MG TAB PO SCH (20:36)
[2019-03-20] MEDS: MELATONIN 5 MG TABLET PO SCH (20:36)
[2019-03-20 21:12] LABS: Glucose,Whole Blood 119 mg/dL (75-99)
--- NOTE | 2019-03-21 00:40 | P.PN ---
Subjective Progress Note Date: 03/20/19 Principal diagnosis: status post right upper lobectomy pathology is 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 This is a 78-year-old white male with history of multiple medical problems including insulin-dependent diabetes, chronic atrial fibrillation, coronary artery disease and previous stenting, hypercholesterolemia, degenerative joint disease with previous bilateral knee replacement, history of left rotator cuff surgery, permanent pacemaker implantation and stenting of LAD in 1998. Patient was recently evaluated for a right hilar mass, patient underwent a PET scan and showed uptake within the right suprahilar mass and no other abnormality was noted. Underwent bronchoscopy/navigational bronchoscopy and he was diagnosed as having moderately differentiated squamous cell carcinoma, felt to be a stage II. Patient was referred to Dr. Cochran, and he underwent right upper lobectomy with rima dissection. 03/19/2019 Patient is postoperative day 13. Status post robotic-assisted thoracoscopic right upper lobe resection with mediastinal lymph node biopsy. Patient is diagnosed with non-small cell lung cancer stage II. Chest x-ray showed right-sided pneumothorax measures approximately 20%. Chest tube in position. Diffuse subcutaneous emphysema persists. There are bilateral consolidation and small effusion. Currently patient is sitting on the side of the bed comfortably. No complaints of chest pain or shortness of breath. No cough or sputum production. Patient is being continued on breathing treatments and incentive spirometry. Pulmonary cardiology and CT surgery is following. 03/20/2019 Patient is currently sitting in a chair comfortably. No acute distress. Chest tube was removed today. Chest x-ray showed small apical pneumothorax on the right. No complaints of chest pain or worsening shortness of breath. No fever no chills. Saturating above 90% on room air. Anticipate discharge next 24-48 hours. Pulmonary is following. Current medications reviewed. Objective - Vital Signs Vital signs: Vital Signs Temp 98.2 F 03/20/19 20:15 Pulse 71 03/20/19 20:45 Resp 16 03/20/19 20:45 BP 134/63 03/20/19 20:15 Pulse Ox 94 L 03/20/19 20:15 Intake & Output 03/20/19 03/20/19 03/21/19 06:59 18:59 06:59 Intake Total 460 Output Total 20 30 Balance -20 430 Weight 110 kg Intake: Oral 460 Output: Chest Tube Drainage 20 30 Chest Tube Right 20 30 Drainage 0 Right Chest 0 Other: # Voids 1 1 - Exam PHYSICAL EXAMINATION: Patient is lying in the bed comfortably, no acute distress, awake alert and oriented.. HEENT: Normocephalic. Neck is supple. Pupils reactive. Nostrils clear. Oral cavity is moist. Ears reveal no drainage. Neck reveals no JVD, carotid bruits, or thyromegaly. CHEST EXAMINATION: Trachea is central. Symmetrical expansion. Right basilar crackles and improved air entry. No wheezing.. CARDIAC: Normal S1, S2 with no gallops. No murmurs ABDOMEN: Soft. Bowel sounds normal. No organomegaly. No abdominal bruits. Extremities: reveal no edema. No clubbing or cyanosis Neurologically awake, alert, oriented x3 with well-coordinated movements. No focal deficits noted Skin: No rash or skin lesions. Psychiatric: Coperative. Nonsuicidal Musculoskeletal: No joint swelling or deformity. Normal range of motion. - Labs CBC & Chem 7: 03/20/19 07:04 03/20/19 07:04 Labs: Abnormal Lab Results - Last 24 Hours (Table) 03/20/19 03/20/19 03/20/19 Range/Units 06:29 07:04 07:04 WBC 11.4 H (3.8-10.6) k/uL RBC 3.64 L (4.30-5.90) m/uL Hgb 11.2 L (13.0-17.5) gm/dL Hct 34.7 L (39.0-53.0) % BUN 22 H (9-20) mg/dL Glucose 147 H (74-99) mg/dL POC Glucose (mg/dL) 126 H (75-99) mg/dL 03/20/19 03/20/19 03/20/19 Range/Units 11:32 16:04 19:40 WBC (3.8-10.6) k/uL RBC (4.30-5.90) m/uL Hgb (13.0-17.5) gm/dL Hct (39.0-53.0) % BUN (9-20) mg/dL Glucose (74-99) mg/dL POC Glucose (mg/dL) 132 H 110 H 139 H (75-99) mg/dL Assessment and Plan Assessment: -status post right upper lobectomy pathology is 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 Chest tube was removed on 03/20/2019. Small right apical pneumothorax as per chest x-ray. - moderate severe COPD FEV1 is in the range of 50%. -obstructive sleep apnea syndrome - coronary arteriosclerosis and previous stent placement. - benign essential hypertension - pacemaker in situ - history of vitamin D deficiency - type 2 diabetes. Insulin-dependent -Diabetic peripheral neuropathy - chronic atrial fibrillation. - Morbid obesity BMI 37.0 -DVT prophylaxis with heparin subcu Plan: Patient will be continued on DuoNeb's, Symbicort and incentive spirometry.continue with insulin 70/30, adjust dose as needed. Blood sugar is fairly controlled. Chest tube removed today. Encourage incentive spirometry.. Pulmonary cardiology and CT surgery is following. Continue the current management. Further recommendations based on the clinical course. Time with Patient: Greater than 30
[2019-03-21] MEDS: PANTOPRAZOLE 40 MG TABLET PO SCH (05:53)
[2019-03-21] MEDS: IBUPROFEN 600 MG TAB PO PRN (05:53)
[2019-03-21 06:57] LABS: Glucose,Whole Blood 199 mg/dL (75-99)
[2019-03-21] MEDS: INSULIN ASPART (NovoLOG) 100 UNIT/ML VIAL SQ SCH ×2 (07:27→11:30)
[2019-03-21] MEDS: INSULN ASP PRT/INSULIN ASPART 100 UNIT/ML 10 ML VIAL SQ SCH ×2 (07:27→12:11)
[2019-03-21] MEDS: SYMBICORT 80-4.5 MCG INHALER INHALATION SCH (07:59)
[2019-03-21] MEDS: IPRATROPIUM-ALBUTEROL 3 ML NEB IH SCH ×2 (07:59→11:37)
--- NOTE | 2019-03-21 08:34 | XR ---
EXAMINATION TYPE: XR chest 2V DATE OF EXAM: 03/21/2019 COMPARISON: Prior chest x-ray 03/20/2019 HISTORY: Post right upper lobectomy TECHNIQUE: Frontal and lateral views of the chest are obtained. FINDINGS: Small right apical pneumothorax, subcutaneous emphysema persists. Defibrillator leads are stable. Heart size is unchanged. There is tenting of the right hemidiaphragm. Bibasilar increased den sity, right-sided pleural thickening is noted. IMPRESSION: Postop changes, basilar atelectasis. Small right apical pneumothorax.
[2019-03-21] MEDS: SERTRALINE 50 MG TAB PO SCH (09:01)
[2019-03-21] MEDS: ASPIRIN 81 MG PO SCH (09:01)
[2019-03-21] MEDS: CHLORTHALIDONE 25 MG TAB PO SCH (09:01)
[2019-03-21] MEDS: LISINOPRIL 20 MG TAB PO SCH (09:01)
[2019-03-21] MEDS: HEPARIN SODIUM,PORCINE 5,000 UNIT/ML 1 ML VIAL SQ SCH (09:01)
[2019-03-21] MEDS: amLODIPine 10 MG TAB PO SCH (09:01)
[2019-03-21 11:23] LABS: Glucose,Whole Blood 124 mg/dL (75-99)
[2019-03-21 11:37] VITALS: BP 122/63; RESP 18; TEMP 98.1
[2019-03-21 11:50] VITALS: PULSE 74
[2019-03-21] MEDS: CHOLECALCIFEROL 1,000 UNIT TAB PO SCH (12:11)
[2019-03-21] MEDS: MAGNESIUM OXIDE 400 MG TAB PO SCH (12:11)
--- NOTE | 2019-03-21 17:02 | P.PN ---
Subjective Progress Note Date: 03/21/19 Principal diagnosis: COPD, lung mass, status post right upper lobectomy. This is a 78-year-old white male with history of multiple medical problems including insulin-dependent diabetes, chronic atrial fibrillation, coronary artery disease and previous stenting, hypercholesterolemia, degenerative joint disease with previous bilateral knee replacement, history of left rotator cuff surgery, permanent pacemaker implantation and stenting of LAD in 1998. Patient is also known to have history of COPD FEV1 is in the range of 50%, 1.31 L, patient was recently evaluated by me for a right hilar mass, patient underwent a PET scan and showed uptake within the right suprahilar mass and no other abnormality was noted. 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 Patient was referred to Dr. Cochran, and he underwent right upper lobectomy with rima dissection today, postoperatively he was transferred to the cardiac floor, and I was asked to see him on consultation. Patient seems to be doing fairly well, complaining mostly of right sided chest pain at the surgical site, has a right sided chest tube in place with minimal air leak noted. Chest x-ray showed postoperative changes and no other significant findings otherwise. The patient is seen today 03/20/2019 in follow-up on the selective care unit. He is currently sitting up in a chair at the bedside. Awake and alert in no acute distress. Denies any worsening shortness of breath, cough or congestion. Chest x-ray continues to show small apical pneumothorax on the right. Stable compared to previous. Chest tube removed today. He continues to work well with the incentive spirometer. Continue good O2 saturations in the mid 90s on room air. He's been afebrile. Hemodynamically stable. The patient is seen today 03/21/2019 in follow-up on the selective care unit. He is awake and alert in no acute distress. Breathing is activity as baseline. His chest tube was removed. Chest x-ray reveals basilar atelectasis and a small right apical pneumothorax. He is maintaining good O2 saturations in the mid 90s on room air. He's afebrile. Hemodynamically stable. Objective - Vital Signs Vital signs: Vital Signs Temp 98.1 F 03/21/19 11:36 Pulse 74 03/21/19 11:49 Resp 18 03/21/19 11:36 BP 122/63 05/03/19 11:36 Pulse Ox 96 03/21/19 11:36 Intake & Output 03/20/19 03/21/19 03/21/19 18:59 06:59 18:59 Intake Total 460 80 Output Total 30 Balance 430 80 Weight 111.2 kg Intake: Oral 460 80 Output: Chest Tube Drainage 30 Chest Tube Right 30 Other: Voiding Method Toilet # Voids 1 1 - Exam GENERAL EXAM: Alert, pleasant, 78-year-old male, on room air, comfortable in no apparent distress. On room air. HEAD: Normocephalic/atraumatic. EYES: Normal reaction of pupils, equal size. Conjunctiva pink, sclera white. NOSE: Clear with pink turbinates. THROAT: No erythema or exudates. NECK: No masses, no JVD, no thyroid enlargement, no adenopathy. CHEST: No chest wall deformity. Symmetrical expansion. LUNGS: Equal air entry with no crackles, wheeze, rhonchi or dullness. CVS: Regular rate and rhythm, normal S1 and S2, no gallops, no murmurs, no rubs ABDOMEN: Soft, nontender. No hepatosplenomegaly, normal bowel sounds, no guarding or rigidity. EXTREMITIES: No clubbing, no edema, no cyanosis, 2+ pulses and upper and lower extremities. MUSCULOSKELETAL: Muscle strength and tone normal. SPINE: No scoliosis or deformity SKIN: No rashes CENTRAL NERVOUS SYSTEM: No focal deficits, tone is normal in all 4 extremities. PSYCHIATRIC: Alert and oriented -3. Appropriate affect. Intact judgment and insight. - Labs CBC & Chem 7: 03/20/19 07:04 03/20/19 07:04 Labs: Abnormal Lab Results - Last 24 Hours (Table) 03/20/19 03/20/19 03/21/19 Range/Units 19:40 20:45 06:47 POC Glucose (mg/dL) 139 H 119 H 199 H (75-99) mg/dL 03/21/19 Range/Units 11:21 POC Glucose (mg/dL) 124 H (75-99) mg/dL Assessment and Plan Assessment: Assessment: 1 status post right upper lobectomy pathology is 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 Right-sided chest tube remains in place. 5-10% pneumothorax. Chest tube removed. 2 moderate severe COPD FEV1 is in the range of 50%. 3 obstructive sleep apnea syndrome 4 coronary arteriosclerosis and previous stent placement. 5 benign essential hypertension 6 pacemaker in situ 7 history of vitamin D deficiency 8 type 2 diabetes 9 chronic atrial fibrillation. Plan: The patient is seen and evaluated by Dr. Blanton. Chest x-ray reviewed. Maintaining good O2 saturations in the 90s on room air. Working well with the incentive spirometer. He is cleared for discharge from the pulmonary standpoint. Keep his scheduled appointment with Dr. Domínguez. He has are both encouraged to call sooner with any recurrence of symptoms or other questions or concerns. I, the cosigning physician, performed a history & physical examination of the patient. Lungs sounds with few scattered rhonchi, crackles in the posterior bases, diminished. Maintaining good O2 saturations in the 90s on room air. I discussed the assessment and plan of care with my nurse practitioner, Swetha Wang. I attest to the above note as dictated by her.
--- NOTE | 2019-03-22 06:21 | P.DS ---
Providers Date of admission: 03/06/19 05:46 Expected date of discharge: 03/21/19 Attending physician: Tomy Cochran Consults: 03/06/19 13:37 Consult Physician Routine Consulting Provider: Johny Domínguez Consult Reason/Comments: pulm, known to you Do you want consulting provider notified?: Yes 03/08/19 10:37 Consult Physician Routine Consulting Provider: Dario Mckeon Consult Reason/Comments: diabetic managment, [facility] patient Do you want consulting provider notified?: Yes 03/12/19 13:43 Consult Physician Routine Consulting Provider: Manuel López Consult Reason/Comments: Poorly differentiated squamous cell carcinoma/lung Do you want consulting provider notified?: Yes Primary care physician: John Vegas Hospital Course: FINAL DIAGNOSIS: 1. Right upper lobe lung cancer 2. COPD 3. Previous tobacco dependence 4. Obstructive sleep apnea with CPAP use 5. Uncontrolled insulin-dependent diabetes mellitus with hemoglobin A1c 8.6% and diabetic neuropathy 6. Coronary artery disease status post angioplasty with stenting to the LAD 7. Ischemic cardiomyopathy 8. Hypertension 9. Paroxysmal atrial fibrillation on chronic Eliquis for anticoagulation 10. Obesity 11. Acute kidney injury secondary to dehydration 12. Continued air leak 13. 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 Robotic assisted thoracoscopic right upper lobectomy with mediastinal lymph node dissection 2. Right thoracotomy with re-resection of bronchial stump and suture closure HISTORY OF PRESENT ILLNESS: This is a 78-year-old gentleman who follows with Dr. Vegas on an outpatient basis. He had presented to his primary care physician with complaints of left flank pain mostly induced by doing work in an awkward position and most likely representing muscle strain or possible 12th rib fracture. He had focal tenderness in the area which was treated by his primary care physician, included in that treatment was a lung screening CT which demonstrated questionable right suprahilar mass. This was followed with a dedicated noncontrast CT of the chest which confirmed the presence of a right suprahilar mass. Subsequently he was referred to Dr. oDmínguez. A PET scan was ordered which showed uptake within the right suprahilar mass and surrounding non-uptake within the right suprahilar mass consistent with an obstructing tumor with post obstructive atelectasis. The tumor itself on PET scan measured at 1.2 cm and there was no evidence of hilar or mediastinal adenopathy or distant metastasis. The patient underwent navigational bronchoscopy with nondiagnostic results, bronchial washings demonstrated strep pneumonia and Moraxella catarra. The patient was referred to Dr. Cochran from cardiothoracic surgery. He was recommended to undergo robotic-assisted right upper lobectomy. The usual perioperative course was discussed in detail with the patient and his family, all risks and benefits were explained, all questions were answered, and consent was obtained to proceed with surgery. The patient was discharged to home to obtain cardiac clearance prior to scheduled surgery. HOSPITAL COURSE: The patient was brought to the hospital on 03/06/2019, taken to the preoperative area, prepared in the usual fashion, and subsequently taken to the operating room where Dr. Cochran performed robotic assisted thoracoscopic right upper lobectomy with mediastinal lymph node dissection, right thoracotomy with re-resection of bronchial stump and suture closure. Upon completion of surgery the patient was extubated and taken to the recovery room for continued monitoring. He was eventually admitted to 3 S. cardiac stepdown unit where he continued to have air leak from his chest tube. He did develop acute kidney injury secondary to dehydration which resolved with rehydration. Eventually it was felt safe to remove the right pleural chest tube, follow-up chest x-ray was stable. His oxygen was titrated down, he continued to work with physical therapy, he was tolerating oral diet, his pain was mostly controlled, and he was ready to be discharged to home on postoperative day #15. He received written a nd verbal instruction regarding his medications, activity restrictions, signs and symptoms requiring physician notification, and follow-up appointments. COMPLICATIONS: The patient experienced postoperative acute kidney injury and continued air leak, both treated accordingly. Patient Condition at Discharge: Stable Plan - Discharge Summary Discharge Rx Participant: Yes New Discharge Prescriptions: New Ipratropium-Albuterol Nebulize [Duoneb 0.5 mg-3 mg/3 ml Soln] 3 ml IH RT-QID PRN 30 Days ampul.neb PRN Reason: Shortness Of Breath Or Wheezing Chlorthalidone [Hygroton] 25 mg PO DAILY #30 tab Melatonin 5 mg PO HS tablet Ibuprofen [Motrin] 600 mg PO QID PRN tab PRN Reason: Pain amLODIPine [Norvasc] 10 mg PO DAILY #30 tab Acetaminophen Tab [Tylenol] 1,000 mg PO Q6HR PRN tab PRN Reason: Fever and/ or Mild Pain Sertraline [Zoloft] 50 mg PO DAILY #30 tab Continue metFORMIN HCL 1,000 mg PO BID Simvastatin [Zocor] 40 mg PO HS Insulin NPH Hum/Reg Insulin Hm [NovoLIN 70-30 100 UNIT/ML VIAL] 20 unit SQ BID ALPRAZolam [ALPRAZolam XR] 1 mg PO HS Fosinopril Sodium [Monopril] 20 mg PO DAILY Aspirin [Adult Low Dose Aspirin EC] 81 mg PO QAM Cholecalciferol [Vitamin D3 (25 Mcg = 1000 Iu)] 1,000 unit PO DAILY Budesonide/Formoterol Fumarate [Symbicort 80-4.5 Mcg Inhaler] 1 puff INHALATION RT-BID Varenicline Tartrate [Chantix Starter Pack] 0.5 mg PO DIRECTED Metoprolol Succinate (ER) [Toprol XL] 50 mg PO HS Magnesium Oxide [Mag-Ox] 250 mg PO DAILY Discontinued HYDROcodone/APAP 10-325MG [[place] 10-325] 1 tab PO HS Ibuprofen [Motrin] 800 mg PO DAILY PRN PRN Reason: Pain Apixaban [Eliquis] 5 mg PO BID Spironolactone [Aldactone] 25 mg PO DAILY Discharge Medication List ALPRAZolam [ALPRAZolam XR] 1 mg PO HS 03/12/16 [History] Insulin NPH Hum/Reg Insulin Hm [NovoLIN 70-30 100 UNIT/ML VIAL] 20 unit SQ BID 03/12/16 [History] Simvastatin [Zocor] 40 mg PO HS 03/12/16 [History] metFORMIN HCL 1,000 mg PO BID 03/12/16 [History] Aspirin [Adult Low Dose Aspirin EC] 81 mg PO QAM 08/28/17 [History] Fosinopril Sodium [Monopril] 20 mg PO DAILY 08/28/17 [History] Budesonide/Formoterol Fumarate [Symbicort 80-4.5 Mcg Inhaler] 1 puff INHALATION RT-BID 02/07/19 [History] Cholecalciferol [Vitamin D3 (25 Mcg = 1000 Iu)] 1,000 unit PO DAILY 02/07/19 [History] Metoprolol Succinate (ER) [Toprol XL] 50 mg PO HS 02/07/19 [History] Varenicline Tartrate [Chantix Starter Pack] 0.5 mg PO DIRECTED 02/07/19 [History] Magnesium Oxide [Mag-Ox] 250 mg PO DAILY 02/24/19 [History] Acetaminophen Tab [Tylenol] 1,000 mg PO Q6HR PRN tab 03/21/19 [Rx] Chlorthalidone [Hygroton] 25 mg PO DAILY #30 tab 03/21/19 [Rx] Ibuprofen [Motrin] 600 mg PO QID PRN tab 03/21/19 [Rx] Ipratropium-Albuterol Nebulize [Duoneb 0.5 mg-3 mg/3 ml Soln] 3 ml IH RT-QID PRN 30 Days ampul.neb 03/21/19 [Rx] Melatonin 5 mg PO HS tablet 03/21/19 [Rx] Sertraline [Zoloft] 50 mg PO DAILY #30 tab 03/21/19 [Rx] amLODIPine [Norvasc] 10 mg PO DAILY #30 tab 03/21/19 [Rx] Follow up Appointment(s)/Referral(s): Johny Domínguez MD [STAFF PHYSICIAN] - 03/28/19 3:30 pm (Sunday) Manuel López MD [STAFF PHYSICIAN] - 04/07/19 3:45 pm John Vegas MD [Primary Care Provider] - 03/27/19 10:20 am () Tomy Cochran MD [STAFF PHYSICIAN] - 04/10/19 1:15 pm () Elvin Sanchez MD [STAFF PHYSICIAN] - 3 Weeks Patient Instructions/Handouts: Lung Lobectomy (DC), Video Assisted Thoracoscopic Surgery (DC) Activity/Diet/Wound Care/Special Instructions: DISCHARGE INSTRUCTIONS: 1. No driving for 2 weeks, or until physician gives their ok. 2. No lifting, pushing, or pulling more than 10 pounds for 2 weeks. The physician will advise of any restriction changes. 3. Continue pain control per as needed orders. Alternate acetaminophen (Tylenol) and ibuprofen (Motrin/Advil) for pain. 4. Continue with incentive spirometry and splinting until otherwise directed by the physician. 5. Leave chest tube dressing for 48 hours. After that, remove all dressings and shower daily. 6. Routine incision care. No powders, lotions, ointments on incisions. 7. Please call surgeon/TELECOMMUNICATIONS SPECIALIST for temp greater than 101 F or purulent drainage from incisions. Zaria Tenorio NP Discharge Disposition: HOME SELF-CARE
--- NOTE | 2019-03-26 10:27 | CDI ---
Documentation Clarification Form Date: 03/26/2019 9:56:26 AM From: Dory VasquezLENNY, CCDS Admit Date: 03/06/2019 5:46:00 AM Patient Name: Pardeep Davis Visit Number: [id number] Discharge Date: 03/21/2019 1:15:00 PM ATTENTION: The Clinical Documentation Specialists (CDI) and [facility] Coding Staff appreciate your assistance in clarifying documentation. Please respond to the clarification below the line at the bottom and electronically sign. The CDI & [facility] Coding staff will review the response and follow-up if needed. Please note: Queries are made part of the Legal Health Record. If you have any questions, please contact the author of this message via ITS. Dr. Tomy Cochran: A right side apical pneumothorax is documented beginning on the day of the patient's surgery and throughout the patient's stay with an air leak & prolonged chest tube, tube discharged on the day prior to discharge. Patients Admitting Diagnosis: RUL Lung cancer Post-Operative Diagnosis: RUL Lung cancer Procedure performed: Robotic-assisted thoracoscopic right upper lobectomy with mediastinal lymph node dissection. Right thoracotomy with resection of bronchial stump and suture closure. "There was minimal air leak from the pulmonary parenchyma. Chest was suctioned free a 28-[place] chest tube was placed posterior apically and secured with an 0 Ethibond suture." History/Risk Factors: Morbid obesity BMI 77.3. 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 Persistent atrial fibrillation. Chronic obstructive pulmonary disease in an ex-smoker. Essential hypertension. Hyperlipidemia. Coronary artery disease with prior history of stent. GRECIA uses BiPAP. Clinical Indicators: Presented for elective surgery. CXR 03/06: 5% right side apical pneumothorax. 03/07: No sizable pneumothorax. 03/08: <5% pneumothorax. 03/12: pneumothorax increased. 03/15: 15% pneumothorax. 03/19: 20% pneumothorax. 03/20 Persistent right apical pneumothorax, status post chest bue removal. 03/21: Postop changes, basilar atelectasis, small right apical pneumothorax. Treatment postoperatively: IV Kefzol, IV Dilaudid, IV lactated ringers, IV Zofran, Albuterol INH, IV Dextrose/NaCl, IV Reglan, IV Ms, Heparin sq, Insulin sq. IV Toradol, IV MagSulfate, IV fluid rate 100, IV Lasix, Consults: Pulmonary/Critical Care, Internal Medicine, Oncology In order to accurately reflect this patients severity of illness, please clarify if the patient's prolonged right side apical pneumothorax with air leak requiring prolonged chest tube is the result of the surgical procedure? Yes No Other, please specify Unable to determine (Last Revision: February 2018) Yes, known risk and annoying complication of the procedure. Typical hospital course. Nothing outside of the ordinary. This really is not appropriate as a query of something "unusual" or outside of the usual postop course. MTDD
--- NOTE | 2019-03-26 10:46 | CDI ---
Documentation Clarification Form Date: 03/26/2019 10:31:52 AM From: Dory VasquezLENNY, CCDS Admit Date: 03/06/2019 5:46:00 AM Patient Name: Pardeep Davis Visit Number: [id number] Discharge Date: 03/21/2019 1:15:00 PM ATTENTION: The Clinical Documentation Specialists (CDI) and [facility] Coding Staff appreciate your assistance in clarifying documentation. Please respond to the clarification below the line at the bottom and electronically sign. The CDI & [facility] Coding staff will review the response and follow-up if needed. Please note: Queries are made part of the Legal Health Record. If you have any questions, please contact the author of this message via ITS. Dr. Dario Mckeon: Per the 03/08 Internal Medicine consult: "Acute renal failure could be a combination of prerenal and acute tubular necrosis given that creatinine was normal at 0.97 has climbed up to 2.01. The patient's blood pressure is running on the low side. The patient has been on Toradol also cristy inhibitor and Metformin." Patients Admitting Diagnosis: RUL cancer Post-Operative Diagnosis: RUL cancer Procedure performed: Robotic-assisted thoracoscopic right upper lobectomy with mediastinal lymph node dissection. Right thoracotomy with resection of bronchial stump and suture closure. History/Risk Factors: Hypertension, DM II with peripheral neuropathy, Persistent atrial fibrillation, COPD, Hyperlipidemia, GRECIA on BiPAP & Morbid obesity w/BMI 37.3. Clinical Indicators: Postoperatively the patient's BUN & Creatinine was elevated. LAB: BUN: 26 - 38 - 42 - 30 - 23 - 20 - 19 - 19 - 19 - 22 - 21 - 22 Creatinine: 1.36^ - 2.01^ - 1.62^ - 1.20 - 1.00 - 0.98 - 0.92 - 1.0 - 1.07 - 1.08 - 1.03 - 1.12 Treatment: IV fluids, IV fluid 500 mls @ 1,999, IV lactated ringers @ 100, IV MagSulfate, Insulin sq, IV Lasix. In order to accurately reflect this patients severity of illness, please clarify if the diagnosis of acute renal failure is the result of or a complication of the surgical procedure? Yes No Other, please specify Unable to determine (Last Revision: February 2018) No MTDD
--- NOTE | 2019-03-30 22:03 | P.PN ---
Subjective Progress Note Date: 03/21/19 Principal diagnosis: status post right upper lobectomy pathology is 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 This is a 78-year-old white male with history of multiple medical problems including insulin-dependent diabetes, chronic atrial fibrillation, coronary artery disease and previous stenting, hypercholesterolemia, degenerative joint disease with previous bilateral knee replacement, history of left rotator cuff surgery, permanent pacemaker implantation and stenting of LAD in 1998. Patient was recently evaluated for a right hilar mass, patient underwent a PET scan and showed uptake within the right suprahilar mass and no other abnormality was noted. Underwent bronchoscopy/navigational bronchoscopy and he was diagnosed as having moderately differentiated squamous cell carcinoma, felt to be a stage II. Patient was referred to Dr. Cochran, and he underwent right upper lobectomy with rima dissection. 03/19/2019 Patient is postoperative day 13. Status post robotic-assisted thoracoscopic right upper lobe resection with mediastinal lymph node biopsy. Patient is diagnosed with non-small cell lung cancer stage II. Chest x-ray showed right-sided pneumothorax measures approximately 20%. Chest tube in position. Diffuse subcutaneous emphysema persists. There are bilateral consolidation and small effusion. Currently patient is sitting on the side of the bed comfortably. No complaints of chest pain or shortness of breath. No cough or sputum production. Patient is being continued on breathing treatments and incentive spirometry. Pulmonary cardiology and CT surgery is following. 03/20/2019 Patient is currently sitting in a chair comfortably. No acute distress. Chest tube was removed today. Chest x-ray showed small apical pneumothorax on the right. No complaints of chest pain or worsening shortness of breath. No fever no chills. Saturating above 90% on room air. Anticipate discharge next 24-48 hours. Pulmonary is following. 03/21/2019 Patient was seen and examined. Chest she was removed yesterday. Repeat chest x-ray showed bilateral basilar atelectasis and a small right apical pneumothorax. Currently is saturating above 90% on room air. Patient denied any complaints of chest pain or worsening shortness of breath. No other acute overnight issues. Patient is being discharged today. Objective - Vital Signs Vital signs: Vital Signs Temp 98.1 F 03/21/19 11:36 Pulse 74 03/21/19 11:49 Resp 18 03/21/19 11:36 BP 122/63 03/21/19 11:36 Pulse Ox 96 03/21/19 11:36 Intake & Output 03/20/19 03/21/19 03/21/19 18:59 06:59 18:59 Intake Total 460 80 Output Total 30 Balance 430 80 Weight 111.2 kg Intake: Oral 460 80 Output: Chest Tube Drainage 30 Chest Tube Right 30 Other: Voiding Method Toilet # Voids 1 1 - Exam PHYSICAL EXAMINATION: Patient is lying in the bed comfortably, no acute distress, awake alert and orie nted.. HEENT: Normocephalic. Neck is supple. Pupils reactive. Nostrils clear. Oral cavity is moist. Ears reveal no drainage. Neck reveals no JVD, carotid bruits, or thyromegaly. CHEST EXAMINATION: Trachea is central. Symmetrical expansion. Right basilar crackles and improved air entry. No wheezing.. CARDIAC: Normal S1, S2 with no gallops. No murmurs ABDOMEN: Soft. Bowel sounds normal. No organomegaly. No abdominal bruits. Extremities: reveal no edema. No clubbing or cyanosis Neurologically awake, alert, oriented x3 with well-coordinated movements. No focal deficits noted Skin: No rash or skin lesions. Psychiatric: Coperative. Nonsuicidal Musculoskeletal: No joint swelling or deformity. Normal range of motion. - Labs CBC & Chem 7: 03/20/19 07:04 03/20/19 07:04 Labs: Abnormal Lab Results - Last 24 Hours (Table) 03/20/19 03/20/19 03/20/19 Range/Units 16:04 19:40 20:45 POC Glucose (mg/dL) 110 H 139 H 119 H (75-99) mg/dL 03/21/19 03/21/19 Range/Units 06:47 11:21 POC Glucose (mg/dL) 199 H 124 H (75-99) mg/dL Assessment and Plan Assessment: -status post right upper lobectomy pathology is 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 Chest tube was removed on 03/20/2019. Small right apical pneumothorax as per chest x-ray. - moderate severe COPD FEV1 is in the range of 50%. -obstructive sleep apnea syndrome - coronary arteriosclerosis and previous stent placement. - benign essential hypertension - pacemaker in situ - history of vitamin D deficiency - type 2 diabetes. Insulin-dependent -Diabetic peripheral neuropathy - chronic atrial fibrillation. - Morbid obesity BMI 37.0 -DVT prophylaxis with heparin subcu Plan: Patient will be continued on DuoNeb's, Symbicort and incentive spi rometry.continue with insulin 70/30, adjust dose as needed. Blood sugar is fairly controlled. Chest tube removed today. Encourage incentive spirometry.. Pulmonary cardiology and CT surgery is following. Continue the current management. Further recommendations based on the clinical course. Time with Patient: Greater than 30
== END 2019-03-21 13:15 | disposition home or self-care (01) | DRG 163 ==
LOC: 2ORMAIN 05:46 → 3SCARD 13:32
PROVIDERS: ADMIT Thoracic Surgery (Cardiothoracic Vascular Surgery); ATTEND Thoracic Surgery (Cardiothoracic Vascular Surgery)
PROC: 0BTC4ZZ Resection of Right Upper Lung Lobe, Percutaneous Endoscopic Approach (ICD-10-PCS; principal; 2019-03-06 07:30)
PROC: 07T74ZZ Resection of Thorax Lymphatic, Percutaneous Endoscopic Approach (ICD-10-PCS; principal; 2019-03-06 07:30)
PROC: 8E0W4CZ Robotic Assisted Procedure of Trunk Region, Percutaneous Endoscopic Approach (ICD-10-PCS; principal; 2019-03-06 07:30)
PROC: 0BB44ZZ Excision of Right Upper Lobe Bronchus, Percutaneous Endoscopic Approach (ICD-10-PCS; principal; 2019-03-06 07:30)
DX: C34.11 Malignant neoplasm of upper lobe, right bronchus or lung (principal); N17.0 Acute kidney failure with tubular necrosis; C77.1 Secondary and unspecified malignant neoplasm of intrathoracic lymph nodes; I48.1 Persistent atrial fibrillation; J98.11 Atelectasis; J93.9 Pneumothorax, unspecified; J93.82 Other air leak; J44.0 Chronic obstructive pulmonary disease with (acute) lower respiratory infection; E11.42 Type 2 diabetes mellitus with diabetic polyneuropathy; I95.9 Hypotension, unspecified; E11.65 Type 2 diabetes mellitus with hyperglycemia; I48.0 Paroxysmal atrial fibrillation; E66.01 Morbid (severe) obesity due to excess calories; E87.5 Hyperkalemia; J98.2 Interstitial emphysema; E86.0 Dehydration; I25.5 Ischemic cardiomyopathy; I11.9 Hypertensive heart disease without heart failure; I35.0 Nonrheumatic aortic (valve) stenosis; B95.3 Streptococcus pneumoniae as the cause of diseases classified elsewhere; B96.89 Other specified bacterial agents as the cause of diseases classified elsewhere; I25.2 Old myocardial infarction; E78.5 Hyperlipidemia, unspecified; E55.9 Vitamin D deficiency, unspecified; G47.33 Obstructive sleep apnea (adult) (pediatric); I25.10 Atherosclerotic heart disease of native coronary artery without angina pectoris; G89.29 Other chronic pain; M54.9 Dorsalgia, unspecified; E78.00 Pure hypercholesterolemia, unspecified; M19.90 Unspecified osteoarthritis, unspecified site; F41.9 Anxiety disorder, unspecified; F17.211 Nicotine dependence, cigarettes, in remission; Z68.38 Body mass index [BMI] 38.0-38.9, adult; Z79.01 Long term (current) use of anticoagulants; Z79.82 Long term (current) use of aspirin; Z79.51 Long term (current) use of inhaled steroids; Z79.4 Long term (current) use of insulin; Z79.899 Other long term (current) drug therapy; Z95.5 Presence of coronary angioplasty implant and graft; Z86.19 Personal history of other infectious and parasitic diseases; Z96.653 Presence of artificial knee joint, bilateral; Z95.0 Presence of cardiac pacemaker; Z98.890 Other specified postprocedural states; Z71.3 Dietary counseling and surveillance; Z96.1 Presence of intraocular lens; Z98.41 Cataract extraction status, right eye; Z98.42 Cataract extraction status, left eye; Z80.6 Family history of leukemia; Z83.3 Family history of diabetes mellitus; Z82.3 Family history of stroke
CPT/HCPCS: 36600; 71045; 71046; 80048; 80053; 82330; 82805; 83036; 83605; 83735; 84100; 85025; 85027; 85610; 85730; 86850; 86900; 86901; 88305; 88309; 88331; 94640; 94660; 94760

== ENCOUNTER → 2020-04-06 | Outpatient (CLI) | payer MEDICARE ==
--- NOTE | 2020-04-06 14:33 | CT ---
EXAMINATION TYPE: CT chest wo con DATE OF EXAM: 04/06/2020 COMPARISON: Chest CT January 22, 2019. PET/CT February 01, 2019. HISTORY: Malignant neoplasm right lung, history of partial pneumonectomy. CT DLP: 658 mGycm. Automated Exposure Control for Dose Reduction was Utilized. TECHNIQUE: CT scan of the thorax is performed without IV contrast. FINDINGS: LUNGS: Persistent right-sided volume loss with medial upper lung pleural thickening and suprahilar cardenas rgical change. There is slightly more prominent nodular soft tissue thickening suprahilar level above the right main pulmonary artery near original site of neoplasm favoring postsurgical scarring near a djacent clips axial image 24. Additional mild to moderate anterior scarring right greater than left b ilateral mid to lower lungs. No new greater than 5 mm parenchymal nodules or masses. No pleural effus ion or pneumothorax. MEDIASTINUM: Lack of IV contrast is noted to limit evaluation for mediastinal and especially hilar a denopathy. There are no definitive new greater than 1 cm hilar or mediastinal lymph nodes. No cardi omegaly or pericardial effusion is seen. Moderate to severe three-vessel coronary artery calcificatio n and/or stents. Persistent dual-lead pacemaker. Mild to moderate calcified plaque of the aorta exten ds into branch vessels. OTHER: [id number]-[id number] multilevel spurring in the thoracic spine. Small amount of Left greater anabella n right bilateral subareolar gynecomastia is redemonstrated. IMPRESSION: No definitive evidence for neoplastic recurrence. Suboptimal study without IV contrast as there is slightly more nodular soft tissue near surgical site and curvilinear pleural thickening fav oring scar tissue but since this is near site of primary neoplasm I would consider correlating with r epeat PET/CT or contrast-enhanced chest CT to definitively exclude local recurrent neoplasm.
== END | disposition home or self-care (01) ==
LOC: RADCTMAIN 13:47
PROVIDERS: ATTEND Internal Medicine
DX: C34.90 Malignant neoplasm of unspecified part of unspecified bronchus or lung (principal)
CPT/HCPCS: 71250

== ENCOUNTER → 2021-04-28 | Outpatient (CLI) | payer MEDICARE ==
--- NOTE | 2021-04-29 06:51 | CT ---
EXAMINATION TYPE: CT chest wo con DATE OF EXAM: 04/28/2021 COMPARISON: CT chest April 06, [address] January 22, 2019. PET/CT February 01, 2019 HISTORY: Malignant neoplasm of Rt upper lobe CT DLP: 710 mGycm. Automated Exposure Control for Dose Reduction was Utilized. TECHNIQUE: CT scan of the thorax is performed without IV contrast. FINDINGS: LUNGS: Persistent right-sided volume loss with medial upper lung pleural thickening and suprahilar cardenas rgical change. There is stable slightly more prominent nodular r soft tissue thickening suprahilar le kp above the right main pulmonary artery near original site of neoplasm favoring postsurgical scarri ng near adjacent clips axial images 20 through 23. No obvious increased thickening at this level. Add itional mild to moderate anterior scarring right greater than left bilateral mid to lower lungs there is stable. No new greater than 5 mm parenchymal nodules or masses identified. No pleural effusion or pneumothorax. MEDIASTINUM: Lack of IV contrast is noted to limit evaluation for mediastinal and especially hilar a denopathy. There are no definitive new greater than 1 cm mediastinal lymph nodes. No cardiomegaly o r pericardial effusion is seen. Moderate to severe three-vessel coronary artery calcification and/or stents is redemonstrated. Persistent dual-lead pacemaker/AICD. Mild calcified plaque of the aorta ext ends into branch vessels. Prominent right left pulmonary artery suggesting underlying pulmonary arter y hypertension. Ascending aortic measures up to 3.9 cm in diameter. OTHER: Bxhypsok-[id number] multilevel spurring in the thoracic spine. Small amount of Left greater anabella n right bilateral subareolar gynecomastia is redemonstrated. IMPRESSION: Overall stable findings, posttreatment changes to right lung are stable. No new or enlarg ing mass or adenopathy identified to suggest active neoplastic recurrence.
== END | disposition home or self-care (01) ==
LOC: RADCTMAIN 13:08
PROVIDERS: ATTEND Internal Medicine
DX: C34.11 Malignant neoplasm of upper lobe, right bronchus or lung (principal)
CPT/HCPCS: 71250

== ENCOUNTER → 2022-09-01 | Outpatient (CLI) | payer MEDICARE ==
--- NOTE | 2022-09-01 15:27 | CT ---
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 Follow up for CA removed from right lung. TECHNIQUE: High-resolution scanning of the chest utilizing 1 mm slice thickness and 1 cm gap without contrast per HRCT protocol. Both prone and supine imaging is performed. CT DLP: 201 mGycm Automated exposure control for dose reduction was used. FINDINGS: Left anterior chest wall ICD generator right atrial and right ventricular leads. Heart borderline in size without pericardial effusion. Extensive LAD coronary artery calcifications. Left ovary RCA and circumflex coronary artery calcifications. 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 Mild atherosclerotic arch calcifications with conventional ve ssel branching anatomy. Similar ectatic upper descending thoracic aorta 3.4 cm. Large caliber to the main right and the pulmonary arteries up to 3.3 cm suggest underlying pulmonary arterial hypertension. Allowing for the limitations of HRCT technique, no thoracic lymphadenopathy is seen. Postsurgical changes of previous right upper lobectomy. Stable smooth pleural thickening along the ri ght upper lung, especially medially. Some focal groundglass and reticular density at the periphery of the right base remains unchanged fro m 04/28/2021 suggesting scarring. Some chronic volume loss inferior lingula likely related to scarring . Some strandy secretions noted at the lower trachea. HRCT technique limited for assessment of pulmonary nodules. No kerrie consolidation or pleural effusio n. Visualized upper abdomen shows no gross abnormality. Bones: Prominent endplate spondylosis throughout the thoracic spine. IMPRESSION: 1. NOTE THAT THIS EXAM WAS PERFORMED A HIGH RESOLUTION CT CHEST, LIMITING THE ASSESSMENT FOR PULMO NARY NODULES. 2. PREVIOUS RIGHT UPPER LOBECTOMY WITH CHRONIC POSTTREATMENT PLEURAL THICKENING ALONG THE RIGHT UPPER LUNG ESPECIALLY MEDIALLY. RELATIVELY SIMILAR TO 04/28/2021. 3. UNDERLYING PULMONARY ARTERIAL HYPERTENSION AND STABLE 4.2 CM ANEURYSM ASCENDING AORTA. COPD WITH T HREE-VESSEL CORONARY ARTERY CALCIFICATIONS.
== END | disposition home or self-care (01) ==
LOC: RADCTMAIN 14:18
PROVIDERS: ATTEND Internal Medicine
DX: C34.11 Malignant neoplasm of upper lobe, right bronchus or lung (principal); J44.9 Chronic obstructive pulmonary disease, unspecified; I25.10 Atherosclerotic heart disease of native coronary artery without angina pectoris; I27.21 Secondary pulmonary arterial hypertension; Z90.2 Acquired absence of lung [part of]
CPT/HCPCS: 71250

== ENCOUNTER → 2024-03-04 | Outpatient (CLI) | payer MEDICARE ==
--- NOTE | 2024-03-06 23:00 | CT ---
EXAMINATION TYPE: CT lumbar spine wo con DATE OF EXAM: 03/04/2024 COMPARISON: None HISTORY: low back pain CT DLP: 969 mGycm CONTRAST: None TECHNIQUE: CT of the lumbar spine is performed on a spiral scan at 3 mm thick sections. Reconstructed images are performed in the coronal and sagittal planes. FINDINGS: Disc height and minimal diffuse narrowing. Spondylosis is present. Vertebral body heights a re preserved. L1-2: There is some calcification along the ligamentum flavum has moderate posterior lateral thecal s ac impression. No AP spinal canal stenosis. Neural foramen are patent. L2-3: Broad-based disc bulge with some posterior disc calcification is present at the L2-3 level. Thi s has mild anterior thecal sac compression. No AP spinal canal stenosis is present. Moderate bilatera l foraminal narrowing is present greater on the right. L3-4: Posterior disc calcification is present. This has mild anterior thecal sac compression. No spin al canal stenosis is present. Neural foramen and moderate to severe bilateral foraminal stenosis. L4-5: Mild disc bulge is present with anterior thecal sac flattening. No AP spinal canal stenosis pre sent. Severe bilateral foraminal stenosis is present. L5-S1: No focal disc herniation or significant disc bulge. No spinal canal stenosis present. Severe b ilateral foraminal stenosis. Vertebral alignment appears normal. IMPRESSION: 1. Multilevel moderate to severe foraminal stenosis. Correlate with radicular symptoms. MRI can be pe rformed as clinically indicated. 2. Mild diffuse disc changes. Some minimal vacuum phenomenon may be present at the L3-4 level. 3. Posterior disc calcifications noted L2-3 L3-4. Some ligamentum flavum calcification is at the L1-2 level.
== END | disposition home or self-care (01) ==
LOC: RADCTMAIN 12:18
PROVIDERS: ATTEND Psychiatry & Neurology Neurology
DX: M99.73 Connective tissue and disc stenosis of intervertebral foramina of lumbar region (principal); M51.86 Other intervertebral disc disorders, lumbar region
CPT/HCPCS: 72131

== ENCOUNTER 2024-10-28 14:02 | Emergency (ER) | payer MEDICARE ==
--- NOTE | 2024-10-28 14:26 | ED ---
General Adult HPI - General Source: patient, RN notes reviewed Mode of arrival: wheelchair Limitations: no limitations <Ciarra Guerra - Last Filed: 10/28/24 14:24> - General Source: patient, RN notes reviewed Mode of arrival: wheelchair Limitations: no limitations - History of Present Illness Onset/Timin -: days(s) Location: chest, left Radiation: non-radiation Severity scale (1-10): 8 Quality: sharp Consistency: constant Worsens with: movement <Abran Mitchell - Last Filed: 10/28/24 19:02> - General Chief complaint: Recheck/Abnormal Lab/Rx Stated complaint: abd pain Time Seen by Provider: 10/28/24 14:15 - History of Present Illness Initial comments: Quick Note: This is an 84-year-old male who presents to the emergency department for left-sided rib cage pain. States that this started yesterday. Pain is worse with movement and if he takes a deep breath. Denies any injuries. States that he saw his primary care provider today and had x-rays done that were negative. His concern is that he had the same pain on the other side about 3 years ago and he was found to have cancer. He was advised to come here for further evaluation and possibly a CT scan. (Ciarra Guerra) This is an 84-year-old male with history of right lung cancer 3 years ago complaining of left lower rib pain x 3 days. Patient states sharp, constant pain started suddenly in his left flank. States pain is worse with movement and ambulation. Endorses similar pain prior to discovery of right lung cancer. Endorses removal of majority of right lung following discovery. Patient states pain at that time started on left side 1 and was discovered on right side. Patient states he received a chest and left rib x-ray for current symptoms with no concerning findings. Patient denies fever, chills, fatigue, hemoptysis, chest pain, dyspnea, urinary symptoms. Patient states he has appointment with Dr. Noriega on November 21, 2024 but was advised to have a CT scan now instead of waiting until that time. (Abran Mitchell) - Related Data Home Medications Medication Instructions Recorded Confirmed Insulin NPH Hum/Reg Insulin Hm 20 unit SQ BID 03/12/16 01/02/23 [NovoLIN 70-30 100 UNIT/ML VIAL] metFORMIN HCL [Glucophage] 500 mg PO BID 03/12/16 01/02/23 Aspirin [Adult Low Dose Aspirin EC] 81 mg PO QAM 08/28/17 01/02/23 Cholecalciferol [Vitamin D3 (25 1,000 unit PO DAILY 02/07/19 01/02/23 Mcg = 1000 Iu)] Metoprolol Succinate (ER) [Toprol 100 mg PO HS 02/07/19 01/02/23 XL] Acetaminophen-Codeine 300-30mg 1 tab PO BID 12/28/22 01/02/23 [Tylenol w/codeine #3] Apixaban [Eliquis] 5 mg PO BID 12/28/22 01/02/23 Atorvastatin [Lipitor] 20 mg PO HS 12/28/22 01/02/23 Escitalopram [Lexapro] 5 mg PO DAILY 12/28/22 01/02/23 Zolpidem Tartrate [Ambien] 5 mg PO HS 12/28/22 01/02/23 Previous Rx's Medication Instructions Recorded Chlorthalidone [Hygroton] 25 mg PO DAILY #30 tab 03/21/19 Allergies Allergy/AdvReac Type Severity Reaction Status Date / Time No Known Allergies Allergy Verified 10/28/24 14:12 Review of Systems ROS Other: All systems not noted in ROS Statement are negative. <Ciarra Guerra - Last Filed: 10/28/24 14:24> ROS Other: All systems not noted in ROS Statement are negative. <Abran Mitchell - Last Filed: 10/28/24 19:02> ROS Statement: Those systems with pertinent positive or pertinent negative responses have been documented in the HPI. Past Medical History Past Medical History: Atrial Fibrillation, Asthma, Cancer, Heart Failure, COPD, Diabetes Mellitus, Hyperlipidemia, Hypertension, Myocardial Infarction (CO), Osteoarthritis (OA), Sleep Apnea/CPAP/BIPAP Additional Past Medical History / Comment(s): hx lyme disease-1999, lung cancer, neuropathy ngoc feet, current lung infection-on rx, 'possible fx 12th rib" does not wear a cpap Last Myocardial Infarction Date:: 1998 History of Any Multi-Drug Resistant Organisms: None Reported Past Surgical History: Heart Catheterization With Stent, Joint Replacement, Orthopedic Surgery, Pacemaker Additional Past Surgical History / Comment(s): ngoc knee arthroscopy, ngoc knee replacements, rotator cuff left shoulder, one cardiac stent, ,ngoc cataract s urgery with lens implants, bronchoscopy with biopsy, thoracotomy with 1/3 right lung cancer removed, nasal surgery multiple times due to fractures, Past Anesthesia/Blood Transfusion Reactions: No Reported Reaction Date of Last Stent Placement:: 1998 Type of Cardiac Device: Permanent Pacemaker Device Placement Date:: 09/03/17 St Max model [id number] Past Psychological History: Anxiety Smoking Status: Former smoker Past Alcohol Use History: Rare Past Drug Use History: Marijuana - Past Family History Father Family Medical History: Cancer Additional Family Medical History / Comment(s): leukemia Mother Family Medical History: CVA/TIA <Ciarra Guerra - Last Filed: 10/28/24 14:24> General Exam Limitations: no limitations <Ciarra Guerra - Last Filed: 10/28/24 14:24> General appearance: alert, in no apparent distress Head exam: Present: atraumatic, normocephalic, normal inspection Eye exam: Present: normal appearance, PERRL, EOMI. Absent: scleral icterus, conjunctival injection, periorbital swelling ENT exam: Present: normal exam, mucous membranes moist Neck exam: Present: normal inspection. Absent: tenderness, meningismus, lymphadenopathy Respiratory exam: Present: normal lung sounds bilaterally, chest wall tenderness (Left posterior axillary floating rib tenderness without obvious crepitus, deformity, ecchymosis). Absent: respiratory distress, wheezes, rales, rhonchi, stridor Cardiovascular Exam: Present: regular rate, normal rhythm, normal heart sounds. Absent: systolic murmur, diastolic murmur, rubs, gallop, clicks GI/Abdominal exam: Present: soft, normal bowel sounds. Absent: distended, tenderness, guarding, rebound, rigid Extremities exam: Present: normal inspection, full ROM, normal capillary refill. Absent: tenderness, pedal edema, joint swelling, calf tenderness Back exam: Present: normal inspection Neurological exam: Present: alert, oriented X3, CN II-XII intact Psychiatric exam: Present: normal affect, normal mood Skin exam: Present: warm, dry, intact, normal color. Absent: rash <Abran Mitchell - Last Filed: 10/28/24 19:02> - General Exam Comments Initial Comments: Visual Physical Exam Vital signs reviewed General: Well-appearing, nontoxic, no acute distress. Head: Normocephalic, atraumatic Eyes: PERRLA, EOMI ENT: Airway patent Chest: Nonlabored breathing Skin: No visual rash, normal skin tone Neuro: Alert and oriented 3 Musculoskeletal: No gross abnormalities (Ciarra Guerra) Course Vital Signs 10/28/24 10/28/24 14:09 17:40 Temperature 97.6 F 98 F Pulse Rate 83 80 Respiratory 20 18 Rate Blood Pressure 147/84 172/80 O2 Sat by Pulse 95 96 Oximetry Medical Decision Making <Ciarra Guerra - Last Filed: 10/28/24 14:24> - Lab Data Result diagrams: 10/28/24 14:56 10/28/24 14:56 <Abran Mitchell - Last Filed: 10/28/24 19:02> - Medical Decision Making I performed the QuickNote portion of this chart. Signed Ciarra Guerra PA-C. (Ciarra Guerra) Was pt. sent in by a medical professional or institution ([facility], ED SPECIAL EDUCATION TEACHER, urgent care, hospital, or usp...) When possible be specific @ -No Did you speak to anyone other than the patient for history (EMS, parent, family, police, friend...)? What history was obtained from this source @ -No Did you review nursing and triage notes (agree or disagree)? Why? @ -I reviewed and agree with nursing and triage notes Were old charts reviewed (outside hosp., previous admission, EMS record, old EKG, old radiological studies, urgent care reports/EKG's, usp records)? Report findings @ -No old charts were reviewed Differential Diagnosis (chest pain, altered mental status, abdominal pain women, abdominal pain men, vaginal bleeding, weakness, fever, dyspnea, syncope, headache, dizziness, GI bleed, back pain, seizure, CVA, palpatations, mental health, musculoskeletal)? @ -Differential Chest Pain: Stable Angina, Unstable Angina, STEMI, NSTEMI Aortic Dissection, Pneumothorax, Musculoskeletal, Esophageal Spasm GERD, Cholecystitis, Pancreatitis, Zoster, this is not meant to be an all-inclusive list. Differential Dyspnea: Coronary syndrome, arrhythmia, tamponade, asthma, COPD, pulmonary embolism, pneumonia, pneumothorax, pulmonary effusion, anaphylaxis, diabetic ketoacidosis, flailed chest, pulmonary contusion, diaphragmatic rupture, anemia, neuromuscular, this is not meant to be an all-inclusive list. EKG interpreted by me (3pts min.). @ -As above X-rays interpreted by me (1pt min.). @ -None done CT interpreted by me (1pt min.). @ -Chest CT shows no suspicious recurrent/metastatic changes or abnormalities to account for inferior left axillary pain. Ascending TAA of 4.0 cm noted. U/S interpreted by me (1pt. min.). @ -None done What testing was considered but not performed or refused? (CT, X-rays, U/S, labs)? Why? @ -None What meds were considered but not given or refused? Why? @ -None Did you discuss the management of the patient with other professionals (professionals i.e. , PA, ED SPECIAL EDUCATION TEACHER, lab, RT, psych nurse, social services designee, terrazzo polisher helper, teacher, strike warfare/missile systems officer, manager rn case)? Give summary @ -No Was smoking cessation discussed for >3mins.? @ -No Was critical care preformed (if so, how long)? @ -No Were there social determinants of health that impacted care today? How? (Homelessness, low income, unemployed, alcoholism, drug addiction, transportation, low edu. Level, literacy, decrease access to med. care, retirement, rehab)? @ -No Was there de-escalation of care discussed even if they declined (Discuss DNR or withdrawal of care, Hospice)? DNR status @ -No What co-morbidities impacted this encounter? (DM, HTN, Smoking, COPD, CAD, Cancer, CVA, ARF, Chemo, Hep., AIDS, mental health diagnosis, sleep apnea, morbid obesity)? @ -None Was patient admitted / discharged? Hospital course, mention meds given and route, prescriptions, significant lab abnormalities, going to OR and other pertinent info. @ -Facial x-ray shows no obvious acute displaced facial bone fracture. Lab work shows elevated BUN/creatinine and hyperglycemia of 149. D-dimer and troponin negative. Lab workup otherwise unremarkable. Chest CT shows no suspicious recurrent/metastatic changes or abnormalities to account for inferior left axillary pain. Ascending TAA of 4.0 cm noted. Patient was given IV normal saline, Dilaudid and Toradol. Advised follow-up with primary care/skin carver regarding ongoing symptoms. Undiagnosed new problem with uncertain prognosis? @ -No Drug Therapy requiring intensive monitoring for toxicity (Heparin, Nitro, Insulin, Cardizem)? @ -No Were any procedures done? @ -No Diagnosis/symptom? @ -Chest wall pain Acute, or Chronic, or Acute on Chronic? @ -Acute Uncomplicated (without systemic symptoms) or Complicated (systemic symptoms)? @ -Complicated Side effects of treatment? @ -No Exacerbation, Progression, or Severe Exacerbation? @ -No Poses a threat to life or bodily function? How? (Chest pain, USA, CO, pneumonia, PE, COPD, DKA, ARF, appy, cholecystitis, CVA, Diverticulitis, Homicidal, Suicidal, threat to staff... and all critical care pts) @ -No (Abran Mitchell) - Lab Data Lab Results 10/28/24 10/28/24 10/28/24 Range/Units 14:56 14:56 14:56 WBC 9.6 (3.8-10.6) k/uL RBC 4.02 L (4.30-5.90) m/uL Hgb 13.2 (13.0-17.5) gm/dL Hct 39.8 (39.0-53.0) % MCV 98.9 (80.0-100.0) fL MCH 32.8 (25.0-35.0) pg MCHC 33.1 (31.0-37.0) g/dL RDW 14.1 (11.5-15.5) % Plt Count 207 (150-450) k/uL MPV 7.2 Neutrophils % 76 % Lymphocytes % 14 % Monocytes % 6 % Eosinophils % 1 % Basophils % 0 % Neutrophils # 7.4 (1.3-7.7) k/uL Lymphocytes # 1.4 (1.0-4.8) k/uL Monocytes # 0.6 (0-1.0) k/uL Eosinophils # 0.1 (0-0.7) k/uL Basophils # 0.0 (0-0.2) k/uL PT 10.9 (10.0-12.5) sec INR 1.0 (<1.2) APTT 23.0 (22.0-30.0) sec D-Dimer 0.33 (<0.60) mg/L FEU Sodium 138 (137-145) mmol/L Potassium 3.6 (3.5-5.1) mmol/L Chloride 106 (98-107) mmol/L Carbon Dioxide 22 (22-30) mmol/L Anion Gap 10 mmol/L BUN 29 H (9-20) mg/dL Creatinine 1.36 H (0.66-1.25) mg/dL Est GFR (CKD-EPI)AfAm 55 (>60 ml/min/1.73 sqM) Est GFR (CKD-EPI)NonAf 48 (>60 ml/min/1.73 sqM) Glucose 149 H (74-99) mg/dL Calcium 9.4 (8.4-10.2) mg/dL Total Bilirubin 1.3 (0.2-1.3) mg/dL AST 25 (17-59) U/L ALT 18 (4-49) U/L Alkaline Phosphatase 91 (38-126) U/L Troponin I (0.000-0.034) ng/mL Total Protein 6.6 (6.3-8.2) g/dL Albumin 4.3 (3.5-5.0) g/dL Lipase 138 (23-300) U/L 10/28/24 Range/Units 14:56 WBC (3.8-10.6) k/uL RBC (4.30-5.90) m/uL Hgb (13.0-17.5) gm/dL Hct (39.0-53.0) % MCV (80.0-100.0) fL MCH (25.0-35.0) pg MCHC (31.0-37.0) g/dL RDW (11.5-15.5) % Plt Count (150-450) k/uL MPV Neutrophils % % Lymphocytes % % Monocytes % % Eosinophils % % Basophils % % Neutrophils # (1.3-7.7) k/uL Lymphocytes # (1.0-4.8) k/uL Monocytes # (0-1.0) k/uL Eosinophils # (0-0.7) k/uL Basophils # (0-0.2) k/uL PT (10.0-12.5) sec INR (<1.2) APTT (22.0-30.0) sec D-Dimer (<0.60) mg/L FEU Sodium (137-145) mmol/L Potassium (3.5-5.1) mmol/L Chloride (98-107) mmol/L Carbon Dioxide (22-30) mmol/L Anion Gap mmol/L BUN (9-20) mg/dL Creatinine (0.66-1.25) mg/dL Est GFR (CKD-EPI)AfAm (>60 ml/min/1.73 sqM) Est GFR (CKD-EPI)NonAf (>60 ml/min/1.73 sqM) Glucose (74-99) mg/dL Calcium (8.4-10.2) mg/dL Total Bilirubin (0.2-1.3) mg/dL AST (17-59) U/L ALT (4-49) U/L Alkaline Phosphatase (38-126) U/L Troponin I 0.018 (0.000-0.034) ng/mL Total Protein (6.3-8.2) g/dL Albumin (3.5-5.0) g/dL Lipase (23-300) U/L Disposition <Ciarra Guerra - Last Filed: 10/28/24 14:24> Is patient prescribed a controlled substance at d/c from ED?: No Time of Disposition: 18:49 <Abran Mitchell - Last Filed: 10/28/24 19:02> Clinical Impression: Chest wall pain Disposition: HOME SELF-CARE Condition: Good Instructions (If sedation given, give patient instructions): Chest Wall Pain (E D) Referrals: John Vegas MD [Primary Care Provider] - 1-2 days Johny Domínguez MD [STAFF PHYSICIAN] - 1-2 days
[2024-10-28 15:06] LABS: Basophils % (A) 0 %; Eosinophils # (A) 0.1 k/uL (0-0.7); Eosinophils % (A) 1 %; HCT 39.8 % (39.0-53.0); HGB 13.2 gm/dL (13.0-17.5); Lymphocytes # (A) 1.4 k/uL (1.0-4.8); Lymphocytes % (A) 14 %; MCH 32.8 pg (25.0-35.0); MCHC 33.1 g/dL (31.0-37.0); MCV 98.9 fL (80.0-100.0); Mean Platelet Volume 7.2; Monocytes # (A) 0.6 k/uL (0-1.0); Monocytes % (A) 6 %; Neutrophils # (A) 7.4 k/uL (1.3-7.7); Neutrophils % (A) 76 %; Platelet Count 207 k/uL (150-450); RBC 4.02 m/uL (4.30-5.90); RDW 14.1 % (11.5-15.5); WBC 9.6 k/uL (3.8-10.6)
[2024-10-28 15:24] LABS: Prothrombin Time 10.9 sec (10.0-12.5)
[2024-10-28 15:44] LABS: ALT 18 U/L (4-49); AST 25 U/L (17-59); African American GFR (CKD) 55 (>60 ml/min/1.73 sqM); Albumin 4.3 g/dL (3.5-5.0); Alkaline Phosphatase 91 U/L (38-126); Anion Gap 10 mmol/L; Blood Urea Nitrogen 29 mg/dL (9-20); Calcium 9.4 mg/dL (8.4-10.2); Carbon Dioxide 22 mmol/L (22-30); Chloride 106 mmol/L (98-107); Glucose 149 mg/dL (74-99); Lipase 138 U/L (23-300); Non-African American GFR(CKD) 48 (>60 ml/min/1.73 sqM); Potassium 3.6 mmol/L (3.5-5.1); Sodium 138 mmol/L (137-145); Total Bilirubin 1.3 mg/dL (0.2-1.3); Total Protein 6.6 g/dL (6.3-8.2)
[2024-10-28] MEDS ORDERED: RX INFO: IV CONTRAST WAS GIVEN 1 EACH MISC MISCELLANE PRN (17:19)
[2024-10-28] MEDS: SODIUM CHLORIDE 0.9% 500 ML 500 ML IV STA (17:22)
[2024-10-28] MEDS: KETOROLAC 15 MG/ML 1 ML VIAL IVP STA (17:46)
[2024-10-28] MEDS: HYDROmorphone 0.5 MG/0.5 ML SYRINGE IVP STA (17:47)
[2024-10-28 17:49] VITALS: PULSE 80; RESP 18; TEMP 98
--- NOTE | 2024-10-28 18:37 | CT ---
EXAMINATION TYPE: CT chest w con DATE OF EXAM: 10/28/2024 5:50 PM COMPARISON: 09/01/2022 CLINICAL INDICATION: Male, 84 years old with history of Left inferior axillary pain, h/o lung CA, Lef t inferior axillary pain, h/o lung CA. TECHNIQUE: Axial images were obtained at 5 mm thick sections. Reconstructed images are reviewed on [email or web address] computer in the coronal plane. Contrast used:80 ml mL of Isovue 300 with IV Contrast, (none if empty) Oral contrast used: (none if empty) CT DLP: 627.4 mGycm, Automated exposure control for dose reduction was used. FINDINGS: Portion of the thyroid visualized is normal. No suspicious lung nodules or focal infiltrates are present. Some streak opacities in the right upper lung field may account prior reported neoplasm No enlarged mediastinal or hilar adenopathy is evident. The ascending aorta diameter at the level o f the main pulmonary artery is 4.0 cm. This is stable. The main pulmonary artery diameter at the bifu rcation is 4.0 cm. In stable No aortic dissection is evident. The aorta tapers normally passed the ma in pulmonary artery. Coronary artery calcifications present. Limited CT sections are obtained through the upper abdomen. Abdomen is essentially unremarkable. No suspicious axillary adenopathy is evident. IMPRESSION: 1. No suspicious recurrent or metastatic changes 2. No suspicious abnormalities to account for inferior left axillary pain 3. Ascending thoracic aortic aneurysm 4.0 cm. [facility], , 10/28/2024 6:35 PM
[2024-10-28 19:23] VITALS: BP 155/82
== END 2024-10-28 19:26 | disposition home or self-care (01) ==
LOC: EC 14:02
DX: R07.89 Other chest pain (principal); Z87.891 Personal history of nicotine dependence
CPT/HCPCS: 36415; 93005; 85379; 80053; 83690; 84484; 85025; 85610; 85730; 71260; 99284; 96374; 96375; 96361; J1885; J1171; Q9967